=== PATIENT | female | born 1970 | race Caucasian/White ===

== ENCOUNTER 2023-12-07 21:37 | Observation (INO) | payer OTHER, SELFPAY ==
[2023-12-07 21:40] VITALS: BP 110/88; PULSE 106; TEMP 37.2; O2SAT 96; BMI 27.6
--- NOTE | 2023-12-07 23:17 | PC.NURSE ---
Vomited non-stop yesterday none today
--- NOTE | 2023-12-07 23:20 | ED_ITS ---
HPI - Abdominal Pain General Chief Complaint: Abdominal Pain Stated Complaint: ABDOMINAL PAIN Time Seen by Provider: 12/07/23 23:14 Source: patient Mode of arrival: walk-in Limitations: no limitations History of Present Illness HPI narrative: 53-year-old female presents for nausea vomiting and abdominal pain. She states 2 days ago she ate pizza and then yesterday she developed her symptoms. She has vomited several times and has pain across her lower abdomen. No fever or hematemesis. The pain comes and goes and is moderate. Related Data Allergies Allergy/AdvReac Type Severity Reaction Status Date / Time sulfamethoxazole Allergy Mild Hives Verified 12/07/23 21:46 [From Bactrim] trimethoprim [From Bactrim] Allergy Mild Hives Verified 12/07/23 21:46 Review of Systems ROS Narrative A ten point review of systems is negative except as noted above. Exam Narrative Exam Narrative: Nurses note and vital signs reviewed and patient is not hypoxic. General: The patient appears in no acute distress. Skin: Warm, dry, no pallor noted. There is no rash noted. Head: Normocephalic, atraumatic Eye: Normal conjunctiva, no drainage Ears, Nose, Mouth, and Throat: oral mucosa is moist. Nares patent. Cardiovascular: Regular Rate and Rhythm Respiratory: Patient is in no distress, no accessory muscle use, lungs are roberto ar to auscultation, no wheezing, rales or rhonchi Back: non-tender GI: Bowel sounds are hyperactive. She has diffuse tenderness across her lower abdomen Musculoskeletal: The patient has no evidence of calf tenderness, no pitting edema, symmetrical pulses noted bilaterally Neurological: A&O, normal speech Psychiatric: Cooperative Constitutional Vital Signs, click to edit/add: Last Vital Signs Temp 99 F 12/07/23 21:40 Pulse 106 H 12/07/23 21:40 Resp 18 12/07/23 21:40 BP 110/88 12/07/23 21:40 Pulse Ox 96 12/07/23 21:40 O2 Del Method Room Air 12/07/23 21:40 Course Vital Signs Vital signs: Vital Signs Temperature 99 F 12/07/23 21:40 Pulse Rate 106 H 12/07/23 21:40 Respiratory Rate 18 12/07/23 21:40 Blood Pressure 110/88 12/07/23 21:40 Pulse Oximetry 96 12/07/23 21:40 Oxygen Delivery Method Room Air 12/07/23 21:40 Temperature 99 F 12/07/23 21:40 Pulse Rate 106 H 12/07/23 21:40 Respiratory Rate 18 12/07/23 21:40 Blood Pressure 110/88 12/07/23 21:40 Pulse Oximetry 96 12/07/23 21:40 Oxygen Delivery Method Room Air 12/07/23 21:40 MDM - Abdominal Pain MDM Narrative Medical decision making narrative: Acute appendicitis is identified with perforation on the CAT scan per radiologist. The patient is being given IV antibiotic and general surgery is being consulted. They have requested that the patient be admitted to medicine and he will see her in the morning. There is no plan for surgery tonight. Findings are discussed with the patient and her . Differential Diagnosis Differential diagnosis: Likely abdominal pain, acute appendicitis, calculus of kidney, constipation, diverticulitis and gastroenteritis Lab Data Attestation: I reviewed the patient's lab results. Labs: Lab Results 12/07/23 12/08/23 Range/Units 23:10 01:00 WBC 18.3 H (4.0-11.0) 10^3/uL RBC 4.13 L (4.20-5.40) 10^6/uL Hgb 12.5 (12.0-16.0) g/dL Hct 36.8 (36.0-48.0) % MCV 89.1 (81.0-99.0) fL MCH 30.3 (26.7-34.0) pg MCHC 34.0 (29.9-35.2) g/dL RDW 13.1 (11.0-15.0) % Plt Count 326 (150-450) 10^3/uL MPV 9.5 (9.5-13.5) fL Neut % (Auto) 83.7 H (43.0-75.0) % Lymph % (Auto) 7.0 L (20.5-60.0) % Long % (Auto) 8.3 (1.7-12.0) % Eos % (Auto) 0.1 L (0.9-7.0) % Baso % (Auto) 0.3 (0.2-2.0) % Neut # (Auto) 15.3 H (1.4-6.5) 10^3/uL Lymph # (Auto) 1.3 (1.2-3.8) 10^3/uL Long # (Auto) 1.5 H (0.3-0.8) 10^3/uL Eos # (Auto) 0.0 (0.0-0.7) 10^3/uL Baso # (Auto) 0.1 (0.0-0.1) 10^3/uL Abs Immat Gran (auto) 0.11 H (0.00-0.03) 10^3/uL Imm/Tot Granulo (auto) 0.6 H (0.0-0.5) % Sodium 134 L (136-145) mmol/L Potassium 3.3 L (3.5-5.1) mmol/L Chloride 98 (98-107) mmol/L Carbon Dioxide 26.5 (21.0-32.0) mmol/L Anion Gap 12.8 BUN 9.0 (7.0-18.0) mg/dL Creatinine 0.71 (0.55-1.02) mg/dL Est GFR ( Amer) >60 (>=60) Est GFR (Non-Af Amer) >60 (>=60) BUN/Creatinine Ratio 12.7 Glucose 120 H (74-106) mg/dL Calcium 9.3 (8.5-10.1) mg/dL Total Bilirubin 1.0 (0.2-1.0) mg/dL Direct Bilirubin 0.2 (0.0-0.2) mg/dL AST 9 L (15-37) U/L ALT 28 (14-59) U/L Alkaline Phosphatase 96 (46-116) U/L Total Protein 7.7 (6.4-8.2) g/dL Albumin 3.3 L (3.4-5.0) g/dL Globulin 4.4 g/dL Albumin/Globulin Ratio 0.8 Amylase 25 (25-115) U/L Lipase 15.0 L (16.0-77.0) U/L Urine Color Lt. yellow (YELLOW) Urine Clarity Clear (CLEAR) Urine pH 6.5 (5.0-9.0) Ur Specific [place] <=1.005 A (1.005-1.025) Urine Protein Negative (NEG/TRACE) mg/dL Urine Glucose (UA) Negative (NEGATIVE) mg/dL Urine Ketones Negative (NEGATIVE) mg/dL Urine Occult Blood Moderate A (NEGATIVE) Urine Nitrite Positive A (NEGATIVE) Urine Bilirubin Negative (NEGATIVE) Urine Urobilinogen 0.2 (0.2-1.0) EU/dL Ur Leukocyte Esterase Moderate A (NEGATIVE) Urine RBC None seen (0-2) #/HPF Urine WBC 20-50 A (NONE SEEN) #/HPF Ur Squamous Epith Cells Few A (NONE/RARE) #/LPF Urine Crystals None seen (None Seen) #/HPF Amorphous Sediment Few Urine Bacteria Moderate A (NONE SEEN) #/HPF Urine Casts None seen (NONE SEEN) #/LPF Urine Mucus None seen (NONE SEEN) Ur Culture Indicated? Yes Imaging Data CT scan - abdomen: Radiologist's impression: ITS Impressions Abdomen/Pelvis CT 12/07/23 23:29 IMPRESSION: 1. Acute perforated appendicitis. 2. Hepatic steatosis. 3. Nonobstructive right renal calculi. 4. Liquid stool throughout the majority of the colon, in keeping with diarrhea. 5. Small amount of free fluid in the pelvis. 6. Status post hysterectomy. Impression #[address] White by Dr. Baldwin at 1:55 AM on 12/08/2023. Electronically authenticated by: Ale BALDWIN Date: 12/08/2023 01:56 Discharge Plan Discharge Chief Complaint: Abdominal Pain Clinical Impression: Acute appendicitis with perforation and localized peritonitis Patient Disposition: Admitted As Inpatient Time of Disposition Decision: 02:15 Condition: Fair
[2023-12-07 23:27] LABS: Basophils Absolute Auto 0.1 10^3/uL (0.0-0.1); Basophils Percent Auto 0.3 % (0.2-2.0); Eosinophils Percent Auto 0.1 % (0.9-7.0); Hematocrit 36.8 % (36.0-48.0); Hemoglobin 12.5 g/dL (12.0-16.0); Immature Granulocytes Abs Auto 0.11 10^3/uL (0.00-0.03); Immature Granulocytes Pct Auto 0.6 % (0.0-0.5); Lymphocytes Absolute Auto 1.3 10^3/uL (1.2-3.8); Mean Corpuscular Hemoglobin 30.3 pg (26.7-34.0); Mean Corpuscular Volume 89.1 fL (81.0-99.0); Mean Platelet Volume 9.5 fL (9.5-13.5); Monocytes Absolute Auto 1.5 10^3/uL (0.3-0.8); Monocytes Percent Auto 8.3 % (1.7-12.0); Neutrophils Absolute Auto 15.3 10^3/uL (1.4-6.5); Neutrophils Percent Auto 83.7 % (43.0-75.0); Platelet Count 326 10^3/uL (150-450); Red Blood Count 4.13 10^6/uL (4.20-5.40); Red Cell Distribution Width 13.1 % (11.0-15.0); White Blood Count 18.3 10^3/uL (4.0-11.0)
--- NOTE | 2023-12-07 23:29 | CT_ITS ---
The [address] [address] Patient Name: RHETT BARTHOLOMEW MRN: [id number] date: 1970 Sex: F Assigned Patient Location: ER Current Patient Location: ER Accession/Order Number: [id number] Exam Date: 12/07/2023 23:59 Report Date: 12/08/2023 01:56 At the request of: BRANDON MARTINEZ Procedure: CT abdomen pelvis w con EXAM: CT abdomen pelvis w con HISTORY: Low abdominal pain, WBC 18,000 COMPARISON: None. TECHNIQUE: Axial CT images through the abdomen and pelvis were obtained after the intravenous administration of contrast. Coronal and sagittal reformats were obtained. Dose reduction techniques were achieved by using automated exposure control and/or adjustment of mA and/or kV according to patient size and/or use of iterative reconstruction technique. FINDINGS: There is mild bibasilar atelectasis. Abdomen: The liver and spleen enhance homogeneously without focal lesion. There is no intra or extrahepatic biliary duct dilatation. The gallbladder is unremarkable. There is hepatic steatosis. There are a couple nonobstructive right renal calculi measuring up to 2 mm. Liquid stool is seen throughout the majority of the colon. Otherwise, the pancreas, adrenal glands, and bowel loops are unremarkable. There is no mesenteric or retroperitoneal lymphadenopathy. The appendix is dilated measuring up to 1.2 cm. There is a surrounding inflammation and a small amount of surrounding free air. There is a small amount of free fluid in the pelvis. Pelvis: The bladder and rectum are unremarkable. There is no iliac or inguinal lymphadenopathy. The patient is status post a hysterectomy. Bone windows show no aggressive osseous lesions. CT/CT abdomen pelvis w con IMPRESSION: 1. Acute perforated appendicitis. 2. Hepatic steatosis. 3. Nonobstructive right renal calculi. 4. Liquid stool throughout the majority of the colon, in keeping with diarrhea. 5. Small amount of free fluid in the pelvis. 6. Status post hysterectomy. Impression #[address] Martinez by Dr. Baldwin at 1:55 AM on 12/08/2023. Electronically authenticated by: Ale BALDWIN Date: 12/08/2023 01:56
[2023-12-07] MEDS: ONDANSETRON PF 4 MG/2 ML VIAL IV (23:37)
[2023-12-07] MEDS: 0.9 % SODIUM CHLORIDE 1,000 ML 1000 ML IV (23:37)
[2023-12-07 23:42] LABS: Alanine Aminotransferase 28 U/L (14-59); Albumin Globulin Ratio 0.8; Albumin Level 3.3 g/dL (3.4-5.0); Alkaline Phosphatase 96 U/L (46-116); Amylase 25 U/L (25-115); Anion Gap 12.8; Aspartate Amino Transferase 9 U/L (15-37); BUN Creatinine Ratio 12.7; Bilirubin Direct 0.2 mg/dL (0.0-0.2); Calcium 9.3 mg/dL (8.5-10.1); Carbon Dioxide 26.5 mmol/L (21.0-32.0); Chloride 98 mmol/L (98-107); Estimated GFR (African America >60 (>=60); Estimated GFR (Non-African Ame >60 (>=60); Globulin 4.4 g/dL; Glucose 120 mg/dL (74-106); Potassium 3.3 mmol/L (3.5-5.1); Sodium 134 mmol/L (136-145); Total Protein 7.7 g/dL (6.4-8.2)
[2023-12-07] MEDS: MORPHINE SULFATE 4 MG/ML VIAL IV (23:45)
[2023-12-08] VITALS (42 sets, daily range): BP systolic 84–123; BP diastolic 47–87; PULSE 71–97; TEMP 36.3–37.1; O2SAT 86–97; BMI 28.0
[2023-12-08 01:16] LABS: Bilirubin Urine NEGATIVE (NEGATIVE); Blood Urine MODERATE (NEGATIVE); Clarity Urine CLEAR (CLEAR); Color Urine LT. YELLOW (YELLOW); Glucose Urine UA NEGATIVE (NEGATIVE); Ketones Urine NEGATIVE (NEGATIVE); Leukocyte Esterase Urine MODERATE (NEGATIVE); Nitrite Urine POSITIVE (NEGATIVE); Protein Urine NEGATIVE (NEG/TRACE); Specific Gravity Urine <=1.005 (1.005-1.025); Urobilinogen Urine 0.2 EU/dL (0.2-1.0); pH Urine 6.5 (5.0-9.0)
[2023-12-08 01:23] LABS: WBC Urine 20-50 #/HPF (NONE SEEN)
[2023-12-08 01:24] LABS: Amorphous Sediment Urine FEW; Bacteria Urine MODERATE #/HPF (NONE SEEN); Cast Seen? NONE SEEN #/LPF (NONE SEEN); Crystals Seen? None Seen #/HPF (None Seen); Mucus Urine NONE SEEN (NONE SEEN); RBC Urine NONE SEEN #/HPF (0-2); Squamous Epithelial Cell Urine FEW #/LPF (NONE/RARE); Urine Culture Indicated YES
[2023-12-08] MEDS: PIPERACILLIN SODIUM/TAZOBACTAM 3.375 GM in 0.9 % SODIUM CHLORIDE 50 ML IV ×3 (02:39→17:02)
[2023-12-08] MEDS: KETOROLAC TROMETHAMINE 30 MG/ML VIAL IVP ×3 (04:46→22:30)
[2023-12-08] MEDS: 0.9 % SODIUM CHLORIDE 1,000 ML 125 ML IV (04:46)
[2023-12-08 05:45] LABS: Basophils Percent Auto 0.3 % (0.2-2.0); Eosinophils Percent Auto 0.1 % (0.9-7.0); Hematocrit 35.2 % (36.0-48.0); Hemoglobin 11.8 g/dL (12.0-16.0); Immature Granulocytes Abs Auto 0.05 10^3/uL (0.00-0.03); Immature Granulocytes Pct Auto 0.3 % (0.0-0.5); Lymphocytes Absolute Auto 1.4 10^3/uL (1.2-3.8); Lymphocytes Percent Auto 9.8 % (20.5-60.0); Mean Corpuscular HGB Conc 33.5 g/dL (29.9-35.2); Mean Corpuscular Hemoglobin 30.7 pg (26.7-34.0); Mean Corpuscular Volume 91.7 fL (81.0-99.0); Monocytes Absolute Auto 1.4 10^3/uL (0.3-0.8); Monocytes Percent Auto 9.6 % (1.7-12.0); Neutrophils Absolute Auto 11.5 10^3/uL (1.4-6.5); Neutrophils Percent Auto 79.9 % (43.0-75.0); Platelet Count 307 10^3/uL (150-450); Red Blood Count 3.84 10^6/uL (4.20-5.40); Red Cell Distribution Width 13.1 % (11.0-15.0); White Blood Count 14.3 10^3/uL (4.0-11.0)
[2023-12-08 06:04] LABS: Alanine Aminotransferase 23 U/L (14-59); Albumin Globulin Ratio 0.8; Albumin Level 2.9 g/dL (3.4-5.0); Alkaline Phosphatase 91 U/L (46-116); Anion Gap 11.6; Aspartate Amino Transferase 8 U/L (15-37); BUN Creatinine Ratio 11.4; Bilirubin Total 0.8 mg/dL (0.2-1.0); Calcium 8.7 mg/dL (8.5-10.1); Carbon Dioxide 27.7 mmol/L (21.0-32.0); Chloride 102 mmol/L (98-107); Estimated GFR (African America >60 (>=60); Estimated GFR (Non-African Ame >60 (>=60); Globulin 3.8 g/dL; Glucose 96 mg/dL (74-106); Potassium 3.3 mmol/L (3.5-5.1); Sodium 138 mmol/L (136-145); Total Protein 6.7 g/dL (6.4-8.2)
--- NOTE | 2023-12-08 08:14 | PM.GSCN ---
History of Present Illness Consult details Consult date: 12/08/23 Reason for consult: abdominal pain Narrative: 53 yo F w/ history of rheumatoid arthritis on nabumetone, psoriasis and gerd presents with abdominal pain that began Juanjose am. It progressively localized to her RLQ and affected her ability to do her job and difficulty with walking. She thought at first she was constipated but became very nauseated as well. CT revealed acute appendicitis with perforation, phlegmon and some fluid noted in the pelvis. She denies any previous abdominal surgeries. Discussion had with patient and her about surgical vs non surgical options including the risks and benefits of both. She would like to proceed with surgery and accepts the increased risks, such as bowel resection, need for more procedures, chance of only placing a drain and leaving appendix to be removed on an interval basis, given her appendix has signs of rupture. All questions answered. Review of Systems ROS Status of ROS 10 or more systems reviewed and unremarkable except as noted in history and below Meds Home Medications and Allergies Home Medications ?Medication ?Instructions ?Recorded ?Confirmed ?Type clobetasol 0.05 % topical ointment 1 applic topical DAILY PRN 12/08/23 12/08/23 History scoriasis fluoxetine 20 mg capsule 20 mg PO DAILY 12/08/23 12/08/23 History hydrochlorothiazide 12.5 mg tablet 12.5 mg PO DAILY 12/08/23 12/08/23 History nabumetone 750 mg tablet 750 mg PO BID 12/08/23 12/08/23 History pantoprazole 40 mg tablet,delayed 40 mg PO BID 12/08/23 12/08/23 History release tizanidine 4 mg tablet 4 mg PO DAILY PRN muscle spasticity 12/08/23 12/08/23 History Allergies Allergy/AdvReac Type Severity Reaction Status Date / Time sulfamethoxazole Allergy Mild Hives Verified 12/07/23 21:46 [From Bactrim] trimethoprim [From Bactrim] Allergy Mild Hives Verified 12/07/23 21:46 Exam Constitutional Vital Signs, click to edit/add: Last Vital Signs Temp 97.6 F 12/08/23 03:58 Pulse 84 12/08/23 03:58 Resp 18 12/08/23 03:58 BP 113/75 12/08/23 03:58 Pulse Ox 96 12/08/23 03:58 O2 Del Method Room Air 12/08/23 03:58 Common normals: oriented x3, alert and well nourished HENMN Common normals: normocephalic Head and scalp: atraumatic Eye Common normals: PERRL and EOMs intact bilaterally Respiratory Common normals: normal respiratory effort and no retractions Cardio Common normals: regular rate and regular rhythm GI Palpation: soft Other: + RLQ tenderness and + rebound, mild distention noted Extremity Common normals: normal to inspection and full ROM Neuro Common normals: oriented x3 and no focal motor deficits Psych Appearance: grossly normal and well kempt Results Labs Labs: Abnormal lab results 12/07/23 12/08/23 12/08/23 Range/Units 23:10 01:00 03:57 WBC 18.3 H 14.3 H (4.0-11.0) 10^3/uL RBC 4.13 L 3.84 L (4.20-5.40) 10^6/uL Hgb 11.8 L (12.0-16.0) g/dL Hct 35.2 L (36.0-48.0) % Neut % (Auto) 83.7 H 79.9 H (43.0-75.0) % Lymph % (Auto) 7.0 L 9.8 L (20.5-60.0) % Eos % (Auto) 0.1 L 0.1 L (0.9-7.0) % Neut # (Auto) 15.3 H 11.5 H (1.4-6.5) 10^3/uL [place] # (Auto) 1.5 H 1.4 H (0.3-0.8) 10^3/uL Abs Immat Gran (auto) 0.11 H 0.05 H (0.00-0.03) 10^3/uL Imm/Tot Granulo (auto) 0.6 H (0.0-0.5) % Sodium 134 L (136-145) mmol/L Potassium 3.3 L 3.3 L (3.5-5.1) mmol/L Glucose 120 H (74-106) mg/dL AST 9 L 8 L (15-37) U/L Albumin 3.3 L 2.9 L (3.4-5.0) g/dL Lipase 15.0 L (16.0-77.0) U/L Ur Specific [place] <=1.005 A (1.005-1.025) Urine Occult Blood Moderate A (NEGATIVE) Urine Nitrite Positive A (NEGATIVE) Ur Leukocyte Esterase Moderate A (NEGATIVE) Urine WBC 20-50 A (NONE SEEN) #/HPF Ur Squamous Epith Cells Few A (NONE/RARE) #/LPF Urine Bacteria Moderate A (NONE SEEN) #/HPF Diabetes panel 12/07/23 12/08/23 Range/Units 23:10 03:57 Sodium 134 L 138 (136-145) mmol/L Potassium 3.3 L 3.3 L (3.5-5.1) mmol/L Chloride 98 102 (98-107) mmol/L Carbon Dioxide 26.5 27.7 (21.0-32.0) mmol/L BUN 9.0 8.0 (7.0-18.0) mg/dL Creatinine 0.71 0.70 (0.55-1.02) mg/dL Glucose 120 H 96 (74-106) mg/dL Calcium 9.3 8.7 (8.5-10.1) mg/dL AST 9 L 8 L (15-37) U/L ALT 28 23 (14-59) U/L Alkaline Phosphatase 96 91 (46-116) U/L Total Protein 7.7 6.7 (6.4-8.2) g/dL Albumin 3.3 L 2.9 L (3.4-5.0) g/dL Calcium panel 12/07/23 12/08/23 Range/Units 23:10 03:57 Calcium 9.3 8.7 (8.5-10.1) mg/dL Albumin 3.3 L 2.9 L (3.4-5.0) g/dL Pituitary panel 12/07/23 12/08/23 Range/Units 23:10 03:57 Sodium 134 L 138 (136-145) mmol/L Potassium 3.3 L 3.3 L (3.5-5.1) mmol/L Chloride 98 102 (98-107) mmol/L Carbon Dioxide 26.5 27.7 (21.0-32.0) mmol/L BUN 9.0 8.0 (7.0-18.0) mg/dL Creatinine 0.71 0.70 (0.55-1.02) mg/dL Glucose 120 H 96 (74-106) mg/dL Calcium 9.3 8.7 (8.5-10.1) mg/dL Adrenal panel 12/07/23 12/08/23 Range/Units 23:10 03:57 Sodium 134 L 138 (136-145) mmol/L Potassium 3.3 L 3.3 L (3.5-5.1) mmol/L Chloride 98 102 (98-107) mmol/L Carbon Dioxide 26.5 27.7 (21.0-32.0) mmol/L BUN 9.0 8.0 (7.0-18.0) mg/dL Creatinine 0.71 0.70 (0.55-1.02) mg/dL Glucose 120 H 96 (74-106) mg/dL Calcium 9.3 8.7 (8.5-10.1) mg/dL Total Bilirubin 1.0 0.8 (0.2-1.0) mg/dL AST 9 L 8 L (15-37) U/L ALT 28 23 (14-59) U/L Alkaline Phosphatase 96 91 (46-116) U/L Total Protein 7.7 6.7 (6.4-8.2) g/dL Albumin 3.3 L 2.9 L (3.4-5.0) g/dL All other labs normal. Imaging Abdomen CT scan report/results: image reviewed Assessment and Plan Assessment and Plan (1) Acute appendicitis with perforation and localized peritonitis: Assessment and Plan: After shared decision making patient would like to proceed with surgery. Plan for laparoscopic appendectomy, possible drain placement and or open procedure. Patient understands the increased risks of surgery given the appendix as already ruptured. Consent obtained and RN witnessed. Cont IV Abx and IV fluids Post op recs to follow Appreciate medical team for continued management and care. UTI treatment course per their discretion (2) Benign essential hypertension: (3) GERD without esophagitis:
[2023-12-08] MEDS: ACETAMINOPHEN 325 MG TABLET 650 MG PO (09:24)
--- NOTE | 2023-12-08 10:43 | P.ON_ITS ---
Date of procedure: 12/08/23 Pre-op diagnosis: acute appendicitis with perforation and phlegmon Procedure: Procedure laparoscopic Appendectomy The patient was taken to Operating Room, identified as the correct patient and the procedure verified as Appendectomy. A Time Out was held and the above information confirmed. The patient was placed in the supine position and general anesthesia was induced, along with placement of EPC cuffs, and a Mix catheter. The abdomen was prepped and draped in a sterile fashion. One centimeter left of the umbilicus an incision was made and the peritoneal cavity was accessed using the optiview technique via a 5mm port. The pneumoperitoneum was then established to steady pressure of 15 mmHg. Upon entrance with camera, no bowel injury was noted.? An additional 5 mm cannula was then placed in the supra pubic region of the abdomen and a 12 mm port in the LLQ under direct vision. A careful evaluation of the entire abdomen was carried out. The patient was placed in Trendelenburg and left lateral decubitus position. The small intestines were retracted in the cephalad and left lateral direction away from the pelvis and right lower quadrant. The patient was found to have an enlarged and inflamed appendix that was extending into the pelvis with associated opaque fluid consist ent with wound class 4. There was known perforation via prior CT imaging. The appendix was carefully dissected. A window was made in the mesoappendix at the base of the appendix. A endo ligasure device was used to divide mesoappendix. The appendix was divided at its base using an endo-CARMEN stapler. Minimal to no appendiceal stump was left in place. There was no evidence of bleeding, leakage, or complication after division of the appendix. Suction was also performed of the abdominal opaque fluid.?The appendix was placed in an endocatch bag and removed via the 12mm port site. The 12mm port site was closed using 0 Vicryl at the level of the fascia using a suture passer technique. All trocars were removed under direct vision while evacuating the pneumoperitoneum. No bleeding was noted. The port skin sites were closed using 4-0 monocryl followed by skin glue. Instrument, sponge, and needle counts were correct at the conclusion of the case. Patient tolerated the procedure well without any complications.? Patient was extubated and was transferred to PACU in stable condition.? Anesthesia: GETA Surgeon: Joey Wesley Estimated blood loss (mL): 5 Pathology: other (appendix ) Condition: stable Disposition: PACU
[2023-12-08] MEDS: BUPIVACAINE HCL 0.5% PF 50 MG/10 ML VIAL 20 ML INJ (10:57)
[2023-12-08] MEDS: LACTATED RINGER'S SOLUTION 1,000 ML 50 ML IV ×2 (11:12→22:57)
--- NOTE | 2023-12-08 11:17 | PM.HP ---
HPI H&P: HPI History of Present Illness Chief complaint: ABDOMINAL PAIN RUPTERED APPENDICITIS Narrative: 53 y/o female to ER with abdominal pain. C/o pain for past 2 days. Pain across lower abdomen. Developed nausea and vomiting. Severe pain with movement and not able to control. To ER and low grade temp 99. WBC elevated at 18.3. UA with possible UTI. CT showed acute appendicitis with perforation and admitted. General surgery consulted and started on zosyn. Currently pain tolerable and no nausea. Opioid HPI Opioid Management Most Recent Opioid Data: Last Pain Scale 6 12/08/23 09:41 Last Pain Assessment 12/08/23 09:41 Last ED Pain Assessment 12/07/23 23:18 Last MAR Pain Assessment 12/08/23 09:24 Last ORT Total Score 0 12/08/23 03:58 Last ORT Risk Category Low Risk 12/08/23 03:58 Review of Systems ROS Constitutional Denies: fever, chills or fatigue Cardiovascular Denies: chest pain, palpitations or edema Respiratory Denies: shortness of breath, cough or wheezing Gastrointestinal Reports: abdominal pain, nausea and vomiting; Denies: diarrhea Genitourinary Denies: painful urination Meds Home Medications and Allergies Home Medications ?Medication ?Instructions ?Recorded ?Confirmed ?Type clobetasol 0.05 % topical ointment 1 applic topical DAILY PRN 12/08/23 12/08/23 History scoriasis fluoxetine 20 mg capsule 20 mg PO DAILY 12/08/23 12/08/23 History hydrochlorothiazide 12.5 mg tablet 12.5 mg PO DAILY 12/08/23 12/08/23 History nabumetone 750 mg tablet 750 mg PO BID 12/08/23 12/08/23 History pantoprazole 40 mg tablet,delayed 40 mg PO BID 12/08/23 12/08/23 History release tizanidine 4 mg tablet 4 mg PO DAILY PRN muscle spasticity 12/08/23 12/08/23 History Allergies Allergy/AdvReac Type Severity Reaction Status Date / Time sulfamethoxazole Allergy Mild Hives Verified 12/07/23 21:46 [From Bactrim] trimethoprim [From Bactrim] Allergy Mild Hives Verified 12/07/23 21:46 Exam Constitutional Vital Signs, click to edit/add: Last Vital Signs Temp 98.7 F 12/08/23 08:00 Pulse 83 12/08/23 10:30 Resp 27 H 12/08/23 10:30 BP 119/84 12/08/23 09:51 Pulse Ox 94 L 12/08/23 10:10 O2 Del Method Room Air 12/08/23 03:58 Documenting provider has reviewed patient's vital signs: yes Common normals: no apparent distress, oriented x3 and alert HENMT Common normals: normocephalic Eye Common normals: PERRL and EOMs intact bilaterally Respiratory Common normals: normal respiratory effort and clear to auscultation bilaterally Cardio Common normals: regular rate, regular rhythm, no gallops, no murmurs and no rub GI Auscultation: normoactive bowel sounds Palpation: soft and tender (TTP across lower abdomen and RLQ); no guarding Extremity Common normals: no pedal edema Results Labs Labs: Short CBC 12/07/23 12/08/23 Range/Units 23:10 03:57 WBC 18.3 H 14.3 H (4.0-11.0) 10^3/uL Hgb 12.5 11.8 L (12.0-16.0) g/dL Hct 36.8 35.2 L (36.0-48.0) % Plt Count 326 307 (150-450) 10^3/uL BMP 12/07/23 12/08/23 23:10 03:57 Sodium 134 L 138 Potassium 3.3 L 3.3 L Chloride 98 102 Carbon Dioxide 26.5 27.7 BUN 9.0 8.0 Creatinine 0.71 0.70 Glucose 120 H 96 Calcium 9.3 8.7 Liver Function 12/07/23 12/08/23 Range/Units 23:10 03:57 Total Bilirubin 1.0 0.8 (0.2-1.0) mg/dL Direct Bilirubin 0.2 (0.0-0.2) mg/dL AST 9 L 8 L (15-37) U/L ALT 28 23 (14-59) U/L Alkaline Phosphatase 96 91 (46-116) U/L Albumin 3.3 L 2.9 L (3.4-5.0) g/dL Urine 12/08/23 Range/Units 01:00 Urine Color Lt. yellow (YELLOW) Urine Clarity Clear (CLEAR) Urine pH 6.5 (5.0-9.0) Ur Specific [place] <=1.005 A (1.005-1.025) Urine Protein Negative (NEG/TRACE) mg/dL Urine Glucose (UA) Negative (NEGATIVE) mg/dL Assessment and Plan Assessment and Plan (1) Acute appendicitis with perforation and localized peritonitis: (2) UTI (urinary tract infection): (3) Benign essential hypertension: (4) GERD without esophagitis: Plan Presented with appendicitis and perforation. General surgery consulted and will take to OR later this am. Appears to have UTI and on zosyn. Will monitor BP. Resume home medication. Further disposition after OR. Urinary Catheter Management Urinary Catheter Management Straight: Cath placed during this visit: no
[2023-12-08] MEDS: HYDROMORPHONE HCL 0.5 MG/0.5 ML SYRINGE 0.25 MG IV ×2 (14:39→17:56)
[2023-12-08] MEDS: OMEPRAZOLE 20 MG CAPSULE.DR PO (20:03)
[2023-12-09] MEDS: PIPERACILLIN SODIUM/TAZOBACTAM 3.375 GM in 0.9 % SODIUM CHLORIDE 50 ML IV ×2 (01:12→10:00)
[2023-12-09 04:01] VITALS: BP 116/83; PULSE 85; TEMP 36.9; O2SAT 94
[2023-12-09] MEDS: KETOROLAC TROMETHAMINE 30 MG/ML VIAL IVP ×2 (04:50→11:43)
[2023-12-09 05:09] LABS: Basophils Percent Auto 0.2 % (0.2-2.0); Eosinophils Percent Auto 0.1 % (0.9-7.0); Hematocrit 32.1 % (36.0-48.0); Hemoglobin 10.3 g/dL (12.0-16.0); Immature Granulocytes Abs Auto 0.06 10^3/uL (0.00-0.03); Immature Granulocytes Pct Auto 0.5 % (0.0-0.5); Lymphocytes Absolute Auto 0.8 10^3/uL (1.2-3.8); Mean Corpuscular HGB Conc 32.1 g/dL (29.9-35.2); Mean Corpuscular Hemoglobin 29.8 pg (26.7-34.0); Mean Corpuscular Volume 92.8 fL (81.0-99.0); Mean Platelet Volume 10.1 fL (9.5-13.5); Monocytes Absolute Auto 0.7 10^3/uL (0.3-0.8); Monocytes Percent Auto 6.4 % (1.7-12.0); Neutrophils Absolute Auto 9.8 10^3/uL (1.4-6.5); Neutrophils Percent Auto 85.8 % (43.0-75.0); Platelet Count 285 10^3/uL (150-450); Red Blood Count 3.46 10^6/uL (4.20-5.40); Red Cell Distribution Width 12.9 % (11.0-15.0); White Blood Count 11.4 10^3/uL (4.0-11.0)
[2023-12-09 05:38] LABS: Alanine Aminotransferase 30 U/L (14-59); Albumin Globulin Ratio 0.6; Albumin Level 2.5 g/dL (3.4-5.0); Alkaline Phosphatase 83 U/L (46-116); Anion Gap 10.5; Aspartate Amino Transferase 19 U/L (15-37); BUN Creatinine Ratio 13.8; Bilirubin Total 0.4 mg/dL (0.2-1.0); Calcium 8.7 mg/dL (8.5-10.1); Carbon Dioxide 28.1 mmol/L (21.0-32.0); Chloride 105 mmol/L (98-107); Estimated GFR (African America >60 (>=60); Estimated GFR (Non-African Ame >60 (>=60); Globulin 3.9 g/dL; Glucose 129 mg/dL (74-106); Potassium 3.6 mmol/L (3.5-5.1); Sodium 140 mmol/L (136-145); Total Protein 6.4 g/dL (6.4-8.2)
[2023-12-09 10:02] VITALS: BP 117/77
[2023-12-09] MEDS: HYDROCHLOROTHIAZIDE 25 MG TABLET 12.5 MG PO (10:02)
[2023-12-09] MEDS: OMEPRAZOLE 20 MG CAPSULE.DR PO (10:07)
--- NOTE | 2023-12-09 10:20 | PM.GSPN ---
Progress Note: A&P Assessment and Plan (1) Acute appendicitis with perforation and localized peritonitis: Assessment and Plan: Ok for d/c f/u in 1-2 weeks in clinic Lifting restrictions for 21 days (no more then 15lbs). Ok to return to work when patient is feeling better, typically 3-5 days. Go slow with diet and ambulate daily (2) UTI (urinary tract infection): (3) Benign essential hypertension: (4) GERD without esophagitis: Subjective Subjective Interval history: doing well this am. Tolerating diet. +flatus. Pain controlled. Exam Constitutional Vital Signs, click to edit/add: Last Vital Signs Temp 98.4 F 12/09/23 04:01 Pulse 85 12/09/23 04:01 Resp 18 12/09/23 04:01 BP 117/77 12/09/23 10:02 Pulse Ox 94 L 12/09/23 04:01 O2 Del Method Room Air 12/09/23 04:01 O2 Flow Rate 2 12/08/23 14:55 Common normals: no apparent distress and oriented x3 HENMT Common normals: normocephalic Head and scalp: atraumatic Eye Common normals: PERRL and EOMs intact bilaterally Cardio Common normals: regular rate and regular rhythm GI Other: soft, incisions c/d/i, no rebound, appropriate tenderness to palpation Extremity Common normals: normal to inspection and full ROM Neuro Common normals: oriented x3 Psych Appearance: grossly normal and well kempt Urinary Catheter Management Urinary Catheter Management Straight: Cath placed during this visit: no
[2023-12-09 10:50] VITALS: PULSE 88; O2SAT 96
--- NOTE | 2023-12-09 11:26 | CM.NOTE ---
Rounds made with Dr. Parker. Plan for discharge today.
--- NOTE | 2023-12-09 11:31 | P.DS_ITS ---
DS: Providers Provider Date of admission: 12/08/23 03:45 Primary care physician: YOAV CONTEH Consults: 12/08/23 03:44 Consult to General Surgeon Routine Consulting Provider: Joey Olson Reason for consultation: Acute Appendicitis Has provider been notified: Yes DS: Diagnosis Discharge Diagnosis (1) Acute appendicitis with perforation and localized peritonitis: (2) UTI (urinary tract infection): (3) Benign essential hypertension: (4) GERD without esophagitis: DS: Summary Hospital Course Hospital Course: Reason for admission: See H&P for details. 53 y/o female to ER with abdominal pain. C/o pain for past 2 days. Pain across lower abdomen. Developed nausea and vomiting. Severe pain with movement and not able to control. To ER and low grade temp 99. WBC elevated at 18.3. UA with possible UTI. CT showed acute appendicitis with perforation and admitted. Hospital course: General surgery consulted and started on zosyn. Taken to OR for appendectomy and did well. WBC improved and afebrile. Pain tolerable with medication. Ambulating well and normal PO intake. Discharged home in stable condition. Discussed need for antibiotics with surgeon who stated not needed for appendicitis but will treat with augmentin for possible UTI. Follow up with surgeon in 1-2 weeks. Time Spent with Patient Time attestation: Total time spent providing and/or coordinating discharge services: Time spent: less than 30 minutes Exam Constitutional Vital Signs, click to edit/add: Last Vital Signs Temp 98.4 F 12/09/23 04:01 Pulse 88 12/09/23 10:50 Resp 18 12/09/23 08:00 BP 117/77 12/09/23 10:02 Pulse Ox 96 12/09/23 10:50 O2 Del Method Room Air 12/09/23 10:50 O2 Flow Rate 2 12/08/23 14:55 Documenting provider has reviewed patient's vital signs: yes Common normals: no apparent distress, oriented x3 and alert HENMT Common normals: normocephalic Eye Common normals: PERRL and EOMs intact bilaterally Respiratory Common normals: normal respiratory effort and clear to auscultation bilaterally Cardio Common normals: regular rate, regular rhythm, no gallops, no murmurs and no rub GI Auscultation: normoactive bowel sounds Palpation: tender (Appropriately tender); no guarding Extremity Common normals: no pedal edema DS: Data Data Completed and Pending Labs on day of discharge: Labs from last 24 hours 12/09/23 04:26 WBC 11.4 H RBC 3.46 L Hgb 10.3 L Hct 32.1 L MCV 92.8 MCH 29.8 MCHC 32.1 RDW 12.9 Plt Count 285 MPV 10.1 Neut % (Auto) 85.8 H Lymph % (Auto) 7.0 L [place] % (Auto) 6.4 Eos % (Auto) 0.1 L Baso % (Auto) 0.2 Neut # (Auto) 9.8 H Lymph # (Auto) 0.8 L [place] # (Auto) 0.7 Eos # (Auto) 0.0 Baso # (Auto) 0.0 Abs Immat Gran (auto) 0.06 H Imm/Tot Granulo (auto) 0.5 Sodium 140 Potassium 3.6 Chloride 105 Carbon Dioxide 28.1 Anion Gap 10.5 BUN 9.0 Creatinine 0.65 Est GFR ( Amer) >60 Est GFR (Non-Af Amer) >60 BUN/Creatinine Ratio 13.8 Glucose 129 H Calcium 8.7 Total Bilirubin 0.4 AST 19 ALT 30 Alkaline Phosphatase 83 Total Protein 6.4 Albumin 2.5 L Globulin 3.9 Albumin/Globulin Ratio 0.6 Preliminary micro results at discharge 12/08/23 01:00 Urine Culture - Preliminary Urine,Clean Catch Discharge Plan Discharge Disposition: Home, Self-Care Condition: Fair Discharge Medications: New oxycodone-acetaminophen [Percocet] 5-325 mg tablet 1 tab PO Q4H PRN (Reason: abd pain) 3 Days Qty: 10 0RF docusate sodium [Colace] 100 mg capsule 100 mg PO BID 10 Days Qty: 20 0RF ondansetron 4 mg tablet,disintegrating 4 mg PO DAILY PRN (Reason: nausea and vomiting) 4 Days Qty: 10 0RF amoxicillin-pot clavulanate 875-125 mg tablet 1 tab PO Q12H 7 Days Qty: 14 0RF Continued clobetasol 0.05 % ointment 1 applic TOPICAL DAILY PRN (Reason: scoriasis ) fluoxetine 20 mg capsule 20 mg PO DAILY hydrochlorothiazide 12.5 mg tablet 12.5 mg PO DAILY nabumetone 750 mg tablet 750 mg PO BID pantoprazole 40 mg tablet,delayed release (DR/EC) 40 mg PO BID tizanidine 4 mg tablet 4 mg PO DAILY PRN (Reason: muscle spasticity) Activity: increase activity as tolerated Activity Detail: no heavy lifting for 21 days, no soaking in pool or bath until 14 days after surgery, ok to shower 12/08 Diet: advance to your usual diet Diet Detail: advance diet slowly Print Language: Cypriot Forms: Portal Instructions
== END 2023-12-09 12:40 | disposition home or self-care (01) ==
LOC: ER 12-08 03:52 → ICU 12-08 10:02 → MS 12-09 06:23 → ICU 12-10 13:18 → MS 12-10 13:18
PROVIDERS: Nurse Practitioner Acute Care; Surgery; Admitting Provider Family Medicine; Emergency Provider Emergency Medicine; PCP Family Medicine; Visit Provider Family Medicine
PROC: (CPT 840; principal; 2023-12-08 10:30)
DX: K35.32 Acute appendicitis with perforation, localized peritonitis, and gangrene, without abscess (principal); N39.0 Urinary tract infection, site not specified; I10 Essential (primary) hypertension; K21.9 Gastro-esophageal reflux disease without esophagitis; M06.9 Rheumatoid arthritis, unspecified; L40.9 Psoriasis, unspecified; Z79.899 Other long term (current) drug therapy; B96.20 Unspecified Escherichia coli [E. coli] as the cause of diseases classified elsewhere
CPT/HCPCS: 44970; 36415; 74177; 80048; 80053; 80076; 81001; 82150; 83690; 85025; 87086; 87150; 87186; 88304; 94761; 96361; 96365; 96366; 96375; 96376; 99285; G0378; J1094; J1170; J2704; Q9967

== ENCOUNTER 2023-12-16 17:05 | Inpatient (IN) | payer OTHER, SELFPAY ==
[2023-12-16 17:21] VITALS: BP 153/100; PULSE 92; TEMP 36.7; O2SAT 97; BMI 27.6
--- OUTSIDE RECORDS SUMMARY | 2023-12-16 17:25 | XMS_ITS | CCD ---
Author Organization [facility] CliniSyal Care Team Providers Care Manager Strategy Name Role Phone MAUREEN PETERS Admitting Unavailable MAUREEN PETERS Attending Unavailable WERO, YOAV Admitting Unavailable GIRMARIAH, YOAV Attending Unavailable YOAV CONTEH Consulting Unavailable GIRMARIAH, YOAV Admitting Unavailable GIRMARIAH, YOAV Attending Unavailable WERO, YOAV Consulting Unavailable MAUREEN PETERS Admitting Unavailable MAUREEN PETERS Attending Unavailable MAUREEN PETERS Consulting Unavailable WERO, YOAV Consulting Unavailable REGIS STALLWORTH Consulting Unavailable YOAV CONTEH Admitting Unavailable WERO, YOAV Attending Unavailable YOAV CONTEH Primary Care Unavailable YOAV CONTEH Consulting Unavailable MAUREEN PETERS Admitting Unavailable MAUREEN PETERS Attending Unavailable DO Isis Rosado Attending Provider [phone] DO Yoav Conteh Primary Care Provider Yoav Conteh Unavailable Dee Nicole Unavailable ISIS ROSADO Referring Unavailable YOAV CONTEH Primary Care Unavailable YOAV CONTEH Admitting Unavailable YOAV CONTEH Attending Unavailable YOAV CONTEH Primary Care Unavailable ASHLEY, TOMMY Admitting Unavailable ASHLEY, TOMMY Attending Unavailable YOAV CONTEH Primary Care Unavailable YOAV CONTEH Primary Care Unavailable ASHLEY, TOMMY Admitting Unavailable TOMMY RAMIREZ Attending Unavailable YOAV CONTEH Primary Care Unavailable YOAV CONTEH Admitting Unavailable YOAV CONTEH Attending Unavailable YOAV CONTEH Primary Care Unavailable YOAV CONTEH Admitting Unavailable YOAV CONTEH Attending Unavailable DO Yoav Conteh Primary Care Provider DO Joey Olson Attending Provider [phone] Dee Nicole Attending Unavailable Dee Nicole Admitting Unavailable Yoav Conteh Primary Care Unavailable Joey Olson Admitting Unavailable Yoav Conteh Primary Care Unavailable Joey Olson Attending Unavailable Allergies Allergy Classification Reported Allergen(s) Allergy Type Date of Onset Reaction(s) Facility (2 sources) Sulfamethoxazole / Trimethoprim Drug Allergy 3 [facility] Repository (5 sources) Sulfamethoxazole; Translations: [sulfamethoxazole] Drug Allergy [address] [facility] (5 sources) Trimethoprim; Translations: [trimethoprim] Drug Allergy 2 [facility] (9 sources) Sulfamethoxazole / Trimethoprim Drug Allergy [facility] Other (1 source) Sulfamethoxazole / Trimethoprim; Translations: [Bactrim] Drug Allergy [facility] Repository Medications Current Medications Medication Drug Class(es) Dates Sig (Normalized) Sig (Original) acetaminophen 500 mg oral tablet (2 sources) Start: 11-24-19 End: 09-09-19 24 take 2 tablets by mouth every six hours Acetaminophen (Acetaminophen Extra Strength) 500 mg tablet Active 1000 MG PO Q6H November 23, 2021 1:06pm docusate sodium 100 mg oral capsule (2 sources) Start: 11-24-19 22 End: 09-09-19 24 take 1 capsule by mouth once daily at bedtime Docusate Sodium (Dulcolax Stool Softener (Dss)) 100 mg capsule Active 100 MG PO Daily at bedtime November 23, 2021 1:06pm FLUoxetine 20 mg oral capsule (13 sources) Serotonin Reuptake Inhibitor Start: 10-25-19 21 take 20 mg by mouth once daily at bedtime Fluoxetine Active 20 MG PO Daily at bedtime November 15, 2021 12:00am fluticasone propionate 0.05 mg/actuat metered dose nasal spray (1 source) Corticosteroid Start: 09-09-19 24 take 1 spray(s) nasal route once daily Fluticasone Propionate Active 2 SPRAY INTRANASAL Daily September 09, 2023 12:00am administer into each nostril hydroCHLOROthiazide 12.5 mg oral tablet (4 sources) Thiazide Diuretic Start: 11-16-19 22 take 12.5 mg by mouth once daily in the morning Hydrochlorothiazide Active 12.5 MG PO Every morning November 15, 2021 11:34am Hydrochlorothiazide-12. 5 mg 12.5 mg (9 sources) take 1 tablet by mouth once daily Hydrochlorothiazide-12 .5 mg 12.5 mg 1 tablet Orally Once a day for 90 days Active take 1 tablet by mouth once yaritza y Hydrochlorothiazide-12.5 mg 12.5 mg 1 tablet Orally Once a day Active ibuprofen 600 mg oral tablet (2 sources) Nonsteroidal Anti-inflammatory Drug Start: 11-23-2021 End: 09-09-2023 take 600 mg by mouth every six hours Ibuprofen Active 600 MG PO Q6H 60 November 23, 2021 1:05pm nabumetone 750 mg oral tablet (2 sources) Nonsteroidal Anti-inflammatory Drug Start: 09-09-2023 Nabumetone Active MG PO September 09, 2023 12:00am take 1 tablet by leon th every twelve hours Nabumetone 750 MG 1 tablet Orally Twice a day Active Omeprazole (3 sources) Proton Pump Inhibitor Omeprazole Not-Taking Omeprazole Activ e pantoprazole 40 mg delayed release oral tablet (5 sources) Proton Pump Inhibitor Start: 09-09-2023 Pantoprazole Active MG PO September 09, 2023 12:00am take 1 tablet by leon th every twenty-four hours Pantoprazole Sodium 40 MG 1 tablet Orall y qd for 90 days Active predniSONE 20 mg oral tablet (3 sources) Start: 09-09-2023 take 20 mg by mouth twice daily Prednisone Active 20 MG PO Twice daily 10 September 09, 2023 12:00am Start: 12-26-2021 take 1 tablet by leon th every twelve hours predniSONE 20 MG 1 tablet Orally 2 times a day for 5 day(s) Nov, Not-Taking tiZANidine 4 mg oral tablet (2 sources) Central alpha-2 Adrenergic Agonist Start: 09-09-2023 Tizanidine Active MG PO September 09, 2023 12:00am Start: 07-29-2023 take 1 tablet by leon th once daily at bedtime Zanaflex 4 MG 1 tablet Orally qd hs Jul, Active vitamin b12 1 mg oral tablet (5 sources) Vitamin B12 Start: 11-15-2021 take 1 tablet by mouth once Cyanocobalamin (Vitamin B-12) (Vitamin B-12) 1,000 mcg Tablet Active 1000 MCG PO every Saturday, Saturday, and Monday November 15, 2021 11:34am Start: 06-12-2021 Vitamin B12 10 00 MCG 1 tablet Orally Sat through May, Active Vitamin B12 1000 MCG (8 sources) Start: 06-12-2021 Vitamin B12 10 00 MCG 1 tablet Orally Sat through May, Active Start: 06-12-2021 Vitamin B12 10 00 MCG 1 tablet Orally three days a week May, Not-Taking Start: 06-12-2021 Vitamin B12 10 00 MCG 1 tablet Orally three days a week May, Active Completed/Discontinued Medications Medication Drug Class(es) Dates Sig (Normalized) Sig (Original) calcium carbonate 1500 mg oral tablet (2 sources) take 1 tablet by leon th every twenty-four hours Calcium 600 MG 1 tablet with meals Orally qd Not-Taking/PRN take 1 tablet by leon th every twenty-four hours Calcium 600 MG 1 tablet with meals Orally qd Active diclofenac sodium 75 mg delayed release oral tablet (4 sources) Nonsteroidal Anti-inflammatory Drug take 1 tablet by mouth twice daily at mealtime Diclofenac Sodium 75 MG 1 tablet Orally twice a day with food or milk for 90 days Not-Taking/PRN Famotidine (2 sources) Histamine-2 Receptor Antagonist Pepcid Not-Taking Pepcid Active ferrous sulfate 325 mg oral tablet (8 sources) Start: 11-15-2021 End: 11-23-2021 take 1 tablet by mouth once daily Ferrous Sulfate (Iron (Ferrous Sulfate)) 325 mg (65 mg iron) Tablet Discontinued 325 MG PO Daily November 15, 2021 11:34am November 23, 2021 1:05pm Start: 06-12-2021 take 1 tablet by leon th once daily Ferrous Sulfate 325 (65 Fe) MG 1 tablet Orally Once a day May, Not-Taking Start: 06-12-2021 take 1 tablet by leon th once daily Ferrous Sulfate 325 (65 Fe) MG 1 tablet Orally Once a day May, Active Start: 06-12-2021 take 1 tablet by leon th every twenty-four hours Ferrous Sulfate 325 (65 Fe) MG 1 tablet Orally Once a day for 30 day(s) May, Active medroxyPROGESTERone acetate 10 mg oral tablet (2 sources) Progestin take 1 tablet by mouth every twenty-four hours Provera 10 MG 1 tablet with food Orally Once a day Not-Taking triamcinolone acetonide 40 mg/ml injectable suspension (6 sources) Corticosteroid Start: 2021 Kenalog-40 Nov, 40 mg valACYclovir 1000 mg oral tablet (3 sources) Herpesvirus Nucleoside Analog DNA Polymerase Inhibitor, Herpes Simplex Virus Nucleoside Analog DNA Polymerase Inhibitor, Herpes Zoster Virus Nucleoside Analog DNA Polymerase Inhibitor Start: 2021 take 1 tablet by mouth every eight hours Valtrex 1 GM 1 tablet Orally three times a day for 7 days Dec, Not-Taking Problems Active Problems Problem Classification Problem Date Documented Da te Episodic/Chronic Anxiety disorders (20 sources) Mixed anxiety and depressive disorder; Translations: [Other specified anxiety disorders] Onset: 1 Resolved: 2 Chronic Calculus of urinary tract (10 sources) Calculus of kidney; Translations: [Personal history of urinary calculi] Onset: 9 Resolved: 2 Episodic Deficiency and other anemia (9 sources) Iron deficiency anemia; Translations: [Iron deficiency anemia, unspecified] Episodic Deficiency and other anemia (5 sources) Iron deficiency anemia, unspecified Onset: 1 Resolved: 2 Episodic Deficiency and other anemia (2 sources) Anemia, unspecified Onset: 1 Resolved: 1 Episodic Disorders of lipid metabolism (20 sources) Hyperlipidemia; Translations: [Hyperlipidemia, unspecified] Onset: 1 Resolved: 1 Chronic Esophageal disorders (9 sources) Gastroesophageal reflux disease; Translations: [Gastro-esophageal reflux disease without esophagitis] Chronic Nutritional deficiencies (6 sources) Deficiency of other specified B group vitamins Onset: 1 Resolved: 2 Episodic Osteoarthritis (9 sources) Degenerative joint disease involving multiple joints; Translations: [Primary generalized (osteo)arthritis] Chronic Other aftercare (11 sources) Other chcf (current) drug therapy; 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] Onset: 9 Resolved: 2 Episodic Other gastrointestinal disorders (9 sources) Dysphagia; Translations: [Dysphagia, unspecified] Episodic Other inflammatory condition of skin (9 sources) Psoriasis; Translations: [Psoriasis, unspecified] Chronic Other inflammatory condition of skin (4 sources) Psoriatic arthritis; Translations: [Arthropathic psoriasis, unspecified] Chronic Other inflammatory condition of skin (2 sources) Arthropathic psoriasis, unspecified Chronic Other inflammatory condition of skin (1 source) Psoriasis, unspecified Chronic Other non-traumatic joint disorders (1 source) Pain in unspecified wrist Episodic Other nutritional; endocrine; and metabolic disorders (9 sources) Hypocalcemia; Translations: [Hypocalcemia] Chronic Other nutritional; endocrine; and metabolic disorders (1 source) Hypocalcemia Onset: 1 Resolved: 1 Chronic Other nutritional; endocrine; and metabolic disorders (5 sources) Abnormal weight gain Onset: 1 Resolved: 2 Episodic Other nutritional; endocrine; and metabolic disorders (1 source) Abnormal weight loss Episodic Other screening for suspected conditions (not mental disorders or infectious disease) (8 sources) Abnormal results of thyroid function studies; Translations: [Encounter for screening mammogram for malignant neoplasm of breast] Onset: 9 Resolved: 1 Episodic Other upper respiratory disease (9 sources) Allergic rhinitis; Translations: [Allergic rhinitis, unspecified] Chronic Other upper respiratory infections (9 sources) Chronic maxillary sinusitis; Translations: [Chronic maxillary sinusitis] Chronic Spondylosis; intervertebral disc disorders; other back problems (1 source) Cervicalgia Episodic Unclassified (1 source) Pain in right foot; Translations: [Pain in right foot] Onset: 4 Past or Other Problems Problem Classification Problem Date Documented Da te Episodic/Chronic Allergic reactions (2 sources) Urticaria, unspecified Onset: 12-26-2021 Resolved: 01-15-2022 Episodic Fluid and electrolyte disorders (4 sources) Hypokalemia; Translations: [Hyperkalemia] Onset: 08-30-2018 Episodic Lymphadenitis (1 source) Generalized enlarged lymph nodes Onset: 06-12-2021 Resolved: 06-12-2021 Episodic Other gastrointestinal disorders (1 source) Dysphagia, unspecified Onset: 06-12-2021 Resolved: 06-12-2021 Episodic Other liver diseases (4 sources) Abnormal levels of other serum enzymes; Translations: [ABNORMAL LEVELS OTHER SERUM ENZYMES] Onset: 09-20-2018 Episodic Other upper respiratory disease (1 source) Pain in throat Onset: 06-12-2021 Resolved: 06-12-2021 Episodic Viral infection (1 source) Zoster without complications Onset: 01-15-2022 Resolved: 01-15-2022 Episodic Results Test Name Value Interpretation Reference Range Facility Basophils Auto (Bld) [#/Vol] on 12-09-2023 Basophils (Bld) [#/Vol] 0.0 10 3/uL 0.0-0.1 [facility] Basophils/100 WBC Auto (Bld) on 12-09-2023 Basophils/100 WBC (Bld) 0.2 % 0.2-2.0 [facility] Eosinophils/100 WBC Auto (Bl d)on 12-09-2023 Eosinophils/100 WBC (Bld) 0.1 % 0.9-7.0 [facility] Erythrocyte distribution wid th Auto (RBC) [Ratio]on 12-09-2023 Erythrocyte distribution width (RBC) [Ratio] 12.9 % 11.0-15.0 [facility] Estimated glomerular filtrat ion rate (GFR) non- Americanon 12-09-2023 GFR/1.73 sq M.predicted among non-blacks MDRD (S/P/Bld) [Vol rate/Area] mL/min/{1.73_m2} >=60 [facility] Globulin Calc (S) [Mass/Vol] on 12-09-2023 Globulin (S) [Mass/Vol] 3.9 g/dL [facility] Hematocrit Auto (Bld) [Volum e fraction]on 12-09-2023 Hematocrit (Bld) [Volume fraction] 32.1 % 36.0-48.0 [facility] Hemoglobin [Mass/volume] in Bloodon 12-09-2023 Hemoglobin (Bld) [Mass/Vol] 10.3 g/dL 12.0-16.0 [facility] Laboratory - Chemistry and C hemistry - challengeon 12-09-2023 Albumin [Mass/Vol] 2.5 g/dL 3.4-5.0 [facility] ALP [Catalytic activity/Vol] 83 U/L 46-116 [facility] ALT [Catalytic activity/Vol] 30 U/L 14-59 [facility] AST [Catalytic activity/Vol] 19 U/L 15-37 [facility] Bilirubin [Mass/Vol] 0.4 mg/dL 0.2-1.0 [facility] Calcium [Mass/Vol] 8.7 mg/dL 8.5-10.1 [facility] Chloride [Moles/Vol] 105 mmol/L 98-107 [facility] CO2 [Moles/Vol] 28.1 mmol/L 21.0-32.0 [facility] Creatinine [Mass/Vol] 0.65 mg/dL 0.55-1.02 [facility] GFR/1.73 sq M.predicted MDRD (S/P/Bld) [Vol rate/Area] mL/min/{1.73_m2} >=60 [facility] Glucose [Mass/Vol] 129 mg/dL 74-106 [facility] Potassium [Moles/Vol] 3.6 mmol/L 3.5-5.1 [facility] Protein [Mass/Vol] 6.4 g/dL 6.4-8.2 [facility] Sodium [Moles/Vol] 140 mmol/L 136-145 [facility] Urea nitrogen [Mass/Vol] 9.0 mg/dL 7.0-18.0 [facility] Urea nitrogen/Creatinine [Mass ratio] 13.8 mg/mg [facility] Laboratory - Hematology and Cell countson 12-09-2023 Immature granulocytes/100 WBC (Bld) 0.5 % 0.0-0.5 [facility] Leukocytes [#/volume] correc rory for nucleated erythrocytes in Blood by Automated counon 12-09-2023 WBC corrected for nucl RBC Auto (Bld) [#/Vol] 11.4 10 3/uL 4.0-11.0 [facility] Lymphocytes Auto (Bld) [#/Vo l]on 12-09-2023 Lymphocytes (Bld) [#/Vol] 0.8 10 3/uL 1.2-3.8 [facility] Lymphocytes/100 WBC Auto (Bl d)on 12-09-2023 Lymphocytes/100 WBC (Bld) 7.0 % 20.5-60.0 [facility] MCH Auto (RBC) [Entitic mass ]on 12-09-2023 MCH (RBC) [Entitic mass] 29.8 pg 26.7-34.0 [facility] MCHC Auto (RBC) [Mass/Vol]on 12-09-2023 MCHC (RBC) [Mass/Vol] 32.1 g/dL 29.9-35.2 [facility] MCV Auto (RBC) [Entitic vol] on 12-09-2023 MCV (RBC) [Entitic vol] 92.8 fL 81.0-99.0 [facility] Monocytes Auto (Bld) [#/Vol] on 12-09-2023 Monocytes (Bld) [#/Vol] 0.7 10 3/uL 0.3-0.8 [facility] Monocytes/100 WBC Auto (Bld) on 12-09-2023 Monocytes/100 WBC (Bld) 6.4 % 1.7-12.0 [facility] Neutrophils Auto (Bld) [#/Vo l]on 12-09-2023 Neutrophils (Bld) [#/Vol] 9.8 10 3/uL 1.4-6.5 [facility] Neutrophils/100 WBC Auto (Bl d)on 12-09-2023 Neutrophils/100 WBC (Bld) 85.8 % 43.0-75.0 [facility] No Panel Informationon 12-08 Eosinophils # (Auto) 0.0 10 3/uL 0.0-0.7 [facility] Immature Granulocyte # (Auto) 0.06 10 3/uL 0.00-0.03 [facility] Platelet mean volume Auto (B ld) [Entitic vol]on 12-09-2023 Platelet mean volume (Bld) [Entitic vol] 10.1 fL 9.5-13.5 [facility] Platelets Auto (Bld) [#/Vol] on 12-09-2023 Platelets (Bld) [#/Vol] 285 10 3/uL 150-450 [facility] RBC Auto (Bld) [#/Vol]on RBC (Bld) [#/Vol] 3.46 10 6/uL 4.20-5.40 [facility] Serum or plasma albumin/glob ulin mass ratioon 12-09-2023 Albumin/Globulin [Mass ratio] 0.6 {ratio} [facility] Serum or plasma anion gap de terminationon 12-09-2023 Anion gap [Moles/Vol] 10.5 [facility] Basophils Auto (Bld) [#/Vol] on 12-08-2023 Basophils (Bld) [#/Vol] 0.0 10 3/uL 0.0-0.1 [facility] Basophils/100 WBC Auto (Bld) on 12-08-2023 Basophils/100 WBC (Bld) 0.3 % 0.2-2.0 [facility] Eosinophils/100 WBC Auto (Bl d)on 12-08-2023 Eosinophils/100 WBC (Bld) 0.1 % 0.9-7.0 [facility] Erythrocyte distribution wid th Auto (RBC) [Ratio]on 12-08-2023 Erythrocyte distribution width (RBC) [Ratio] 13.1 % 11.0-15.0 [facility] Estimated glomerular filtrat ion rate (GFR) non- Americanon 12-08-2023 GFR/1.73 sq M.predicted among non-blacks MDRD (S/P/Bld) [Vol rate/Area] mL/min/{1.73_m2} >=60 [facility] Globulin Calc (S) [Mass/Vol] on 12-08-2023 Globulin (S) [Mass/Vol] 3.8 g/dL [facility] Hematocrit Auto (Bld) [Volum e fraction]on 12-08-2023 Hematocrit (Bld) [Volume fraction] 35.2 % 36.0-48.0 [facility] Hemoglobin [Mass/volume] in Bloodon 12-08-2023 Hemoglobin (Bld) [Mass/Vol] 11.8 g/dL 12.0-16.0 [facility] Ottoniel 12-08-2023 L Specimen: [id number] Received: 12/09/23 Status: LUZ Allen Num: [id number] Spec Type: Surgical Subm Dr: Joey Olson DO Tissues: A Appendix - Other than Incidental (APPENDIX) Procedures: HE/3, Gross/Micro L3 Age/ Patient Sex Location Account Attending Physician Rhett Bartholomew 53/F [facility] [id number] Joey Olson DO SPEC NUM: [id number] RECD: 12/09/23 STATUS: LUZ LVIESurjit NUM: [id number] KATYA: 12/08/[address]: Joey Olson DO ENTERED: 12/09/[address] [facility] [address]: Vin,Jazmin SPEC TYPE: Surgical DEPT: TOLU HUGGINS ORDERED: HE/3, Gross/Micro L3 ORDERED: HE/3, Gross/Micro L3 Pathological Diagnosis Appendix, appendectomy: -Severe acute suppurative, necrotizing, infected, and focally gangrenous appendicitis, with diffuse abscess formation, and focal perforation, and severe acute serositis, peritonitis, and patchy hemorrhagic adhesions are apparent Clinical Information Abdominal pain, ruptured appendicitis Gross Description Received in formalin, labeled with the patient's name, date of and appendix is a 5.6 cm in length by 0.9 cm in diameter vermiform appendix with attached mesoappendix and covered by dusky tang-brown serosa with adherent exudate material. The proximal margin contains a staple line which is removed and the adjacent tissue is inked blue. Cut sections reveal 2 areas of perforation 1 area coming to within 0.5 cm of the proximal margin and the second area coming to within 1.5 cm of the distal end. The lumen is lined by hemorrhagic dusky gomes mucosa and contains brown semisolid fecal material. The specimen is representatively submitted in A1?A2 (base and midportion to include areas of perforation)-A3 (entire distal tip). TW ---- Specimen: [id number] Received: 12/09/23 Status: LUZ Allen Num: [id number] Spec Type: Surgical Subm Dr: Joey Olson DO Tissues: A Appendix - Other than Incidental (APPENDIX) Procedures: HE/3, Gross/Micro L3 ---- Patient: Rhett Bartholomew [id number] (Continued) ---- Specimen: [id number] Received: 12/09/23 (Continued) Signed (signature on file) Areli Silveira MD 12/10/23 1909 ---- Specimen: [id number] Received: 12/09/23 Status: LUZ Allen Num: [id number] Spec Type: Surgical Subm Dr: Joey Olson DO Tissues: A Appendix - Other than Incidental (APPENDIX) Procedures: HE/3, Gross/Micro L3 ---- Patient: Rhett Bartholomew [id number] (Continued) ---- Specimen: [id number] Received: 12/09/23 (Continued) CPT Codes 63541 ---- ---- Specimen: [id number] Received: 12/09/23 Status: LUZ Allen Num: [id number] Spec Type: Surgical Subm Dr: Joey Olson DO Tissues: A Appendix - Other than Incidental (APPENDIX) Procedures: HE/3, Gross/Micro L3 ---- Patient: Rhett Bartholomew [id number] (Continued) ---- Signed (signature on file) Areli Silveira MD 12/10/231908 Normal [facility] Laboratory - Chemistry and C hemistry - challengeon 12-08-2023 Albumin [Mass/Vol] 2.9 g/dL 3.4-5.0 [facility] ALP [Catalytic activity/Vol] 91 U/L 46-116 [facility] ALT [Catalytic activity/Vol] 23 U/L 14-59 [facility] AST [Catalytic activity/Vol] 8 U/L 15-37 [facility] Bilirubin [Mass/Vol] 0.8 mg/dL 0.2-1.0 [facility] Calcium [Mass/Vol] 8.7 mg/dL 8.5-10.1 [facility] Chloride [Moles/Vol] 102 mmol/L 98-107 [facility] CO2 [Moles/Vol] 27.7 mmol/L 21.0-32.0 [facility] Creatinine [Mass/Vol] 0.70 mg/dL 0.55-1.02 [facility] GFR/1.73 sq M.predicted MDRD (S/P/Bld) [Vol rate/Area] mL/min/{1.73_m2} >=60 [facility] Glucose [Mass/Vol] 96 mg/dL 74-106 [facility] Potassium [Moles/Vol] 3.3 mmol/L 3.5-5.1 [facility] Protein [Mass/Vol] 6.7 g/dL 6.4-8.2 [facility] Sodium [Moles/Vol] 138 mmol/L 136-145 [facility] Urea nitrogen [Mass/Vol] 8.0 mg/dL 7.0-18.0 [facility] Urea nitrogen/Creatinine [Mass ratio] 11.4 mg/mg [facility] Bilirubin Ql (U) Negative NEGATIVE [facility] Glucose (U) [Mass/Vol] Negative NEGATIVE [facility] Ketones Ql (U) Negative NEGATIVE [facility] pH (U) 6.5 [pH] 5.0-9.0 [facility] Specific gravity (U) [Rel density] <=1.005 1.005-1.025 [facility] Urobilinogen Qn (U) 0.2 {Jamie'U}/dL 0.2-1.0 [facility] Laboratory - Hematology and Cell countson 12-08-2023 Immature granulocytes/100 WBC (Bld) 0.3 % 0.0-0.5 [facility] Laboratory - Specimen inform ationon 12-08-2023 Appearance (U) CLEAR CLEAR [facility] Color (U) LT. YELLOW YELLOW [facility] Laboratory - Urinalysison Amorphous sediment LM Ql (Urine sed) FEW [facility] Leukocyte esterase Test strip Ql (U) MODERATE NEGATIVE [facility] Mucus Ql (Urine sed) NONE SEEN NONE SEEN [facility] Nitrite Ql (U) Positive NEGATIVE [facility] Protein Ql (U) Negative NEG/TRACE [facility] Leukocytes [#/volume] correc rory for nucleated erythrocytes in Blood by Automated counon 12-08-2023 WBC corrected for nucl RBC Auto (Bld) [#/Vol] 14.3 10 3/uL 4.0-11.0 [facility] Lymphocytes Auto (Bld) [#/Vo l]on 12-08-2023 Lymphocytes (Bld) [#/Vol] 1.4 10 3/uL 1.2-3.8 [facility] Lymphocytes/100 WBC Auto (Bl d)on 12-08-2023 Lymphocytes/100 WBC (Bld) 9.8 % 20.5-60.0 [facility] MCH Auto (RBC) [Entitic mass ]on 12-08-2023 MCH (RBC) [Entitic mass] 30.7 pg 26.7-34.0 [facility] MCHC Auto (RBC) [Mass/Vol]on 12-08-2023 MCHC (RBC) [Mass/Vol] 33.5 g/dL 29.9-35.2 [facility] MCV Auto (RBC) [Entitic vol] on 12-08-2023 MCV (RBC) [Entitic vol] 91.7 fL 81.0-99.0 [facility] Monocytes Auto (Bld) [#/Vol] on 12-08-2023 Monocytes (Bld) [#/Vol] 1.4 10 3/uL 0.3-0.8 [facility] Monocytes/100 WBC Auto (Bld) on 12-08-2023 Monocytes/100 WBC (Bld) 9.6 % 1.7-12.0 [facility] Neutrophils Auto (Bld) [#/Vo l]on 12-08-2023 Neutrophils (Bld) [#/Vol] 11.5 10 3/uL 1.4-6.5 [facility] Neutrophils/100 WBC Auto (Bl d)on 12-08-2023 Neutrophils/100 WBC (Bld) 79.9 % 43.0-75.0 [facility] No Panel Informationon 12-07 Eosinophils # (Auto) 0.0 10 3/uL 0.0-0.7 [facility] Immature Granulocyte # (Auto) 0.05 10 3/uL 0.00-0.03 [facility] Urine Bacteria MODERATE #/HPF NONE SEEN [facility] Urine Culture Reflexed YES [facility] Urine Occult Blood MODERATE NEGATIVE [facility] Urine Other Casts NONE SEEN #/LPF NONE SEEN [facility] Urine Other Crystals None Seen #/HPF None Seen [facility] Urine RBC NONE SEEN #/HPF 0-2 [facility] Urine Squamous Epithelial Cells FEW #/LPF NONE/RARE [facility] Urine WBC 20-50 #/HPF NONE SEEN [facility] Platelet mean volume Auto (B ld) [Entitic vol]on 12-08-2023 Platelet mean volume (Bld) [Entitic vol] 10.0 fL 9.5-13.5 [facility] Platelets Auto (Bld) [#/Vol] on 12-08-2023 Platelets (Bld) [#/Vol] 307 10 3/uL 150-450 [facility] RBC Auto (Bld) [#/Vol]on RBC (Bld) [#/Vol] 3.84 10 6/uL 4.20-5.40 [facility] Serum or plasma albumin/glob ulin mass ratioon 12-08-2023 Albumin/Globulin [Mass ratio] 0.8 {ratio} [facility] Serum or plasma anion gap de terminationon 12-08-2023 Anion gap [Moles/Vol] 11.6 [facility] Basophils Auto (Bld) [#/Vol] on 12-07-2023 Basophils (Bld) [#/Vol] 0.1 10 3/uL 0.0-0.1 [facility] Basophils/100 WBC Auto (Bld) on 12-07-2023 Basophils/100 WBC (Bld) 0.3 % 0.2-2.0 [facility] Eosinophils/100 WBC Auto (Bl d)on 12-07-2023 Eosinophils/100 WBC (Bld) 0.1 % 0.9-7.0 [facility] Erythrocyte distribution wid th Auto (RBC) [Ratio]on 12-07-2023 Erythrocyte distribution width (RBC) [Ratio] 13.1 % 11.0-15.0 [facility] Estimated glomerular filtrat ion rate (GFR) non- Americanon 12-07-2023 GFR/1.73 sq M.predicted among non-blacks MDRD (S/P/Bld) [Vol rate/Area] mL/min/{1.73_m2} >=60 [facility] Globulin Calc (S) [Mass/Vol] on 12-07-2023 Globulin (S) [Mass/Vol] 4.4 g/dL [facility] Hematocrit Auto (Bld) [Volum e fraction]on 12-07-2023 Hematocrit (Bld) [Volume fraction] 36.8 % 36.0-48.0 [facility] Hemoglobin [Mass/volume] in Bloodon 12-07-2023 Hemoglobin (Bld) [Mass/Vol] 12.5 g/dL 12.0-16.0 [facility] Laboratory - Chemistry and C hemistry - challengeon 12-07-2023 Albumin [Mass/Vol] 3.3 g/dL 3.4-5.0 [facility] ALP [Catalytic activity/Vol] 96 U/L 46-116 [facility] ALT [Catalytic activity/Vol] 28 U/L 14-59 [facility] Amylase [Catalytic activity/Vol] 25 U/L 25-115 [facility] AST [Catalytic activity/Vol] 9 U/L 15-37 [facility] Bilirubin [Mass/Vol] 1.0 mg/dL 0.2-1.0 [facility] Bilirubin.direct [Mass/Vol] 0.2 mg/dL 0.0-0.2 [facility] Calcium [Mass/Vol] 9.3 mg/dL 8.5-10.1 [facility] Chloride [Moles/Vol] 98 mmol/L 98-107 [facility] CO2 [Moles/Vol] 26.5 mmol/L 21.0-32.0 [facility] Creatinine [Mass/Vol] 0.71 mg/dL 0.55-1.02 [facility] GFR/1.73 sq M.predicted MDRD (S/P/Bld) [Vol rate/Area] mL/min/{1.73_m2} >=60 [facility] Glucose [Mass/Vol] 120 mg/dL 74-106 [facility] Lipase [Catalytic activity/Vol] 15.0 U/L 16.0-77.0 [facility] Potassium [Moles/Vol] 3.3 mmol/L 3.5-5.1 [facility] Protein [Mass/Vol] 7.7 g/dL 6.4-8.2 [facility] Sodium [Moles/Vol] 134 mmol/L 136-145 [facility] Urea nitrogen [Mass/Vol] 9.0 mg/dL 7.0-18.0 [facility] Urea nitrogen/Creatinine [Mass ratio] 12.7 mg/mg [facility] Laboratory - Hematology and Cell countson 12-07-2023 Immature granulocytes/100 WBC (Bld) 0.6 % 0.0-0.5 [facility] Leukocytes [#/volume] correc rory for nucleated erythrocytes in Blood by Automated counon 12-07-2023 WBC corrected for nucl RBC Auto (Bld) [#/Vol] 18.3 10 3/uL 4.0-11.0 [facility] Lymphocytes Auto (Bld) [#/Vo l]on 12-07-2023 Lymphocytes (Bld) [#/Vol] 1.3 10 3/uL 1.2-3.8 [facility] Lymphocytes/100 WBC Auto (Bl d)on 12-07-2023 Lymphocytes/100 WBC (Bld) 7.0 % 20.5-60.0 [facility] MCH Auto (RBC) [Entitic mass ]on 12-07-2023 MCH (RBC) [Entitic mass] 30.3 pg 26.7-34.0 [facility] MCHC Auto (RBC) [Mass/Vol]on 12-07-2023 MCHC (RBC) [Mass/Vol] 34.0 g/dL 29.9-35.2 [facility] MCV Auto (RBC) [Entitic vol] on 12-07-2023 MCV (RBC) [Entitic vol] 89.1 fL 81.0-99.0 [facility] Monocytes Auto (Bld) [#/Vol] on 12-07-2023 Monocytes (Bld) [#/Vol] 1.5 10 3/uL 0.3-0.8 [facility] Monocytes/100 WBC Auto (Bld) on 12-07-2023 Monocytes/100 WBC (Bld) 8.3 % 1.7-12.0 [facility] Neutrophils Auto (Bld) [#/Vo l]on 12-07-2023 Neutrophils (Bld) [#/Vol] 15.3 10 3/uL 1.4-6.5 [facility] Neutrophils/100 WBC Auto (Bl d)on 12-07-2023 Neutrophils/100 WBC (Bld) 83.7 % 43.0-75.0 [facility] No Panel Informationon 12-06 Eosinophils # (Auto) 0.0 10 3/uL 0.0-0.7 [facility] Immature Granulocyte # (Auto) 0.11 10 3/uL 0.00-0.03 [facility] Platelet mean volume Auto (B ld) [Entitic vol]on 12-07-2023 Platelet mean volume (Bld) [Entitic vol] 9.5 fL 9.5-13.5 [facility] Platelets Auto (Bld) [#/Vol] on 12-07-2023 Platelets (Bld) [#/Vol] 326 10 3/uL 150-450 [facility] RBC Auto (Bld) [#/Vol]on RBC (Bld) [#/Vol] 4.13 10 6/uL 4.20-5.40 [facility] Serum or plasma albumin/glob ulin mass ratioon 12-07-2023 Albumin/Globulin [Mass ratio] 0.8 {ratio} [facility] Serum or plasma anion gap de terminationon 12-07-2023 Anion gap [Moles/Vol] 12.8 mmol/L [facility] Coding Summaryon 10-24-2023 [facility] EktmtoewNYx1lNq+PGhlYW Q+MB0BMJSjL60uyDNpyY7o Y9JXCMmPLbgeEZEXAWrWPk GadiOpYQ3vxWGfVKMa IC8+KI0vCYRyKagixNGmw5 C8sJH9I60hjg6hEKrafGH7 RNJdYbDvszcra2vfpCq1QN cuNmluOyBt DITgyB59KQC4eI34Le23lJ SnsKTew0vvnSq3IkVmYOOf THH8nUsoMHzqm4MsMGLqA4 7mdBAkc6D1 RVNqvUjkbQReKiUuhGG8xE 2cYDdsrsjan9oyuozaSye4 vc92qVUsy2O8eRK0R5Hxfy O7PMWszSHe XyajcKZRtD1ocoipb3afkv mdKtZlQWOiPEm3KIw1LIKm wVshJgFiTW37MER7HJLisj QoY9NkJJBb kVlvTkT8v8D5Rz2SV8MKXh tsA1CXDFICBFinaNG+PC90 pz97Z7XoCrqeGra6MJCtRG Y6xBA6wP6k JBEbCBwhz4R1sIK4L9Dxzr Mjet7po3suVFMeSWngD80c vNWjp0A7THMcnQW8ZNUujV vpYhAhiI48 Oyc+PFOpbMdqs0ZvQphbe7 gzc3aekEl8HzmiBMGkjbOl dBlpZHH6d4IyKw5pIZGbyL V5iMX8zH5c XwQuTlK5TFaoA411HjImkB XxFqyhU22aR9ChwPR+PHRy Dja6EBRvvVhpLX1eK0EnOA RpbmctbGVm gPnqRG2pYZVjrkvrTFQhyX 9kWWWcF5s8CrPfPiX7EZdj Q0WlMSSsndszTt73uH0cId CfQdL3CVcx G3LawcL6HPOliXRxYXltGX K2P05pn3V2UNFfVJGlTFL8 fXN0cJ5fgYdznntfuJXthN sgdmVydGlj MJlqCSexX123UXLflDrnUo NvZGluZyBEYXRlOiAgMDQv MjUvMjAyNDwvdGQ+PHRkIH X4uWbgLIQm iDNqKGscAe8wxWuzaEzeLT 3jVERtmtgpLKEvjS6eYJRw mRYzgXzwCA6gLGEzdzssg9 35CmMgNRC9 EFTcxZMpT3CrtZ0lTgWaAW ZuRUFxU6WnpFFoWNmjK485 BXgpRvS6OMLttwSpY9QqWU FsaWduOiB0 w6O5Ne4Tl9PwhckpY7TdbR CpFtWlJradNAk3Q7ZjSron dHI+TF63IRRvBI08SCv6CM W8sEzzBLym WSHbB4UoqM9hYqGoSYUiFX RkOyc+PHRhYmxlIHdpZHRo RSguTSQkPgCwlAbmSJ4lDx 9yZGVyLWNv uPsgdKXqZbTwa3emVRTsHW ksDA9bwYuwO0WbiRB7KVNw y6n9Wz48F83kF0IezBF+PG SdjVT2wTT9 tK5iXzKnNyS9UHcnJ379Ez PzyZEdWsnyh7dko3kjgRe8 AtN6XPNftrDazVzfIIT8c7 NrVy58V05c IHdpZHRoPSIxNSUiIHZhbG riem8jjP2aUl8+PGNvbCB3 rCE9jG3qUtUpGtX4LYpdQ5 49InRvcCIv Lgyte2euz1nhiHx4BcYjXN ZzvbQzrQkvCZW2e3NfCv24 V2RefTupc2UbGyi9at98wV Cjp6Y9kFL6 W3IsCHVfmtyslDYjkOozNX 8qKXJjelpnNTCdeB3vPULm X8s8LoWeUyY4ABclD3Qltq Q2DBQitXKs SFNbgABAnL8jdxcgg8gkwi ojGuDnCVCsMUa1RKi5ZZDe zHvaVzHwSVL1NyT4HGK1yD HngI9dwTez ggtsmB4cYcs+RAE0rJBkxO MTPD9wXpkguAT+PHRkIHN0 zYgcRUyjQZPlzI5yALYlR0 b5KoCqRpG8 KVuwJ9BtvrK4BVNvbYWpRD JeoQAIsZ8wwzovz4lsgdag TsEtDNCvWEq0YZk5WKJowS duOiBsZWZ0 ZlL2IVD5hEEgkS0lzHqysz flqU3hTck+QmlydGggRGF0 HGa7V2OjFhw2JMXagRqdXH 0ncGFkZGlu Pn1usAatzEfrMT5zMAAvpo ucd114WmAri1vwHCBpiYGm SUvhKOQ6M93vy0W3KOVmES SzVCK2tQE1 rJ3moDyyjoqweIRngVnwul AamHvhMKqsEQpmP451BKSk fJxrFsReSGe4J0ClXwj0KR HvbKmqBE9f gORlUHtlNg5fbSyycXlgHR 0sUKTtpbdek489ZzIwy7bu UVRcaAZtSEwvFOV7W25vj5 L1PIMrWWKt NBC3pDI8eL7siGuwxbzoaC VmdDsgdmVydGljYWwtYWxp E109DCPdiSzhWnYoyAt7J8 BfCad1KDQz xAphHL2wmDUcBKnoRc9caR svaAorHT6uCBFycabgz299 ZkTbb2vgVXXzzXTcINigFC F6N07tr6Z0 UPRyWQMbIHG3wPT4lT9adK lnbjogbGVmdDsgdmVydGlj QEvdJOtgN577RMVjaKfbEj BhdGllbnQg TXcoGNz5W8IlKcpdwEY+PC 63MHJvXP61aRRpkPVoz4fm dMn7KmSlTRCvETL5fOoeSF zra8JhGYOj B94ukTUnb7S9HEGgnQzrzX NoLbHerUP1dS7sXKbjjrlw h3kfmarcYvltc6iukq56zZ 17W18tJQip ZHRoPSIzMCUiIHZhbGlnbj 6onZ2lAu7+WEUbjRU5oJS7 iC5mSPYfPvX6GYicN244Jx RvcCIvPjxj s1zws2ljwRq6HbM4DMOces SrvJzzTGD5a4CbZi03R19s IHdpZHRoPSIyMCUiIHZhbG qvgc7jtS4v Ii8+JJVlwII9jVZ0hW4bIt QnLmU6IQzzN995QkGxmDHl PjrpW82eZ6IdyTD+PHRyPj y3VNVfiShl KC3lxROmGSypEb5zGJU9Hr ZsQaSmDKomU4VeJCMlrmqz wiorkPJ1MKLwCDEjbU18Hs 9udDogMTBw kBMJcB1snuklv5rjrtfrCn VeGSKmGCk7QRy0TJGbrPhz BeHbMZL5JpI6JCA9pENnsR 1hbGlnbjog tB9wI6IiTHBcnqstFg86sP 5vRnToFnA4HApiDsn+SEVN TUVSLCBDUllTVEFMIEtBWT wvdGQ+PHRk NPS4aHbxEJtlTUFxzK0fCV RwO6u9EnErHcP7XYkxB3Bm CJTiicxiYg07pW2gOuEfXn V0YNqdX0Tg soX7XGDprOQzUItrMNI3Q1 5gf8K4DFJvUOKqUBQ8uSD5 hX1sqBvgenfelPCpsKznqg VydGljYWwt LNjwD776SJEquTgiCqHePd B0ThH0NxA4Y5NqMue6RYWf pAekOX6hqABwJPwvYn6ggM ycxJopQU3u YNMcnroyKPJkkL8wABPiaZ ZllGvtCV4yBXDdznlcf161 ZxMmGRU7AKGsaFOwF2YlaV 9yOiAjMDAw ONNqJ0BanJKtJDqnK322FG haEdF1FGUtftTcZ2RaFAPa eBzmZiW7u9L1Yt95NRPGDW FyczwvdGQ+ GGIdBCJ6pOrxYAboYEKdmC 9fKNFhV9q5HkZdVoQ9RHga X9SxECVxpzztVz43hW6dIt HyAaM2UOop K6BenpN8WATzlYVvVZekIJ J3G67jf2H3NPZtBWKsUFY3 iUM8qX9lsKuxxkoivWNwhB sgdmVydGlj AGymMCyfI265KRMxhTvfEe ZFTUFMRTwvdGQ+PHRkIHN0 fFoxSOiiXRGstX8pKEQrN6 u2YeKcYrA8 NFrgD9LbOMDvhrzgWs31yH 1jVdRwEwI4CWtpP2KjgmJ2 BHVwlGTzKEuqDCX1C53fu2 B0UWEcZEJo FBE2pGZ6cD3awWjiopjqwV VmdDsgdmVydGljYWwtYWxp N993CWFpfXdsRbItR2Zqmx luZyBPdXRw UHRcHY99UE28UJ94U1OhQg wvdGFibGU+PHRhYmxlIHdp ZHRoPScxMDAlJyBzdHlsZT 4bGk4fQZLk GFXifGvhlYNlIxHlv5xjLK XhSVmdAU5lePhtT3YspPO1 YFIvk0r4Lp02W42wJ6OxrU A+PGNvbCB3 tNZ1cR1yFtElIfZ7LOitP8 72MhDozWPcZcdlm3ysd8od dMx8TwZzSKRrdpIgzNkrNC E5f0FnXg83 M66wADwlMLTqMDRoEAGuVK FiwOkhcj4czG5bRd8+PGNv gJO6oET6hE2pMoKiHpJ0BE kvN581KsSs lSOyQhdsA71pI7TycXN+PH CpOxp0WOLfuXwaPS4bqDTy KGtxIu4iKKY0CzEwVwVbNT jgW7MwAVNh qqdeqifhsNB2KWOeDJJemA 80My4tzSlnAt8lLBOkDGN9 AZTweWQoJ4YfhO7eDsUoKV EuPBMeJ4Pq pOWnNQctH668GRmaPeD4OY FrxmHbD8FnOZYkhNzdRoT4 k0L6Oe1LcMqhaZKjDK1aCx UnLGe9M6Qw Mqi7DIMgsRnuAL0leKNxJY awLk5ulYenoNihGE6fREDb hmggm373FqRnd8jfCJZtjG QgVGltZXM7 I44fi4E2NPOfOUDmGNR3mX F5iY2cqYsdwwphdNIlbElg buEyzOnoNOpyHTppF579LY RvcDsnPkZJ Euj6C6XhEru2VBKmoFkpEZ 9tuGJqKBudZc8yuTkwkCes EA1aTMUeqmxsr005OxYtq1 xkIDEwcHQg DEpjYIK7L10qw8B9JHKcDC IbIGS7jWW4pV3rqChuhedh bGVmdDsgdmVydGljYWwtYW vwO239SVEx nZzmIe7GJmp9A8NuTil4FY FtsNnxWD9vsKPyOUtsQt3e uEkrqWrbTM4lQDGhtsamd9 75BeQti5wg PDIwcTWdBAocZGL9P28ww9 T5LYBaFMVjCOT0mZI5hP2k bGlnbjogbGVmdDsgdmVydG ljYWwtYWxp J204SONmiOlaYhAyxROzFz wvdGQ+QE28hu48F7KeDwgc Wqi6PSZoUSX3vNK1hE1aPR PvLJuwt6B3 bGU (more content not included)... Normal [facility] .Auto Diff 110-22-2023 Auto Morrison % 8 % Normal 07-12 [facility] Comment on above: Performed By: #### 1 [id number], [id number], [id number], [id number] ####[facility] (DEFAULT)[address] [place] [address] 60166 Baso Abs# 0.1 x10 Normal 0.0-0.2 [facility] Comment on above: Performed By: #### 1 [id number], [id number], [id number], [id number] ####[facility] (DEFAULT)[address] [place] [address] 32976 Basophils/100 WBC (Bld) 1.0 % Normal 0.2-2.0 [facility] Comment on above: Performed By: #### 1 [id number], [id number], [id number], [id number] ####[facility] (DEFAULT)[address] [place] [address] 15868 Eos Abs# 0.2 x10 Normal 0.0-0.4 [facility] Comment on above: Performed By: #### 1 [id number], [id number], [id number], [id number] ####[facility] (DEFAULT)[address] [place] [address] 28549 Eosinophils/100 WBC (Bld) 3.3 % Normal 0.9-4.0 [facility] Comment on above: Performed By: #### 1 [id number], [id number], [id number], [id number] ####[facility] (DEFAULT)[address] [place] [address] 67548 Lymph Abs# 1.6 x10 Normal 1.3-2.9 [facility] Comment on above: Performed By: #### 1 [id number], [id number], [id number], [id number] ####[facility] (DEFAULT)[address] [place] [address] 88592 Lymphocytes/100 WBC (Bld) 25 % Normal 14-48 [facility] Comment on above: Performed By: #### 1 [id number], [id number], [id number], [id number] ####[facility] (DEFAULT)[address] [place] [address] 93853 Morrison Abs# 0.5 x10 Normal 0.0-0.8 [facility] Comment on above: Performed By: #### 1 [id number], [id number], [id number], [id number] ####[facility] (DEFAULT)[address] [place] [address] 22561 Neut Abs# 4.0 x10 Normal 1.5-9.2 [facility] Comment on above: Performed By: #### 1 [id number], [id number], 8873430, [id number] ####[facility] (DEFAULT)[address] [place] [address] 44719 Neutrophils/100 WBC (Bld) 63 % Normal 44-88 [facility] Comment on above: Performed By: #### 1 [id number], [id number], 4080973, 4559399 ####[facility] (DEFAULT)[address] [place] [address] CBC w/ Auto Diffon Erythrocyte distribution width (RBC) [Ratio] 13.6 % Normal 11.5-15.0 [facility] Comment on above: Performed By: #### 1 [id number], [id number], 9556482, [id number] ####[facility] (DEFAULT)[address] [place] [address] Hematocrit (Bld) [Volume fraction] 39.6 % Normal 33.7-40.4 [facility] Comment on above: Performed By: #### 1 [id number], [id number], [id number], 4983429 ####[facility] (DEFAULT)[address] [place] [address] Hemoglobin (Bld) [Mass/Vol] 13.3 g/dL Normal 11.3-15.9 [facility] Comment on above: Performed By: #### 1 [id number], [id number], 0304720, [id number] ####[facility] (DEFAULT)[address] [place] [address] Man Diff? Auto Invalid Interpretation Code [facility] Comment on above: Performed By: #### 1 [id number], [id number], [id number], [id number] ####[facility] (DEFAULT)[address] [place] [address] MCH (RBC) [Entitic mass] 30 pg Normal 24-34 [facility] Comment on above: Performed By: #### 1 [id number], [id number], 8921925, [id number] ####[facility] (DEFAULT)[address] [place] [address] MCHC (RBC) [Mass/Vol] 34 g/dL Normal 26-37 [facility] Comment on above: Performed By: #### 1 [id number], [id number], [id number], [id number] ####[facility] (DEFAULT)[address] [place] [address] MCV (RBC) [Entitic vol] 90 fL Normal 81-100 [facility] Comment on above: Performed By: #### 1 [id number], [id number], 6191255, [id number] ####[facility] (DEFAULT)[address] [place] [address] Platelet 381 x10 Normal 138-427 [facility] Comment on above: Performed By: #### 1 [id number], [id number], 0554857, 7796438 ####[facility] (DEFAULT)[address] [place] [address] Platelet mean volume (Bld) [Entitic vol] 7.3 fL Normal 6.3-10.2 [facility] Comment on above: Performed By: #### 1 [id number], [id number], 2071679, [id number] ####[facility] (DEFAULT)[address] [place] [address] RBC 4.40 x10 Normal 3.70-5.30 [facility] Comment on above: Performed By: #### 1 [id number], [id number], 0748345, 7971132 ####[facility] (DEFAULT)[address] [place] [address] WBC 6.5 x10 Normal 3.5-10.5 [facility] Comment on above: Performed By: #### 1 [id number], [id number], 5398019, 7772120 ####[facility] (DEFAULT)[address] [place] [address] CMP Standardon 10-22-2023 Breakpoint Chem Normal [facility] Comment on above: Performed By: #### 1 [id number], [id number], [id number], 6972736 ####[facility] (DEFAULT)[address] [place] [address] eGFR Non AA >60 Invalid Interpretation Code [facility] Comment on above: Performed By: #### 1 [id number], [id number], [id number], [id number] ####[facility] (DEFAULT)[address] [place] [address] 72302 eGFR AA >60 Invalid Interpretation Code [facility] Comment on above: Performed By: #### 1 [id number], 83691567, 7321447, 6647973 ####[facility] (DEFAULT)[address] [place] [address] 49478 Albumin [Mass/Vol] 4.1 g/dL Normal 3.5-5.0 [facility] Comment on above: Performed By: #### 1 [id number], [id number], 6978522, 4510559 ####[facility] (DEFAULT)[address] [place] [address] 85224 Albumin/Globulin [Mass ratio] 1.4 {ratio} Normal 1.4-2.6 [facility] Comment on above: Performed By: #### 1 [id number], [id number], 1061646, 0903236 ####[facility] (DEFAULT)[address] [place] [address] 72583 Alk Phos 66 IU/L Normal 32-91 [facility] Comment on above: Performed By: #### 1 [id number], [id number], 5501357, 5554238 ####[facility] (DEFAULT)[address] [place] [address] 57753 ALT [Catalytic activity/Vol] 38.0 U/L Normal 14.0-54.0 [facility] Comment on above: Performed By: #### 1 [id number], [id number], 4640396, 5922373 ####[facility] (DEFAULT)[address] [place] [address] 82505 Anion gap [Moles/Vol] 9.2 mmol/L Normal 5.0-19.0 [facility] Comment on above: Performed By: #### 1 [id number], 78434781, 9691818, 4522543 ####[facility] (DEFAULT)[address] [place] [address] 38998 AST [Catalytic activity/Vol] 30 U/L Normal 15-41 [facility] Comment on above: Performed By: #### 1 [id number], [id number], 7885783, 9288211 ####[facility] (DEFAULT)[address] [place] [address] 87044 Bili Total 0.6 mg/dL Normal 0.3-1.2 [facility] Comment on above: Performed By: #### 1 [id number], [id number], 9654092, [id number] ####[facility] (DEFAULT)[address] [place] [address] Calcium [Mass/Vol] 9.0 mg/dL Normal 8.9-10.3 [facility] Comment on above: Performed By: #### 1 [id number], [id number], [id number], [id number] ####[facility] (DEFAULT)[address] [place] [address] 77413 Chloride [Moles/Vol] 100 mmol/L Low 101-111 [facility] Comment on above: Performed By: #### 1 [id number], [id number], [id number], [id number] ####[facility] (DEFAULT)[address] [place] [address] CO2 [Moles/Vol] 30 mmol/L Normal 21-32 [facility] Comment on above: Performed By: #### 1 [id number], [id number], [id number], [id number] ####[facility] (DEFAULT)[address] [place] [address] Creatinine [Mass/Vol] 0.83 mg/dL Normal 0.60-1.30 [facility] Comment on above: Performed By: #### 1 [id number], [id number], 5594760, 8792507 ####[facility] (DEFAULT)[address] [place] [address] 75829 Globulin (S) [Mass/Vol] 2.8 g/dL Normal 1.5-4.3 [facility] Comment on above: Performed By: #### 1 [id number], [id number], 4729236, 2913637 ####[facility] (DEFAULT)[address] [place] [address] 12944 Glucose [Mass/Vol] 112.0 mg/dL Normal 74.0-118.0 [facility] Comment on above: Performed By: #### 1 [id number], [id number], [id number], [id number] ####[facility] (DEFAULT)[address] [place] [address] 94002 Osmolality 271 mOsm/L Invalid Interpretation Code [facility] Comment on above: Performed By: #### 1 [id number], [id number], 8257092, [id number] ####[facility] (DEFAULT)[address] [place] [address] 16706 Potassium [Moles/Vol] 4.2 mmol/L Normal 3.6-5.1 [facility] Comment on above: Performed By: #### 1 [id number], [id number], 6834886, 1737684 ####[facility] (DEFAULT)[address] [place] [address] 64674 Protein [Mass/Vol] 6.9 g/dL Normal 6.5-8.1 [facility] Comment on above: Performed By: #### 1 [id number], [id number], 0443002, 2591215 ####[facility] (DEFAULT)[address] [place] [address] 80387 Sodium [Moles/Vol] 135.0 mmol/L Low 136.0-144.0 [facility] Comment on above: Performed By: #### 1 [id number], [id number], 6721678, 0697641 ####[facility] (DEFAULT)[address] [place] [address] 50032 Urea nitrogen [Mass/Vol] 12 mg/dL Normal 8-26 [facility] Comment on above: Performed By: #### 1 [id number], [id number], 7744645, 6438201 ####[facility] (DEFAULT)[address] [place] [address] 44542 Urea nitrogen/Creatinine [Mass ratio] 14.4 mg/mg Normal 4.6-16.2 [facility] Comment on above: Performed By: #### 1 [id number], [id number], 0410374, [id number] ####[facility] (DEFAULT)[address] [place] [address] 37131 Provider Orderson 10-22-2023 Provider Orders [id number] 22 [id number] Normal [facility] Sed Rateon 10-22-2023 Sed Rate 5 mm/hr Normal 0-20 [facility] Comment on above: Performed By: #### 1 [id number], [id number], 9849127, [id number] ####[facility] (DEFAULT)[address] [place] [address] 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 Computer aided detection was utilized. FINDINGS: There are scattered areas of fibroglandular density. There are no suspicious masses, calcifications, or areas of architectural distortions. IMPRESSION: No mammographic evidence of malignancy. BI-RADS: BI-RADS 1 - Negative Recommendation: Routine screening mammogram in 1 year. Finalized by Marina Nickerson MD on 10/09/2023 7:29 AM 1 b MAMM 1 YR Normal [facility] XR foot RT min 3V*on 024 XR foot RT min 3V* [facility] Main [place] [address] [place] [address] XRay Report Signed Patient: Rhett Bartholomew MR#: [id number] : 1970 Acct:[id number] Age/Sex: 53 / F ADM Date: 09/09/23 Loc: XDUCLY Room: Type: [facility] Attending Dr: Dee MORROW Copies to: ODALYS Wilson Ordering Provider: ODALYS Wilson Date of Service: 09/09/23 XR/XR foot RT min 3V*: RIGHT FOOT PAIN XR foot RT min 3V* 09/09/2023 6:06 PM SIGNS AND SYMPTOMS: Injury to right foot with pain and bruising across the metatarsals PROTOCOL: Frontal, lateral, and oblique radiographs of the right foot COMPARISON: None FINDINGS: The bones are in anatomic alignment. There is no evidence of fracture or dislocation. There is soft tissue swelling along the dorsum of foot. There is plantar surface calcaneal spurring. Mild narrowing of the first metatarsophalangeal joint is noted. The joint spaces are preserved otherwise. XR/XR foot RT min 3V* IMPRESSION: No evidence of fracture. Mild soft tissue swelling is noted along the dorsum of the right foot. Impression dictated by: Hola Myers M.D.09/09/2023 6:29 PM Dictation Location: [place] [address] Transcribed By: [facility] 09/09/231828 Dictated By: Hola Myres II, MD 09/09/231826 Signed By: 09/09/231828 Normal [facility] Coding Summaryon 07-30-2023 Coding Summary HTMLBase 64 QfkkjenaUBd0cVg+PGhlYW Q+YB0RDKGkS46bzLEryO0h R9NZATwORhciUMMQDJfILb NfrfMuLO4xpYTpSPMb IC8+CO0gBBQgXudpjBPsl1 H6nWV1N65aov7lYUdcyWZ5 GYWeXeMxjrgcz7orbBk2KO cuNmluOyBt CNZxmO34EDC3iE67Yb89vC BmqYSaf6uirIp1FrThWXCt UAB1cUxcZQdlu8LhBTOiD9 0ccTOai0O2 QRZkaGosxTKvLqWjfNM3uK 4vZLweoyyal2tzroizNfw2 yb87kXCsv5G7iZN8K2Tylg K6NOZoxGKg AfwxbQHIzP8ukpjmy3vjid maAmQyZIXzHXm8DXu2RJQz mTqjJpOsJW02ZZM7MNXrfi RjF9ZjLKKq yKesNeI6x5W8Zu8RH5FKTa fhV1QZWEXDONrmbGP+PC90 hs47T6GlXoqlAtc3FPPhFF K1wPY2xE6g NMHdMLxae3X6cVH3W4Rezw Wyav2jk2paPJUiELlnZ69j kXKac0H9VROmdMG8BYCiiU swPxLkbB16 Oyc+VZPerComr7YdDxlyv2 uzh7qwfBc5XsswKAKklmFp rWhjQIE1d6KgZo1bNZAsbW U7eMF8xN6x BuIrCzF0XQtaV843IpComK LnMzucJ04iP3BokBO+PHRy Yer3TWIxgIcjZA4dA1VoFX RpbmctbGVm eRpaIS5jACUnjowhKPZtiH 7pVNYvZ1s3SeAeCaU2HHuj V0WoMZFavljsIn51iR1lMq QvFyG9OXoq V5PgbcT1OMLhoZKbBNpkYH K4C40dl3J1ZPHyTOGlZVO9 bAG9uX1clCccumaqgHNnlF sgdmVydGlj HBvwCGqqR993DXMfiVcgBu NvZGluZyBEYXRlOiAgMDEv MzAvMjAyNDwvdGQ+PHRkIH H3rEpgATId qTRnJYlwOj4kvYyeuYpjSV 0tIERdqjzwCDHocG9wONLk gBNkhNiiLN9aTJNyizssz1 63NePeGBD5 BEQmhIFoJ1XucY5bBwBiHG JaQGZwZ1UvsULuGYlrW507 DSzjQfZ5LSSkyaGoL0QnQX FsaWduOiB0 g0W9Nw5Al1LdwvwlK6UhvR HtBvLpPbkwELs3J3IvVnix dHI+HK90YVUkJO59PMs4WR I6oGhjZFcp BERxU6ZsiB3xFrFjLPEgHH RkOyc+PHRhYmxlIHdpZHRo XGmsDSHaPzUsvJvrZE5qIx 9yZGVyLWNv sQolqYNaYjMlc8maKOWwYG elXK1jzPpyL9FgtPC7QZQp b7l0Zt54B97bF3MdbRT+PG OaoBA5iAK4 gO3uVmZpEpQ4NMsxK181Ix CxiYTsIuwfa1edz8rooLq1 WyO5MCKuqvZqlMogSIN2m7 McOr73H72o IHdpZHRoPSIxNSUiIHZhbG jban0gfZ5rZs2+PGNvbCB3 bPM2kI3gMqSpTsI8YEdfG0 49InRvcCIv Jtzuw4eko6ublPs8HoHvFW WwvvZogOybNCS6q8EsQz39 R2MsxOhqx9ZkXvx6fx64sU Twy5L1sVX8 V7ZwPBOgfmfrrJScaZltEA 7fYMDnfkfjZGXxlX7cCDYp W9v6YaWeKzX0SNhpN6Npbf K1YFEdvQEi JLXoxPKRqD2seohwr3owrj nfNeLbKVJqNUe9VSa9NDNl dAquGmXxKGC0NuZ2LBQ8zV JhtL2rwOoz ctdcqO2dBpg+TVB2xAUspA INWD8fLexdcLO+PHRkIHN0 rMcuCYweCQQlbK7lKEBoA6 m1WoLyIiD9 VJrqY7JqifQ1QBSznIDbQD GvlDBUsX0qbicmg3olpsse IaPiFWByXKx2KWj1PDBabK duOiBsZWZ0 GiO9DZP7nUKicV4ueYldry rwhZ5pZlg+QmlydGggRGF0 UIm4V0AzZel5UIOdqDidIC 0ncGFkZGlu Xy3roDpwoHpjQD7lLQIwjh pvo202WqRdk6ojRQCxcYDr KLyuNBE3U26rx6G7EVQoZD LcAAF1cWC9 dQ1blTyuhdnlcWEixEedon OvrZkmLVnlVMqzY308BDIy cYbeNoXeWHc6C0JjUwf9JK QdiRaxWR1a tMTmWQsyHh2tiUlcxImoSM 0kXEBngpeet966CgPyk7zq HTNiqKNnRWslEVR4B75ft9 K0BSEnEYLg SCP6sDG1hK6rgRdikszqnL VmdDsgdmVydGljYWwtYWxp G429KOIkyNvfPtWemFu4U9 ElGgr9CKHu zIwkRA1adEXnYFljGn0fnY hqvKsmYG2hSPHovpnoq496 XlXaf9oeZONyhJNuFXmfRZ O2Q59ay8H5 ZUOzEVSzTUH9fWO2hO9hoV lnbjogbGVmdDsgdmVydGlj AJnvRSmiA463PYVflSorJg BhdGllbnQg NRufIEs9V4DqEogxqJU+PC 12ZXBjSO61oSAzcRZuj4ou iMh3ZhZoMDZrWXU0yEviCG vhz2RiSSLa X86tvREdr5Z8EZChjAdegS KfRqVgfZQ2mY4sPRfbwinl f2kicgxjJbsom5gqrf25dO 53D45vBQhf ZHRoPSIzMCUiIHZhbGlnbj 2tpW3aJa6+VGSnfET4nLG4 pR0aMRCuAaE2AChnV356Vo RvcCIvPjxj u1qxl5lblRo7TsJ3FVEzyq GshOjcKIO9x1TcFu47W11u IHdpZHRoPSIyMCUiIHZhbG uayd4olN2l Ii8+XKJkqEQ9vAL2sN1xGx NhVtK9SVmwD629YwYogVIm KxpkO08oG6IomMV+PHRyPj e9QCVlgGod RJ0zsOKoNOenRx7gAQO7Pw LzEuMzKOpzT8FpHVSxwcmr vxnynPD1HDXfPWXcfX53Vd 9udDogMTBw oTPYnP2ulykkq4gwraeiLl QcSMAyHZq4GGj2QUKtmArf KlDaWFQ4LvN0USM2wFLqqB 1hbGlnbjog uI3hS0EgYAMtcltdDn55cN 1pVhWhEhS4HSfaUsi+SEVN TUVSLCBDUllTVEFMIEtBWT wvdGQ+PHRk URA5lGjaFXkoRLXfhE1mVQ OeP3r4OiMhXzZ3KYqdO3Di VMNlqwyqXi13oQ9sRnUyZc A9MDixQ7Iu ctL6VCZiyAIdRResTDP6A3 2fq7O5JOWrSYBoACJ7cNA8 bD6zlVevpifxbWUilIwvlx VydGljYWwt ZAudC753NHDznFddRqEbPz O4MxV0QlH4D6OxEym0YPSy aBgiXF4quHPsFBdmMo4xyT gfvMjyIF8v DRBywwxnVLAdtU4vFDQkvX NhyUmeIM6iRULkdqnjd508 WyGlCCO6FLUnwQVzJ6QemO 9yOiAjMDAw WGLvC6PqqAZpTCivC606TY whZeH2XSNtnyThW0MyLGUo hRmgNtZ3n5O8Pv07WzMHBL FyczwvdGQ+ HVYtPGD3sWnpXAjbJJHbeB 5tIGIcU1d9AbJfGqP6FQbh T7OnSBDleetvTj49nU2bAv DuUsN9KFkc W5ShrxD0XFEevPLjKIltGQ G7N80mh5A8PHIcXOGdUTO7 gHB7jA6ydAmvqzoatLSlaK sgdmVydGlj FRcgOSkpP649SHNtxXzuJn ZFTUFMRTwvdGQ+PHRkIHN0 oElkDIevQHCnhD2aUWNrB3 h0QyIqPpO0 NBxmN9MxTREmtvdlZu21mR 4yDcEgZxN3RScbM6AhczV6 ZYMyuWFlGWebYPT0F16zn6 R7MTJwOIHy JGN3zGM5eH9aaXupdkwkvS VmdDsgdmVydGljYWwtYWxp L159YGQtzTjjGw8AEG23CQ 92J1FeCeaq dGFibGU+PHRhYmxlIHdpZH FvTTjlSIJuPyIjzLjeOL6c Wb6zAXNvDBGfmPvnoFOmFh Drg2fbJXHy IBduFJ8xxLjtX0ZldDF6SL Rfh6z1Xh01G65jX8QgvQT+ MGYiiIM4bVF5fZ6mBqZyCl F9CEwdD964 JgHtgHPjWhhqz8keh7sfgY a2MhOuNIDlopSxtQcjWNM5 r8SbQs77N89sPElzELJsOC IyMCUiIHZh vAboyy7zfP0oNo1+PGNvbC Q7jYF6vR0oPdIgKvM3VYgi P017WyKccIWmLhqtA23pU8 JvdXA+PHRy Lvw7BUGfqYulQO6aaBRsZA lfIw9wFOU1XaUcUhNhLXew L0FjVUZvriilknnbkBR9UC DuBFCnlI52 Lk2ckZbwZp1lHKWvHPD3FH FpcLNhA3DydV2kEiEcSXVs ONWsD8UbePTaTLibM871LH twAuF2VDWp gzVsC0MaAKVpiJhzFnZ3u8 J3Zt0EcWbpmFSmZJ4wHeFt BFp4G8KqVzu2ZDOblIdfRU 0ncGFkZGlu Ro5sjIduhVxaUY3cQZYqsv tgw219SlAui4fdQFRjnIYi AOkvBQB8V56lj2Y0EDMzDQ PvEMC6cSZ5 gU3vlMmxcbdidBXfdIlqdr KyxUxaINcyCZtnO594ZESy yFjoNeEJIuf0C8YzCsl7ET TvpFkuEO5h aWGoZQdkFb8cyPttmAshEB 0eGTOyppxeo988PyAqx1yg LFImqUXkPSkhCON9Q74hj8 N2JCKxXDYg IEQ0tQI6pN8jgRmtpdbrcM VmdDsgdmVydGljYWwtYWxp Q090QAJtcBxtFd4XKow6K4 JmXfh3AXSr gOtuQC3amBAaZJbbVz5mrI botUqsGN3lGFFkwedmm246 NkAbj1vvCIKlmZDsGXhuGB E6I15ig7N5 OMDyPWBxNVH9vWV4vD7obA lnbjogbGVmdDsgdmVydGlj EHvwLJueS162LGKcwWpjGf BheWVyOjwv dGQ+PW01bz41J8AkLsrsKz a0XJWaSVZ6zOO6vY4vXVLh ILfrt7B4fNN0E6ZzddQoqi 8vy0abCWBe ZTo (more content not included)... Normal [facility] .Auto Diff 1on 07-27-2023 Auto Morrison % 10 % Normal 07-12 [facility] Comment on above: Performed By: #### 1 [id number], 36074425, 5584117, 9019239705, 9073407, 0776859, 68823697, 2675101, 1078899 ####[facility] (DEFAULT)[address] [place] [address] Baso Abs# 0.1 x10 Normal 0.0-0.2 [facility] Comment on above: Performed By: #### 1 [id number], 72435311, 0892882, 5299694607, 5217941, 4281313, 95065444, 1026747, 4193480 ####[facility] (DEFAULT)[address] [place] [address] 82513 Basophils/100 WBC (Bld) 1.4 % Normal 0.2-2.0 [facility] Comment on above: Performed By: #### 1 [id number], 58617675, 6986379, 3174553283, 4953820, 3180543, 58048199, 3796465, 4600582 ####[facility] (DEFAULT)[address] [place] [address] Eos Abs# 0.2 x10 Normal 0.0-0.4 [facility] Comment on above: Performed By: #### 1 [id number], 85361438, 8095251, 3781895090, 2250520, 0784437, 56774875, 2700814, 3696229 ####[facility] (DEFAULT)[address] [place] [address] Eosinophils/100 WBC (Bld) 4.3 % High 0.9-4.0 [facility] Comment on above: Performed By: #### 1 [id number], 36635504, 2732771, 8382097929, 2214311, 1735583, 34758790, 1599312, 4936334 ####[facility] (DEFAULT)[address] [place] [address] Lymph Abs# 1.1 x10 Low 1.3-2.9 [facility] Comment on above: Performed By: #### 1 [id number], 99025445, 9941563, 2146914656, 9744907, 7976669, 64127890, 2531151, 0933027 ####[facility] (DEFAULT)[address] [place] [address] Lymphocytes/100 WBC (Bld) 21 % Normal 14-48 [facility] Comment on above: Performed By: #### 1 135711342, 88736759, 4883216, 9009034861, 2860606, 3026510, 11962892, 3966942, 8193251 ####[facility] (DEFAULT)[address] [place] [address] Morrison Abs# 0.5 x10 Normal 0.0-0.8 [facility] Comment on above: Performed By: #### 1 [id number], 94827122, 1493704, 4319311972, 7251923, 5114343, 52101361, 7726438, 1443633 ####[facility] (DEFAULT)[address] [place] [address] 03124 Neut Abs# 3.5 x10 Normal 1.5-9.2 [facility] Comment on above: Performed By: #### 1 [id number], 02365006, 4086600, 1621661415, 4271723, 8704924, 63151685, 5556407, 6792104 ####[facility] (DEFAULT)[address] [place] [address] Neutrophils/100 WBC (Bld) 64 % Normal 44-88 [facility] Comment on above: Performed By: #### 1 [id number], 39110447, 7639349, 4549741446, 4765598, 8456847, 31839150, 3151862, 1734153 ####[facility] (DEFAULT)[address] [place] [address] CBC w/ Auto Diffon 4 Erythrocyte distribution width (RBC) [Ratio] 14.0 % Normal 11.5-15.0 [facility] Comment on above: Performed By: #### 1 [id number], 16506515, 3180612, 7047997626, 4538151, 0677413, 22056343, 5477089, 8654748 #### [facility] (DEFAULT) [address] [place] [address] Hematocrit (Bld) [Volume fraction] 39.3 % Normal 33.7-40.4 [facility] Comment on above: Performed By: #### 1 [id number], 46949938, 1142587, 0778824136, 4838977, 1081698, 24318950, 3186290, 8638785 #### [facility] (DEFAULT) [address] [place] [address] Hemoglobin (Bld) [Mass/Vol] 13.3 g/dL Normal 11.3-15.9 [facility] Comment on above: Performed By: #### 1 [id number], 58459718, 1941874, 4558033879, 7072813, 9133400, 09696060, 3313336, 6997297 #### [facility] (DEFAULT) [address] [place] [address] Man Diff? Auto Invalid Interpretation Code [facility] Comment on above: Performed By: #### 1 [id number], 24951098, 1285880, 2601157988, 9131056, 4394165, 26940743, 5495421, 3887458 #### [facility] (DEFAULT) [address] [place] [address] MCH (RBC) [Entitic mass] 30 pg Normal 24-34 [facility] Comment on above: Performed By: #### 1 545106177, 03221523, 2524398, 8709866294, 6689597, 0397163, 41589944, 0678088, 3826633 #### [facility] (DEFAULT) [address] [place] [address] MCHC (RBC) [Mass/Vol] 34 g/dL Normal 26-37 [facility] Comment on above: Performed By: #### 1 [id number], 00973554, 7210844, 0910372669, 1359506, 9398410, 31149816, 5192140, 9505892 #### [facility] (DEFAULT) [address] [place] [address] MCV (RBC) [Entitic vol] 90 fL Normal 81-100 [facility] Comment on above: Performed By: #### 1 [id number], 47392489, 5490635, 0255702378, 9347427, 4807291, 36158026, 1261376, 3665615 #### [facility] (DEFAULT) [address] [place] [address] Platelet 324 x10 Normal 138-427 [facility] Comment on above: Performed By: #### 1 794115499, 03711494, 6839403, 5476798288, 8388340, 9841400, 13932470, 0007456, 1157551 #### [facility] (DEFAULT) [address] [place] [address] 025[address] Platelet mean volume (Bld) [Entitic vol] 7.5 fL Normal 6.3-10.2 [facility] Comment on above: Performed By: #### 1 [id number], 80345964, 1282189, 9498906842, 2460580, 9656341, 50126903, 1878066, 1948579 #### [facility] (DEFAULT) [address] [place] [address] RBC 4.38 x10 Normal 3.70-5.30 [facility] Comment on above: Performed By: #### 1 [id number], 55388299, 7239401, 8976568912, 9044060, 8424051, 73687810, 7510634, 8439359 #### [facility] (DEFAULT) [address] [place] [address] WBC 5.5 x10 Normal 3.5-10.5 [facility] Comment on above: Performed By: #### 1 333366455, 60844525, 6069197, 5007803616, 4483350, 5997031, 15754956, 9553752, 3302034 #### [facility] (DEFAULT) [address] [place] [address] Standardon 07-27-2023 eGFR Non AA >60 Invalid Interpretation Code [facility] Comment on above: Performed By: #### 1 [id number], 79083846, 0171708, 5261686515, 6923505, 5026036, 53624313, 9651571, 2087391 ####[facility] (DEFAULT)[address] [place] [address] eGFR AA >60 Invalid Interpretation Code [facility] Comment on above: Performed By: #### 1 [id number], 38033900, 4708646, 2287027099, 3296040, 7925735, 79478861, 2279142, 4945461 ####[facility] (DEFAULT)[address] [place] [address] Albumin [Mass/Vol] 4.1 g/dL Normal 3.5-5.0 [facility] Comment on above: Performed By: #### 1 988324460, 75788567, 6653359, 0169688191, 6222355, 3108466, 02899423, 2353158, 8975102 ####[facility] (DEFAULT)[address] [place] [address] Albumin/Globulin [Mass ratio] 1.3 {ratio} Low 1.4-2.6 [facility] Comment on above: Performed By: #### 1 355502867, 68350478, 2664463, 5783342743, 0112580, 8711281, 72053033, 5890818, 8602523 ####[facility] (DEFAULT)[address] [place] [address] Alk Phos 71 IU/L Normal 32-91 [facility] Comment on above: Performed By: #### 1 100748485, 37235648, 0732216, 4328407135, 3866195, 6872137, 14542963, 7644954, 3884126 ####[facility] (DEFAULT)[address] [place] [address] ALT [Catalytic activity/Vol] 28.0 U/L Normal 14.0-54.0 [facility] Comment on above: Performed By: #### 1 180619354, 91671959, 0404801, 7792984245, 3782034, 9195591, 55405487, 5953192, 1544495 ####[facility] (DEFAULT)[address] [place] [address] 41995 Anion gap [Moles/Vol] 15.7 mmol/L Normal 5.0-19.0 [facility] Comment on above: Performed By: #### 1 479066941, 01051662, 1735301, 0749135917, 2340930, 5109265, 86244532, 2102374, 7646542 ####[facility] (DEFAULT)[address] [place] [address] 31052 AST [Catalytic activity/Vol] 24 U/L Normal 15-41 [facility] Comment on above: Performed By: #### 1 428014426, 75298649, 6172886, 7002415819, 8360020, 3192598, 59249938, 7895503, 1283143 ####[facility] (DEFAULT)[address] [place] [address] 14815 Bili Total 0.5 mg/dL Normal 0.3-1.2 [facility] Comment on above: Performed By: #### 1 027656528, 31508413, 8570474, 9078523832, 5991011, 2655924, 48930706, 9429132, 6865054 ####[facility] (DEFAULT)[address] [place] [address]502 Calcium [Mass/Vol] 9.3 mg/dL Normal 8.9-10.3 [facility] Comment on above: Performed By: #### 1 013563779, 19395105, 6371143, 8482790967, 6307383, 1412442, 40629244, 5031278, 9613419 ####[facility] (DEFAULT)[address] [place] [address] 28669 Chloride [Moles/Vol] 100 mmol/L Low 101-111 [facility] Comment on above: Performed By: #### 1 852332377, 94226696, 6121226, 5947392802, 8969529, 3604700, 02442162, 5263436, 9865955 ####[facility] (DEFAULT)[address] [place] [address] 88387 CO2 [Moles/Vol] 26 mmol/L Normal 21-32 [facility] Comment on above: Performed By: #### 1 [id number], 77251845, 9764544, 4776886658, 3538787, 4653592, 66218396, 2646765, 8769909 ####[facility] (DEFAULT)[address] [place] [address]52 Creatinine [Mass/Vol] 0.67 mg/dL Normal 0.60-1.30 [facility] Comment on above: Performed By: #### 1 [id number], 60117868, 2813264, 9676919399, 4953580, 7289465, 55974523, 2112976, 2688553 ####[facility] (DEFAULT)[address] [place] [address] 52685 Globulin (S) [Mass/Vol] 3.0 g/dL Normal 1.5-4.3 [facility] Comment on above: Performed By: #### 1 114474596, 57338558, 7911261, 6688230715, 2227381, 0635812, 92371215, 0975149, 1745742 ####[facility] (DEFAULT)[address] [place] [address] Glucose [Mass/Vol] 101.0 mg/dL Normal 74.0-118.0 [facility] Comment on above: Performed By: #### 1 [id number], 49553682, 8263662, 7310260206, 1998391, 3170054, 27386206, 6156530, 4318189 ####[facility] (DEFAULT)[address] [place] [address] Osmolality 275 mOsm/L Invalid Interpretation Code [facility] Comment on above: Performed By: #### 1 [id number], 29504288, 1050511, 9888493390, 0547634, 6344056, 34019804, 5951450, 4235310 ####[facility] (DEFAULT)[address] [place] [address] Potassium [Moles/Vol] 4.7 mmol/L Normal 3.6-5.1 [facility] Comment on above: Performed By: #### 1 130136888, 84506158, 7161290, 7991012669, 5049104, 0047792, 20767344, 8066660, 7859275 ####[facility] (DEFAULT)[address] [place] [address] Protein [Mass/Vol] 7.1 g/dL Normal 6.5-8.1 [facility] Comment on above: Performed By: #### 1 773954308, 60580317, 8990545, 3193580732, 4517225, 2832625, 87389210, 0951440, 5439961 ####[facility] (DEFAULT)[address] [place] [address] Sodium [Moles/Vol] 137.0 mmol/L Normal 136.0-144.0 [facility] Comment on above: Performed By: #### 1 131773143, 12024839, 6986305, 3019661688, 1994795, 0532823, 57914747, 7330271, 4959372 ####[facility] (DEFAULT)[address] [place] [address] 67383 Urea nitrogen [Mass/Vol] 16 mg/dL Normal 8-26 [facility] Comment on above: Performed By: #### 1 [id number], 45738179, 1137433, 7662330081, 8306045, 1215234, 27236403, 7709745, 7661490 ####[facility] (DEFAULT)[address] [place] [address] 82216 Urea nitrogen/Creatinine [Mass ratio] 23.8 mg/mg High 4.6-16.2 [facility] Comment on above: Performed By: #### 1 [id number], 13117609, 2143414, 6798424009, 7327568, 3396126, 49185297, 7458845, 1796934 ####[facility] (DEFAULT)[address] [place] [address]35[address] Ferritinon 07-27-2023 Ferritin [Mass/Vol] 34.6 ng/mL Normal 12.0-150.0 [facility] [place] Comment on above: Performed By: #### 1 [id number], 05883569, 3115025, [id number], 1674412, 5439775, 07440060, 3812014, 1630451 ####[facility] (DEFAULT)[address] [place] [address] 28831 Folateon 07-27-2023 Folic Acid Level 9.44 ng/mL Normal 5.90-24.80 [facility] Comment on above: Performed By: #### 1 [id number], 63597119, 0760740, [id number], 9240922, 2050903, 20050223, 5976865, 0053285 ####[facility] (DEFAULT)[address] [place] [address]269 Iron Profileon 07-27-2023 Iron [Mass/Vol] 66.0 ug/dL Normal 28.0-170.0 [facility] Comment on above: Performed By: #### 1 [id number], 32457786, 4559192, [id number], 9614797, 1441153, 90744647, 3900875, 0377437 ####[facility] (DEFAULT)[address] [place] [address] Iron Sat 16 % Low 20-55 [facility] Comment on above: Performed By: #### 1 [id number], 69517561, 0469883, [id number], 0927780, 4575176, 54179897, 3968439, 7237476 ####[facility] (DEFAULT)[address] [place] [address] 24785 TIBC 414 mcg/dL High 250-400 [facility] Comment on above: Performed By: #### 1 [id number], 67522365, 9070384, 5554177743, 0102608, 0956507, 15261577, 3001035, 8560317 ####[facility] (DEFAULT)[address] [place] [address] 24868 Transferrin [Mass/Vol] 295.5 mg/dL Normal 192.0-382.0 [facility] Comment on above: Performed By: #### 1 [id number], 84921337, 9093745, 8223962638, 0268989, 3239002, 22139637, 1072906, 0410484 ####[facility] (DEFAULT)[address] [place] [address]26 Lipid Panel Standardon 07-27 Cholesterol [Mass/Vol] 259.0 mg/dL High 66.0-200.0 [facility] Comment on above: Performed By: #### 1 [id number], 09574542, 5993569, 1254208184, 6004342, 9996451, 97569436, 1845164, 6302181 ####[facility] (DEFAULT)[address] [place] [address] 51876 Cholesterol in HDL [Mass/Vol] 88 mg/dL High 40-71 [facility] Comment on above: Performed By: #### 1 [id number], 73943105, 7392896, 4908157528, 6410727, 9911060, 20273075, 0412286, 2844270 ####[facility] (DEFAULT)[address] [place] [address] 25085 Cholesterol in LDL [Mass/Vol] 156 mg/dL High 1-100 [facility] Comment on above: Performed By: #### 1 [id number], 02355583, 2620942, 9642704302, 9587725, 6772820, 73382263, 3515588, 4203625 ####[facility] (DEFAULT)[address] [place] [address] 53913 Cholesterol.total/Chol esterol in HDL [Mass ratio] 2.9 {ratio} Normal 0.0-4.5 [facility] Comment on above: Performed By: #### 1 [id number], 93264077, 7099447, 0791438448, 4789868, 0688118, 01709860, 9767166, 0704156 ####[facility] (DEFAULT)[address] [place] [address] 97075 Triglyceride [Mass/Vol] 73.0 mg/dL Normal 0.0-150.0 [facility] Comment on above: Performed By: #### 1 [id number], 44689117, 6888126, 2494205523, 8943347, 3736373, 21506790, 2403245, 3688939 ####[facility] (DEFAULT)[address] [place] [address] 25960 VLDL. 15 mg/dL Normal 5-40 [facility] Comment on above: Performed By: #### 1 [id number], 60770169, 9968567, 6842830391, 3928534, 6565550, 49174091, 8831973, 3518182 ####[facility] (DEFAULT)[address] [place] [address] 93897 Provider Orderson 07-27-2023 Provider Orders [id number] Normal [facility] TSHon 07-27-2023 TSH Qn 1.54 m[IU]/L Normal 0.45-5.33 [facility] Comment on above: Performed By: #### 1 [id number], 27694899, 0774640, 6759253109, 5876849, 0963245, 03812205, 8115573, 2505778 ####[facility] (DEFAULT)[address] [place] [address] Vit B12 Lvlon 07-27-2023 Vit B12 277 Normal 180-914 [facility] Comment on above: Performed By: #### 1 [id number], 43012051, 9936521, 8489401621, 0665020, 0050350, 48570329, 6547820, 5498218 ####[facility] (DEFAULT)[address] [place] [address] Coding Summaryon 04-29-2023 Coding Summary HTMLBase 64 UzlmjwnuJZb0wFd+PGhlYW Q+AE1ZPTRlS61reDOzdH5v M7WYTWlYHbnaXERVKKpHBu AvnfKsDP1vkFPxWERk IC8+TX6aXRFmNmkavZHxj5 Z9eCD7L44wic3iOXxlrLY3 VXRpMxNoemdin9wwtKv4DP cuNmluOyBt CSJhfR36ARI7lE74Iy94qT BdtXLdr5fqvOp3TqSgPLOc SUU0vYmsQKuoh3UpQGHqK4 7xuVXuf2V0 JCVjdXmluECtUtSrkYE4dW 0xJQvchwfmc0wbdbjtUsk0 qo75fOEtk5T3mWG0H8Yrsw Z2KOAfqVAc GhflkMQTiQ3ocpqpk3pbxx rpPjYjXOFsWLk2EYg9LBNq uJotLxCaAH97HDB3RKKqgb CiV6IcDNJw hRncUrP7g9Q6Qk7IU1OBGk piX5NJBDVTRHxwoWA+PC90 da37G8HtIaiwUty2XHQdQF N5lIM9zX8j NQMkFTfof4P2dQE6J6Wjem Lmxf8tt2fgITPhWYnaL44g oUDvh2S7LSOqhAE7ZNBtmR ueDnXzqD71 Oyc+WGCydUyni4OxFqpll9 kcq7ovmHk3NbeqFTMqylNf yErqCPJ0j0OkNc3gVZFemF Z8jFH4hT2o AlEvOiN5DFgqO257KdBcsP DxVbqoV18nZ3AldSC+PHRy Cbu4BXCkpYbtZE8cC4LfBN RpbmctbGVm rLssAF8nYPIgcmyvQUXwnI 2iTRAnS9a9YjMdWyJ1KBxw Z5ArUYCsnomlTd22gK5lVk KiLjH1AFqt R7EvemT3HLUeqNDvMWxmBG C6C37wu7O9LJCxZUVrMOA3 hVS3sB9hmHuawnamvZXfwL sgdmVydGlj AWryZHwlP631RNZhaInkJg NvZGluZyBEYXRlOiAgMTAv MzAvMjAyMzwvdGQ+PHRkIH J2kNxzQHMt rJKkOTljMs1blUmcbSynVG 3vWJWgtraxMRMblQ7aJZPx qIYzdIguQM8nWNCprhazg3 69XaIsEAL0 AXVwcAHcM8TrjW0dGfIdSE NtUOGvB7CvjHAiXXlvN145 QKqvIaG8BKMfvsZcE9WpCL FsaWduOiB0 w6N6Yg6Yl6PlclnmA8RakV EtQwAtGbylRMv2P8GkLeje dHI+QI65UEWwEP54NNj8BT F8cVhvQZjq DLBuQ3OnlM6rRoMcWAYdUV RkOyc+PHRhYmxlIHdpZHRo QUwnWOCaMtCwdHizEI7lBx 9yZGVyLWNv tCmhiGDkJtRqo7teMJZcRU zlRN2gwNptO3DhfSZ3KQIf x7u0Df47G03vR0OjxVM+PG YuhKK8jBB8 eT8hHnHjEjA0MQxpG146Vm LybRWoVffdb2naq8awjCv7 EhY0HULvudGdsWhqTNT2i0 HoGg85M58y IHdpZHRoPSIxNSUiIHZhbG dhzg8omA9iIq7+PGNvbCB3 sIX8pB5pYdBkGoH9CVhlY7 49InRvcCIv Uvyye6jcn9btsUo8RcDmXP QnhsQyfXeiYHS0g0RqUj66 I4YpgRlqd7KmIfo4wk97aM Ybm2F9uSC0 P2MpNWBxyvvsjSHzqHlsIJ 3rYDKagssuGVUgnB8eDLOh P1x2CtFgQeX2WMhhA6Iqqu A2BEMgnALy QXPupBVXiD4brdgpx4iinp swSpSxBTAtUPi0JFk4KTSy aCmtSrJoQUT4YjA8OSZ7sL LqbI2unRsy zdzfnS1fQiq+IXC0kYQlsF EHYY1iHraolQP+PHRkIHN0 fJdiPBznUUFpiH7xZHZdG9 v1SnUqBsR9 CUwfT5MmliX3URIqmWChSJ IoeUPHlF0aigece6ccpapt ZzLpPGSjXCp2TEw5KWSyfI duOiBsZWZ0 CtG3YQN4yCBsaC2vgOpotk jtrQ0sUdj+QmlydGggRGF0 LBn6F0OjDyf6RGIhaTpmPI 0ncGFkZGlu Gh0jeJcdxDcqZU2gCVKdzj hnw250GyZza7itQIFhoHYo MWbyUFR9E23zn5W5FZVlFM FeKGB1oWB4 iM9orNnanlxzoSXoyEtrjz TkbImpCDxyIBvvU832EBNa pZmeNwWlPYt1C0QdKiz2QT ErmEgjEH5c vLVtLIopUj7qsNkplPybUV 9tXNOhamkir594PiDju6oq FHOjnAXrRDzwUZJ0N42bx5 I7SRFcMZVi CGJ7iZI0gE7ktVukloqogH VmdDsgdmVydGljYWwtYWxp P764WCWpaSkeVyFpeDz8C0 XjQof6MZNz zXhyLN0ivUCiJMsrVf2vhR optJtyHR3vBZCkvhosm186 IcFvm7pmRACalWYfNPooRF N9F65rp4C2 MLFpQWJhKID5yXJ0kN3swW lnbjogbGVmdDsgdmVydGlj SCmsJJghC708JJBbtPtdCb BhdGllbnQg MQfuIGm3R6CkMxukiLW+PC 43ZPKlMI69tHKexIRob5si vQp6UzWtPVFsWHP6sCuhFA isu0KySKYd G17ttESfq5C4BJJgfYumrI ZsSdQklRZ2mI9cZMzrbanj k3ucoqveWipvo4pesq61vL 10X34cHCdk ZHRoPSIzMCUiIHZhbGlnbj 2xeG8oTe5+TWDqpVH8iZC1 aA2oVGIfWvA5YAnzR447Pg RvcCIvPjxj f3opx5uqdLr3AiZ6VRIzvk WiaKqbWYT9r8QmOg54K81l IHdpZHRoPSIyMCUiIHZhbG dqsp0mfI7f Ii8+YBGzgHV3iFV9jC4aBs OrJmI6RJfeW881RuLixRAw AdodX71eU1MbaPF+PHRyPj g7PILonEpq BX2svXAuTXdvTt9dALZ5Uo NvXpJdXTgyB7WrRUXxsnvd qkyiuEZ1QFFhWSRkiA16Za 9udDogMTBw hCXExW1rzuvxc4xhdpobGc ZaFCOvWEx0IPn0MXIjwNsv OyBnWDO9OdN9PRW9eUDjdK 1hbGlnbjog wE0dA3FcVHGrzuqyWt17aS 2vNzOnUbU5HWocUov+SEVN TUVSLCBDUllTVEFMIEtBWT wvdGQ+PHRk ELK7gNseFVmdKQWgnP2xZP CaG1x4DsMjMqJ3XVwoU5Bh MDLdpldaHr83jP7cHrUvZm Z6DKeuM6Mu vsT3RTSzoUTaOZkaVBA1Y9 8zf2D1TQCpUIFrYPR9cFD9 zE2ywSpfqqyvmNIqjPxynt VydGljYWwt ERynO321YMFtiTwjWeXoOu S4KmM8DeG8H1MvFty3BDBh zFcaBI6wcQBtGZfiDk0irN tdfOzzIO5g CJCxhkfsIHPopX0vASErpF MbvWtfWO6lFNCmxvhxh740 DbFjJPH8MKTayYUsY4XraI 9yOiAjMDAw YHTnH5DvuIGcRHuwT495RA asHrF1SDTahsDeO9PlRIId pZzoTaT2y6P1Ad97NmNPDQ FyczwvdGQ+ JWWaZOY2oCdlCFfkUKYuvM 2tEPFxA1r2YiBxIgY8NNcn A1ZbFMFndoxkLb47vI2mQn ClNlX1NDvl J5VbdoN5VKFovUQwPVxkRO C5B53ox1D8XYGbNODcJLT6 dLC1sG4ynCdlwykhfQWduB sgdmVydGlj SRhwWDljQ210YLWifZcyFj ZFTUFMRTwvdGQ+PHRkIHN0 tEbmOTneECPpfI5bTZKcN5 h6JiMnYnN0 TGppI0DjSIUsgmchVy67nR 9nMjRiQkT4AYmuK3QbidP6 CUGryBHeVSgnHTU7U00am8 C6HRSvGSYf NXJ6dHK3jO3xgMgebmhleS VmdDsgdmVydGljYWwtYWxp W887ITTzbHepQdOtR2Qrdo luZyBPdXRw LNYqZF18IC48ML90G7CjZx wvdGFibGU+PHRhYmxlIHdp ZHRoPScxMDAlJyBzdHlsZT 5fBb7rKFAi CSSuvCjcfFQnCxCuh7hhUL DrAAptMH4jhAwbM0JzeNY7 QPJyp8a6Ib80L30sO3BbyV A+PGNvbCB3 sVK9gF7fAwGnXsR8HLjiE1 60NlFzdNFwZczvn1ezu0gh kBl5LlLeLXPupfLgxWkwFW L9o6PcGc32 X84mXMbyJROpEJAbZKXhFN YsdHfcqx3qzT2mIr1+PGNv fTL0fAI4nR5sPmRrMfY2KM spG616ZbBn uBNvWvjgI14vE6BdpSJ+PH SyWby9UDWkbKitTH1bdSLa KGhqZi0rHGJ4ZpWiPjXlWE sqK2YhLJMv yvuhannhsQA8DSUdJNLlrT 08Qn6kgRtjAo3fJOOuJJK0 EADzoXYsW8OulX4mQqGtBT NhOGObD2Bo fFHsYMkxP310AGqjCgN1ZY RmkeWoM5VeBATrhMuqMeQ7 l6T5Nd7UfMkjuAOmYS8hZa CiMMv0R6Sw Pea7BPJfgBcxJF5xuPTbEZ xoPt3wxGireWlySH9tMHMi tgawk047CrJnq8zeMUOoqT QgVGltZXM7 Y67dm9N8SUGpHJLyDVQ3nX U9hZ9orRofqmalvNSxsOwa dlUjvUhtTJlfSZyuY855LM RvcDsnPkZJ Ugx9P5XkGvn7FLYqqVpwGN 6paEYhYHvnGl4ggUxcnHoy BU8cMJEpsoqen853VmJic7 xkIDEwcHQg JRuoGVE1J51yo8Y8YNMhWT OlZNL1eIG4wG6ucJavmndq bGVmdDsgdmVydGljYWwtYW fxK656YRNt wSuzPn5AGux7Z7OlGrn6RS GldHkrWW5xiJTkCLfeXu5a iWkvzLcaJQ1pNQSeqjukl2 28CpIip7jj SJEzvWYwJSewEYG3F42yw2 A4MZTsTKFpENE7nWG4gV4w bGlnbjogbGVmdDsgdmVydG ljYWwtYWxp C302MCYchYzoWmYleNWwAz wvdGQ+HV17hp86N8AsYkmf Vfa1BMYfIGC9cOC9dG9tKU QjDCwbl3I4 bG (more content not included)... Normal [facility] .Auto Diff 104-22-2023 Auto Morrison % 10 % Normal 12 [facility] Comment on above: Performed By: #### 1 [id number], 9040464, 2509943, [id number] ####[facility] (DEFAULT)[address] [place] [address] 31586 Baso Abs# 0.1 x10 Normal 0.0-0.2 [facility] Comment on above: Performed By: #### 1 [id number], 7317367, 7720962, [id number] ####[facility] (DEFAULT)[address] [place] [address] 43992 Basophils/100 WBC (Bld) 1.0 % Normal 0.2-2.0 [facility] Comment on above: Performed By: #### 1 0579155, 4554945, 4551413, [id number] ####[facility] (DEFAULT)[address] [place] [address] 61108 Eos Abs# 0.1 x10 Normal 0.0-0.4 [facility] Comment on above: Performed By: #### 1 5651084, 8466780, 6341631, [id number] ####[facility] (DEFAULT)[address] [place] [address] 40763 Eosinophils/100 WBC (Bld) 2.6 % Normal 0.9-4.0 [facility] Comment on above: Performed By: #### 1 [id number], 3080324, 4398028, [id number] ####[facility] (DEFAULT)[address] [place] [address] 27917 Lymph Abs# 1.0 x10 Low 1.3-2.9 [facility] Comment on above: Performed By: #### 1 8616383, 5290723, 9813841, [id number] ####[facility] (DEFAULT)[address] [place] [address] 72865 Lymphocytes/100 WBC (Bld) 17 % Normal 14-48 [facility] Comment on above: Performed By: #### 1 2872154, 3805169, 2897771, [id number] ####[facility] (DEFAULT)[address] [place] [address] 37741 Morrison Abs# 0.5 x10 Normal 0.0-0.8 [facility] Comment on above: Performed By: #### 1 [id number], 7299612, 6107633, [id number] ####[facility] (DEFAULT)[address] [place] [address] 22265 Neut Abs# 3.9 x10 Normal 1.5-9.2 [facility] Comment on above: Performed By: #### 1 4909074, 6041156, 9573546, [id number] ####[facility] (DEFAULT)[address] [place] [address] 07057 Neutrophils/100 WBC (Bld) 70 % Normal 44-88 [facility] Comment on above: Performed By: #### 1 4870919, 4352253, 6537567, [id number] ####[facility] (DEFAULT)[address] [place] [address] 55402 CBC w/ Auto Diffon 3 Erythrocyte distribution width (RBC) [Ratio] 13.9 % Normal 11.5-15.0 [facility] Comment on above: Performed By: #### 1 2600418, 3112135, 6684429, [id number] ####[facility] (DEFAULT)[address] [place] [address] Hematocrit (Bld) [Volume fraction] 38.8 % Normal 33.7-40.4 [facility] Comment on above: Performed By: #### 1 0365712, 5358174, 8884847, [id number] ####[facility] (DEFAULT)[address] [place] [address] Hemoglobin (Bld) [Mass/Vol] 13.2 g/dL Normal 11.3-15.9 [facility] Comment on above: Performed By: #### 1 4669126, 5016425, 6520792, [id number] ####[facility] (DEFAULT)[address] [place] [address] Man Diff? Auto Invalid Interpretation Code [facility] Comment on above: Performed By: #### 1 [id number], 4315369, 3482740, [id number] ####[facility] (DEFAULT)[address] [place] [address] 14655 MCH (RBC) [Entitic mass] 30 pg Normal 24-34 [facility] Comment on above: Performed By: #### 1 4783294, 4869353, 7211917, [id number] ####[facility] (DEFAULT)[address] [place] [address] 76885 MCHC (RBC) [Mass/Vol] 34 g/dL Normal 26-37 [facility] Comment on above: Performed By: #### 1 9506152, 2383089, 0725377, [id number] ####[facility] (DEFAULT)[address] [place] [address] 53422 MCV (RBC) [Entitic vol] 89 fL Normal 81-100 [facility] Comment on above: Performed By: #### 1 3617735, 2967850, 5799408, [id number] ####[facility] (DEFAULT)[address] [place] [address] Platelet 335 x10 Normal 138-427 [facility] Comment on above: Performed By: #### 1 9677257, 9718440, 3860191, [id number] ####[facility] (DEFAULT)[address] [place] [address] Platelet mean volume (Bld) [Entitic vol] 7.9 fL Normal 6.3-10.2 [facility] Comment on above: Performed By: #### 1 4792576, 2879948, 2603877, [id number] ####[facility] (DEFAULT)[address] [place] [address] RBC 4.35 x10 Normal 3.70-5.30 [facility] Comment on above: Performed By: #### 1 2069671, 9242651, 1743068, [id number] ####[facility] (DEFAULT)[address] [place] [address] WBC 5.6 x10 Normal 3.5-10.5 [facility] Comment on above: Performed By: #### 1 7866874, 5912211, 2630581, [id number] ####[facility] (DEFAULT)[address] [place] [address] 97487 CMP Standardon 04-22-2023 Breakpoint Chem Normal [facility] Comment on above: Performed By: #### 1 6098755, 8780575, 4960487, [id number] ####[facility] (DEFAULT)[address] [place] [address] 47417 eGFR Non AA >60 Invalid Interpretation Code [facility] Comment on above: Performed By: #### 1 6334602, 9958718, 5569394, [id number] ####[facility] (DEFAULT)[address] [place] [address] 16236 eGFR AA >60 Invalid Interpretation Code [facility] Comment on above: Performed By: #### 1 2244049, 0905883, 1909903, [id number] ####[facility] (DEFAULT)[address] [place] [address] 92986 Albumin [Mass/Vol] 4.1 g/dL Normal 3.5-5.0 [facility] Comment on above: Performed By: #### 1 7858493, 1346661, 7891365, [id number] ####[facility] (DEFAULT)[address] [place] [address] 31693 Albumin/Globulin [Mass ratio] 1.4 {ratio} Normal 1.4-2.6 [facility] Comment on above: Performed By: #### 1 1953279, 4839271, 6873386, [id number] ####[facility] (DEFAULT)[address] [place] [address] Alk Phos 71 IU/L Normal 32-91 [facility] Comment on above: Performed By: #### 1 6601093, 5208919, 6570682, [id number] ####[facility] (DEFAULT)[address] [place] [address] 98363 ALT [Catalytic activity/Vol] 22.0 U/L Normal 14.0-54.0 [facility] Comment on above: Performed By: #### 1 8621132, 5916597, 6835982, [id number] ####[facility] (DEFAULT)[address] [place] [address] 53397 Anion gap [Moles/Vol] 11.1 mmol/L Normal 5.0-19.0 [facility] Comment on above: Performed By: #### 1 3850448, 4336257, 0864984, [id number] ####[facility] (DEFAULT)[address] [place] [address] 87977 AST [Catalytic activity/Vol] 15 U/L Normal 15-41 [facility] Comment on above: Performed By: #### 1 6576958, 4121064, 1716849, [id number] ####[facility] (DEFAULT)[address] [place] [address] 78039 Bili Total 0.7 mg/dL Normal 0.3-1.2 [facility] Comment on above: Performed By: #### 1 7886673, 9315970, 4248451, [id number] ####[facility] (DEFAULT)[address] [place] [address] 01477 Calcium [Mass/Vol] 9.1 mg/dL Normal 8.9-10.3 [facility] Comment on above: Performed By: #### 1 1086945, 4137237, 8084926, [id number] ####[facility] (DEFAULT)[address] [place] [address] 74385 Chloride [Moles/Vol] 99 mmol/L Low 101-111 [facility] Comment on above: Performed By: #### 1 5430641, 0651010, 4694290, [id number] ####[facility] (DEFAULT)[address] [place] [address] 56840 CO2 [Moles/Vol] 29 mmol/L Normal 21-32 [facility] Comment on above: Performed By: #### 1 1053962, 7578929, 3501919, [id number] ####[facility] (DEFAULT)[address] [place] [address] 49028 Creatinine [Mass/Vol] 0.75 mg/dL Normal 0.60-1.30 [facility] Comment on above: Performed By: #### 1 0533875, 2296332, 8809390, [id number] ####[facility] (DEFAULT)[address] [place] [address] 43656 Globulin (S) [Mass/Vol] 2.9 g/dL Normal 1.5-4.3 [facility] Comment on above: Performed By: #### 1 4329219, 6090066, 1777005, [id number] ####[facility] (DEFAULT)[address] [place] [address] 08932 Glucose [Mass/Vol] 97.0 mg/dL Normal 74.0-118.0 [facility] Comment on above: Performed By: #### 1 2548421, 2891581, 0254608, [id number] ####[facility] (DEFAULT)[address] [place] [address] 91339 Osmolality 270 mOsm/L Invalid Interpretation Code [facility] Comment on above: Performed By: #### 1 [id number], 0661389, 2352084, [id number] ####[facility] (DEFAULT)[address] [place] [address] 79674 Potassium [Moles/Vol] 4.1 mmol/L Normal 3.6-5.1 [facility] Comment on above: Performed By: #### 1 1547180, 1329610, 4980934, [id number] ####[facility] (DEFAULT)[address] [place] [address] 02759 Protein [Mass/Vol] 7.0 g/dL Normal 6.5-8.1 [facility] Comment on above: Performed By: #### 1 8095850, 2079926, 7599924, [id number] ####[facility] (DEFAULT)[address] [place] [address] 82000 Sodium [Moles/Vol] 135.0 mmol/L Low 136.0-144.0 [facility] Comment on above: Performed By: #### 1 0694023, 0695044, 0651125, [id number] ####[facility] (DEFAULT)[address] [place] [address] 15408 Urea nitrogen [Mass/Vol] 13 mg/dL Normal 8-26 [facility] Comment on above: Performed By: #### 1 6479174, 5510874, 9210309, [id number] ####[facility] (DEFAULT)[address] [place] [address] 84135 Urea nitrogen/Creatinine [Mass ratio] 17.3 mg/mg High 4.6-16.2 [facility] Comment on above: Performed By: #### 1 2734851, 2680497, 2022488, [id number] ####[facility] (DEFAULT)[address] [place] [address] 91231 Provider Orderson 04-22-2023 Provider Orders [id number]#1.0 0OTGTIFF Normal [facility] Sed Rateon 04-22-2023 Sed Rate 4 mm/hr Normal 0-20 [facility] Comment on above: Performed By: #### 1 [id number], 3739497, 2248785, [id number] ####[place] [address] Coding Summaryon 01-30-2023 Coding Summary HTMLBase 64 DjosxwjtDBo0aMu+PGhlYW Q+IB1PXRKaR06axYSyqQ0c Q4KDCRnCLeudUHBGNQgCAq RzurAwEE5olYNeCKXw IC8+MU9xNPFaCwaevXGhh1 V7yGE9Y09hzy5wGLuylGO9 LGOxYiSvuryhw3dbfMn2HP cuNmluOyBt WZNatQ45XKV8gW43Ip27jC XfaGIbb3qexPi1YoXwJBBx OTW1rGuoNKteg5NgLJYvX8 3hdMAtn8X8 JIPpfEiqbLQnVaKsqED0kU 7tWJbqmomdd2mmvvrmTzy1 vb69rTAxw7T9lZT3Y4Lwxf C0PMGebSVw RonloHUYuV9synmtb0pych maEqFvHKZrPNw5ZMo2VVSa jIdzJyHoGE09SJG8LSXxqe UbI3QiTRPu jVlaAnV6r2L0Gq4JW1YMBr nwV7PLZIXYWEcawMD+PC90 kj89J9VuCzsuEyy9NDVrAS D1sWZ9gD2j BCKeQHpce0A7rVI3R2Vouy Hige3wl1ojGGSmPKypB92s oMPwp8K4OPBtgKF1UMAigR pyMmOcdF36 Oyc+WYWvwQxcy6XjAofjx7 epi0pmdFx2UvgsSQVsvpTj tLsxRHY1f0GeJj8aSQUpqI Z8lPL6rZ8l OyKcYmL7PIbiT507MiQfoI MmAtxrH26kY1AycIE+PHRy Joh5XEUqfRmjDF2pI9ZdST RpbmctbGVm nTqoLZ9vTLMxhfoiOPTyiK 8uTWOaJ0e2MaUxPoW4SMqf Z0BrTKHrbusfZm34rV1dFx UlTbO8ZCcf O7BynrH8HGXcyJNmSIumOO W2U19do6U1CXTtUGYdTLT6 ySO6oJ5mnVjqmnvahUEkkF sgdmVydGlj WHpzRCyeA195YSQjrYxqCe NvZGluZyBEYXRlOiAgMDgv MDIvMjAyMzwvdGQ+PHRkIH G8hYaqURTh gZXgOCboBj4igLrwhBosMT 1fEKRcdcvxWSYiaW0qLSKc wCAxlWhlIV4wSRPrksejn7 07OmGxWEK8 AZWarJQzJ1UlvK9jTqSeYC VcDUKaX8PkqVKsUTspY756 OQebJaR0XINwivBpW7YxLA FsaWduOiB0 y9F8Uo5Ds6UxmrqsN0GcdU WtSbQvFpzrAYg8M3CfNowy dHI+CA13OTOpYL37LJy1LF P3aNojKBiv MASqO0BusT5vUxUmTHQyIO RkOyc+PHRhYmxlIHdpZHRo JJqyBKRuAcAzpOgsNK6sVv 9yZGVyLWNv fVwohQTzOuKlq0frIHIzKO izZI8ciIvzG2UdeDL3KHWp u6w9Bc86M07bI0VueSY+PG BkiTU4zCU9 tW7rKvJpDbM3EFujD506Sq DojTSlRfozh6awk3shcPb4 LjG8XHGcafGuaVenYDW9k5 ZuOp07K70u IHdpZHRoPSIxNSUiIHZhbG wufo0ikO8fAn8+PGNvbCB3 nPQ7dU5cDmTiQgV8ZZpeV5 49InRvcCIv Dsuyg1dye2kqbFr1IqOqDJ OngbZowVgiKNI4h6XkZc15 P8FykAmge8EhJcg6zw92eY Iyh0F6jRS8 L0EbZXWpinzliYDecZkoDJ 2sTTSvcvrzAWEgeX2pFVEx Y9f3UsYpTwX0DSbyG8Ijmc W6WRVvtNCw XUUrpTGPyD1wruoya9msgc lbHtGqTSVlUOe6WPt1ACCf lEelYhYtGIE7UpJ6YOP2tR OjhH4ydAxh fkfyfC4yTxl+EXX3xXJzuO MRSA0yWxscbFU+PHRkIHN0 lRthJSewGYGxvU1cYQMpO5 j0EeIlJwJ3 NHnpF2VehvG6SXKyxSJmES EefFSMrP5xzfxeo0puilie DfQhXUUrMKp0QRn2LZGlsB duOiBsZWZ0 JpU7ISP0eEGhiT8igVleap gjfJ1gHiy+QmlydGggRGF0 EKl7D7MvGrq2YEYcdNygMZ 0ncGFkZGlu Mp0wjJuxrSdqCP9uMKPwgn emy960MtEfb9kbVMJlgYPu QAquBSB7M91di4P8NFKgEP QkGXX3qRY2 bY7odMeatuyqpPVrqPatvt YmoOevCDlaDSseP718LKCd kIeoFpXgSCh0P4DwZiu6PP RphDtmAN8a pIRzUTgbFx9ryIqfyJzfNW 0rBWPlobvlq765DuWfu9xy ZERviKZrNQvhWVM8Y45bc3 O9HVZtYHMx JZS2zSY3xJ6uiExdgauwuQ VmdDsgdmVydGljYWwtYWxp I086VZCbnJhxXrJbhVx3K6 XoEha1TTGn iXmsJY5zwKNoRNjuKx8nzG nweJhnCB2wOKVzwgede380 VbBzz5yaRQQelENnFMfeMS D2V38ja3K6 IIQnJFEyDVP9wZC5hI0cbD lnbjogbGVmdDsgdmVydGlj DPoyICgfK017ALDgzGvzVk BhdGllbnQg HPcbTUv6E9JxDjirvVE+PC 43QGXtBX25dIOwwCXgm6bj rLs7EeKiDNXfAQJ3kRplNA gjr8UsDMCm A68zsNOni4X6OUOogPrttK TgGkVizOO9dD7fSIxkapff g6zjeuisJexnd9jnfh97aO 60X12tPSaj ZHRoPSIzMCUiIHZhbGlnbj 7vaK8zNy1+AOOqoSH3pUY4 kI4fPMFtHbE6UWtsH629Cn RvcCIvPjxj v9dus3gasJp7QqR2ZNMpwu YozGswMBF7x5ZlYl61O33x IHdpZHRoPSIyMCUiIHZhbG lplo1ahQ7h Ii8+IEYeqSA2gMS7gT6zJr JuXiE4RBhcS000QtDqtQXy WjdfP34yV1MprJX+PHRyPj g9HMSfwOzo LG5kiRImARlfEj2tUIQ8Ia JgYeTwHQmuS6KlGCMzbknk uiwsdXZ1VSXnOBDauD04As 9udDogMTBw rSTQeF5uisgmm8ehmsxwBm QnYTPtBQl4JIx5VGCtnFnx OpWhZZE4VfV6DEM7pWTchG 1hbGlnbjog dL3nI6IjZPSlubicFl11oE 7nMjAyJrQ8ZIhvPue+SEVN TUVSLCBDUllTVEFMIEtBWT wvdGQ+PHRk PNV4dJmeJYhxTBPukV7wPK JgT9a8CqYkLoQ8JDckX1Lw BGEpsxvbFj39jC7uVeHvUn H5BRhqM0Yt diS8TGVhbXStEYhkBYJ4P5 5gl5B8KDFxOPBeBZR9vXN6 mM4rgSzcqptawFTjxZuzke VydGljYWwt AEtzZ562OJGqbFulPyAfDg Q1AzA5QtN8I0BrVud7EVTq gFqjDQ2jiVPxPYjeRj3lzM wktPzcDJ3e ICYteirrIXEsfS5rLAPlnF RyrRulNZ7kYOWojpbhp970 MzXcYRX2LIYqoMKrF5KowE 9yOiAjMDAw XKReA1ZzgZCxEYxtA520PG zfFxE5CUHxnoKqA3ZrRIGj dKyvFbJ4q1C4Kj23QhJODZ FyczwvdGQ+ XUIcIYE9pEtcYShqJEGnlT 2yAROtZ8a9EmQfHbI6JWiy B1UuXPClnyfmSc16dI1yGd EvTeA0MDqn R8WxgjE8FNUpnTLtUZqjKS F7H29pt4F1DSOmLLHbDQR1 hAO9dD2vqEkudyiogYAamM sgdmVydGlj URpsHAjfZ628RLRttTdcEl ZFTUFMRTwvdGQ+PHRkIHN0 cQzvUHoxZTLqlP0eZHVeL1 u3MnDwElK4 OTscI6JfATKemhvbMh65iN 1bQxLzLlH5RAzeR8SguuT8 EPYmmHPlSCnxYXG0I88gk4 Z9SJNsXFOk HDC3lMB3xA7obYdvbvntxM VmdDsgdmVydGljYWwtYWxp U996MBYwyPgrNl5KUS26BH 37F6LwKpnp dGFibGU+PHRhYmxlIHdpZH QhXYhfGQCxXqBejKptDL6n Dc4qQVQcDSHhzIqcoMEhKw Vua4ioFFUg HMgjRF1ieNbxO5BbiAR6VY Bql0q2Hm48F43uW0KqaQL+ WBQzrOG5vPS6lU0mUnXfCp X0WZcpM143 PdBxoQXoDswvo7ywp0csbW h4CpOgBHEmsgLbzFluAEY2 w2EmOf09G50kZIaeTIHaXZ IyMCUiIHZh gIxwbk8yxF0pHf0+PGNvbC B2yAF9sC2dLtNgKmD9OCwk S831LmRqjXOgNtxtI46rT1 JvdXA+PHRy Jfa0YSWfyIysBZ1omFXnPJ rfPz1eNCH3GzIkJoIuGFzn N8ZnYBEnjthsvftcaVF9IW TmCLHmkA74 Gm3hsWbbUz7tVQRzMIH5XD HatZGrS5WcjB0pBmJpVMVj LPJyN6SmlXXzRYxnI893AG xtJmD2ZXDl vzEmO9NxNHXhbOpoAeR9t0 Q4Ty2FyCicnWJdPQ3vMgEe VAy1G1OoAsi0IXPguGzkOZ 0ncGFkZGlu Jg7jgKortSsnBP4tIFUhkr vcm333ItJsc2bjQKBqwFJt XDndFUW1A35vk4W1AXLnHE IyCIU6nMH7 qU3gxBqiqpfmlRCmaFjsxq AzkQovHPuaRRinE449MPMr wCybEmFFIbw4A4JcAaj8SM QihFrzKP6g eUGiJRngIi0ukQsrwVbxBV 6eZWYcmqetx617FyGxs0tx YVMphIGsJYotNTU9S86jq4 B0OXStIOXy ENY7rSZ0zT3oqSrhflqelW VmdDsgdmVydGljYWwtYWxp F378LPYkgQzpBz6DWsx8R1 QhRja4KRHq nMnvZU2xxTQnSTwaRm8quL jfsPuxSI8kEIArgvmdl748 WxDax5fjRANczGEfSPpnZJ H9O75tb7X7 BWGcMPViVKQ5mEQ5qL4flE lnbjogbGVmdDsgdmVydGlj IFbfAYehL569YWYpvMgwZu BheWVyOjwv dGQ+TE42fy42T3TfJemuVj g9PTPiLRI9hHJ6xQ9qUDCt ZDntm7O1bIY3E7LjstFejo 1pd1klNJAq ZTo (more content not included)... Normal [facility] .Auto Diff 01-26-2023 Auto Morrison % 9 % Normal 07-12 [facility] Comment on above: Performed By: #### 2 [id number], 2006037, 5718495, 32843816, 28614102, [id number], 3547940, [id number] ####[facility] (DEFAULT)[address] [place] [address] Baso Abs# 0.0 x10 Normal 0.0-0.2 [facility] Comment on above: Performed By: #### 2 797365, 4609197, 3306952, 44103040, 02539175, 3901236265, 8752898, [id number] ####[facility] (DEFAULT)[address] [place] [address] 82418 Basophils/100 WBC (Bld) 0.6 % Normal 0.2-2.0 [facility] Comment on above: Performed By: #### 2 084267, 1213473, 0425028, 06076908, 29586009, 3612433449, 8095958, [id number] ####[facility] (DEFAULT)[address] [place] [address] Eos Abs# 0.2 x10 Normal 0.0-0.4 [facility] Comment on above: Performed By: #### 2 579156, 9855418, 0433779, 41019192, 00159593, 1535792020, 1606956, [id number] ####[facility] (DEFAULT)[address] [place] [address]16 Eosinophils/100 WBC (Bld) 2.9 % Normal 0.9-4.0 [facility] Comment on above: Performed By: #### 2 657558, 9081195, 0271319, 02565020, 53209354, 9035304366, 3261660, [id number] ####[facility] (DEFAULT)[address] [place] [address] Lymph Abs# 1.1 x10 Low 1.3-2.9 [facility] Comment on above: Performed By: #### 2 923427, 1206641, 2020725, 91865968, 03539135, 5336099140, 4301409, 5010703243 ####[facility] (DEFAULT)[address] [place] [address] Lymphocytes/100 WBC (Bld) 16 % Normal 14-48 [facility] Comment on above: Performed By: #### 2 165458, 9359509, 5991745, 11253916, 06437177, 2285033834, 6306003, 8231483295 ####[facility] (DEFAULT)[address] [place] [address]281 Morrison Abs# 0.6 x10 Normal 0.0-0.8 [facility] Comment on above: Performed By: #### 2 026078, 7270841, 1881020, 39582315, 18477183, 0554018296, 7412189, 0158618254 ####[facility] (DEFAULT)[address] [place] [address] 55951 Neut Abs# 5.1 x10 Normal 1.5-9.2 [facility] Comment on above: Performed By: #### 2 855043, 7042016, 6663608, 05031928, 55981396, 3678289531, 6094507, 1346371745 ####[facility] (DEFAULT)[address] [place] [address] 17359 Neutrophils/100 WBC (Bld) 72 % Normal 44-88 [facility] Comment on above: Performed By: #### 2 064323, 5674492, 6900604, 69215288, 83739892, 5504741141, 1232478, [id number] ####[facility] (DEFAULT)[address] [place] [address] CBC w/ Auto Diffon 3 Erythrocyte distribution width (RBC) [Ratio] 14.1 % Normal 11.5-15.0 [facility] Comment on above: Performed By: #### 2 172527, 6112118, 7473599, 13743536, 99380673, 3489609817, 4584418, [id number] ####[facility] (DEFAULT)[address] [place] [address] Hematocrit (Bld) [Volume fraction] 39.8 % Normal 33.7-40.4 [facility] Comment on above: Performed By: #### 2 858932, 3266071, 0985950, 04172191, 15198068, 9979608580, 2653587, 0387806101 ####[facility] (DEFAULT)[address] [place] [address] Hemoglobin (Bld) [Mass/Vol] 13.5 g/dL Normal 11.3-15.9 [facility] Comment on above: Performed By: #### 2 608742, 3120517, 3575026, 84713931, 38210997, 8300982654, 0096690, 5081077608 ####[facility] (DEFAULT)[address] [place] [address] Man Diff? Auto Invalid Interpretation Code [facility] Comment on above: Performed By: #### 2 852069, 0970062, 5166239, 16175610, 36581167, 4954067753, 4716736, [id number] ####[facility] (DEFAULT)[address] [place] [address] MCH (RBC) [Entitic mass] 30 pg Normal 24-34 [facility] Comment on above: Performed By: #### 2 850267, 8706906, 6074683, 72151732, 31738833, 4849754348, 2770534, 4066746474 ####[facility] (DEFAULT)[address] [place] [address] MCHC (RBC) [Mass/Vol] 34 g/dL Normal 26-37 [facility] Comment on above: Performed By: #### 2 542244, 2626018, 7728383, 57420464, 61597483, 4428026030, 3721002, [id number] ####[facility] (DEFAULT)[address] [place] [address] MCV (RBC) [Entitic vol] 88 fL Normal 81-100 [facility] Comment on above: Performed By: #### 2 224385, 0393406, 7232963, 26215970, 59875893, 2125302637, 9904807, 9395476311 ####[facility] (DEFAULT)[address] [place] [address] Platelet 380 x10 Normal 138-427 [facility] Comment on above: Performed By: #### 2 097322, 0807290, 5594314, 13934654, 90094573, 6992068498, 8430650, 5693492616 ####[facility] (DEFAULT)[address] [place] [address] Platelet mean volume (Bld) [Entitic vol] 7.6 fL Normal 6.3-10.2 [facility] [facility] Comment on above: Performed By: #### 2 222768, 0351284, 1380563, 34064206, 55359287, 5834335949, 6644257, [id number] ####[facility] (DEFAULT)[address] [place] [address] RBC 4.53 x10 Normal 3.70-5.30 [facility] Comment on above: Performed By: #### 2 854777, 4594105, 7227888, 78144781, 86416658, 9287366362, 7156397, [id number] ####[facility] (DEFAULT)[address] [place] [address] WBC 7.0 x10 Normal 3.5-10.5 [facility] Comment on above: Performed By: #### 2 504876, 1883320, 7602187, 11632096, 17153313, 2718266961, 8302808, [id number] ####[facility] (DEFAULT)[address] [place] [address] CMP Standardon 01-26-2023 eGFR Non AA >60 Invalid Interpretation Code [facility] Comment on above: Performed By: #### 2 863072, 8428814, 5717748, 09975938, 40858182, 7771079588, 4520046, [id number] ####[facility] (DEFAULT)[address] [place] [address] eGFR AA >60 Invalid Interpretation Code [facility] Comment on above: Performed By: #### 2 665272, 6221774, 0372458, 86151108, 00114018, 2614468345, 9457427, [id number] ####[facility] (DEFAULT)[address] [place] [address] Albumin [Mass/Vol] 4.3 g/dL Normal 3.5-5.0 [facility] Comment on above: Performed By: #### 2 081560, 1717704, 0631415, 55786170, 04126159, 2715414697, 6181661, [id number] ####[facility] (DEFAULT)[address] [place] [address] Albumin/Globulin [Mass ratio] 1.4 {ratio} Normal 1.4-2.6 [facility] Comment on above: Performed By: #### 2 361455, 3749788, 7094884, 10805223, 54316001, 8066275235, 8124659, [id number] ####[facility] (DEFAULT)[address] [place] [address] Alk Phos 72 IU/L Normal 32-91 [facility] Comment on above: Performed By: #### 2 859189, 2620372, 3734284, 38778678, 02558731, 8846724692, 8995274, [id number] ####[facility] (DEFAULT)[address] [place] [address] 78919 ALT [Catalytic activity/Vol] 33.0 U/L Normal 14.0-54.0 [facility] Comment on above: Performed By: #### 2 007913, 2759164, 1747003, 97087197, 92825888, 5281586728, 0216593, [id number] ####[facility] (DEFAULT)[address] [place] [address] 01559 Anion gap [Moles/Vol] 10.3 mmol/L Normal 5.0-19.0 [facility] Comment on above: Performed By: #### 2 712087, 9051525, 5004513, 16936281, 64598323, 3292772963, 3530150, 3938503180 ####[facility] (DEFAULT)[address] [place] [address] 71279 AST [Catalytic activity/Vol] 26 U/L Normal 15-41 [facility] Comment on above: Performed By: #### 2 488906, 5863531, 4368412, 58508824, 81499129, 3129796061, 1162860, 1787483263 ####[facility] (DEFAULT)[address] [place] [address] 62857 Bili Total 0.5 mg/dL Normal 0.3-1.2 [facility] Comment on above: Performed By: #### 2 978397, 5861496, 0576303, 64269640, 71648479, 3239309148, 5515065, 3921038450 ####[facility] (DEFAULT)[address] [place] [address] 84579 Calcium [Mass/Vol] 9.1 mg/dL Normal 8.9-10.3 [facility] Comment on above: Performed By: #### 2 746800, 6015221, 4663696, 04966234, 18556672, 5649006696, 1917918, 7635865044 ####[facility] (DEFAULT)[address] [place] [address] 17464 Chloride [Moles/Vol] 98 mmol/L Low 101-111 [facility] Comment on above: Performed By: #### 2 456786, 2319396, 3318922, 05519837, 35276313, 6646757166, 9992963, 7623225821 ####[facility] (DEFAULT)[address] [place] [address] 60599 CO2 [Moles/Vol] 29 mmol/L Normal 21-32 [facility] Comment on above: Performed By: #### 2 299381, 6481605, 9449748, 42134613, 27418914, 7461370021, 7343684, 0852119322 ####[facility] (DEFAULT)[address] [place] [address] Creatinine [Mass/Vol] 0.59 mg/dL Low 0.60-1.30 [facility] Comment on above: Performed By: #### 2 701268, 1492230, 6592459, 45430178, 55069057, 5377815668, 7614715, 1774917958 ####[facility] (DEFAULT)[address] [place] [address] 78146 Globulin (S) [Mass/Vol] 2.9 g/dL Normal 1.5-4.3 [facility] Comment on above: Performed By: #### 2 303131, 7344225, 3976507, 84647613, 48582550, 7479773391, 0618531, 2677132343 ####[facility] (DEFAULT)[address] [place] [address] 62722 Glucose [Mass/Vol] 96.0 mg/dL Normal 74.0-118.0 [facility] Comment on above: Performed By: #### 2 152660, 6374697, 5894513, 15565213, 43252147, 0083420886, 0810074, 5626731863 ####[facility] (DEFAULT)[address] [place] [address] 23729 Osmolality 267 mOsm/L Invalid Interpretation Code [facility] Comment on above: Performed By: #### 2 295845, 9691166, 5996759, 16145219, 47083410, 3758427592, 4425680, 9246406312 ####[facility] (DEFAULT)[address] [place] [address] 15638 Potassium [Moles/Vol] 4.3 mmol/L Normal 3.6-5.1 [facility] Comment on above: Performed By: #### 2 259563, 5846747, 8826569, 09230450, 51653348, 4716728664, 1273889, 4367377368 ####[facility] (DEFAULT)[address] [place] [address] 82225 Protein [Mass/Vol] 7.2 g/dL Normal 6.5-8.1 [facility] Comment on above: Performed By: #### 2 266601, 0328170, 7849723, 78054110, 29949310, 4133863771, 2519467, 1401552065 ####[facility] (DEFAULT)[address] [place] [address] 77175 Sodium [Moles/Vol] 133.0 mmol/L Low 136.0-144.0 [facility] Comment on above: Performed By: #### 2 368833, 7059445, 1189558, 55312491, 90085595, 5693293638, 1573136, 7897464040 ####[facility] (DEFAULT)[address] [place] [address] 42089 Urea nitrogen [Mass/Vol] 15 mg/dL Normal 8-26 [facility] Comment on above: Performed By: #### 2 373033, 4543919, 1151520, 94830423, 71759166, 3482089793, 4858880, 8976145482 ####[facility] (DEFAULT)[address] [place] [address] 51081 Urea nitrogen/Creatinine [Mass ratio] 25.4 mg/mg High 4.6-16.2 [facility] Comment on above: Performed By: #### 2 316192, 0945348, 4367294, 83091012, 11205527, 0237373401, 8862292, 0004150479 ####[facility] (DEFAULT)[address] [place] [address] Ferritinon 01-26-2023 Ferritin [Mass/Vol] 48.5 ng/mL Normal 12.0-150.0 [facility] Comment on above: Performed By: #### 2 788428, 0895759, 1025784, 15074548, 39079574, 7721032959, 6005133, 4364094364 ####[facility] (DEFAULT)[address] [place] [address] 18315 Folateon 01-26-2023 Folic Acid Level 11.54 ng/mL Normal 5.90-24.80 [facility] Comment on above: Performed By: #### 2 086959, 0065737, 9203690, 71975812, 62684313, 5059600909, 4686388, 9458747164 ####[facility] (DEFAULT)[address] [place] [address] 09371 Iron Profileon 01-26-2023 Iron [Mass/Vol] 55.0 ug/dL Normal 28.0-170.0 [facility] Comment on above: Performed By: #### 2 678242, 8724078, 9662824, 56858924, 03472607, 1362478925, 9420615, 0445388727 ####[facility] (DEFAULT)[address] [place] [address] Iron Sat 16 % Low 20-55 [facility] Comment on above: Performed By: #### 2 875975, 1339286, 2547100, 49224149, 89583425, 0110286468, 8183378, 0674671097 ####[facility] (DEFAULT)[address] [place] [address] TIBC 347 mcg/dL Normal 250-400 [facility] Comment on above: Performed By: #### 2 945029, 7359475, 1869004, 61745718, 43777927, 6439711634, 1497368, 4241383841 ####[facility] (DEFAULT)[address] [place] [address] Transferrin [Mass/Vol] 248.2 mg/dL Normal 192.0-382.0 [facility] Comment on above: Performed By: #### 2 660008, 2619994, 6403095, 17733215, 69818780, 9229539024, 5293749, 7651304197 ####[facility] (DEFAULT)[address] [place] [address] 85426 Lipid Panel Standardon 01-26 Cholesterol [Mass/Vol] 214.0 mg/dL High 66.0-200.0 [facility] Comment on above: Performed By: #### 2 485823, 0083935, 6986602, 98584678, 83112183, 3125312628, 3460443, 2230193342 ####[facility] (DEFAULT)[address] [place] [address] 78498 Cholesterol in HDL [Mass/Vol] 59 mg/dL Normal 40-71 [facility] Comment on above: Performed By: #### 2 357129, 7903286, 4976570, 28622362, 04952341, 7943898161, 3595723, 9111916616 ####[facility] (DEFAULT)[address] [place] [address] 62693 Cholesterol in LDL [Mass/Vol] 138 mg/dL High 1-100 [facility] Comment on above: Performed By: #### 2 449551, 9240403, 6699820, 32045279, 79972082, 7404652374, 0343233, 5208579827 ####[facility] (DEFAULT)[address] [place] [address] 13034 Cholesterol.total/Chol esterol in HDL [Mass ratio] 3.6 {ratio} Normal 0.0-4.5 [facility] Comment on above: Performed By: #### 2 718433, 6580659, 6988452, 90723952, 15835072, 0760854725, 0187294, 9041700373 ####[facility] (DEFAULT)[address] [place] [address] 83948 Triglyceride [Mass/Vol] 86.0 mg/dL Normal 0.0-150.0 [facility] Comment on above: Performed By: #### 2 485485, 8494917, 1728777, 06880425, 04273093, 6568383523, 0214886, 9252488463 ####[facility] (DEFAULT)[address] [place] [address] VLDL. 17 mg/dL Normal 5-40 [facility] Comment on above: Performed By: #### 2 193681, 6899268, 8412677, 99152189, 60204674, 0364580142, 6945688, 0144597471 ####[facility] (DEFAULT)[address] [place] [id number] Provider Orderson 01-26-2023 Provider Orders [id number]. [id number] Normal [facility] Vit B12 Lvlon 01-26-2023 Vit B12 358 Normal 180-914 [facility] Comment on above: Performed By: #### 2 629637, 4852349, 8918393, 87099174, 60453037, 5996486387, 4059572, 9857209110 ####[facility] (DEFAULT)[address] [place], [place] [address] Coding Summaryon 11-21-2022 [facility] MbofngagDOk6nDz+PGhlYW Q+MW7PQUEfF31jzVFuaQ5i O0GNWGoCBmcgFMXWWUkFSi CaqlKeRP6vlIEmUZUi IC8+TU8sFOBqNectyCOyn5 H4qHG6W50yda3zRXxdwKB1 BTPoKiJtwgnlk5vqyAr8RB cuNmluOyBt XDNulK31JOR7kZ65Yb89uL EzcZHwm0baeEz6TsRqQNTs BNI5rJcbCZzkh3EyQASrC1 0blKJnd9R6 TGWfpJrjmGFcYfEpzQQ6eX 5uJZntydert1bqjrieJau9 hx38jRDao9P3iMN2D4Qqtg V2ACSujXJv XbovbWQEoH3ktjwho6qggk ofVxQxJECqQQx5LWk3EWYj mMcqKyJvYV30DAE7ZAKadh DfN3PvCOEq aMadNoA4n4S2Gq7VQ1HNUw mgE2DLVCZSQHgbeUX+PC90 zw21B3UpVbozIph0RBZyIB V3cON7bX7o RMRiSKmgl0Q0dKO9D4Mhli Ljde3nu7hcJAByNOwjJ59b sCVnx8F7ZRXfxAN8ZZRgyX ivJiMwoK98 Oyc+HRSpoEqyq5YdHjsjr2 zdd6lcjSr3RircDVZmepIi qYqoWQT3i9KmPi8eBMGadI N6mZQ5aL9e JmApQkI2YCkxV909NgXdoL UvUoaxK64qU8BewVT+PHRy Vpw0RUFiqVtuJM3eY4GxUT RpbmctbGVm mPsiNP4uNUXrniamHMOxyN 2bWLTgU9y2UdRrLmD5AXly E0OpLGVapeokMu79vT0vHd IbIaR1CTbk J7JrcdU3ZFDopYPzLWolZW M4K15nm9O1DKXuJUJxSTW7 qHD4xM0maPsxorpxhHIdhM sgdmVydGlj SOkqPMcaG833GMLblBkqJr NvZGluZyBEYXRlOiAgMDUv MjQvMjAyMzwvdGQ+PHRkIH T3eYydJQOj jFZdUHwpIi5zhDatgWhfOK 2qGOQioufeIZTewK8kANRt eLRgeTtdMV7tEUSuxrfuw5 97LlWyHUU0 QHWvrVCjE5VpgI1wGfMjZW SkFTKiO7SfvKOtLEgeI383 PJyhWuB7GYVpgcNlG9IaFS FsaWduOiB0 s7V9Pk9Gc9PhfakkW6KziI GwIgRkUyqhZRh8E1DeRqkh dHI+DS75BVQjDM06ESd7FO N9kBsvPRfy TYRsC1AkaS0tPgTiDIHsZH RkOyc+PHRhYmxlIHdpZHRo WJdbEUQzXpUunYvjCA2uOa 9yZGVyLWNv iVecxGKjToWwb3qfIACdYQ twCN6gbFqhQ1PhjIS3TGFp v5r0Im62A26dJ0LoaQY+PG VrgAT9uLP9 gJ6kObPzOnY1ZYtqA018Ox WbeJVtXsuca5yux7qqbTq8 FcS3JOOfgeSwvOwhRIY9e5 QsQg89R67c IHdpZHRoPSIxNSUiIHZhbG syoe0liF1tJw6+PGNvbCB3 yKB8pF6tCoSdFqK3MWswK2 49InRvcCIv Coile0xwn4bqgCq9YmNoKI LdeeBidQokADI5a7EvTg10 D2YypFwdm9TpTbk8ju54mP Cpr6X0uOD8 P8XkDCDfnnlagKBdsTnfCR 1rVQBllsmiKCEvrO0mVAYj K6g7LkRhDuQ6TNvfR3Glzc O2APGfqDCg JCGcoPOLbA2ovmrlb6qrco alLoFqPNYnBCx4EKf9ELHg hPeyDzBkUML6GnT6YOU8rT WxiR4ltKtl lumieL5wSby+DPM4zSYwqD IKTY3kGgkaxPL+PHRkIHN0 xPvuGRjnXKHzxL1lGYEaR0 i3GwOtFtP7 JYmiT8WkjwY4AMIwkMOzBY FovZFAnF1yvbxxj1onflpq FcSkCJIkCWu8IIg8CTVtfU duOiBsZWZ0 KbN1XHP3qZLrhD7cdUnumq uwsL2xAdj+QmlydGggRGF0 YUk9Y7ZaWia8DZRddQrxMU 0ncGFkZGlu Ze4fkZciuPbjFA7pAJTdap byu302GwZwy9nyFCBteFYu DJplHEF6T98dx6O5CTThDA YcILY4eMK8 uD4ciQiisaagbHXsnEcgdm GrzMcuNFfkVHaiP942ZTLj tZpvZjQfKQp6Y6JzZmi8NU OjkHlgLV6t eWNnTWtkFo6mnGxgfGtzHQ 7pHFVmrykhp007WtWch1nn MJMeiGTmALvjQDW6N01yy3 G6OBYrWANd TFS5pKV1xC6awJocrfsomL VmdDsgdmVydGljYWwtYWxp W497RULvtTemUnRqbDs3W9 RwPqw7QZUf gUpuXQ7lsHSsIWrcCv0woL fhxAeqBJ8xBOUgjgnri958 SwPvt1ccEOFvzDQzOJfxFX H0L20pf2K7 VUNbFKJtZER6rDE1oL3ygU lnbjogbGVmdDsgdmVydGlj SKclWDsfT788EXBcsRfyJq BhdGllbnQg FLcrIRg0L7PaBzhmzRY+PC 25GXRiZW86nSHoaMOsg8ez rHa3YfHlGBAfJTV0aVeaMJ kee2ZxERGk G35gyKGcw5B6FFCjnOphaL UuZoWqdSB4tW8uADngirix u8kbswbhXuufw9lxix79uP 33E55pJMig ZHRoPSIzMCUiIHZhbGlnbj 2tsD6vTz0+NSKcbUD8zPD9 wL0bKPKsIgW7UFbxH150Pn RvcCIvPjxj a4ddj4cnxUs1RrX4PENbgq AfwOnxQKY8t7NpGk90M07k IHdpZHRoPSIyMCUiIHZhbG whfb4paR5l Ii8+KWUrqWD9gPL6lO2tPc FoKgT6ZSkfW763LrYwhCFo EbzmU44aV5WpoIN+PHRyPj e1CZZvuOmu YL5vrTHcPBbtJn5fTFO5Ms SqZmLhWMhiW1EsUUGubtwq ywkysMS1FYPeRMChzB91Xi 9udDogMTBw rAIRmI1lrcork4ulecjoZd BqHTXjUMo3YOk1HVCenCav PyKpQCI8FaM0MAC7vHZwdN 1hbGlnbjog dY4rM5LuBDFgjhluIo69aA 0pEaUxPiC9ULpbAft+SEVN TUVSLCBDUllTVEFMIEtBWT wvdGQ+PHRk VPQ0dVsnDIetRVNtrR0cSL HhG1y4XiGdSwN2NNfcR9Rp QOZxrhbbFj13kC9vUyCjOk X2CXzjO0Am vyY2TOIjwLEnUMfiIVM8K1 1ap2H0QNKpQDKzMQS0xTL0 lB8dcLgrzpycjVXeaYqesy VydGljYWwt WLkeM670XHPnwTqiDuFxYt J8LyD3YsG4T3WcTqf8KWId eNeqWU4teHYxWWykIc0bcN cvwQpkVU9a IOMyumniLQAcgT9jXAIoeI UmjQwnSC0wJGQwjrbxt425 FlFcAOA4TAGmcNXpC8QabB 9yOiAjMDAw HHSdS8DquEXcGJisH211KV ypUpB1KNUspcEbC6UvMSYy rSkaQvS2j1Q2Mw02DhFSZJ FyczwvdGQ+ YETdHPV4hAjhIYhbCARlyI 3gCENnI9a9AmVtWeQ7VBuw C8VbZLUpcfurQo82tK7jZs GzEeK8CFfo X4NiyxI2TUInoAVeIBsdBU P8V38aa8K6NQCwJEHiWSL1 xMX5qE0nvHkmlcunhTGunC sgdmVydGlj ZNfoCNqvU644WAPqxCcwXc ZFTUFMRTwvdGQ+PHRkIHN0 kTznLAdbPSWqlO4pOPOsN2 q1DvAlEfN6 GQzlX1YsRAFjxcesFt75oF 4uNnEeGbE9MRmhA8FvqzQ5 PPTaaMOgYHtmIFY2Q63lz5 O0BNMwZTJa JUH1vSR1yQ9zxMsfecbmlU VmdDsgdmVydGljYWwtYWxp R060GROutBuuEu1HEE39XW 24R6VqShcn dGFibGU+PHRhYmxlIHdpZH DkZWfiFGWeIuXhyRejOS8n Ww6zXOEnGNJjxZylhAKjHe Spd0dhCQEf FLvqOM3beKizU1XgpSG3CE Czg7j5Ix72R49sB8ZjeXY+ MSSgfVA9uIF4tN2wGgJeAc U7VAwvI774 RfTbkBCpXktyo6txg7ondZ y1KkJnBIXntjPfuIndBST6 j2JxKa59Z13zYYmdQMDxVR IyMCUiIHZh jFpayi0rwA5xPx1+PGNvbC F7bYR3dZ9iYgAlWeE7NUjv B016IeJjcBAbIpkyC64oQ8 JvdXA+PHRy Tpj8XHCblSasOO3cqZIbAD zkWe7uOCI7AyRiAcFjPLhe R1OuVSHxmqjuoayqaIN7ND EpUTVogM76 Fb6emHymVn2lEJQeKWA6SA YknBZaQ7YvvV7fLaBmTKDl HAIbT2XtaIJiGUltB588YZ uyRvP5RZWm egPlW8CeKPYotSnrLzI5w7 D2Mm7HqWqwaEWmPK9lSwQb XDo4H8AwUww6EHBsyPwlDL 0ncGFkZGlu La4miThijCpdYD7aZGLoms gkn368DxBdr9btPVDbuVXp XQvjUPY9D89lc3V9TEOxNY PjBMQ4qSZ1 dN7qiRgmfhgcgUJhqTlhhb VesPruXKhiDZalC488UTVn hPltKqZNUhs0C2WnMnb4YG BluUfuNJ8v iZOgYGezUa3tqBcylDnkAT 7vMAGubktnx317DnTnx2tx VVUfnSIoYPbkCXY4C78qk2 P7SFKvKJJb ZHS3zFO8aA1kxOqjxsxyhA VmdDsgdmVydGljYWwtYWxp P514SHRisGkyHw1LXhn0C6 CkLmi4JAWa gKsvIX5hhWLqAThhGc6lmB aogQbsPE4vVDSrqbllt740 XdNtd5ucHCSigBCnAOvwOL U9B57wf5G1 HOLnJGKsSSD4pXZ1eJ5rlY lnbjogbGVmdDsgdmVydGlj VFbuRMbfV069XZWkeZvfBy BheWVyOjwv dGQ+PS10yc59S7MeVtvpAe l3ZXYfJRG2rES8iG9xPCGb CKzmq6T9eCH0O6MbofTcpn 9if2iwGMHd ZTo (more content not included)... [facility] Coding Summary HTMLBase 64 ChtnxbxvVRc5zKv+PGhlYW Q+KX7SQNRsJ39suXHdjY0m O2OLJEnGYkhuFRKCMWaZWr WjnpBeZX7kjFReNBVi IC8+AM7bYFRoCvgzfLAro9 T9gQP1O44gki1xGUvqlBK9 BTWgMwRkrgwln6ldhAa2FY cuNmluOyBt BURlhM45SAT6fT90Tf61zB FroKAxt1mczZl4AyEqCIPi AOL2xQpdIAywf8FiGICqO4 5kjDYsf7Z2 CHDspCnkpAXtIrTtlOM0sH 9pLIawtreno9wqvfupVip7 ot86iCYxh8M8jAM8E4Nsbe Q8AAWklWDw IhorqNDJdI1imyxow8yfsh kcDyJoKZSgDBm9ESb4ACVk lWfyAiQnFN95WJE1WEKldw ZpR7JzHNNh lSoqOlK4h8J9Rg4DD2SPMp ocC8AWRDBVRPgoqEZ+PC90 sj76P7SiNzwvVwt6NPGkAP B0xJJ9mO1r YKQxDIvbx8C6yRT4W2Lvll Fyln7hq0izXSXbZMyhR13a aFJdf7Y7BHXfeDF9HLNncI kdDiGgrK45 Oyc+PVHfzAgnv5ZdKxyal2 dpd1zgdBo6AawcDLQjilPt xUqhDHF4t6IiIj6oKOLptP V1bHU4lQ9y DxMyMcC9NMhhZ541YpAvdA QeRegoE17cP2VfbUO+PHRy Ohh1OJJwwXuuTR4vT5GkFV RpbmctbGVm gSufUB0vXZUpodblQDOqtY 0iHEIqA3c6WmZjQcS0POhj I4XrWIBnrtbhOd16wT6zPa FlDlP4BSqs I4FftqB4MDVfwGDuXNinDB C8E55cl4U7KISoJOJdLNP6 nPY2gL5nbPyglolggCGquC sgdmVydGlj AMvhXAkiP810UTCbfJbuXr NvZGluZyBEYXRlOiAgMDUv MjQvMjAyMzwvdGQ+PHRkIH B9mLypNRHo gWXyRRieWw0noTmuxAwzSO 1wKDZntmymMWXplX5dPRTs nJYlcWacFS7vBXYaoyzxg2 78BtVdCCR1 QRNinLMeW3IkcK8wRoIpQN RvEHJtA7HvuWEtCLvmQ350 IVefKnB4SWCnzuIeZ2GsCY FsaWduOiB0 z3L9Ad2Vk1DkfdypP4TosD ElMfMqTodiUEv5F7ViGioy dHI+UJ00WREsXZ23XGq5IV Q0xGdtFUld FLXgZ0MjdA2uSwOrRKHqCB RkOyc+PHRhYmxlIHdpZHRo MLbuGNYzZnDxsRzsEM7jQr 9yZGVyLWNv rFwxjYOgFtRfj7znBSRsGY scJV3guVssW0QcbIX6JUCh d4s3Ve11C78hH9BunVO+PG KxeXE3aOJ4 oE2mVoRsNmE6IIdmA419Da XnfAOxJeafa6bai4lgcFo2 GhZ7QBNkyiGwyTtaOUX1h4 JiBd80P05d IHdpZHRoPSIxNSUiIHZhbG cgjs6rtR5oPj6+PGNvbCB3 uAM1vG4xGdGyMhY9IZvlM9 49InRvcCIv Ysukm9qoh6vaaJb5WcCiCR LeiyUovKxhTEM6b7OeAr75 D9TwoSgsn4RmIhr5po07pR Xja5F8qFB0 E7DsPMLjugjjtOEawIvqKM 9tPXMykajqYAXbjS9eUKUz Z0n7RmSkIfO7LIfaV1Ecbl H2BEJiqEXa ZKYanAENdL4pmmjdi5csxt qhSaPhJNLiQAa9JCz6NUJl vLzxIvTmGRF4CzI3GQK1aE OtdB5kaAqo xjiilE3mJbm+BMA9eHBeyJ IXNM4eNvqqpTL+PHRkIHN0 aUwcBOzrRHZvlP1cNODcA3 r4BgYeQtS1 EEumI1IsyyF4FKWwaAHqJW PkhFAPyY8dlyzwn0dmgzok PfThECDtJRl8QXo0UZAqtH duOiBsZWZ0 KuE6QXB7eYRjyF1bxGclcb bjaW1qSdx+QmlydGggRGF0 AVp8G4TxUky1BIAxoExkLH 0ncGFkZGlu Su3rtZmvnNndXT1lTCGfhh oyh180MlQof5xlPBDpfEXj JJpfKGV9K98ii5R6ORFtFD LrRZS7iLF9 yV7owHkyfbgqaKUgeOedqp CjaOfpVAiuCUrsY424SDLf nYvsYoKzITz4Y7DmJpd5HF HyvAwfHZ5w lYAsUIrsWp6nzFwxzUnbVG 1eBUNhymoxr407JoSkq5fn TRKbqKEmSFfpWDS2Q52vi8 S0CQYlWOTm SIY2dPD2aN8xxEpjruptpY VmdDsgdmVydGljYWwtYWxp Q426LYDrlUjzFmVwkNj0C8 IpVcm1OAMf yRiiAF8xnVGcCDoqXo7dyL kxdCpyFW3sYMMotafrg940 KjGht4odJRKriCDbIAkuLU O2V90in0K8 QUXiTXVnKCN7tDV1bM4dnJ lnbjogbGVmdDsgdmVydGlj VYieFMcpV335UWVmhWfqOa BhdGllbnQg PVntWBq1S5XpYqwhsUW+PC 17YDPoAB84oWAiaFVqa7vd kVp2KfXoKZOaEBB7rJmgRA hxj9FuWYVy N24cxLQjn0R0WXVccGqqkF RnExTfqSX3rY2eWZxqvblz b5mowkblGfcih7relz60fF 84G57yICie ZHRoPSIzMCUiIHZhbGlnbj 1ymF7mLn9+CMEzhOD1wHU4 dZ2hIJHpVfL6EFdpP516Vz RvcCIvPjxj g6clf5yjgKe1FnM1XTPqon LofPkxVYL1p4SrWg81M04t IHdpZHRoPSIyMCUiIHZhbG jpuo2lhW6k Ii8+OMLvfBM2nNS3kE4nMy XpYvT2ENxbU860CuAucMMq FtgfA74tT1ByaIH+PHRyPj v9HUQmvAnz SB5gbRFvZUdxUa3fLSW2Ju YyMqCgAFppP3DrWZJtnruq cdhhpHL9ADZbEJHjvC45Zf 9udDogMTBw qVGGpI9muzvzn8zoukioFw AzCLLiZIp6RGw6FBJwxNth EtXlSWT6FsS2PAM5gATosH 1hbGlnbjog zO9xI9UrTFBzizskJb51gS 3hZhAjDzM8UUdeNcb+SEVN TUVSLCBDUllTVEFMIEtBWT wvdGQ+PHRk RVF5zTqyFAraMFUimQ9jMF YnF6c0ThMoThX1QOrzL2Ph GOWglnlgHw24hS9bEbKxZc M2WBzzV9Qj fsF1KNFoaUBqUFchRDF4N6 6he3E8PXLwEGVkNGI0oQR9 zO8ktAnumpizlWBgjWeixu VydGljYWwt PIysM517FKKwkPnfRoJmSs Z5UdD7TmF0H7EfZxl1XFMh cTpgQA5luRKfAAfyHj3hsB aagYebST2p FJSkvewzKMDyuG9tKOBxzD LrdDjcVY6bCIPwoxhim799 DzZmUQR4YAVxbWZoG0KsfO 9yOiAjMDAw KGJeP7WnpDApTRiuM755WN utXvE8USJhlaOvG5KbQJDe sQphIlC1x2G8Pp54PkHFOG FyczwvdGQ+ LSYiUNI1tBfsPZivMEAizR 8xHSDaM2a4YzWmHlL9XQav Y9NpRNHnugpgIr57fB5kWh ClLfT4JByy C7TnkaX8HMRdwKIyMXpwDG W1K07lr0H4LQWhGQWcFHD3 oLW7fH1ztQxyldedoHZexW sgdmVydGlj ESvxIZavG601QAQfbMuuMm ZFTUFMRTwvdGQ+PHRkIHN0 sSlvYMtnWEIygT4wOZOjO9 e3GwSpZhN3 IFzxR5RgFBMzxxrxJq88lC 2jIlXrQnI5WNtwN7HnbfQ6 ZDOyhFHdMMemRVK5N55sr6 X6QONzNGKo EIC3wZO6hY0zbXlyjokarT VmdDsgdmVydGljYWwtYWxp T855AUZvgFyyWv8AWF78WO 12K3WvCdfp dGFibGU+PHRhYmxlIHdpZH UbCLmrPVElQgStoOgtSP6h Bo9zQHWaVVDevPxenKPqJl Wxa6ehLOVd SKzcLY5wjEnzX4GxqHI3AR Uti6q7Gl97L83rV9NlmGZ+ AVAjiCJ7jOT9zE6tTyJbHo X5AAlaA972 RzBkuOPhEsonf7rsb3bnrP f7SeFbKWZrduOepJlmEJJ3 e9TkSo23A05lXOhuOSPbXB IyMCUiIHZh pGgaso6efY6xIt3+PGNvbC W5mXU5cK4cGjXyOkD4AMsv U843MzQweVFqYvvmO26hO8 JvdXA+PHRy Hpq0GFCjmDtaWG6klACgKY kpZw3mIHF1GaUtZvBrJUwq B5VxGDKlrlusjlntzMQ0IS VtJXOnnV09 Wa9trSflVj5aEWFkMYK8EQ AtmHNsI7TamV7mTxFfLTWe OFWwG5DbjRYiUItqP908GR tuNgA9NSOs fwLoI2PxEHJxxGmuLqP9h4 I7Wm3GbGsxdWPlTL4vHmRs NZi9P3MjYqd5MPFsqWunKK 0ncGFkZGlu Hv3ocDcezDkaAU1jIEWkth icq218ClNvm0aiFNQfqEWk IGrzXBB4P70rd6S4JGOzRQ RjWDH5mXS2 kM7ozYslbjmzgNJumVhiqr ZjjNuuNRbcIRxeL106NFYg tElgHcNCNgg4J6HmHfm9SH JzfJqlOQ5t mNOdHIruDf3luGfdfPzhJN 0qSMBpbtsao293CvIez8rn UBTioYUcPDcjDLC8D52bv7 E1UQFlJMQq LWS4yHY7zZ6pmLzflrmbfB VmdDsgdmVydGljYWwtYWxp Q885FTUadVwkVr8GXpv2N4 JjUce1IQLr qWwsGN1bmQVjJQknIc4cgZ zgtVaeRH4aWAUvsvlxi059 QxVzq9yqPHZksDLhTWntOW A1A97es9U7 TQIeKFEbZZX3hQF1aU7ruC lnbjogbGVmdDsgdmVydGlj IDxmCFncF851MCLmgVnhGq BheWVyOjwv dGQ+MS08wf13H5RtSnwqNq b0FERmVQA9xMO5dU4rAWZx AQuni1L8wMO9V7CqrvNagt 3ce7zlDBWb ZTo (more content not included)... [facility] Provider Orderson 05-24-2023 Provider Orders [id number] OTGTIFF Normal [facility] BMP Standardon 11-20-2022 eGFR Non AA >60 Invalid Interpretation Code [facility] Comment on above: Performed By: #### 1 [id number] ####[facility] (DEFAULT)[address] [place] [address] 92655 eGFR AA >60 Invalid Interpretation Code [facility] Comment on above: Performed By: #### 1 [id number] ####[facility] (DEFAULT)[address] [place] [address] 28958 Calcium [Mass/Vol] 9.6 mg/dL Normal 8.9-10.3 [facility] Comment on above: Performed By: #### 1 [id number] ####[facility] (DEFAULT)[address] [place] [address] 52801 Chloride [Moles/Vol] 99 mmol/L Low 101-111 [facility] Comment on above: Performed By: #### 1 [id number] ####[facility] (DEFAULT)[address] [place] [address] 38741 CO2 [Moles/Vol] 26 mmol/L Normal 21-32 [facility] Comment on above: Performed By: #### 1 [id number] ####[facility] (DEFAULT)[address] [place] [address] 45764 Creatinine [Mass/Vol] 0.78 mg/dL Normal 0.60-1.30 [facility] Comment on above: Performed By: #### 1 [id number] ####[facility] (DEFAULT)[address] [place] [address] 89962 Glucose [Mass/Vol] 87.0 mg/dL Normal 74.0-118.0 [facility] Comment on above: Performed By: #### 1 [id number] ####[facility] (DEFAULT)[address] [place] [address] 83380 Potassium [Moles/Vol] 3.6 mmol/L Normal 3.6-5.1 [facility] Comment on above: Performed By: #### 1 [id number] ####[facility] (DEFAULT)[address] [place] [address] Sodium [Moles/Vol] 137.0 mmol/L Normal 136.0-144.0 [facility] Comment on above: Performed By: #### 1 [id number] ####[facility] (DEFAULT)[address] [place] [address] 89707 Urea nitrogen [Mass/Vol] 18 mg/dL Normal 8-26 [facility] Comment on above: Performed By: #### 1 [id number] ####[facility] (DEFAULT)[address] [place] [address] Anion gap [Moles/Vol] 15.6 mmol/L Normal 5.0-19.0 [facility] Comment on above: Performed By: #### 1 [id number] ####[facility] (DEFAULT)[address] [place] [address] 45080 Osmolality 275 mOsm/L Invalid Interpretation Code [facility] Comment on above: Performed By: #### 1 [id number] ####[facility] (DEFAULT)[address] [place] [address] 43211 Urea nitrogen/Creatinine [Mass ratio] 23.0 mg/mg High 4.6-16.2 [facility] Comment on above: Performed By: #### 1 [id number] ####[facility] (DEFAULT)[address] [place] [address] 32371 HCG ( test) IA.rapi d Ql (U)Ordered By: Uri Samuels on 11-23-2021 HCG ( test) Ql (U) Negative [facility] COVID-19 Positive/NegativeOr dered By: ISIS ROSADO on 11-21-2021 SARS-CoV-2 (COVID-19) N gene NADER+probe Ql (Resp) Negative Negative [facility] Comment on above: Testing for SARS-CoV -2 by RT-PCR This test was developed and its performance characteristics determined by [employer] ([employer]) and validated at the [facility]. This test has not been FDA cleared or approved. This test has been authorized by FDA under an Emergency Use Authorization (EUA). This test has been validated in accordance with the FDA's Guidance Document (Policy for Diagnostics Testing in Laboratories Certified to Perform High Complexity Testing under CLIA prior to Emergency Use Authorization for Coronavirus Disease-2019 during the Public Health Emergency) issued on October 01, 2019. This test is only authorized for the duration of time the declaration that circumstances exist justifying the authorization of the emergency use of in vitro diagnostic tests for detection of SARS-CoV-2 virus and/or diagnosis of COVID-19 infection under section 564(b)(1) of the Act, 21 U.S.C. 360bbb-3(b)(1), unless the authorization is terminated or revoked sooner. Basophils Auto (Bld) [#/Vol] Ordered By: ISIS ROSADO on 11-15-2021 Basophils (Bld) [#/Vol] 0.0 10*3/uL 0.0-0.2 [facility] Basophils/100 WBC Auto (Bld) Ordered By: ISIS ROSADO on 11-15-2021 Basophils/100 WBC (Bld) 0.6 % [facility] Blood hemoglobin measurement (mass/volume)Ordered By: ISIS ROSADO on 11-15-2021 Hemoglobin (Bld) [Mass/Vol] 14.5 g/dL 11.8-15.4 [facility] Blood leukocytes automated c ount (number/volume)Ordered By: ISIS ROSADO on 11-15-2021 WBC (Bld) [#/Vol] 7.2 10*3/uL 4.5-11.0 [facility] Body fluid albumin measureme nt (mass/volume)Ordered By: ISIS ROSADO on 11-15-2021 Albumin (Body fld) [Mass/Vol] 4.2 g/dL 3.2-5.5 [facility] Creatinine and Glomerular fi ltration rate.predicted panel (S/P/Bld)Ordered By: ISIS ROSADO on 11-15-2021 Creatinine [Mass/Vol] 0.68 mg/dL 0.44-1.03 [facility] Eosinophils Auto (Bld) [#/Vo l]Ordered By: ISIS ROSADO on 11-15-2021 Eosinophils (Bld) [#/Vol] 0.2 10*3/uL 0.0-0.45 [facility] Eosinophils/100 WBC Auto (Bl d)Ordered By: ISIS ROSADO on 11-15-2021 Eosinophils/100 WBC (Bld) 2.4 % [facility] Erythrocyte distribution wid th Auto (RBC) [Ratio]Ordered By: ISIS ROSADO on 11-15-2021 Erythrocyte distribution width (RBC) [Ratio] 13.3 % 11.9-15.3 [facility] Estimated glomerular filtrat ion rate (GFR) non- AmericanOrdered By: ISIS ROSADO on 11-15-2021 GFR/1.73 sq M.predicted among non-blacks MDRD (S/P/Bld) [Vol rate/Area] > 60 mL/Min [facility] Globulin Calc (S) [Mass/Vol] Ordered By: ISIS ROSADO on 11-15-2021 Globulin (S) [Mass/Vol] 2.6 g/dL [facility] Hematocrit Auto (Bld) [Volum e fraction]Ordered By: ISIS ROSADO on 11-15-2021 Hematocrit (Bld) [Volume fraction] 42.6 % 34.0-46.4 [facility] Laboratory - Hematology and Cell countsOrdered By: ISIS ROSADO on 11-15-2021 Nucleated RBC/100 WBC (Bld) [Ratio] 0.0 % 0-0.5 [facility] Lymphocytes Auto (Bld) [#/Vo l]Ordered By: ISIS ROSADO on 11-15-2021 Lymphocytes (Bld) [#/Vol] 1.1 10*3/uL 1.00-4.8 [facility] Lymphocytes/100 WBC Auto (Bl d)Ordered By: ISIS ROSADO on 11-15-2021 Lymphocytes/100 WBC (Bld) 14.7 % [facility] MCH Auto (RBC) [Entitic mass ]Ordered By: ISIS ROSADO on 11-15-2021 MCH (RBC) [Entitic mass] 30.8 pg 24.7-34.3 [facility] MCHC Auto (RBC) [Mass/Vol]Or dered By: ISIS ROSADO on 11-15-2021 MCHC (RBC) [Mass/Vol] 34.1 g/dL 32.0-35.0 [facility] MCV Auto (RBC) [Entitic vol] Ordered By: ISIS ROSADO on 11-15-2021 MCV (RBC) [Entitic vol] 90.5 fL 80-100 [facility] Monocytes Auto (Bld) [#/Vol] Ordered By: ISIS ROSADO on 11-15-2021 Monocytes (Bld) [#/Vol] 0.5 10*3/uL 0.0-0.8 [facility] Monocytes/100 WBC Auto (Bld) Ordered By: ISIS ROSADO on 11-15-2021 Monocytes/100 WBC (Bld) 7.4 % [facility] Neutrophils Auto (Bld) [#/Vo l]Ordered By: ISIS ROSADO on 11-15-2021 Neutrophils (Bld) [#/Vol] 5.4 10*3/uL 1.8-7.7 [facility] Neutrophils/100 WBC Auto (Bl d)Ordered By: ISIS ROSADO on 11-15-2021 Neutrophils/100 WBC (Bld) 74.9 % [facility] No Panel InformationOrdered By: ISIS ROSADO on 11-15-2021 Estimated GFR () > 60 mL/Min [facility] Comment on above: GFR estimated refere nce range: According to KDOQI guidelines, <60 ml/min/1.73m2 is sufficient to diagnose a patient with chronic kidney disease. Pharmacy Creatinine Clearance (Chem N/A [facility] Platelet mean volume Auto (B ld) [Entitic vol]Ordered By: ISIS ROSADO on 11-15-2021 Platelet mean volume (Bld) [Entitic vol] 7.7 fL 6.3-10.7 [facility] Platelets Auto (Bld) [#/Vol] Ordered By: ISIS ROSADO on 11-15-2021 Platelets (Bld) [#/Vol] 317 10*3/uL 150-450 [facility] Protein [Mass/volume] in Ser um or PlasmaOrdered By: ISIS ROSADO on 11-15-2021 Protein [Mass/Vol] 6.8 g/dL 6.1-7.9 [facility] RBC Auto (Bld) [#/Vol]Ordere d By: ISIS ROSADO on 11-15-2021 RBC (Bld) [#/Vol] 4.71 10*6/uL 3.60-5.00 [facility] Serum or plasma alanine jamison otransferase measurement without P-5'-P (enzymatic activiOrdered By: ISIS ROSADO on 11-15-2021 ALT No additional P-5'-P [Catalytic activity/Vol] 21 U/L 10-60 [facility] Serum or plasma albumin/glob ulin mass ratioOrdered By: ISIS ROSADO on 11-15-2021 Albumin/Globulin [Mass ratio] 1.6 {ratio} [facility] Serum or plasma alkaline rebeca sphatase measurement (enzymatic activity/volume)Ordered By: ISIS ROSADO on 11-15-2021 ALP [Catalytic activity/Vol] 62 U/L 32-92 [facility] Serum or plasma aspartate am inotransferase measurement (enzymatic activity/volume)Ordered By: ISIS ROSADO on 11-15-2021 AST [Catalytic activity/Vol] 21 U/L 10-42 [facility] Serum or plasma calcium hannah urement (mass/volume)Ordered By: ISIS ROSADO on 11-15-2021 Calcium [Mass/Vol] 9.6 mg/dL 8.2-10.2 [facility] Serum or plasma chloride delfino surement (moles/volume)Ordered By: ISIS ROSADO on 11-15-2021 Chloride [Moles/Vol] 98 mmol/L 95-114 [facility] Serum or plasma glucose hannah urement (mass/volume)Ordered By: ISIS ROSADO on 11-15-2021 Glucose [Mass/Vol] 91 mg/dL 70-100 [facility] Comment on above: ADA recommended refe rence range Random Glucose Reference Range is dependent on time and content of last meal. Glucose of more than 200 mg/dL in a nonstressed, ambulatory subject supports the diagnosis of Diabetes Mellitus. Serum or plasma potassium me asurement (moles/volume)Ordered By: ISIS ROSADO on 11-15-2021 Potassium [Moles/Vol] 4.3 mmol/L 3.5-5.1 [facility] Serum or plasma sodium measu rement (moles/volume)Ordered By: ISIS ROSADO on 11-15-2021 Sodium [Moles/Vol] 136 mmol/L 136-146 [facility] Serum or plasma total biliru bin measurement (mass/volume)Ordered By: ISIS ROSADO on 11-15-2021 Bilirubin [Mass/Vol] 0.5 mg/dL 0.3-1.2 [facility] Serum or plasma total carbon dioxide measurement (moles/volume)Ordered By: ISIS ROSADO on 11-15-2021 CO2 [Moles/Vol] 27.8 mmol/L 22.0-30.0 [facility] Serum or plasma urea nitroge n measurement (mass/volume)Ordered By: ISIS ROSADO on 11-15-2021 Urea nitrogen [Mass/Vol] 10 mg/dL 9-23 [facility] Coding Summary.on 08-18-2021 Coding Summary. CD:[id number] Gh 0bWw+PGhlYWQ+WI1FKYPeZ 75zvYQbvB7IM9yEML5NIUQ WPYMNUE0QLY7soZU2WZpuR 2VybiAv AlrhvVHvDQ68NHs8HAK1kG ljTOgkoW9vcAYzF0r4UrSt WN95iP37XLwuTNTkFkS4Wa ZpbjsgbWFy Z8gwOjFdpAYhVzx+PHRhYm xlIHdpZHRoPScxMDAlJyBz pWmtXT1rEx8hIOQiPWJhlD xhcHNlOiBj r9miYGTuVQapOB4hvBgsU5 BvzIF7RHOcb6m0Ld00rOF+ NQZlLOL9zTeoNUudw095Dd Usn3bzNCO9 dUTaCXncWYW2F92gr4F6OM MpYWTaDCK8nJZ2rM4giZtz dbnuN2PbgGOmLgP9WYV6hV WqzT2dgTlz qubvdT9cIxq+C25SAR1DGW OBBZ2ZVud4M5EhZirnuRR+ DA98LKBwAU46xOZwhNTvj0 rmpMv3KgPr UQYyXED5oWznYEbjb8LoDN UsY13axLBpm6P8TSOkmTky lBAvWkNfaGI5dX9fSOfhiz qif3rwtmzu Kitul1uqhk19bY15S06vNP erNXSlJQA0PVYwIPRfxAwt qu7dbX2vCs2+IQyxb0dsu4 fogSg6XjFi CFThoiLiuXcoBCT5e6UvOm 34G4QvpVtzp6MsUqj6ae11 dBIoy4Q4xQU0XQwuZHPhuK 5xIBmxCsY8 SVSkQpWnlF42jALfEQgqKn 2zsEkgtOlbTC1wAAWqpjoo ULRsqG3tCDIebTGvgKzvIT 4wNTBpbjtm c033JnLvTYT8VBMcsCLnZ6 ZcjK1vRkJpTMJlVFZmO4Ab nSIhIGocJ065SIjfAtF3CF ZogxCbW7Nk KSSlsIkeMgW9s7U3Ht5Gg2 RvsvtrZNB2ULqsQHKuHrR2 LcLzPpW5E4KbOsn5PGEaxH kdIR0bM9Us WQYevnmuqnaanGI2KWXfXZ HyfW06xCGuTHbqFp6qg8G5 d402XKMzUBXrgK34Dn1qoQ ogMTBwdCBU fD4txhssg1bouzxxHmRsQD FeKOp3DUn0BWKziHinWxXl LUG9LwN1REW4mEDhmY9jwN tovauavX2t Oyc+A17jkK6gTAE1ZSI1wj xxCVHtjaCwHB37BE89N7Vk PjwvdGFibGU+PGRpdiBzdH qlPR3uWiDi u2xph1XlRBdvV5KtTRHrOA zxQmx6FWBbVIM4kQX6mI9s OZMrOQows8V7mSG0Z2Ekrx Peql2bb9cv KMRwTAzcO02isSXpy0B3VO BkgWA2ZSDosSmeRdOouG42 Oyc+RPNdeLpko0PoBndlu9 xim4ffxGc9 SkVkMWHgsoRcxTuaUFA9v7 HyYj39Z14mIUfiKWZhUCEp EIAxVQHdeXlbvi8deV2lSw 8+PGNvbCB3 rJL5fJ9lXROkDcQ8LPabV7 34RqHjbQMnLqozt9bfo4xa pFn1BaYzTFNdbmBjwMtzXW B5g6IgVj36 B39xXZxtJZGyQJAfHDOkGQ KtbRreba7yuO3uTj2+PC9j f0ghos52cD60zXZ+PHRkIH R6xIffEPza LASzeK5fNVqpBvH2TGMtUd FihG73aVRrPYlbRk9blHsw dVnlFA4oUNCgverda504We Fyn4rvSDTq yUVzQGdeXLV9Y96py1D6TX VkGBLaRMZ1rEY4jQ1vlElk bjogbGVmdDsgdmVydGljYW diLJemA985 IHRvcDsnPlBhdGllbnQgTm OhUZs0D4IeRdx6QUAigZvr VH6qbMXgZPfqNu2qbOyisO sfNQ4xFIDf bqhft783KoQet8voWPPleS XjGYewCMB7K70wj8Z9RHNy QJCiZXO6xWU7iM1nlAkpcl ogbGVmdDsg qsKcnQflYRbyYPcxU988MY RvcDsnPkJpcnRoIERhdGU6 CN73LJ98mUXji1N7lCK3Z1 BhZGRpbmct pqfyaIK6KOJaERBhvJ13Nc 4lgZxwGh4iDLFnDFL7BKQd aGIxE8CftP4yFzRvGASdTB AdF7UywPWs RRaeW546UEahRnS9GSNzwd TbS2DbSEJnpLyfCpL6j5O2 Ya2DP6N7QX17AU04kAUdb4 R2pGU2J0Dp BWYecrybyktldBG0DOCfFL TcxG21Rv4buDkhJb4wCPEl ZKU6KYFqzPKrK6FmoN7yGk AjMDAwMDAw C8ZumCLfLLhtZ530TWcsYm T8SLHpdzNjN6FgTHZplCih HzG8m6I2Jc1DKAl3XS27OV 83uUFiz4P8 gHW4J4RwSDCvfsiykowqfF C0GSIpNABpsO43Ab5zxIna Km9yRNTrUBH9KMWpzVIuI4 XwuK2lGyMz YEXvWFXrM1KqhSTyLEjiN7 99VDvzMmT1SAIvwiRmZ2Ye GSZzoXdmPiN6f2T3Wc2SWB GqTB77PSE3 yBO8RA30BC44E0LeFtspeD FibGU+PHRhYmxlIHdpZHRo EErcDNTkJsVkhQmgCY0eXs 9yZGVyLWNv uEkkhKMtDaFwi4fjXGZuPC zgXZ8xhYurH1PydMK2JTXi u3o1Xt25O77lJ1BwtTS+PG TqhGY0bFA0 hR5sTmPpHvS1QDheA422Zu FduFExMmrqz7ugi5fqjXn5 NgT1TPAzdcNpkDfjXFL9t5 SiQh27V06d IHdpZHRoPSIxNSUiIHZhbG sckp0laH1lTe3+PGNvbCB3 jVR3yA1uCaTaSjA0ZJhnH0 49InRvcCIv Hiuam7all5kanBe1FiRsSU ErxfKbvNmcNQR5r8PpZz41 A4BzeHofx6LyWff6vq38nS Pay7B1kQW9 I9ZeKECcxxowrQCujZpdRG 4lXZDiamroXTYspI2pKJUv O9m0XyFhDuF4WTaoS6Vbed E3URFrlNBv CGeiRJR9G29di6S5HNYuIC CvVLR4bNN2zF5wdLxncybe bGVmdDsgdmVydGljYWwtYW jqI801UNYq pPbuUQRozQ8wOKRsuLLdvK vpET9hJWShlmfbItjGYK3M QbxbZ4KZJ1ROKYxdhRP+PH ChVIL7rPqs DEtxZXVjjD8eOZDoD3s2Mf IkQqN1UOukL5QdACNhctyc Gc30dX7cTfByCmZ8RSnoW4 ZgbkW6ENVq sEBpMGgdDLT3K55ca7U8HH FfEXUwZXU9sFI2lY8svHpl bjogbGVmdDsgdmVydGljYW xaCYafO471 RMPyeWsjNqBpTzS3XxN6Gf G5I3KjYye6OJPigHuhAN8f vABgLSebGz2zzLuvdAniXR 4wNTBpbjtw BVMouO0eOWYctEPwuYqvHY 4nJBZdnlndo355JiHcWJA7 CKWcnPIhV8ChtG1dCzIpUH VdRJHtQ1Cr lHBjCCvzW049PKzbRjY9HU DghgKlU2LcKACefYtkBrF5 i0J8Ys12LePKBNBndqstpK Q+PHRkIHN0 aCboQJtoBMFkeE2oOWDnJ9 o6EeUnWuZ6KFwtI7RyBXDw lgpkLg04sA7aMdEcLwD0BD bjZ6KypmE2 IOLdtNRyPEdiBOI4N10wx1 P1ETCbRKGkOEC7mLQ9jT4f bGlnbjogbGVmdDsgdmVydG ljYWwtYWxp J700MTGvmMgbJuKqeZByQF wvdGQ+HGJbYYA3dPxfMLtg XFKgmB5nOEGbW4a7EtHxUv S0UYagR2Rj PCDkuhrxTd15lY4mDrQcDk J5XKzdZ7IvvdA9TOMulEIb FOkjOZO7A54xy6S9RAYsKO XxPAI3eBT4 mO5zvUbedrlvjXQoaKucbt ZnmRneHHfpDJkyE843PXCi mSgfYmxoPpOEqc4pMJ9aFo wvdGQ+PC90 di71L8JxCrmeWqs2YQJlHD E7pLW7tZ8rNZUgGTghg8Y7 uMI3K7MubjAiyb7oh5kuDO PnSAykD93t vXNaj9Y2UIJveHO4IMNxrS qvIlIvxR56Snv+PGNvbGdy f9KjYibtp2xit4ryqTy4Ms MwJSIgdmFs bUjdECG5e4YrKk74Q74xDA dpZHRoPSIzMCUiIHZhbGln ws2loV3gBm3+YINdoUU5hK I6uC5eCkCs KuL0AEfaW896SwGpfSWjVx vcj0rqu0vgwMt7UzTwXOMd ibVcdXoeJXD8b2UuGv43J0 AfyVmdu2Eg Xba7we13fFBdq1U4lML6R3 FhZUPdvkcuwRRvoQbyZX4v UEZlszzlNSVqvY7oNRQjS1 q1DjUrMuM8 PYbyL0PzquN5HRZjsROaBL MyaWKMdK7swtbsu0uxisbq FcMsHMQnJHt7UQr1CMPbzN duOiBsZWZ0 XxX4TUT2wQNpsE0zmEcoxc fypG8lQwx+UYv4d3xquADi BG1ytFU9GV79GB22bAOnl2 N2qTT3I5Ld DYRhzpmvuuxfvUY4EXOkOG OyuB05Rd5swNbnHa3iWEUw DEU4EAVpcLVjV1GsbE7rIr AjMDAwMDAw D5KcmPNuMLupF266OHokFx L0KSMwmfLhG8EmBBDvoCaj EpH7m5A7Ci4NAW41GW94UZ 53rHPbp7D3 mOM9Q6PiBNSpvgtvcglrmQ L7TIPrVWTvtH38Vs2knRyu Ee5yELSjHRR0FRIbjAFoZ8 ErhH4vUrBj WRUuXUDcR7NksWPeQLiyI0 39CIqbWaW0KBPqreGdI8Iz KPVcbJusPdO0f3V5Ca8OQe 11JS50PZ92 rHMgp8L5xOU6M0ZmBSHzap ohfqemnAY6ZEOfDAWthI56 Eg8xkOwgSj4vEIZoPAX2ZT IbqOWdQ5Ls kF1kKzKzTMCzNCKcO9GqxN OwGKalK040ZFcmYeL0ZTZi zhWjH3NtKZCssQvpNdB8r3 E9Ka3NGOmb xlu7Z1IqNtxtaJF+PC90YW HqYY99gNOxmILtx4ijfRw3 IpCaFJVbYIO3wNnoJIsxh7 RaFFNtU95r bGFw (more content not included)... Normal [facility] PAP [phone] 08-17-2021 Cytology report Cyto stain Doc (Cvx/Vag) Note Invalid Interpretation Code [facility] Comment on above: Result Comment: TEST S RESULT FLAG UNITS REF RANGE LAB Clinician Provided Cytology Information Source.............Endocervix No. of containers..01 ThinPrep Vial DIAGNOSIS: 01 NEGATIVE FOR INTRAEPITHELIAL LESION OR MALIGNANCY. Specimen adequacy: 01 Satisfactory for evaluation. Endocervical and/or squamous metaplastic cells (endocervical component) are present. Areas of partially obscuring blood are present. Performed by: 01 Barb Willoughby, Mixing Supervisor ([facility]) . 01 Note: Note 01 The Pap smear is a screening test designed to aid in the detection of premalignant and malignant conditions of the uterine cervix. It is not a diagnostic procedure and should not be used as the sole means of detecting cervical cancer. Both false-positive and false-negative reports do occur. Test Methodology: Note 01 This liquid based ThinPrep(R) pap test was screened with the use of an image guided system. FLAG LEGEND: L-Low Normal,H-High Normal,LL-Alert Low,HH-Alert High <-Panic Low,>-Panic High,A-Abnormal,AA-Critical Abnormal Performed at: [address] [address] Tara Linda MD, Performed By: #### 1 [id number] #### [facility] [address] [place] [address] HPV 16+18+31+33+35+39+45+5 1+52+56+58+59+66+68 DNA Probe+sig amp Ql (Cvx) Negative Invalid Interpretation Code Negative [facility] Comment on above: Result Comment: This nucleic acid amplification test detects fourteen high-risk HPV types (16,18,31,33,35,39,45,51,52,56,58,59,66,68) without differentiation. Performed at: [facility] [place] [address], [place] [id number] MD Alexei Pacheco Performed at: =G [facility] [place] [address], [place] [id number] MD Alexei Pacheco Performed By: #### 1 [id number] #### [facility] [address] [place] [address] PAP [phone] 08-14-2021 Collection Technique BRUSH-SPATULA Normal F [facility] Comment on above: Performed By: #### 1 [id number] #### [facility] [address] [id number] Gynecological Body Site ENDOCERVIX Normal [facility] Comment on above: Performed By: #### 1 [id number] #### [facility] [address] [place] [address] Physician Orderon 08-10-2021 Physician Order [id number]#[id number] 0CD:127 Normal [facility] Provider Letteron 01-09-2021 Provider Letter January 09, 2021 Dear Rhett, We have been trying to reach you with no success. It is important that you return our call regarding your appointment upon receiving this letter. Also, at the time of your call, please provide us with your current information. Thank you for your prompt attention to this matter. Sincerely, [facility] [address] [place] [address] Normal [facility] CBC AUTO DIFFon 03-26-2019 Basophils (Bld) [#/Vol] 0.1 103/ul Normal 0.0-0.1 [facility] Comment on above: Performed By: #### C BC #### [facility] [address] [address] Jenifer Gloria Basophils/100 WBC (Bld) 1.4 % Normal 0.2-2.0 [facility] Comment on above: Performed By: #### C BC #### [facility] [address] [place], [place] [phone] Jenifer Juani Eosinophils (Bld) [#/Vol] 0.2 103/ul Normal 0.0-0.7 [facility] Comment on above: Performed By: #### C BC #### [facility] [address] [place], [place] [phone] Jenifer Juani Eosinophils/100 WBC (Bld) 3.2 % Normal 0.9-7.0 [facility] Comment on above: Performed By: #### C BC #### [facility] [address] [place] [address] Jenifer Juani Erythrocyte distribution width (RBC) [Ratio] 12.3 % Normal 11.0-15.0 [facility] Comment on above: Performed By: #### C BC #### [facility] [address] [place] [address] Jenifer Juain Hematocrit (Bld) [Volume fraction] 43.5 % Normal 36.0-48.0 [facility] Comment on above: Performed By: #### C BC #### [facility] [address] [place], [place] [phone] Jenifer Juani Hemoglobin (Bld) [Mass/Vol] 14.5 g/dL Normal 12.0-16.0 [facility] Comment on above: Performed By: #### C BC #### [facility] [address] [place] [address] Jenifer Juani IG # 0.02 10e3/ul Normal 0.00-0.03 [facility] Comment on above: Performed By: #### C BC #### [facility] [address] [place] [address] Jenifer Juani IG % 0.4 % Normal 0.0-0.5 [facility] Comment on above: Performed By: #### C BC #### [facility] [address] [place], [place] [phone] Jenifer Juani Lymphocytes (Bld) [#/Vol] 1.3 103/ul Normal 1.2-3.8 [facility] Comment on above: Performed By: #### C BC #### [facility] [address] [place], [place] [address] Jenifer Juani Lymphocytes/100 WBC (Bld) 22.3 % Normal 20.5-60.0 [facility] Comment on above: Performed By: #### C BC #### [facility] [address] [place], [place] [address] Jenifer Juani MANUAL DIFF REQ NO Normal [facility] Comment on above: Performed By: #### C BC #### [facility] [address] [phone] Jenifer Juani MCH (RBC) [Entitic mass] 30.7 pg Normal 26.7-34.0 [facility] Comment on above: Performed By: #### C BC #### [facility] [address] [place], [place] [phone] Jenifer Juani MCHC (RBC) [Mass/Vol] 33.3 g/dL Normal 29.9-35.2 [facility] Comment on above: Performed By: #### C BC #### [facility] [address] [place], [place] [phone] Jenifer Juani MCV (RBC) [Entitic vol] 92.0 fL Normal 81.0-99.0 [facility] Comment on above: Performed By: #### C BC #### [facility] [address] [place], [place] [phone] Jenifer Juani Monocytes (Bld) [#/Vol] 0.5 103/ul Normal 0.3-0.8 [facility] Comment on above: Performed By: #### C BC #### [facility] [address] [place], [place] [phone] Jenifer Juani Monocytes/100 WBC (Bld) 8.5 % Normal 1.7-12.0 [facility] Comment on above: Performed By: #### C BC #### [facility] [address] [place], [place] [phone] Jenifer Juani Neutrophils (Bld) [#/Vol] 3.6 103/ul Normal 1.4-6.5 [facility] Comment on above: Performed By: #### C BC #### [facility] [address] [place], [place] [address] Jenifer Juani Neutrophils/100 WBC (Bld) 64.2 % Normal 43.0-75.0 [facility] Comment on above: Performed By: #### C BC #### [facility] [address] [place], [place] [address] Jenifer Juani Platelet mean volume (Bld) [Entitic vol] 9.4 fL Critically low 9.5-13.5 [facility] Comment on above: Performed By: #### C BC #### [facility] [address] [place] [address] Jenifer Juani Platelets (Bld) [#/Vol] 337 103/ul Normal 150-450 [facility] Comment on above: Performed By: #### C BC #### [facility] [address] [place] [address] Jenifer Juani RBC (Bld) [#/Vol] 4.73 106/ul Normal 4.20-5.40 [facility] Comment on above: Performed By: #### C BC #### [facility] [address] [place] [address] Jenifer Juani WBC (Bld) [#/Vol] 5.7 103/ul Normal 4.0-11.0 [facility] Comment on above: Performed By: #### C BC #### [facility] [address] [place] [id number] Jenifer Gloria PROF 14(COMP METB)on 019 Albumin [Mass/Vol] 4.1 g/dL Normal 3.5-5.0 [facility] Comment on above: Performed By: #### C MP, TSH #### [facility] [address] [place] [id number] Jenifer Juani Albumin/Globulin [Mass ratio] 1.3 {ratio} Normal [facility] Comment on above: Performed By: #### C MP, TSH #### [facility] [address] [place] [phone] Jenifer Juani ALP [Catalytic activity/Vol] 55 U/L Normal 38-126 [facility] Comment on above: Performed By: #### C MP, TSH #### [facility] [address] [place], [place] [address] Jenifer Juani ALT [Catalytic activity/Vol] 23 U/L Normal 9-52 [facility] Comment on above: Performed By: #### C MP, TSH #### [facility] [address] [place], [place] [address] Jenifer Juani Anion gap [Moles/Vol] 12.4 mmol/L Normal Th [facility] Comment on above: Performed By: #### C MP, TSH #### [facility] [address] [place] [id number] Jenifer Juani AST [Catalytic activity/Vol] 15 U/L Normal 14-36 [facility] Comment on above: Performed By: #### C MP, TSH #### [facility] [address] [address] Jenifer Juani Bilirubin Ql (U) 0.6 mg/dL Normal 0.2-1.[address] [facility] Comment on above: Performed By: #### C MP, TSH #### [facility] [address] [phone] Jenifer Juani Calcium [Mass/Vol] 9.6 mg/dL Normal 8.4-10.2 [facility] Comment on above: Performed By: #### C MP, TSH #### [facility] [address] [place] [address] Jenifer Juani Chloride [Moles/Vol] 102 mmol/L Normal 98-107 [facility] Comment on above: Performed By: #### C MP, TSH #### [facility] [address] [phone] Jenifer Juani CO2 [Moles/Vol] 29.0 mmol/L Normal 22.0-30.[address] [facility] Comment on above: Performed By: #### C MP, TSH #### [facility] [address] [phone] Jenifer Juani Creatinine [Mass/Vol] 0.68 mg/dL Normal 0.52-1.04 [facility] Comment on above: Performed By: #### C MP, TSH #### [facility] [address] [place], [place] [address] Jenifer Juani EGFR-AF MICRONESIAN >60 Normal >=[address] [facility] Comment on above: Performed By: #### C MP, TSH #### [facility] [address] [phone] Jenifer Juani EGFR-NON AF MICRONESIAN >60 Normal >=60 [facility] Comment on above: Performed By: #### C MP, TSH #### [facility] [address] [phone] Jenifer Juani Globulin (S) [Mass/Vol] 3.1 g/dL Normal [facility] Comment on above: Performed By: #### C MP, TSH #### [facility] [address] [place] [address] Jenifer Juani Glucose [Mass/Vol] 84 mg/dL Normal 74-106 [facility] Comment on above: Performed By: #### C MP, TSH #### [facility] [address] [address] Jenifer Juani Potassium [Moles/Vol] 4.4 mmol/L Normal 3.4-5.0 [facility] Comment on above: Performed By: #### C MP, TSH #### [facility] [address] [place] [address] Jenifer Juani Protein [Mass/Vol] 7.2 g/dL Normal 6.1-8.2 [facility] Comment on above: Performed By: #### C MP, TSH #### [facility] [address] [address] Jenifer Juani Sodium [Moles/Vol] 139 mmol/L Normal 137-145 [facility] Comment on above: Performed By: #### C MP, TSH #### [facility] [address] [address] Jenifer Juani Urea nitrogen [Mass/Vol] 12.0 mg/dL Normal 7.0-17.0 [facility] Comment on above: Performed By: #### C MP, TSH #### [facility] [address] [address] Jenifer Gloria Urea nitrogen/Creatinine [Mass ratio] 17.6 mg/mg Normal [facility] Comment on above: Performed By: #### C MP, TSH #### [facility] [address] [address] Jenifer Gloria TSHon 03-26-2019 TSH Qn 0.809 uIU/mL Normal 0.470-4.680 [facility] Comment on above: Performed By: #### C MP, TSH #### [facility] [address] [address] Jenifer Gloria TSH Qn SEE BELOW Normal [facility] Comment on above: Result Comment: <0.3 4 UIU/ml HYPERTHYROID 0.34-5.60 UIU/ml EUTHYROID >5.60 UIU/ml HYPOTHYROID Performed By: #### C MP, TSH #### [facility] [address] [place] [address] Jenifer Gloria XR KUB 1 VIEWon 01-29-2019 XR KUB 1 VIEW Patient: RHETT BARTHOLOMEW Exam Date: 01/29/2019 : 1970 Gender:F Ordering : DR MAUREEN PETERS . Admission #: [id number] Family : DR YOAV CONTEH Order #: [id number] CLICK HERE TO VIEW EXAM RADIOLOGY REPORT PROCEDURE: RADIOGRAPH KUB 1 VIEW COMPARISON: XR KUB 1 VIEW, 08/02/2017. XR KUB 1 VIEW, 06/02/2018. INDICATIONS: History of right kidney stone, subsequent imaging FINDINGS: KIDNEY/URETER - RIGHT: No visible renal or ureteral calcifications. KIDNEY/URETER - LEFT: No visible renal or ureteral calcifications. PELVIS: No visible ureteral calcifications. Pelvic calcifications favor phleboliths. BOWEL: No abnormal dilation or deviation. BONES: No acute abnormality. OTHER: Negative. No abnormal gaseous collections. CONCLUSION: 1. No convincing urinary tract calculi. Dictated by: Regis Stallworth M.D. on 01/29/2019 at 12:32 Approved by: Regis Stallworth M.D. on 01/29/2019 at 12:33 Normal [facility] HEPATITIS PANEL, ACUTEon HBsAg Screen Negative Normal Negative [facility] Comment on above: Performed By: #### H EPACUT #### [facility] [address], [place] [address] Jenifer Juani Hep A Ab, IgM Negative Normal Negative [facility] Comment on above: Performed By: #### H EPACUT #### [facility] [address], [place] [address] Jenifer Juani Hep B Core Ab, IgM Negative Normal Negative [facility] Comment on above: Performed By: #### H EPACUT #### [facility] [address], [place] [address] Jenifer Juani Hep C Virus Ab 0.1 s/co ratio Normal 0.0-0.9 [facility] Comment on above: Result Comment: Nega tive: < 0.8 Indeterminate: 0.8 - 0.9 Positive: > 0.9 . The CDC recommends that a positive HCV antibody result be followed up with a HCV Nucleic Acid Amplification test ([id number]). Performed By: #### H EPACUT #### [facility] [address] [place] [address] Jenifer Juani LIPID PROFILEon 09-20-2018 CHOL-HDL RATIO NORM SEE BELOW Normal [facility] Comment on above: Result Comment: 3.3 - 4.4 LOW RISK 4.4 - 7.1 AVERAGE RISK 7.1 - 11.0 MODERATE RISK >11.0 HIGH RISK Performed By: #### L IPID, LIVER #### [facility] [address] [place], [place] [id number] Jenifer Juani Cholesterol [Mass/Vol] 149 mg/dL Normal <=200 [facility] Comment on above: Performed By: #### L IPID, LIVER #### [facility] [address] [place] [address] Jenifer Juani Cholesterol in HDL [Mass/Vol] 51 mg/dL Normal [facility] Comment on above: Performed By: #### L IPID, LIVER #### [facility] [address] [place] [address] Jenifer Juani Cholesterol in HDL [Mass/Vol] > or = 60 mg/dl - LOW CARDIOVASCULAR RISK <40 mg/dl - HIGH CARDIOVASCULAR RISK Normal [facility] Comment on above: Performed By: #### L IPID, LIVER #### [facility] [address], [place] [address] Jenifer Juani Cholesterol in LDL [Mass/Vol] SEE BELOW Normal [facility] Comment on above: Result Comment: <100 mg/dl OPTIMAL 100 - 129 mg/dl NEAR OR ABOVE OPTIMAL 130 - 159 mg/dl BORDERLINE HIGH 160 - 189 mg/dl HIGH >190 mg/dl VERY HIGH Performed By: #### L IPID, LIVER #### [facility] [address], [place] [address] Jenifer Juani Cholesterol in LDL [Mass/Vol] 91.6 mg/dL Normal [facility] Comment on above: Performed By: #### L IPID, LIVER #### [facility] [address] [place] [address] Jenifer Juani Cholesterol.total/Chol esterol in HDL [Mass ratio] 2.9 {ratio} Normal [facility] Comment on above: Performed By: #### L IPID, LIVER #### [facility] [address], [place] [address] Jenifer Juani Triglyceride [Mass/Vol] 32 mg/dL Normal <=150 [facility] Comment on above: Performed By: #### L IPID, LIVER #### [facility] [address] [place] [address] Jenifer Juani VLDL CALC 6.4 mg/dL Normal [facility] Comment on above: Performed By: #### L IPID, LIVER #### [facility] [address], [place] [address] Jenifer Juani LIVER PROFILEon 09-20-2018 Albumin [Mass/Vol] 3.7 g/dL Normal 3.5-5.0 [facility] Comment on above: Performed By: #### L IPID, LIVER #### [facility] [address], [place] [address] Jenifer Juani Albumin/Globulin [Mass ratio] 1.1 {ratio} Normal [facility] Comment on above: Performed By: #### L IPID, LIVER #### [facility] [address], [place] [address] Jenifer Juani ALP [Catalytic activity/Vol] 76 U/L Normal 38-126 [facility] Comment on above: Performed By: #### L IPID, LIVER #### [facility] [address], [place] [address] Jenifer Juani ALT [Catalytic activity/Vol] 27 U/L Normal 9-52 [facility] Comment on above: Performed By: #### L IPID, LIVER #### [facility] [address], [place] [address] Jenifer Juani AST [Catalytic activity/Vol] 14 U/L Normal 14-36 [facility] Comment on above: Performed By: #### L IPID, LIVER #### [facility] [address], [place] [address] Jenifer Juani BILI, CONJUGATED 0.1 mg/dL Normal 0.0-0.[address] [facility] Comment on above: Performed By: #### L IPID, LIVER #### [facility] [address], [place] [address] Jenifer Juani Bilirubin Ql (U) 0.4 mg/dL Normal 0.2-1.[address] [facility] Comment on above: Performed By: #### L IPID, LIVER #### [facility] [address], [place] [address] Jenifer Juani Globulin (S) [Mass/Vol] 3.3 g/dL Normal [facility] Comment on above: Performed By: #### L IPID, LIVER #### [facility] [address], [place] [address] Jenifer Juani Protein [Mass/Vol] 7.0 g/dL Normal 6.1-8.2 [facility] Comment on above: Performed By: #### L IPID, LIVER #### [facility] [address], [place] [address] Jenifer Juani CBC AUTO DIFFon 08-30-2018 Basophils (Bld) [#/Vol] 0.1 103/ul Normal 0.0-0.1 [facility] Comment on above: Performed By: #### C BC #### [facility] [address], [place] [address] Jenifer Juani Basophils/100 WBC (Bld) 0.9 % Normal 0.2-2.0 [facility] Comment on above: Performed By: #### C BC #### [facility] [address] [place] [address] Jenifer Juani Eosinophils (Bld) [#/Vol] 0.2 103/ul Normal 0.0-0.7 [facility] Comment on above: Performed By: #### C BC #### [facility] [address], [place] [address] Jenifer Juani Eosinophils/100 WBC (Bld) 2.9 % Normal 0.9-7.0 [facility] Comment on above: Performed By: #### C BC #### [facility] [address] [place], [place] [phone] Jenifer Juani Erythrocyte distribution width (RBC) [Ratio] 12.8 % Normal 11.0-15.0 [facility] Comment on above: Performed By: #### C BC #### [facility] [address] [place], [place] [phone] Jenifer Jauni Hematocrit (Bld) [Volume fraction] 41.7 % Normal 36.0-48.0 [facility] Comment on above: Performed By: #### C BC #### [facility] [address] [place], [place] [phone] Jenifer Juani Hemoglobin (Bld) [Mass/Vol] 14.2 g/dL Normal 12.0-16.0 [facility] Comment on above: Performed By: #### C BC #### [facility] [address] [place], [place] [phone] Jenifer Juani IG # 0.02 10e3/ul Normal 0.00-0.03 [facility] Comment on above: Performed By: #### C BC #### [facility] [address] [place], [place] [phone] Jenifer Juani IG % 0.3 % Normal 0.0-0.5 [facility] Comment on above: Performed By: #### C BC #### [facility] [address], [place] [address] Jenifer Juani Lymphocytes (Bld) [#/Vol] 1.4 103/ul Normal 1.2-3.8 [facility] Comment on above: Performed By: #### C BC #### [facility] [address], [place] [address] Jenifer Juani Lymphocytes/100 WBC (Bld) 19.8 % Critically low 20.5-60.0 [facility] Comment on above: Performed By: #### C BC #### [facility] [address] [place] [address] Jenifer Juani MANUAL DIFF REQ NO Normal [facility] Comment on above: Performed By: #### C BC #### [facility] [address] [place] [address] Jenifer Juani MCH (RBC) [Entitic mass] 31.1 pg Normal 26.7-34.0 [facility] Comment on above: Performed By: #### C BC #### [facility] [address] [place] [address] Jenifer Juani MCHC (RBC) [Mass/Vol] 34.1 g/dL Normal 29.9-35.2 [facility] Comment on above: Performed By: #### C BC #### [facility] [address] [place] [address] Jenifer Juani MCV (RBC) [Entitic vol] 91.2 fL Normal 81.0-99.0 [facility] Comment on above: Performed By: #### C BC #### [facility] [address] [place] [address] Jenifer Juani Monocytes (Bld) [#/Vol] 0.6 103/ul Normal 0.3-0.8 [facility] Comment on above: Performed By: #### C BC #### [facility] [address], [place] [address] Jenifer Juani Monocytes/100 WBC (Bld) 8.9 % Normal 1.7-12.0 [facility] Comment on above: Performed By: #### C BC #### [facility] [address], [place] [address] Jenifer Juani Neutrophils (Bld) [#/Vol] 4.7 103/ul Normal 1.4-6.5 [facility] Comment on above: Performed By: #### C BC #### [facility] [address], [place] [address] Jenifer Juani Neutrophils/100 WBC (Bld) 67.2 % Normal 43.0-75.0 [facility] Comment on above: Performed By: #### C BC #### [facility] [address], [place] [address] Jenifer Juani Platelet mean volume (Bld) [Entitic vol] 9.5 fL Normal 9.5-13.5 [facility] Comment on above: Performed By: #### C BC #### [facility] [address] [place] [address] Jenifer Juani Platelets (Bld) [#/Vol] 284 103/ul Normal 150-450 [facility] Comment on above: Performed By: #### C BC #### [facility] [address], [place] [address] Jenifer Juani RBC (Bld) [#/Vol] 4.57 106/ul Normal 4.20-5.40 [facility] Comment on above: Performed By: #### C BC #### [facility] [address], [place] [address] Jenifer Juani WBC (Bld) [#/Vol] 7.0 103/ul Normal 4.0-11.0 [facility] Comment on above: Performed By: #### C BC #### [facility] [address], [place] [address] Jeniferchandan Gloria PROF 14(COMP METB)on 019 Albumin [Mass/Vol] 4.2 g/dL Normal 3.5-5.0 [facility] Comment on above: Performed By: #### C MP #### [facility] [address] [place] [address] Jenifer Juani Albumin/Globulin [Mass ratio] 1.4 {ratio} Normal [facility] Comment on above: Performed By: #### C MP #### [facility] [address] [place], [place] [phone] Jenifer Juani ALP [Catalytic activity/Vol] 57 U/L Normal 38-126 [facility] Comment on above: Performed By: #### C MP #### [facility] [address] [phone] Jenifer Juani ALT [Catalytic activity/Vol] 53 U/L Critically high 9-52 [facility] Comment on above: Performed By: #### C MP #### [facility] [address] [phone] Jenifer Juani Anion gap [Moles/Vol] 10.3 mmol/L Normal Th [facility] Comment on above: Performed By: #### C MP #### [facility] [address] [place] [address] Jenifer Juani AST [Catalytic activity/Vol] 24 U/L Normal 14-36 [facility] Comment on above: Performed By: #### C MP #### [facility] [address] [place], [place] [phone] Jenifer Juani Bilirubin Ql (U) 0.4 mg/dL Normal 0.2-1.[address] [facility] Comment on above: Performed By: #### C MP #### [facility] [address] [place], [place] [phone] Jenifer Juani Calcium [Mass/Vol] 8.9 mg/dL Normal 8.4-10.2 [facility] Comment on above: Performed By: #### C MP #### [facility] [address] [place], [place] [phone] Jenifer Juani Chloride [Moles/Vol] 102 mmol/L Normal 98-107 [facility] Comment on above: Performed By: #### C MP #### [facility] [address] [place], [place] [phone] Jenifer Juani CO2 [Moles/Vol] 30.9 mmol/L Critically high 22.0-30.0 [facility] Comment on above: Performed By: #### C MP #### [facility] [address] [phone] Jenifer Juani Creatinine [Mass/Vol] 0.65 mg/dL Normal 0.52-1.04 [facility] Comment on above: Performed By: #### C MP #### [facility] [address] [phone] Jenifer Juani EGFR-AF MICRONESIAN >60 Normal >=[address] [facility] Comment on above: Performed By: #### C MP #### [facility] [address] [phone] Jenifer Juani EGFR-NON AF MICRONESIAN >60 Normal >=60 [facility] Comment on above: Performed By: #### C MP #### [facility] [address] [place] [address] Jenifer Juani Globulin (S) [Mass/Vol] 3.0 g/dL Normal [facility] Comment on above: Performed By: #### C MP #### [facility] [address] [place] [address] Jenifer Juani Glucose [Mass/Vol] 88 mg/dL Normal 74-106 [facility] Comment on above: Performed By: #### C MP #### [facility] [address] [place] [address] Jenifer Juani Potassium [Moles/Vol] 4.2 mmol/L Normal 3.4-5.0 [facility] Comment on above: Performed By: #### C MP #### [facility] [address] [place] [address] Jenifer Juani Protein [Mass/Vol] 7.2 g/dL Normal 6.1-8.2 [facility] Comment on above: Performed By: #### C MP #### [facility] [address] [place] [address] Jenifer Juani Sodium [Moles/Vol] 139 mmol/L Normal 137-145 [facility] Comment on above: Performed By: #### C MP #### [facility] [address] [place] [address] Jenifer Juani Urea nitrogen [Mass/Vol] 11.0 mg/dL Normal 7.0-17.0 [facility] Comment on above: Performed By: #### C MP #### [facility] [address], [place] [address] Jenifer Gloria Urea nitrogen/Creatinine [Mass ratio] 16.9 mg/mg Normal [facility] Comment on above: Performed By: #### C MP #### [facility] [address], [place] [address] Jenifer Gloria Vital Signs Date Time Vital Sign Value Performing Clinician Faci lity 07-29-2023 16:40-0500 Body height 160.02 cm Yoav Conteh Other [facility] Other 07-29-2023 16:40-0500 Body mass index (BMI) [Ratio] 27.45 kg/m2 Yoav Conteh Other [facility] Other 07-29-2023 16:40-0500 Body temperature 98.7 [degF] Yoav Conteh Other [facility] Other 07-29-2023 16:40-0500 Body weight 70.31 kg Yoav Conteh Other [facility] Other 07-29-2023 16:40-0500 Diastolic blood pressure 80 mm[Hg] Yoav Conteh Other [facility] Other 07-29-2023 16:40-0500 Respiratory rate 18 /min Yoav Conteh Other [facility] Other 07-29-2023 16:40-0500 SaO2% (BldA) [Mass fraction] 98 % Yoav Conteh Other [facility] Other 07-29-2023 16:40-0500 Systolic blood pressure 122 mm[Hg] Yoav Conteh Other [facility] Other 01-28-2023 17:40-0400 Body height 160.02 cm Yoav Conteh Other [facility] Other 01-28-2023 17:40-0400 Body mass index (BMI) [Ratio] 25.86 kg/m2 Yoav Conteh Other [facility] Other 01-28-2023 17:40-0400 Body temperature 97.7 [degF] Yoav Conteh Other [facility] Other 01-28-2023 17:40-0400 Body weight 66.23 kg Yoav Conteh Other [facility] Other 01-28-2023 17:40-0400 Diastolic blood pressure 84 mm[Hg] Yoav Conteh Other [facility] Other 01-28-2023 17:40-0400 Respiratory rate 16 /min Yoav Chenmariah Other [facility] Other 01-28-2023 17:40-0400 SaO2% (BldA) [Mass fraction] 98 % Yoav Conteh Other [facility] Other 01-28-2023 17:40-0400 Systolic blood pressure 126 mm[Hg] Yoav Conteh Other [facility] Other 07-23-2022 18:20-0500 Body height 160.02 cm Yoav Conteh Other [facility] Other 07-23-2022 18:20-0500 Body mass index (BMI) [Ratio] 26.75 kg/m2 Yoav Conteh Other [facility] Other 07-23-2022 18:20-0500 Body temperature 97.9 [degF] Yoav Wero Other [facility] Other 07-23-2022 18:20-0500 Body weight 68.49 kg Yoav Wero Other [facility] Other 07-23-2022 18:20-0500 Diastolic blood pressure 88 mm[Hg] Yoav Conteh Other [facility] Other 07-23-2022 18:20-0500 Respiratory rate 18 /min Yoav Chenmariah Other [facility] Other 07-23-2022 18:20-0500 SaO2% (BldA) [Mass fraction] 98 % Yoav Chenmariah Other [facility] Other 07-23-2022 18:20-0500 Systolic blood pressure 122 mm[Hg] Yoav hCenmariah Other [facility] Other 01-15-2022 18:20-0400 Body height 160.02 cm Yoav Chenmariah Other [facility] Other 01-15-2022 18:20-0400 Body mass index (BMI) [Ratio] 26.04 kg/m2 Yoav Conteh Other [facility] Other 01-15-2022 18:20-0400 Body temperature 98 [degF] Yoav Chenmariah Other [facility] Other 01-15-2022 18:20-0400 Body weight 66.68 kg Yoav Chenmariah Other [facility] Other 01-15-2022 18:20-0400 Diastolic blood pressure 84 mm[Hg] Yoav Conteh Other [facility] Other 01-15-2022 18:20-0400 Respiratory rate 18 /min Yoav Conteh Other [facility] Other 01-15-2022 18:20-0400 SaO2% (BldA) [Mass fraction] 98 % Yoav Conteh Other [facility] Other 01-15-2022 18:20-0400 Systolic blood pressure 130 mm[Hg] Yoav Conteh Other [facility] Other 12-26-2021 13:05-0400 Body height 160.02 cm Dee Mayfieldmond Other [facility] Other 12-26-2021 13:05-0400 Body mass index (BMI) [Ratio] 25.33 kg/m2 Dee Mayfieldmond Other [facility] Other 12-26-2021 13:05-0400 Body temperature 98.1 [degF] Dee Mayfieldmond Other [facility] Other 12-26-2021 13:05-0400 Body weight 64.86 kg Dee Nicole Other [facility] Other 12-26-2021 13:05-0400 Diastolic blood pressure 100 mm[Hg] Dee Mayfieldmond Other [facility] Other 12-26-2021 13:05-0400 Respiratory rate 18 /min Dee Mayfieldmond Other [facility] Other 12-26-2021 13:05-0400 SaO2% (BldA) [Mass fraction] 97 % Dee Bonnie Other [facility] Other 12-26-2021 13:05-0400 Systolic blood pressure 137 mm[Hg] Dee Niocle Other Located [facility] [employer] Other 11-23-2021 18:27-0400 Diastolic blood pressure 77 mm[Hg] DO Isis Nataprawira Work Phone: [facility] 11-23-2021 18:27-0400 Heart rate 96 /min DO Isis Nataprawira Work Phone: [facility] 11-23-2021 18:27-0400 Systolic blood pressure 116 mm[Hg] DO Siis Nataprawira Work Phone: [facility] 11-23-2021 17:28-0400 SaO2% (BldA) [Mass fraction] 100 % DO Isis Nataprawira Work Phone: [facility] 11-23-2021 16:06-0400 Body temperature 97.9 [degF] DO Isis Nataprawira Work Phone: [facility] 11-23-2021 16:06-0400 Inhaled oxygen flow rate 1 L/min DO Isis Nataprawira Work Phone: [facility] 11-23-2021 16:06-0400 Respiratory rate 20 /min DO Isis Nataprawira Work Phone: [facility] 11-23-2021 10:57-0400 Body height 160.66 cm DO Isis Nataprawira Work Phone: [facility] 11-23-2021 10:57-0400 Body mass index (BMI) [Ratio] 25.2 kg/m2 DO Isis Nataprawira Work Phone: [facility] 11-23-2021 10:57-0400 Body weight 65 kg DO Isis Nataprawira Work Phone: [facility] 09-04-2021 18:20-0500 Body height 160.02 cm Yoav Conteh Other [facility] Other 09-04-2021 18:20-0500 Body mass index (BMI) [Ratio] 24.97 kg/m2 Yoav Conteh Other [facility] Other 09-04-2021 18:20-0500 Body temperature 97.2 [degF] Yoav Conteh Other [facility] Other 09-04-2021 18:20-0500 Body weight 63.96 kg Yoav Conteh Other [facility] Other 09-04-2021 18:20-0500 Diastolic blood pressure 80 mm[Hg] Yoav Conteh Other [facility] Other 09-04-2021 18:20-0500 Respiratory rate 18 /min Yoav Conteh Other [facility] Other 09-04-2021 18:20-0500 SaO2% (BldA) [Mass fraction] 99 % Yoav Conteh Other [facility] Other 09-04-2021 18:20-0500 Systolic blood pressure 128 mm[Hg] Yoav Conteh Other [facility] Other 06-12-2021 17:40-0500 Body height 160.02 cm Yoav Conteh Other [facility] Other 06-12-2021 17:40-0500 Body mass index (BMI) [Ratio] 23.2 kg/m2 Yoav Conteh Other [facility] Other 06-12-2021 17:40-0500 Body temperature 97.8 [degF] Yoav Conteh Other [facility] Other 06-12-2021 17:40-0500 Body weight 59.42 kg Yoav Conteh Other [facility] Other 06-12-2021 17:40-0500 Diastolic blood pressure 88 mm[Hg] Yoav Conteh Other [facility] Other 06-12-2021 17:40-0500 Respiratory rate 18 /min Yoav Chenmariah Other [facility] Other 06-12-2021 17:40-0500 SaO2% (BldA) [Mass fraction] 99 % Yoav Conteh Other [facility] Other 06-12-2021 17:40-0500 Systolic blood pressure 138 mm[Hg] Yoav Conteh Other [facility] Other Encounters Encounter Date Encounter Type Care Provider Facility Start: 12-09-2023 Non-patient / Non-visit DO Yoav Conteh Work Phone: [facility] Work Phone: Start: 12-08-2023 End: 12-08-2023 ambulatory DO Yoav Conteh Work Phone: [facility] Work Phone: Start: 12-08-2023 End: 12-08-2023 Departed Referred DO Yoav Conteh Work Phone: [facility] Start: 12-07-2023 Non-patient / Non-visit DO Yoav Conteh Work Phone: [facility] Work Phone: Start: 10-22-2023 ambulatory TOMMY RAMIREZ Facility:[facility] Start: 10-08-2023 End: 10-09-2023 ambulatory [facility] Start: 09-09-2023 End: 09-09-2023 ambulatory Dee Nicole Facility:[facility] Start: 07-29-2023 End: 07-29-2023 ambulatory Yoav Conteh Other [facility] Other Start: 07-29-2023 Office outpatient visit 25 minutes Yoav Conteh [facility] Start: 07-27-2023 End: 07-28-2023 ambulatory YOAV CONTEH Facility:[facility] Start: 04-22-2023 ambulatory YOAV CONTEH Facility :[facility] Start: 01-28-2023 End: 01-28-2023 ambulatory Yoav Conteh Other [facility] Other Start: 01-28-2023 Office outpatient visit 25 minutes Yoav Conteh [facility] Start: 01-26-2023 End: 01-27-2023 ambulatory YOAV CONTEH Facility:[facility] Start: 11-20-2022 End: 11-21-2022 ambulatory YOAV CONTEH Facility:[facility] Start: 10-12-2022 End: 10-12-2022 ambulatory Yoav Conteh Other [facility] Other Start: 10-12-2022 Telephone encounter Yoav Conteh [facility] Start: 07-23-2022 End: 07-23-2022 ambulatory Yoav Conteh Other [facility] Other Start: 07-23-2022 Office outpatient visit 25 minutes Yoav Conteh [facility] Start: 01-15-2022 End: 01-15-2022 ambulatory Yoav Conteh Other [facility] Other Start: 01-15-2022 Office outpatient visit 25 minutes Yoav Conteh [facility] Start: 12-26-2021 End: 12-26-2021 ambulatory Dee Nicole Other [facility] Other Start: 12-26-2021 Office outpatient visit 15 minutes Dee Bonnie [facility] Start: 11-23-2021 End: 11-23-2021 Admission to same day surgery center DO Isis Nataprawira Work Phone: [facility] [place] Start: 11-21-2021 End: 11-21-2021 Patient encounter procedure DO Isis Nataprawira Work Phone: [facility] Start: 11-15-2021 End: 11-15-2021 Patient encounter procedure DO Isis Nataprawira Work Phone: [facility] Start: 09-04-2021 End: 09-04-2021 ambulatory Yoav Conteh Other [facility] Other Start: 09-04-2021 Office outpatient visit 15 minutes Yoav Conteh [facility] Start: 07-03-2021 End: 07-03-2021 ambulatory Yoav Conteh Other [facility] Other Start: 07-03-2021 Telephone encounter Yoav Conteh [facility] Start: 06-12-2021 End: 06-12-2021 ambulatory Yoav Conteh Other [facility] Other Start: 06-12-2021 Encounter for genera l adult medical examination without abnormal findings Yoav Conteh [facility] Start: 06-12-2021 Periodic preventive med est patient 40-64yrs Yoav Conteh [facility] [place] Start: 07-06-2019 Patient encounter procedure MAUREEN PETERS Facility:[facility] Start: 03-26-2019 End: 03-27-2019 Patient encounter procedure YOAV CONTEH Facility:[facility] Start: 01-29-2019 End: 01-30-2019 Patient encounter procedure MAUREEN PETERS Facility:[facility] Start: 09-20-2018 End: 09-21-2018 Patient encounter procedure YOAV CONTEH Facility:[facility] Start: 08-30-2018 End: 08-31-2018 Patient encounter procedure YOAV CONTEH Facility:[facility] Procedures Date Procedure Procedure Detail Performing Clinician Start: 11-23-2021 Total hysterectomy v ia vaginal approach DO Isis Rosado Work Phone: Plan of Treatment Date Care Activity Detail Author Start: 12-08-2023 Bacteria identified in Urine by Culture Urine Culture [facility] Patient Education Hysterectomy, Abdominal or Laparoscopic Surgery Hysterectomy, Vaginal SURGICAL DISCHARGE INSTRUCTIONS ([facility]) [facility] Work Phone: Patient referral [facility] Work Phone: Immunizations Immunization Date Immunization Notes Care Provider Fa cili 04-16-2022 influenza, seasonal, injectable Yoav Conteh Other [facility] 04-28-2021 COVID-19 Vaccine Mod simin - Documentation Purposes Only Yoav Conteh Other [facility] 04-03-2021 influenza, seasonal, injectable Yoav Conteh Other [facility] 09-12-2020 COVID-19 Vaccine Rodrigo ssen - Documentation Purposes Only Yoav Conteh Other [facility] Payers Date Payer Category Payer Unknown 1970 Unknown [id number] 2.16.84 [id number] 1970 Unknown [id number] 2.16.84 [id number] 1970 Unknown [id number] 2.16.84 [id number] 1970 Unknown [id number] 2.16.84 [id number] 1970 Unknown [id number] 2.16.84 [id number] 1970 Unknown [id number] 2.16.84 [id number] 1970 Unknown [id number] 2.16.8 [id number] 1970 Unknown [id number] 2.16.8 [id number] 1970 Unknown [id number] 2.16.8 [id number] 1970 Unknown [id number] 2.16.8 [id number] 1970 Unknown [id number] 2.16.8 [id number] 1970 Unknown [id number] 2.16.8 [id number] 1960 Self-pay 1960 Unknown [id number] Unknown [id number] 2.16.8 [id number] Unknown [id number] 2.16.8 [id number] Social History Date Type Detail Facility Start: 11-15-2021 End: 11-23-2021 Tobacco smoking status NHIS Never smoked tobacco (finding) [facility] Start: 1970 Sex Assigned At Female F [facility] Sex Assigned At Sex Assigned At Bir [facility] [employer] Other Goals Date Patient Goal Desired Activity /State Clinical Notes 04-08-2013 to 07-29-2023 Note Date & Type Note Facility 07-29-2023 Evaluation note Encounter Date Diagnosis Assessment Notes Jul, Cervical pain (ICD-10 - M54.2) She voices that since she was sick at the end of May (2022) her neck has been bothering her. [place] then became ill. She voices that she has been moving and contributes her stiff neck to the moving. If she turns her neck from side to side and up and down it hurts. It hurts on the sides of her neck, I did explain to her that this is muscular in nature, and if she had a virus when this first began then it could have contributed. We discussed that physical therapy could help but it is costly. Will avoid steroids because she is already on an NSAID medication. I can provide her with Zanaflex. I suspect once she has stopped moving and allowed the neck to calm down that this will begin to feel better. She can take the muscle relaxer when she is home for the evening. Guidance is given on how to take the medication. Do not drink alcohol or drive after taking. If she does not have relief with this she should let me know and we can order physical therapy. She is in agreement to this plan. Jul, Hyperlipidemia (ICD-10 - E78.5) Discussed cholesterol results with patient today. Total is 259. HDL is 88. LDL is 156. Triglycerides are 73. VLDL is 15. She voices that she is moving to her sons house so she is not eating very well right now. We discussed that her VLDL is very good. I encouraged her to watch her intake of carbs and sugars. Stay active. She voices that for the last two days she has been eating steel cut oats in applesauce but does not like them, she does not need to eat these. Diet was discussed. Jul, Vitamin B12 deficiency (ICD-10 - E53.8) She forgot to take the B12 vitamin so she has not been taking this since last seen. She can take the B12 with or without food, she could take this with her dinner meal. Her B12 level is 277. Folate is 9.44. I do want her to begin taking the B12 supplement and again she can take this with her dinner. Jul, Anxiety and depression (ICD-10 - F41.8) She continues to take and benefit from above medication daily. Jul, Iron deficiency anemia (ICD-10 - D50.9) She also forgot to take her multivitamin so she has not been taking this since last seen. We discussed that she should take her multivitamin with iron or with a meal or at the end of the meal. Her HGB is 13.3. Iron is 66. Ferritin is 34.6. I would like her to take the multivitamin with iron in it daily with her evening meal. Jul, History of renal calculi (ICD-10 - Z87.442) She should continue to follow with Dr. Peters. Jul, Encounter for long-term (current) use of medications (ICD-10 - Z79.899) Jul, Weight gain (ICD-10 - R63.5) Jul, Abnormal thyroid blood test (ICD-10 - R94.6) Her TSH is 1.54 which is normal at this time. Jul, Other She can take her calcium tablet with or without meal. [facility] Other 07-31-2023 Evaluation note* Encounter Date Diagnosis Assessment Notes Treatment Notes Treatment Clinical Notes Dec, Iron deficiency anemia (ICD-10 - D50.9) Her HGB is 13.5. Iron is 55. Ferritin is 48.5. She is not taking any iron at this time. I did recommend that she take a womens one a day with iron in it daily. Dec, Hyperlipidemia (ICD-10 - E78.5) Discussed cholesterol results with patient today. Total is 214. HDL is 59. LDL is 138. Triglycerides are 86. VLDL is 17. Two weeks ago she had tried to eat no carbs but it did not help her joint pain. I did recommend that she avoid carbs and sugars to help lower her LDL. She is to stay active as tolerated. Dec, Vitamin B12 deficiency (ICD-10 - E53.8) Her Vitamin B12 level is 358. Folate is 11.54. I would like her to increase her B12 to Sat through Saturday and take Sat and Saturday off. Dec, Anxiety and depression (ICD-10 - F41.8) She is to continue with the Prozac daily as directed. Dec, Psoriatic arthritis (ICD-10 - L40.50) She voices that 2 hours after she goes to sleep her legs hurt, she does not sleep good. It takes about four hours for her legs to stop hurting after she gets up. She voices that her wrists will hurt also. She has not been back to see Dr. Ramirez since she saw him last. She is taking the Diclofenac. She says that it does not seem to help her now. When she is up in the morning she walks slowly because of the pain she has. We discussed that the Diclofenac is more for osteoarthritis. Psoriatic arthritis is more of an autoimmune condition and the medicines work but affect other things. We discussed that this condition does attack the joints. Short of rheumatoid medicine she is on a very strong NSAID medication. Prozac can be used to help chronic pain. I did recommend that she either see Dr. Ramirez again or else see a different irrigation system operator for a second opinion. She voices that she has not been seen by Dr. Ramirez in at least four years. She will call there and if she wants a referral she will call. I asked her to research the risks and benefits of any medication he may want to place her on. Dec, Weight loss (ICD-10 - R63.4) She has lost five pounds since last seen. She is encouraged to continue watching her intake of carbs and sugars. Stay active as tolerated. Dec, History of renal calculi (ICD-10 - Z87.442) She is to continue with above medication as directed. Her sodium level is 133. We discussed that we do not want to see this level get into the 120's. Will continue to monitor. Dec, Encounter for long-term (current) use of medications (ICD-10 - Z79.899) Dec, Other We discussed he r kidney studies today. Her BUN is 25.4. Creatinine is 0.59. EGFR is >60. I did advise her that her levels are good. [facility] Other 01-23-2023 Evaluation note* Encounter Date Diagnosis Assessment Notes Treatment Notes Treatment Clinical Notes Jul, Vitamin B12 deficiency (ICD-10 - E53.8) Her Vitamin B12 level is 516. Folate is 17.99. She is not currently taking B12. I did recommend that she take some since she will be returning to taking the Pantoprazole. She can take the B12 three days per week (Sat, Sat and Saturday) Jul, Wrist pain (ICD-10 - M25.539) right wrist She fell on her right wrist in March (2021) after falling out of a hammock chair while camping. She voices that her wrist continues to hurt. I will provide her with an order for an x-ray to be done. I did advise her that this could be from arthritis or tendonitis from repetitive use. Cartilage can be torn from injury. She voices that she does recall that she was seen by the arthritis specialist because of the right wrist pain. She can call for the x-ray results. Jul, Anemia (ICD-10 - D64.9) Her HGB is 14.0. Iron is 90.0. Ferritin is 50.6. She is not currently taking any iron right now, and for now she does not need to. Jul, Abnormal thyroid blood test (ICD-10 - R94.6) Her TSH is normal at 1.59. Will continue to monitor. Jul, Psoriatic arthritis (ICD-10 - L40.50) We discussed that the Diclofenac will help her joint pain but will not help her skin. She voices that Dr. Ramirez is who put her on the medication but then she did not return to see him again. I did advise her that this medication can be hard on the kidneys, we will need to watch her studies closely. She will need to take the Pantoprazole daily to protect her stomach. She does need to take the Diclofenac with food. I asked her to have lab drawn 1 month after she starts the medication to be sure her kidney studies are good. She can call for results. Jul, Anxiety and depression (ICD-10 - F41.8) She does continue with above medication daily as directed. Jul, Psoriasis (ICD-10 - L40.9) Noted in her ears, scalp on her arms, on her legs, she voices that it is everywhere . She does not want to see a double needle operator right now. She can use 1% hydrocortisone cream on the areas sparingly if she would like. Jul, Hyperlipidemia (ICD-10 - E78.5) Jul, Encounter for long-term (current) use of medications (ICD-10 - Z79.899) Jul, History of renal calculi (ICD-10 - Z87.442) Continue with Dr. Peters as directed. Her sodium level is 132. She admits she drinks alot of water because she does not want to get any kidney stones. I did recommend that she not drink anymore kidney stones. Jul, Weight gain (ICD-10 - R63.5) Jul, Other She refuses a colonoscopy and FOBT test today. [facility] Other 07-18-2022 Evaluation note* Encounter Date Diagnosis Assessment Notes Treatment Notes Treatment Clinical Notes Dec, Iron deficiency anemia (ICD-10 - D50.9) Since she had her hysterectomy in October) she was told to stop taking the Iron. Her hemoglobin was 13.7. Iron is 140.0. Ferritin is 50.2. Her readings are good without the Iron so she can continue without the Iron. Dec, Herpes zoster (ICD-10 - B02.9) I would like to treat her rash on her neck for potential Shingles. If this does not resolve with treatment then she should see a double needle operator. She is in agreement to trying the treatment. Guidance is given on how to take the medication. Dec, Vitamin B12 deficiency (ICD-10 - E53.8) She voices that since she had her hysterectomy in October) she was told to stop taking the B12. Her Vitamin B12 level was 323. Folate is 21.90. I did recommend that she take the B12 as directed. Dec, Anxiety and depression (ICD-10 - F41.8) I did provide her with a refill on the above medication today. Dec, Urticaria (ICD-10 - L50.9) She was seen at urgent care for evaluation on 12-26-21 and was given a shot but the rash has not resolved. She voices that it itched very badly and hurt when it started. On exam I did advise her that this could be Shingles. Dec, Encounter for long-term (current) use of medications (ICD-10 - Z79.899) Dec, History of renal calculi (ICD-10 - Z87.442) I did provide her with a refill on above medication today. Dec, Weight gain (ICD-10 - R63.5) She has gained 4 pounds since last seen. Dec, Other She voices that she had a hysterectomy in October) done by Dr. Marinelli but she did not remove her ovaries. [facility] Other 06-28-2022 Evaluation note* Encounter Date Diagnosis Assessment Notes Treatment Notes Treatment Clinical Notes Nov, Urticaria (ICD-10 - L50.9) Drink plenty fluids, get plenty of rest. Take the prednisone as prescribed until gone. Follow-up with your family physician if no improvement in 2 to 3 days. [facility] Other 03-07-2022 Evaluation note* Encounter Date Diagnosis Assessment Notes Treatment Notes Treatment Clinical Notes Aug, Iron deficiency anemia (ICD-10 - D50.9) She voices that she will return to see her admissions director on 10-04-21 and they will decide if they are going to do a hysterectomy. She voices that she was put on Provera for two weeks and an ultrasound was done and they called with her results and the following day she started to bleed again. Her HGB was up from 10.4 to 13.4. Iron is 77.0. Ferritin is 17.7. She is taking the Iron once a day as directed. I did recommend that she continue with this. She admits that she does feel better. She is told that if her LADLER advises her to stop taking the Iron supplement she can do this but I would like her to let me know. I asked her to repeat lab in four months. If she has a hysterectomy done before this she should let me know. Aug, Vitamin B12 deficiency (ICD-10 - E53.8) Her Vitamin B12 level is 361. Folate is 12.64. She is taking the B12 supplement three days a week and was asked to continue with this. Aug, Anxiety and depression (ICD-10 - F41.8) She does continue to use and benefit from the Prozac and is to continue with this daily as directed. Aug, Weight gain (ICD-10 - R63.5) She has gained ten pounds since last seen. Aug, Encounter for long-term (current) use of medications (ICD-10 - Z79.899) Aug, History of renal calculi (ICD-10 - Z87.442) Continue with above medication daily as directed. Her sodium level is 133, she voices that she has to drink a lot of water due to her kidney stones, but not over a gallon a day. This is something that we will continue to monitor. Aug, Other She voices that her mammogram was abnormal on the left side and further imaging was ordered, this was ordered by Dr. Rios. [facility] Other 12-13-2021 Evaluation note* Encounter Date Diagnosis Assessment Notes Treatment Notes Treatment Clinical Notes May, Iron deficiency anemia (ICD-10 - D50.9) I do recommend that she begin taking an Iron supplement. I suspect that this is the reason she is not feeling good. This can cause constipation so needs to drink plenty of water and continue with her Metamucil. Eat foods with fiber. I do recommend she see her admissions director to discuss a hysterectomy or ablation. She eats a normal diet. I will repeat lab in two months. I did recommend a colonoscopy, she voices that she had one done in 1994 and would like to think about this. May, Wellness examination (ICD-10 - Z00.00) I did sign her wellness paperwork for her employer today May, Abnormal thyroid blood test (ICD-10 - R94.6) Her TSH is 1.98 which is normal and not causing fatigue. May, Weight gain (ICD-10 - R63.5) She has gained three pounds since last seen here. May, Encounter for long-term (current) use of medications (ICD-10 - Z79.899) May, Anxiety and depression (ICD-10 - F41.8) Decreasing her dose of Prozac did help but she continues to be exhausted. I suspect her fatigue is caused by her anemia. She is going to continue the Prozac for now. May, Anemia (ICD-10 - D64.9) She is not having monthly consistent periods but voices that in March (2020) her periods were very heavy. In August (2020) her LADLER told her this was normal. She has considered having a hysterectomy and we discussed that this would likely help her blood counts. Her HGB is 10.4. Ferritin is 3.0. Iron is 24. We discussed that this can make someone feel fatigued. Her B12 is 250. Folate is 15.88. May, Hypocalcemia (ICD-10 - E83.51) We discussed that her calcium level was low at 8.5 when checked. Her Ionized Calcium was not able to be checked. Her PTH was 43. Phosphorous was 3.6. She voices that she had the Ionized Calcium was redrawn May, Hyperlipidemia (ICD-10 - E78.5) Discussed cholesterol results with patient today from March (2020). Her total cholesterol was 207. HDL was 82. LDL was 117. Triglycerides were 41.0. I would like to see her LDL between 70-100. She is encouraged to watch her intake of carbs and sugars. Work on weight loss. Stay active. May, History of renal calculi (ICD-10 - Z87.442) She voices that Dr. Peters did put her on the HCTZ then she stopped but her blood pressure was up so she started taking it again. May, Vitamin B12 deficiency (ICD-10 - E53.8) I do want her to start a B12 supplement. May, Dysphagia (ICD-10 - R13.10) She swallowed a piece of steak and now the inside of her throat is sore, she did not cough up or swallow any blood. I did recommend that she see Dr. Burnham for evaluation and she agrees, a referral is provided. May, Throat pain in adult (ICD-10 - R07.0) May, Lymphadenopathy (ICD-10 - R59.1) She does have swollen glands noted on exam today. May, Other Her blood press ure today is 138/88, she feels it is only elevated because she is in the office, she voices that normally it is not elevated. She will continue to monitor. [facility] Other 10-09-2013 History general Narrative - Reported* Type Description Date Medical History CT Abdomen and Pelvi s without Contrast 04-08-13; [facility] Medical History CT Abdomen & pelvis done 10-17-11 Medical History KUB done 10-17-11 Medical History urine culture done 10-17-11 Medical History UHCG done 10-16-10 Medical History kidney stones Medical History chronic depression Surgical History stent in Kidney; due to Kidney stones; Dr. Peters Surgical History hernia right side as a child Surgical History T&A as a child Surgical History laparascopy Dr. Esquivel 1989 Surgical History [place] Teeth removed Surgical History D&C/miscarriage 1989 Surgical History Colonoscopy, spastic colon 1994 Surgical History pap 09/2016 Surgical History US 09/2016 Surgical History mammogram 09/2016 Surgical History right breast biopsy Surgical History ureteroscopy - Dr Peters 08/2017 Surgical History mammogram 03/2018 Hospitalization History childbirth 1 [facility] Other 10-09-2013 History general Narrative - Reported* Type Description Date Medical History CT Abdomen and Pelvi s without Contrast 04-08-13; [facility] Medical History CT Abdomen & pelvis done 10-17-11 Medical History KUB done 10-17-11 Medical History urine culture done 10-17-11 Medical History UHCG done 10-16-10 Medical History kidney stones Medical History chronic depression Surgical History stent in Kidney; due to Kidney stones; Dr. Peters Surgical History hernia right side as a child Surgical History T&A as a child Surgical History laparascopy Dr. Esquivel 1989 Surgical History [place] Teeth removed Surgical History D&C/miscarriage 1989 Surgical History Colonoscopy, spastic colon 1994 Surgical History pap 09/2016 Surgical History US 09/2016 Surgical History mammogram 09/2016 Surgical History right breast biopsy Surgical History ureteroscopy - Dr Peters 08/2017 Surgical History mammogram 03/2018 Surgical History hysterectomy 11/24/2021 Hospitalization History childbirth 1 [facility] Other 10-09-2013 History general Narrative - Reported* Type Description Date Medical History CT Abdomen and Pelvi s without Contrast 04-08-13; [facility] Medical History CT Abdomen & pelvis done 10-17-11 Medical History KUB done 10-17-11 Medical History urine culture done 10-17-11 Medical History UHCG done 10-16-10 Medical History kidney stones Medical History chronic depression Medical History COVID 01/2022 Surgical History stent in Kidney; due to Kidney stones; Dr. Peters Surgical History hernia right side as a child Surgical History T&A as a child Surgical History laparascopy Dr. Esquivel 1989 Surgical History [place] Teeth removed Surgical History D&C/miscarriage 1989 Surgical History Colonoscopy, spastic colon 1994 Surgical History pap 09/2016 Surgical History US 09/2016 Surgical History mammogram 09/2016 Surgical History right breast biopsy Surgical History ureteroscopy - Dr Peters 08/2017 Surgical History mammogram 03/2018 Surgical History hysterectomy 11/24/2021 Hospitalization History childbirth Located Within [facility] [employer] Other Evaluation noteNo assessment information available [facility] Work Phone: Evaluation [facility]No [facility] [employer] Other Summary Purpose Family History No Family History Records Found Relationship Condition Age at Onset Recorded Date/T favian Not Specified Hypertension Unknown father Medical history unknown Unknown Relationship Condition Age at Onset Recorded Date/T favian Not Specified Hypertension Unknown father Medical history unknown Unknown father Hypertension Unknown grandparent Unknown History of stroke Unknown Advance Directives No Advanced Directives Records Found Advance Directive Response Recorded Date/ Time Advance Directives No May 7:16pm Chief Complaint and Reason for Visit Chief Complaint Irregular Menstrual Bleeding, Uterine Fibroids Chief Complaint Irregular Menstrual Bleeding, Uterine Fibroids Irregular Menstrual Bleeding, Uterine Fibroids Chief Complaint Irregular Menstrual Bleeding, Uterine Fibroids Irregular Menstrual Bleeding, Uterine Fibroids Irregular Menstrual Bleeding, Uterine Fibroids. Chief Complaint Unknown Reason for Referral Reason appt pt needs cons ult to evaluate dysphagia, throat pain in adult and lymphadenopathy Diagnosis 1 Dysphagia (R13.10) Referral Organization [facility] Referring Provider First Name Yoav Referring Provider Last Name Wero Referring Provider Specialty Family Prac wesley Referred Organization [facility] Referred Provider Ramonita Burnham Referred Address ,[place], [place],[address] Referred Provider Specialty Ear, Nose an d Throat Referral Priority Routine General Notes Dinah Hallman 06/12/2021 05:44:39 PM > referral sent p2p with office note and insurance card. pt understands she will be contacted to schedule this appt Additional Source Comments INFORMATION SOURCE (unrecogn ized section and content) DATE CREATED AUTHOR 07/06/2019 [facility] DATE CREATED AUTHOR AUTHOR'S ORGANIZ ATION 08/18/2021 [facility] DATE CREATED AUTHOR AUTHOR'S ORGANIZ ATION 10/09/2023 [facility] DATE CREATED AUTHOR AUTHOR'S ORGANIZ ATION 11/07/2023 [facility] DATE CREATED AUTHOR AUTHOR'S ORGANIZ ATION 12/11/2023 [facility] Care Teams (unrecognized sec tion and content) Team Status: Inactive Member Role Status Dates Isis Rosado , Attending Provider Active Yoav Conteh , DO Primary Care Provider Active Team Status: Active Member Role Status Dates Yoav Conteh , Primary Care Provider Active Team Status: Active Member Role Status Dates Yoav Conteh , Primary Care Provider Active S tart: December 07, 2023 Antonio White , DO Attending Provider Active S tart: December 07, 2023 Team Status: Active Member Role Status Dates Yoav Conteh , DO Primary Care Provider Active S tart: December 08, 2023 Antonio White , DO Attending Provider Active S tart: December 08, 2023 Team Status: Inactive Member Role Status Dates Yoav Conteh , DO Primary Care Provider Active S tart: December 08, 2023 End: December 08, 2023 Joey Olson , DO Attending Provider Active Star t: December 08, 2023 End: December 08, 2023 Team Status: Active Member Role Status Dates Yoav Conteh DO Primary Care Provide r, Attending Provider Active Start: December 09, 2023 Goals (unrecognized section and content) Goals may be documented in a n alternate sectionGoals may be documented in an alternate sectionNo InformationNo InformationNo InformationNo InformationNo InformationNo InformationNo InformationNo InformationNo InformationGoals may be documented in an alternate section REASON FOR VISIT (unrecogniz ed section and content) clinicalrecheck anxiety/med refillreview labRASHreview labsreview labsColonoscopyreview labsreview labs FOR RECORDS PERTAINING TO PATIENTS WHO ARE OR HAVE BEEN ENROLLED IN A CHEMICAL DEPENDENCY/SUBSTANCEABUSE PROGRAM, SOME INFORMATION MAY BE OMITTED. This clinical summary was aggregated from multiple sources. Caution should be exercised in using it in the provision of clinical care. This summary normalizes information from multiple sources, and as a consequence, information in this document may materially change the coding, format and clinical context of patient data. In addition, data may be omitted in some cases. CLINICAL DECISIONS SHOULD BE BASED ON THE PRIMARY CLINICAL RECORDS. [employer] provides no warranty or guarantee of the accuracy or completeness of information in this document.
--- NOTE | 2023-12-16 17:56 | ED.ABDPAIN1 ---
HPI - Abdominal Pain General Chief Complaint: Abdominal Pain Stated Complaint: Postoperative Complication Time Seen by Provider: 12/16/23 17:42 Source: patient Mode of arrival: walk-in Limitations: no limitations History of Present Illness HPI narrative: This patient is here with her daughter for evaluation of left lower abdominal pain. Historically she was admitted to this hospital last Saturday and had surgery on a Saturday. She relates that she was told that she had a partially perforated appendix. She did go home on Saturday. She said the hospitalist placed her on Augmentin for urinary tract infection. She did receive intravenous antibiotics around the perioperative course. She said that she felt fine but then this severe pain started in her left lower quadrant last Saturday. She has taken her temperature several times at home and she is afebrile. She does not have any urinary symptomatology such as frequency urgency hesitancy or dysuria. She does have a history of kidney stones but they have always been on the right side and she says it does not feel like that. She said this is a fiery burning pain. She also has had a partial hysterectomy. She has had right inguinal hernia repair when she was a young child. She also had several laparoscopic procedures done in the interval but she was never told during this hospitalization that there was complications or scar tissue with the procedure. Dr. Olson was her surgeon. She has not had vomiting. She did have small bowel movements but has not had a good firm bowel movement since her procedure. She does not want anything for pain. Related Data Home Medications ?Medication ?Instructions ?Recorded ?Confirmed clobetasol 0.05 % topical ointment 1 applic topical DAILY PRN 12/08/23 12/08/23 scoriasis fluoxetine 20 mg capsule 20 mg PO DAILY 12/08/23 12/08/23 hydrochlorothiazide 12.5 mg tablet 12.5 mg PO DAILY 12/08/23 12/08/23 nabumetone 750 mg tablet 750 mg PO BID 12/08/23 12/08/23 pantoprazole 40 mg tablet,delayed 40 mg PO BID 12/08/23 12/08/23 release tizanidine 4 mg tablet 4 mg PO DAILY PRN muscle spasticity 12/08/23 12/08/23 Previous Rx's ?Medication ?Instructions ?Recorded docusate sodium 100 mg capsule 100 mg PO BID 10 days #20 caps 12/08/23 (Colace) ondansetron 4 mg disintegrating 4 mg PO DAILY PRN nausea and 12/08/23 tablet vomiting 4 days #10 tabs oxycodone-acetaminophen 5 mg-325 1 tab PO Q4H PRN abd pain 3 days 12/08/23 mg tablet (Percocet) #10 tabs amoxicillin 875 mg-potassium 1 tab PO Q12H 7 days #14 tabs 12/09/23 clavulanate 125 mg tablet Allergies Allergy/AdvReac Type Severity Reaction Status Date / Time sulfamethoxazole Allergy Mild Hives Verified 12/07/23 21:46 [From Bactrim] trimethoprim [From Bactrim] Allergy Mild Hives Verified 12/07/23 21:46 PFSH PFSH Medical History (Updated 12/16/23 @ 18:04 by Addi Alvarez MD) GERD without esophagitis ?K21.9 - Gastro-esophageal reflux disease without esophagitis (ICD-10) Benign essential hypertension ?I10 - Essential (primary) hypertension (ICD-10) Exam Narrative Exam Narrative: Awake alert here with her daughter very pleasant and stoic. Vital signs are noted. She is afebrile. Slight elevation of blood pressure. Overall does not appear toxic or septic. She says that the pain comes and goes mostly with movement. When I examined her in the lying position she does not have any discomfort. Examination of the abdomen shows to be soft supple laparoscopic incisions are all to the left of the midline. There is no peritoneal findings no guarding rebound or rigidity but she has some discomfort that is very modest with deep palpation in the left lower pelvic area. She has no evidence of infection of her wounds they are all healing up very nicely. There is no tenderness in the right upper quadrant. Skin and integument are otherwise normal with no petechia or purpura. She is not clammy or diaphoretic. Cognition and mentation are excellent. Constitutional Vital Signs, click to edit/add: Last Vital Signs Temp 98.0 F 12/16/23 17:21 Pulse 92 H 12/16/23 17:21 Resp 17 12/16/23 17:21 BP 153/100 H 12/16/23 17:21 Pulse Ox 97 12/16/23 17:21 O2 Del Method Room Air 12/16/23 17:21 Course Vital Signs Vital signs: Vital Signs Temperature 98.0 F 12/16/23 17:21 Pulse Rate 92 H 12/16/23 17:21 Respiratory Rate 17 12/16/23 17:21 Blood Pressure 153/100 H 12/16/23 17:21 Pulse Oximetry 97 12/16/23 17:21 Oxygen Delivery Method Room Air 12/16/23 17:21 Temperature 98.0 F 12/16/23 17:21 Pulse Rate 92 H 12/16/23 17:21 Respiratory Rate 17 12/16/23 17:21 Blood Pressure 153/100 H 12/16/23 17:21 Pulse Oximetry 97 12/16/23 17:21 Oxygen Delivery Method Room Air 12/16/23 17:21 MDM - Abdominal Pain MDM Narrative Medical decision making narrative: Patient presents approximately 7 days postoperative with left lower pelvic pain. Has been on antibiotics. We are obtaining her urine culture report from when she was here in the hospital. Will obtain CT scan chemistries lab testing blood cultures lactate level. Case will be turned over to Dr. Espinoza at the change of shift and we will contact her surgeon when the workup is completed Discharge Plan Discharge Chief Complaint: Abdominal Pain Clinical Impression: Abdominal pain Patient Disposition: Still a Patient Prescriptions / Home Meds: No Action clobetasol 0.05 % ointment 1 applic TOPICAL DAILY PRN (Reason: scoriasis ) fluoxetine 20 mg capsule 20 mg PO DAILY hydrochlorothiazide 12.5 mg tablet 12.5 mg PO DAILY nabumetone 750 mg tablet 750 mg PO BID pantoprazole 40 mg tablet,delayed release (DR/EC) 40 mg PO BID tizanidine 4 mg tablet 4 mg PO DAILY PRN (Reason: muscle spasticity) oxycodone-acetaminophen [Percocet] 5-325 mg tablet 1 tab PO Q4H PRN (Reason: abd pain) 3 Days Qty: 10 0RF docusate sodium [Colace] 100 mg capsule 100 mg PO BID 10 Days Qty: 20 0RF ondansetron 4 mg tablet,disintegrating 4 mg PO DAILY PRN (Reason: nausea and vomiting) 4 Days Qty: 10 0RF amoxicillin-pot clavulanate 875-125 mg tablet 1 tab PO Q12H 7 Days Qty: 14 0RF Print Language: Mauritanian Referrals: YOAV CONTEH [Primary Care Provider] - 1 week
[2023-12-16] MEDS: 0.9 % SODIUM CHLORIDE 1,000 ML 999 ML IV (18:20)
[2023-12-16 18:38] LABS: Basophils Absolute Auto 0.1 10^3/uL (0.0-0.1); Basophils Percent Auto 0.7 % (0.2-2.0); Eosinophils Absolute Auto 0.2 10^3/uL (0.0-0.7); Eosinophils Percent Auto 1.5 % (0.9-7.0); Hematocrit 35.7 % (36.0-48.0); Hemoglobin 11.6 g/dL (12.0-16.0); Immature Granulocytes Abs Auto 0.29 10^3/uL (0.00-0.03); Immature Granulocytes Pct Auto 2.6 % (0.0-0.5); Lymphocytes Absolute Auto 2.2 10^3/uL (1.2-3.8); Lymphocytes Percent Auto 20.1 % (20.5-60.0); Mean Corpuscular HGB Conc 32.5 g/dL (29.9-35.2); Mean Corpuscular Hemoglobin 29.6 pg (26.7-34.0); Mean Corpuscular Volume 91.1 fL (81.0-99.0); Mean Platelet Volume 8.9 fL (9.5-13.5); Monocytes Absolute Auto 0.8 10^3/uL (0.3-0.8); Monocytes Percent Auto 7.6 % (1.7-12.0); Neutrophils Absolute Auto 7.5 10^3/uL (1.4-6.5); Neutrophils Percent Auto 67.5 % (43.0-75.0); Platelet Count 525 10^3/uL (150-450); Red Blood Count 3.92 10^6/uL (4.20-5.40); Red Cell Distribution Width 12.8 % (11.0-15.0); White Blood Count 11.1 10^3/uL (4.0-11.0)
[2023-12-16 18:38] LABS: Bilirubin Urine NEGATIVE (NEGATIVE); Blood Urine TRACE-I (NEGATIVE); Clarity Urine CLEAR (CLEAR); Color Urine LT. YELLOW (YELLOW); Glucose Urine UA NEGATIVE (NEGATIVE); Ketones Urine NEGATIVE (NEGATIVE); Leukocyte Esterase Urine SMALL (NEGATIVE); Nitrite Urine NEGATIVE (NEGATIVE); Protein Urine NEGATIVE (NEG/TRACE); Specific Gravity Urine <=1.005 (1.005-1.025); Urobilinogen Urine 0.2 EU/dL (0.2-1.0); pH Urine 6.5 (5.0-9.0)
--- NOTE | 2023-12-16 18:40 | CT_ITS ---
[place] [id number] Patient Name: RHETT BARTHOLOMEW MRN: [id number] date: 1970 Sex: F Assigned Patient Location: ER Current Patient Location: [facility] Accession/Order Number: [id number] Exam Date: 12/16/2023 18:30 Report Date: 12/16/2023 19:50 At the request of: FRANCOIS EWING Procedure: CT abdomen pelvis w con EXAM: CT abdomen pelvis w con; [id number] REASON FOR EXAM: Postop abdominal pain left lower abdomen TECHNIQUE: Helical CT images of the abdomen and pelvis were obtained after the administration of IV contrast. Multiplanar reformats were generated at the scanner. Dose reduction technique used: Automated exposure control and/or adjustment of the mA and/or kV according to patient size and/or use of iterative reconstruction technique. COMPARISON: CT abdomen/pelvis 12/08/2023. FINDINGS: Visualized Chest: No pleural effusion or any significant pulmonary findings. Abdomen: Liver: Mild focal fatty infiltration along the falciform ligament. Gallbladder: No calcified gallstones. No acute inflammatory changes. Bile Ducts: No significant biliary ductal dilatation. Pancreas: No mass, ductal dilatation, or inflammatory changes. Spleen: No splenomegaly or focal lesion. Adrenals: No nodules. Kidneys: -Nonobstructing 3-4 mm stone in the lower pole of the right kidney. No left-sided stones. -No hydronephrosis. Vascular: No aortic aneurysm. Lymph Nodes: No adenopathy. Abdominal Wall: No hernia or mass. Pelvis: Peripherally enhancing collection in the right posterior pelvis measuring 4.4 x 2.8 x 2 cm for a volume of 12.8 mL. Bowel/Peritoneal Cavity/Mesentery: -No bowel obstruction or significant ileus. -Probable reactive wall thickening of the distal sigmoid/rectum from the adjacent abscess. -No free air. Musculoskeletal: No acute fracture or suspicious osseous lesion. CT/CT abdomen pelvis w con IMPRESSION: Peripherally enhancing collection in the right posterior pelvis with a volume of 12.8 mL, likely abscess. Electronically authenticated by: HEYDI TURCIOS Date: 12/16/2023 19:50
[2023-12-16 18:41] LABS: Urine Microscopic Indicated YES
[2023-12-16 18:44] VITALS: BP 160/98; PULSE 88; O2SAT 98
[2023-12-16 18:50] LABS: Bacteria Urine TRACE #/HPF (NONE SEEN); Cast Seen? NONE SEEN #/LPF (NONE SEEN); Crystals Seen? None Seen #/HPF (None Seen); Mucus Urine NONE SEEN (NONE SEEN); Squamous Epithelial Cell Urine FEW #/LPF (NONE/RARE); Urine Culture Indicated YES
[2023-12-16 18:53] LABS: Lactate/Lactic Acid 0.8 mmol/L (0.4-2.0)
[2023-12-16 19:00] LABS: Alanine Aminotransferase 23 U/L (14-59); Albumin Globulin Ratio 0.7; Albumin Level 3.2 g/dL (3.4-5.0); Alkaline Phosphatase 87 U/L (46-116); Anion Gap 8.7; Aspartate Amino Transferase 14 U/L (15-37); BUN Creatinine Ratio 14.5; Bilirubin Total 0.2 mg/dL (0.2-1.0); Calcium 9.4 mg/dL (8.5-10.1); Carbon Dioxide 31.1 mmol/L (21.0-32.0); Chloride 104 mmol/L (98-107); Estimated GFR (African America >60 (>=60); Estimated GFR (Non-African Ame >60 (>=60); Globulin 4.6 g/dL; Glucose 91 mg/dL (74-106); Potassium 3.8 mmol/L (3.5-5.1); Sodium 140 mmol/L (136-145); Total Protein 7.8 g/dL (6.4-8.2)
[2023-12-16 21:09] VITALS: BP 116/96; PULSE 83; TEMP 37.2; O2SAT 97
[2023-12-16] MEDS: PIPERACILLIN SODIUM/TAZOBACTAM 4.5 GM in 0.9 % SODIUM CHLORIDE 50 ML IV (21:16)
[2023-12-16] MEDS: MORPHINE SULFATE 2 MG/ML SYRINGE IV (21:51)
[2023-12-16 22:32] VITALS: BP 138/47; PULSE 75; TEMP 36.6; O2SAT 96; BMI 27.7
--- OUTSIDE RECORDS SUMMARY | 2023-12-16 22:48 | XMS_ITS ---
Patient Summarization (C-CDA 2.1 CCD) Created on: December 16, 2023 Rhett Bartholomew : 1970 Sex: Undifferentiated Author Organization Sample organization Care Team Providers Care Drilling Field Professional Name Role Phone MAUREEN PETERS Admitting Unavailable MAUREEN PETERS Attending Unavailable WERO, YOAV Admitting Unavailable GIRMARIAH, YOAV Attending Unavailable GIRMARIAH, YOAV Consulting Unavailable GIRMARIAH, YOAV Admitting Unavailable GIRMARIAH, YOAV Attending Unavailable GIRMARIAH, YOAV Consulting Unavailable MAUREEN PETERS Admitting Unavailable MAUREEN PETERS Attending Unavailable MAUREEN PETERS Consulting Unavailable YOAV CONTEH Consulting Unavailable REGIS STALLWORTH Consulting Unavailable YOAV CONTEH Admitting Unavailable WERO, YOAV Attending Unavailable YOAV CONTEH Primary Care Unavailable WERO, YOAV Consulting Unavailable MAUREEN PETERS Admitting Unavailable MAUREEN PETERS Attending Unavailable DO Isis Rosado Attending Provider DO Yoav Conteh Primary Care Provider [phone] Yoav Conteh Unavailable Dee Nicole Unavailable ISIS ROSADO Referring Unavailable YOAV CONTEH Primary Care Unavailable YOAV CONTEH Admitting Unavailable YOAV CONTEH Attending Unavailable YOAV CONTEH Primary Care Unavailable RAMIREZ, TOMMY Admitting Unavailable ASHLEY, TOMMY Attending Unavailable YOAV CONTEH Primary Care Unavailable YOAV CONTEH Primary Care Unavailable RAMIREZ, TOMMY Admitting Unavailable ASHLEY, TOMMY Attending Unavailable YOAV CONTEH Primary Care Unavailable YOAV CONTEH Admitting Unavailable YOAV CONTEH Attending Unavailable YOAV CONTEH Primary Care Unavailable YOAV CONTEH Admitting Unavailable YOAV CONTEH Attending Unavailable DO Yoav Conteh Primary Care Provider DO Joey Olson Attending Provider Dee Nicole Attending Unavailable Dee Nicole Admitting Unavailable Yoav Conteh Primary Care Unavailable Joey Olson Admitting Unavailable Yoav Conteh Primary Care Unavailable Wesley, Joey Attending Unavailable Allergies Allergy Classification Reported Allergen(s) Allergy Type Date of Onset Reaction(s) Facility (2 sources) Sulfamethoxazole / Trimethoprim Drug Allergy 3 [facility] Repository (5 sources) Sulfamethoxazole; Translations: [sulfamethoxazole] Drug Allergy 2 [facility] (5 sources) Trimethoprim; Translations: [trimethoprim] Drug Allergy 2 [facility] (9 sources) Sulfamethoxazole / Trimethoprim Drug Allergy [facility] [employer] Other (1 source) Sulfamethoxazole / Trimethoprim; Translations: [Bactrim] Drug Allergy [facility] Repository Encounters Encounter Date Encounter Type Care Provider Facility Start: 12-09-2023 Non-patient / Non-visit DO Yoav Conteh Work Phone: [facility] Physician [facility] Work Phone: Start: 12-08-2023 End: 12-08-2023 ambulatory DO Yoav Conteh Work Phone: [facility] Work Phone: Start: 12-08-2023 End: 12-08-2023 Departed Referred DO Yoav Conteh Work Phone: [facility] Start: 12-07-2023 Non-patient / Non-visit DO Yoav Conteh Work Phone: [facility] Physician [facility] Work Phone: Start: 10-22-2023 ambulatory TOMMY RAMIREZ Facility:[facility] Start: 10-08-2023 End: 10-09-2023 [facility] Start: 09-09-2023 End: 09-09-2023 ambulatory Dee iNcole Facility:[facility] Start: 07-29-2023 End: 07-29-2023 ambulatory Yoav Conteh Other [employer] Other Start: 07-29-2023 Office outpatient visit 25 minutes Yoav Conteh [facility] Start: 07-27-2023 End: 07-28-2023 ambulatory YOAV CONTEH Facility:[facility] Start: 04-22-2023 ambulatory YOAV CONTEH Facility :[facility] Start: 01-28-2023 End: 01-28-2023 ambulatory Yoav Conteh Other [employer] Other Start: 01-28-2023 Office outpatient visit 25 minutes Yoav Conteh [facility] Start: 01-26-2023 End: 01-27-2023 ambulatory YOAV Browning CHENMARIAH Facility:[facility] Start: 11-20-2022 End: 11-21-2022 ambulatory YOAV CONTEH Facility:[facility] Start: 10-12-2022 End: 10-12-2022 ambulatory Yoav Wero Other [employer] Other Start: 10-12-2022 Telephone encounter Yoav Conteh [facility] Start: 07-23-2022 End: 07-23-2022 ambulatory Yoav Conteh Other [employer] Other Start: 07-23-2022 Office outpatient visit 25 minutes Yoav Conteh [facility] Start: 01-15-2022 End: 01-15-2022 ambulatory Yoav Conteh Other [employer] Other Start: 01-15-2022 Office outpatient visit 25 minutes Yoav Conteh [facility] Start: 12-26-2021 End: 12-26-2021 ambulatory Dee Nicole Other [employer] Other Start: 12-26-2021 Office outpatient visit 15 minutes Dee Nicole [facility] Start: 11-23-2021 End: 11-23-2021 Admission to same day surgery center DO Isis Rosado Work Phone: [facility] [place] Start: 11-21-2021 End: 11-21-2021 Patient encounter procedure DO Isis Rosado Work Phone: [facility] Start: 11-15-2021 End: 11-15-2021 Patient encounter procedure DO Isis Rosado Work Phone: [facility] Start: 09-04-2021 End: 09-04-2021 ambulatory Yoav Conteh Other [employer] Other Start: 09-04-2021 Office outpatient visit 15 minutes Yoav Conteh [facility] Start: 07-03-2021 End: 07-03-2021 ambulatory Yoav Conteh [facility] [employer] Other Start: 07-03-2021 Telephone encounter Yoav Conteh [facility] Start: 06-12-2021 End: 06-12-2021 ambulatory Yoav Conteh Other [employer] Other Start: 06-12-2021 Encounter for genera l adult medical examination without abnormal findings Yoav Conteh [facility] Start: 06-12-2021 Periodic preventive med est patient 40-64yrs Yoav Conteh [facility] Start: 07-06-2019 Patient encounter procedure MAUREEN PETERS Facility:[facility] Start: 03-26-2019 End: 03-27-2019 Patient encounter procedure YOAV CONTEH Facility:[facility] Start: 01-29-2019 End: 01-30-2019 Patient encounter procedure MAUREEN PETERS Facility:[facility] Start: 09-20-2018 End: 09-21-2018 Patient encounter procedure YOAV CONTEH Facility:[facility] Start: 08-30-2018 End: 08-31-2018 Patient encounter procedure YOAV CONTEH Facility:[facility] Goals Date Patient Goal Desired Activity /State Immunizations Immunization Date Immunization Notes Care Provider Mauro be 04-16-2022 influenza, seasonal, injectable oYav Conteh Other [facility] 04-28-2021 COVID-19 Vaccine Mod simin - Documentation Purposes Only Yoav Conteh Other [facility] 04-03-2021 influenza, seasonal, injectable Yoav Conteh Other [facility] 09-12-2020 COVID-19 Vaccine Rodrigo ssen - Documentation Purposes Only Yoav Conteh Other [facility] Medications Current Medications Medication Drug Class(es) Dates Sig (Normalized) Sig (Original) acetaminophen 500 mg oral tablet (2 sources) Start: 11-24-19 End: 09-09-19 24 take 2 tablets by mouth every six hours Acetaminophen (Acetaminophen Extra Strength) 500 mg tablet Active 1000 MG PO Q6H 60 November 23, 2021 1:06pm docusate sodium 100 mg oral capsule (2 sources) Start: 11-24-19 End: 09-09-19 24 take 1 capsule by [...] tablet (4 sources) Thiazide Diuretic Start: 11-16-19 take 12.5 mg by mouth once daily [...] Active 20 MG PO Twice daily 10 5 September 09, 2023 12:00am Start: 12-26-2021 take [...] Start: 06-12-2021 take 1 tablet by leon once daily Ferrous Sulfate 325 (65 Fe) MG 1 tablet Orally Once a day May, Active Start: 06-12-2021 take 1 tablet by leon every twenty-four hours Ferrous Sulfate 325 (65 [...] three times a day for 7 days 18 Dec, 2021 Not-Taking Payers Date Payer Category Payer Unknown 1970 Unknown [id number] 2.16.84 [id number] 1970 Unknown [id number] 2.16.84 [id number] 1970 Unknown [id number] 2.16.84 [id number] 1970 Unknown [id number] 2.16.84 [id number] 1970 Unknown [id number] 2.16.84 [id number] 1970 Unknown [id number] 2.16.84 [id number] 1970 Unknown [id number] 2.16.8 [id number] 1970 Unknown [id number] 2.16.8 [id number] 1970 Unknown [id number] 2.16.8 [id number] 1970 Unknown [id number] 2.16.8 [id number] 1970 Unknown [id number] 2.16.8 [id number] 1970 Unknown [id number] 2.16.8 [id number] 1960 Self-pay 1960 Unknown [id number] Unknown [id number] 2.16.8 [id number] Unknown [id number] 2.16.8 [id number] Plan of Treatment Date Care Activity Detail Author Start: 06-09-2024 Bacteria identified in Urine by Culture Urine Culture [facility] Patient Education Hysterectomy, Abdominal or Laparoscopic Surgery Hysterectomy, Vaginal SURGICAL DISCHARGE INSTRUCTIONS ([facility]) [facility] Work Phone: Patient referral [facility] Work Phone: Problems Active Problems Problem Classification Problem Date [...] (osteo)arthritis] Chronic Other aftercare (11 sources) Other meterman (current) drug therapy; Translations: [OTH [facility] CURRENT DRUG THERAPY] Onset: 9 Resolved: 2 [...] without complications Onset: 01-15-2022 Resolved: 01-15-2022 Episodic Procedures Date Procedure Procedure Detail Performing Clinician Start: 11-23-2021 Total hysterectomy v ia vaginal approach DO Isis Rosado Work Phone: Results Test Name Value Interpretation Reference Range Facility Basophils Auto (Bld) [#/Vol] on 12-09-2023 Basophils (Bld) [#/Vol] 0.0 10 3/uL 0.0-0.1 [facility] Basophils/100 WBC Auto (Bld) on 12-09-2023 Basophils/100 WBC (Bld) 0.2 % 0.2-2.0 [facility] Eosinophils/100 WBC Auto (Bl d)on 12-09-2023 Eosinophils/100 WBC (Bld) 0.1 % 0.9-7.0 [facility] Erythrocyte distribution wid th Auto (RBC) [Ratio]on 12-09-2023 Erythrocyte distribution width (RBC) [Ratio] 12.9 % 11.0-15.0 [facility] Estimated glomerular filtrat ion rate (GFR) non- Americanon 12-09-2023 GFR/1.73 sq M.predicted among non-blacks MDRD (S/P/Bld) [Vol rate/Area] mL/min/{1.73_m2} >=60 [facility] Globulin Calc (S) [Mass/Vol] on 12-09-2023 Globulin (S) [Mass/Vol] 3.9 g/dL [facility] Hematocrit Auto (Bld) [Volum e fraction]on 12-09-2023 Hematocrit (Bld) [Volume fraction] 32.1 % 36.0-48.0 [facility] Hemoglobin [Mass/volume] in Bloodon 12-09-2023 Hemoglobin (Bld) [Mass/Vol] 10.3 g/dL 12.0-16.0 [facility] Laboratory - Chemistry and C hemistry - challengeon 12-09-2023 Albumin [Mass/Vol] 2.5 g/dL 3.4-5.0 [facility] ALP [Catalytic activity/Vol] 83 U/L 46-116 [facility] ALT [Catalytic activity/Vol] 30 U/L 14-59 [facility] AST [Catalytic activity/Vol] 19 U/L 15-37 [facility] Bilirubin [Mass/Vol] 0.4 mg/dL 0.2-1.[address] [facility] Calcium [Mass/Vol] 8.7 mg/dL 8.5-10.1 [facility] Chloride [Moles/Vol] 105 mmol/L 98-[address] [facility] CO2 [Moles/Vol] 28.1 mmol/L 21.0-32.0 [facility] Creatinine [Mass/Vol] 0.65 mg/dL 0.55-1.02 [facility] GFR/1.73 sq M.predicted MDRD (S/P/Bld) [Vol rate/Area] mL/min/{1.73_m2} >=60 [facility] Glucose [Mass/Vol] 129 mg/dL 74-106 [facility] Potassium [Moles/Vol] 3.6 mmol/L 3.5-5.1 [facility] Protein [Mass/Vol] 6.4 g/dL 6.4-8.2 [facility] Sodium [Moles/Vol] 140 mmol/L 136-145 [facility] Urea nitrogen [Mass/Vol] 9.0 mg/dL 7.0-18.0 [facility] Urea nitrogen/Creatinine [Mass ratio] 13.8 mg/mg [facility] Laboratory - Hematology and Cell countson 12-09-2023 Immature granulocytes/100 WBC (Bld) 0.5 % 0.0-0.5 [facility] Leukocytes [#/volume] correc rory for nucleated erythrocytes in Blood by Automated counon 12-09-2023 WBC corrected for nucl RBC Auto (Bld) [#/Vol] 11.4 10 3/uL 4.0-11.0 [facility] Lymphocytes Auto (Bld) [#/Vo l]on 12-09-2023 Lymphocytes (Bld) [#/Vol] 0.8 10 3/uL 1.2-3.8 [facility] Lymphocytes/100 WBC Auto (Bl d)on 12-09-2023 Lymphocytes/100 WBC (Bld) 7.0 % 20.5-60.0 [facility] MCH Auto (RBC) [Entitic mass ]on 12-09-2023 MCH (RBC) [Entitic mass] 29.8 pg 26.7-34.0 [facility] MCHC Auto (RBC) [Mass/Vol]on 12-09-2023 MCHC (RBC) [Mass/Vol] 32.1 g/dL 29.9-35.2 [facility] MCV Auto (RBC) [Entitic vol] on 12-09-2023 MCV (RBC) [Entitic vol] 92.8 fL 81.0-99.0 [facility] Monocytes Auto (Bld) [#/Vol] on 12-09-2023 Monocytes (Bld) [#/Vol] 0.7 10 3/uL 0.3-0.8 [facility] Monocytes/100 WBC Auto (Bld) on 12-09-2023 Monocytes/100 WBC (Bld) 6.4 % 1.7-12.0 [facility] Neutrophils Auto (Bld) [#/Vo l]on 12-09-2023 Neutrophils (Bld) [#/Vol] 9.8 10 3/uL 1.4-6.5 [facility] Neutrophils/100 WBC Auto (Bl d)on 12-09-2023 Neutrophils/100 WBC (Bld) 85.8 % 43.0-75.0 [facility] No Panel Informationon 12-08 Eosinophils # (Auto) 0.0 10 3/uL 0.0-0.7 [facility] Immature Granulocyte # (Auto) 0.06 10 3/uL 0.00-0.03 [facility] Platelet mean volume Auto (B ld) [Entitic vol]on 12-09-2023 Platelet mean volume (Bld) [Entitic vol] 10.1 fL 9.5-13.5 [facility] Platelets Auto (Bld) [#/Vol] on 12-09-2023 Platelets (Bld) [#/Vol] 285 10 3/uL 150-450 [facility] RBC Auto (Bld) [#/Vol]on RBC (Bld) [#/Vol] 3.46 10 6/uL 4.20-5.40 [facility] Serum or plasma albumin/glob ulin mass ratioon 12-09-2023 Albumin/Globulin [Mass ratio] 0.6 {ratio} [facility] Serum or plasma anion gap de terminationon 12-09-2023 Anion gap [Moles/Vol] 10.5 mmol/L [facility] Basophils Auto (Bld) [#/Vol] on 12-08-2023 Basophils (Bld) [#/Vol] 0.0 10 3/uL 0.0-0.1 [facility] Basophils/100 WBC Auto (Bld) on 12-08-2023 Basophils/100 WBC (Bld) 0.3 % 0.2-2.0 [facility] Eosinophils/100 WBC Auto (Bl d)on 12-08-2023 Eosinophils/100 WBC (Bld) 0.1 % 0.9-7.0 [facility] Erythrocyte distribution wid th Auto (RBC) [Ratio]on 12-08-2023 Erythrocyte distribution width (RBC) [Ratio] 13.1 % 11.0-15.0 [facility] Estimated glomerular filtrat ion rate (GFR) non- Americanon 12-08-2023 GFR/1.73 sq M.predicted among non-blacks MDRD (S/P/Bld) [Vol rate/Area] mL/min/{1.73_m2} >=60 [facility] Globulin Calc (S) [Mass/Vol] on 12-08-2023 Globulin (S) [Mass/Vol] 3.8 g/dL [facility] Hematocrit Auto (Bld) [Volum e fraction]on 12-08-2023 Hematocrit (Bld) [Volume fraction] 35.2 % 36.0-48.0 [facility] Hemoglobin [Mass/volume] in Bloodon 12-08-2023 Hemoglobin (Bld) [Mass/Vol] 11.8 g/dL 12.0-16.0 [facility] Ottoniel 12-08-2023 L Specimen: [id number] Received: 12/09/23 Status: LUZ Tiffany Num: [id number] Spec Type: Surgical Subm Dr: Joey Olson DO Tissues: A Appendix - Other than Incidental (APPENDIX) Procedures: HE/3, Gross/Micro L3 Age/ Patient Sex Location Account Attending Physician Rhett Bartholomew 53/F [facility] [id number] Joey Olson DO SPEC NUM: [id number] RECD: 12/09/23 STATUS: LUZ ALLEN NUM: [id number] KATYA: 12/08/[address]: Joey Olson DO ENTERED: 12/09/[address] [facility] [address]: Jazmin Banuelos SPEC TYPE: Surgical DEPT: TOLU HUGGINS ORDERED: [...] perforation)-A3 (entire distal tip). TW ---- Specimen: [id number] Received: 12/09/23 Status: LONISae Allen Num: [id number] Spec Type: Surgical Subm Dr: Joey Olson DO Tissues: A Appendix - Other than Incidental (APPENDIX) Procedures: HE/3, Gross/Micro L3 ---- Patient: AntolinRhett [id number] (Continued) ---- Specimen: [id number] Received: 12/09/23 (Continued) Signed (signature on file) Areli Silveira MD 12/10/23 1909 ---- Specimen: [id number] Received: 12/09/23 Status: LUZ Allen Num: [id number] Spec Type: Surgical Subm Dr: Joey Olson DO Tissues: A Appendix - Other than Incidental (APPENDIX) Procedures: HE/3, Gross/Micro L3 ---- Patient: Rhett Bartholomew [id number] (Continued) ---- Specimen: [id number] Received: 12/09/23 (Continued) CPT Codes 10869 ---- ---- Specimen: [id number] Received: 12/09/23 Status: LUZ Allen Num: [id number] Spec Type: Surgical Subm Dr: Joey Olson DO Tissues: A Appendix - Other than Incidental (APPENDIX) Procedures: HE/3, Gross/Micro L3 ---- Patient: Rhett Bartholomew [id number] (Continued) ---- Signed (signature on file) Miguel nAgel-Angus Silveira MD 12/10/231908 Normal [facility] Laboratory - Chemistry and C hemistry - challengeon 12-08-2023 Albumin [Mass/Vol] 2.9 g/dL 3.4-5.0 [facility] ALP [Catalytic activity/Vol] 91 U/L 46-116 [facility] ALT [Catalytic activity/Vol] 23 U/L 14-59 [facility] AST [Catalytic activity/Vol] 8 U/L 15-37 [facility] Bilirubin [Mass/Vol] 0.8 mg/dL 0.2-1.[address] [facility] Bilirubin Ql (U) Negative NEGATIVE [facility] Calcium [Mass/Vol] 8.7 mg/dL 8.5-10.1 [facility] Chloride [Moles/Vol] 102 mmol/L 98-[address] [facility] CO2 [Moles/Vol] 27.7 mmol/L 21.0-32.0 [facility] Creatinine [Mass/Vol] 0.70 mg/dL 0.55-1.02 [facility] GFR/1.73 sq M.predicted MDRD (S/P/Bld) [Vol rate/Area] mL/min/{1.73_m2} >=60 [facility] Glucose (U) [Mass/Vol] Negative NEGATIVE [facility] Glucose [Mass/Vol] 96 mg/dL 74-106 [facility] Ketones Ql (U) Negative NEGATIVE [facility] pH (U) 6.5 [pH] 5.0-9.0 [facility] Potassium [Moles/Vol] 3.3 mmol/L 3.5-5.1 [facility] Protein [Mass/Vol] 6.7 g/dL 6.4-8.2 [facility] Sodium [Moles/Vol] 138 mmol/L 136-145 [facility] Specific gravity (U) [Rel density] <=1.005 1.005-1.025 [facility] Urea nitrogen [Mass/Vol] 8.0 mg/dL 7.0-18.0 [facility] Urea nitrogen/Creatinine [Mass ratio] 11.4 mg/mg [facility] Urobilinogen Qn (U) 0.2 {Jamie'U}/dL 0.2-1.0 [facility] Laboratory - Hematology and Cell countson 12-08-2023 Immature granulocytes/100 WBC (Bld) 0.3 % 0.0-0.5 [facility] Laboratory - Specimen inform ationon 12-08-2023 Appearance (U) CLEAR CLEAR [facility] Color (U) LT. YELLOW YELLOW [facility] Laboratory - Urinalysison Amorphous sediment LM Ql (Urine sed) FEW [facility] Leukocyte esterase Test strip Ql (U) MODERATE NEGATIVE [facility] Mucus Ql (Urine sed) NONE SEEN NONE SEEN [facility] Nitrite Ql (U) Positive NEGATIVE [facility] Protein Ql (U) Negative NEG/TRACE [facility] Leukocytes [#/volume] correc rory for nucleated erythrocytes in Blood by Automated counon 12-08-2023 WBC corrected for nucl RBC Auto (Bld) [#/Vol] 14.3 10 3/uL 4.0-11.0 [facility] Lymphocytes Auto (Bld) [#/Vo l]on 12-08-2023 Lymphocytes (Bld) [#/Vol] 1.4 10 3/uL 1.2-3.8 [facility] Lymphocytes/100 WBC Auto (Bl d)on 12-08-2023 Lymphocytes/100 WBC (Bld) 9.8 % 20.5-60.0 [facility] MCH Auto (RBC) [Entitic mass ]on 12-08-2023 MCH (RBC) [Entitic mass] 30.7 pg 26.7-34.0 [facility] MCHC Auto (RBC) [Mass/Vol]on 12-08-2023 MCHC (RBC) [Mass/Vol] 33.5 g/dL 29.9-35.2 [facility] MCV Auto (RBC) [Entitic vol] on 12-08-2023 MCV (RBC) [Entitic vol] 91.7 fL 81.0-99.0 [facility] Monocytes Auto (Bld) [#/Vol] on 12-08-2023 Monocytes (Bld) [#/Vol] 1.4 10 3/uL 0.3-0.8 [facility] Monocytes/100 WBC Auto (Bld) on 12-08-2023 Monocytes/100 WBC (Bld) 9.6 % 1.7-12.0 [facility] Neutrophils Auto (Bld) [#/Vo l]on 12-08-2023 Neutrophils (Bld) [#/Vol] 11.5 10 3/uL 1.4-6.5 [facility] Neutrophils/100 WBC Auto (Bl d)on 12-08-2023 Neutrophils/100 WBC (Bld) 79.9 % 43.0-75.0 [facility] No Panel Informationon 12-07 Eosinophils # (Auto) 0.0 10 3/uL 0.0-0.7 [facility] Immature Granulocyte # (Auto) 0.05 10 3/uL 0.00-0.03 [facility] Urine Bacteria MODERATE #/HPF NONE SEEN [facility] Urine Culture Reflexed YES [facility] Urine Occult Blood MODERATE NEGATIVE [facility] Urine Other Casts NONE SEEN #/LPF NONE SEEN [facility] Urine Other Crystals None Seen #/HPF None Seen [facility] Urine RBC NONE SEEN #/HPF 0-2 [facility] Urine Squamous Epithelial Cells FEW #/LPF NONE/RARE [facility] Urine WBC 20-50 #/HPF NONE SEEN [facility] Platelet mean volume Auto (B ld) [Entitic vol]on 12-08-2023 Platelet mean volume (Bld) [Entitic vol] 10.0 fL 9.5-13.5 [facility] Platelets Auto (Bld) [#/Vol] on 12-08-2023 Platelets (Bld) [#/Vol] 307 10 3/uL 150-450 [facility] RBC Auto (Bld) [#/Vol]on RBC (Bld) [#/Vol] 3.84 10 6/uL 4.20-5.40 [facility] Serum or plasma albumin/glob ulin mass ratioon 12-08-2023 Albumin/Globulin [Mass ratio] 0.8 {ratio} [facility] Serum or plasma anion gap de terminationon 12-08-2023 Anion gap [Moles/Vol] 11.6 mmol/L [facility] Basophils Auto (Bld) [#/Vol] on 12-07-2023 Basophils (Bld) [#/Vol] 0.1 10 3/uL 0.0-0.1 [facility] Basophils/100 WBC Auto (Bld) on 12-07-2023 Basophils/100 WBC (Bld) 0.3 % 0.2-2.0 [facility] Eosinophils/100 WBC Auto (Bl d)on 12-07-2023 Eosinophils/100 WBC (Bld) 0.1 % 0.9-7.0 [facility] Erythrocyte distribution wid th Auto (RBC) [Ratio]on 12-07-2023 Erythrocyte distribution width (RBC) [Ratio] 13.1 % 11.0-15.0 [facility] Estimated glomerular filtrat ion rate (GFR) non- Americanon 12-07-2023 GFR/1.73 sq M.predicted among non-blacks MDRD (S/P/Bld) [Vol rate/Area] mL/min/{1.73_m2} >=60 [facility] Globulin Calc (S) [Mass/Vol] on 12-07-2023 Globulin (S) [Mass/Vol] 4.4 g/dL [facility] Hematocrit Auto (Bld) [Volum e fraction]on 12-07-2023 Hematocrit (Bld) [Volume fraction] 36.8 % 36.0-48.0 [facility] Hemoglobin [Mass/volume] in Bloodon 12-07-2023 Hemoglobin (Bld) [Mass/Vol] 12.5 g/dL 12.0-16.0 [facility] Laboratory - Chemistry and C hemistry - challengeon 12-07-2023 Albumin [Mass/Vol] 3.3 g/dL 3.4-5.0 [facility] ALP [Catalytic activity/Vol] 96 U/L 46-116 [facility] ALT [Catalytic activity/Vol] 28 U/L 14-59 [facility] Amylase [Catalytic activity/Vol] 25 U/L 25-115 [facility] AST [Catalytic activity/Vol] 9 U/L 15-37 [facility] Bilirubin [Mass/Vol] 1.0 mg/dL 0.2-1.[address] [facility] Bilirubin.direct [Mass/Vol] 0.2 mg/dL 0.0-0.2 [facility] Calcium [Mass/Vol] 9.3 mg/dL 8.5-10.1 [facility] Chloride [Moles/Vol] 98 mmol/L 98-[address] [facility] CO2 [Moles/Vol] 26.5 mmol/L 21.0-32.0 [facility] Creatinine [Mass/Vol] 0.71 mg/dL 0.55-1.02 [facility] GFR/1.73 sq M.predicted MDRD (S/P/Bld) [Vol rate/Area] mL/min/{1.73_m2} >=60 [facility] Glucose [Mass/Vol] 120 mg/dL 74-106 [facility] Lipase [Catalytic activity/Vol] 15.0 U/L 16.0-77.0 [facility] Potassium [Moles/Vol] 3.3 mmol/L 3.5-5.1 [facility] Protein [Mass/Vol] 7.7 g/dL 6.4-8.2 [facility] Sodium [Moles/Vol] 134 mmol/L 136-145 [facility] Urea nitrogen [Mass/Vol] 9.0 mg/dL 7.0-18.0 [facility] Urea nitrogen/Creatinine [Mass ratio] 12.7 mg/mg [facility] Laboratory - Hematology and Cell countson 12-07-2023 Immature granulocytes/100 WBC (Bld) 0.6 % 0.0-0.5 [facility] Leukocytes [#/volume] correc rory for nucleated erythrocytes in Blood by Automated counon 12-07-2023 WBC corrected for nucl RBC Auto (Bld) [#/Vol] 18.3 10 3/uL 4.0-11.0 [facility] Lymphocytes Auto (Bld) [#/Vo l]on 12-07-2023 Lymphocytes (Bld) [#/Vol] 1.3 10 3/uL 1.2-3.8 [facility] Lymphocytes/100 WBC Auto (Bl d)on 12-07-2023 Lymphocytes/100 WBC (Bld) 7.0 % 20.5-60.0 [facility] MCH Auto (RBC) [Entitic mass ]on 12-07-2023 MCH (RBC) [Entitic mass] 30.3 pg 26.7-34.0 [facility] MCHC Auto (RBC) [Mass/Vol]on 12-07-2023 MCHC (RBC) [Mass/Vol] 34.0 g/dL 29.9-35.2 [facility] MCV Auto (RBC) [Entitic vol] on 12-07-2023 MCV (RBC) [Entitic vol] 89.1 fL 81.0-99.0 [facility] Monocytes Auto (Bld) [#/Vol] on 12-07-2023 Monocytes (Bld) [#/Vol] 1.5 10 3/uL 0.3-0.8 [facility] Monocytes/100 WBC Auto (Bld) on 12-07-2023 Monocytes/100 WBC (Bld) 8.3 % 1.7-12.0 [facility] Neutrophils Auto (Bld) [#/Vo l]on 12-07-2023 Neutrophils (Bld) [#/Vol] 15.3 10 3/uL 1.4-6.5 [facility] Neutrophils/100 WBC Auto (Bl d)on 12-07-2023 Neutrophils/100 WBC (Bld) 83.7 % 43.0-75.0 [facility] No Panel Informationon 12-06 Eosinophils # (Auto) 0.0 10 3/uL 0.0-0.7 [facility] Immature Granulocyte # (Auto) 0.11 10 3/uL 0.00-0.03 [facility] Platelet mean volume Auto (B ld) [Entitic vol]on 12-07-2023 Platelet mean volume (Bld) [Entitic vol] 9.5 fL 9.5-13.5 [facility] Platelets Auto (Bld) [#/Vol] on 12-07-2023 Platelets (Bld) [#/Vol] 326 10 3/uL 150-450 [facility] RBC Auto (Bld) [#/Vol]on RBC (Bld) [#/Vol] 4.13 10 6/uL 4.20-5.40 [facility] Serum or plasma albumin/glob ulin mass ratioon 12-07-2023 Albumin/Globulin [Mass ratio] 0.8 {ratio} [facility] Serum or plasma anion gap de terminationon 12-07-2023 Anion gap [Moles/Vol] 12.8 mmol/L [facility] Coding Summaryon 10-24-2023 Coding Summary HTMLBase 64 WhxoagwiATf9eYj+PGhlYW Q+ZP7KOCHeU74wbQDimJ9x B7XTGZuUQwhxUVYDCUzCAs NgomHtXH4wwSGnZLXj IC8+SU7fINOpEznakZGsk2 C6uPR7E95ccq5yWIohdAN8 RNSzErYphvejg5abbHs1XY cuNmluOyBt PLWfwH55AJW4hJ89Gu40nR ZszLAez9ipxXk4BtSsOWGh LPU8dBvwDOefm5YbGSEgG2 7xuCCro1U2 LCAjmSnnzEDfCpSpaQS4wS 8bMTjuxcvgz5xwwwreDdu5 zw85jBCqm3J5eRO9R5Ejhz G6WPKddKLd GsltmPWOeJ4ntiwfj2nwyk tiSdUmJQKhWGn0BOf8ILTl dKddBmDxQT88MXA7LWUwzi NaU2KeZAYq kPypXkO2a8K6Qh3JX1EUCh vfT0QVRMPZHFsilSU+PC90 sh52I3SkOooiVkq8JDAqWN P5kYY9mI6j MPNgFKcdf5D9nKL5Z0Vgro Zkvm0ja9jyMUJoCClxK44y pLSfq9F6YVAdfRK7EGZaiR ciYwQjuH43 Oyc+UXXcpNsvr7KqEabyk8 zji7mdtDu8HdqjFEMphgSf pQgkETR7a7KiMq0sJJCxpN Z0mKB1jK4r FpJuRgY3AFgzJ783CyQvqB JqQshtU58uD2XsqHK+PHRy Fqk2ASUvhJaqWQ6vN5QdWZ RpbmctbGVm dUltXX8sUHRkfpylSZDqbB 2wHTHvU5t5SvGxMqW4GZet C5OaQRCmgonvZc32kO2cLa LlTcY2FUuq Z5CqgvU1UEHexTKhRBnfGB Z3Z17bi1T4GSWkPUXqRWH6 lGR6rS8nnSmtqhrziFPcxD sgdmVydGlj SAluMAzaY475XHSzfMagXi NvZGluZyBEYXRlOiAgMDQv MjUvMjAyNDwvdGQ+PHRkIH S6zPboLYSo dVZmPBdwCr9fwYrpoEjyZB 7hGWKysczbFMQfsS5sJWSi eOTddSrhAX3sPROhdwgbb2 26JgOsSDJ8 YJEvhBAyS4FexK2aIaOhFO NeOJEuZ4CusSVsDTbkG017 HBakNwD7BBUzifHuU9XhUE FsaWduOiB0 p6M5Kz1Pv2CpzhmgF6WsrG LoOfVlRudtIPm2W8ScXewr dHI+WO65KNBrXV84JXj9FN R9wFyjHZft ZUHcG6PjcF3xTeYhRVHsPL RkOyc+PHRhYmxlIHdpZHRo YIaxRGGkUkJqaKkuPH4gCv 9yZGVyLWNv dVrmgKRiHvJlt4fnWLRwXK cpQC5mqWxrC0NovWQ2PHKk h4p1Xi32J27tL5XjmTI+PG YfzRP2kPP9 aA4zBqQcYeM8TYtuV359Sw IwcDPuKyske2mug1fxwUc1 ShQ5GNAloeLvoIsnRBQ7c1 HbEr72Y11b IHdpZHRoPSIxNSUiIHZhbG ktvk5osX3aMt9+PGNvbCB3 fEF9nC5bQyKaHrT1MTuuZ5 49InRvcCIv Liuwi1aju3vgdFb6ZgSiFY VxcmNeyVcgRXN7x7HrJf56 U7EnySvck3HyXcb8le17lE Srl4Q3oPZ6 U7ZfGMQxjcqctDNzkPoiMF 5bVLTmpngoATCrbJ5fOMOv K4m6FbFpDeK5JLwxY5Xiff H4LNNahVSp HLXigBADhH6etyjfe6ibtd oyKnFmXSCkIOa9YLf5ZHMl kHzrSgRxTDO7XuV2MNM2bZ OwvA7wzNld nclnyC0uVbx+BOK4iASylN VMYH8iNnybnXC+PHRkIHN0 kDyhUHcuIWVfzZ4wIFCjH1 y2SpDlJlO3 BQotI6MeqfA8ETMpoIWrRZ GufSQQkD9ffbfer9qlnnof BsEeZQNfFCz4RQg7UICgjJ duOiBsZWZ0 FnM6ZDV9lKIyiP0vvEfolx gmwH1rTwm+QmlydGggRGF0 OHj9G5BzAvc1VZCpsKhxMS 0ncGFkZGlu Bu0hpTztxXgpJP5lSYRlpx urv693XjEmm2ojFYMykMId POcdUEL2G24oz8A1OGQsVJ VoUQQ5xJO4 dV8rgGegbprrkQTkcEkchr UgeOvmCPyxXSwlB289YITf pHbgOrQeXSs1T5HqXyo6AD StgCsyOW8h nJRcIGnoKo3xtJjllPcyGH 7oWPGgpqktc682ZgSqq8td TBLnbBVaUErsRVO4D38dv2 R1FPHyYXZw TBL5wQA3yM2nwPtvrspsyG VmdDsgdmVydGljYWwtYWxp G979GMJwgQzuKlSwwIj5F0 QgKzx9DNNw xNruPG5cmFFlVBgaJn7wxB tchLcoBL4bXXRufadlm045 PbBkz7mwVUWtaTYwGItyFP Y7V31vd9V9 DQDaAEWxZCF2zKB1gJ2uyR lnbjogbGVmdDsgdmVydGlj CNuvQBfiS096AEBhpDfsIk BhdGllbnQg ZAqaJIp3H4PpWwnmmAM+PC 87DPBbEO71xTResYDcq2ph fTb3XaRhRALyXTP6bVdoSZ wkt7RjFYCc M09vaZFvb7X2TMWizKtfaS KyJhLrkXG7yK9yQLsxcgqk b2klewlaOjwmm8buuz24qE 26W82cWJrm ZHRoPSIzMCUiIHZhbGlnbj 8vbY6vBq8+VFEsmAQ1lOR9 cR2oEFOiLhH6CGxwX155Ls RvcCIvPjxj h0ovi5rmySz5QrZ2LRZztj UvlGbnUJJ3b8HhPg36A34v IHdpZHRoPSIyMCUiIHZhbG pbcw2kdK2m Ii8+XKBhhPK6fKH8bX5uQc PiZsT2NAwqI471SgCamBAf EtmwU22jA4NucKL+PHRyPj g7ABRzqOnc EH9goAYeUQxeAe6rNNO6Zu VnYkEdDXdcU8RtSRQecwxk ypkfyRW0UAGdYRQcrO70Ht 9udDogMTBw aRWFbQ7iiegut8hrouwxJl UoSBQtAVy5XXt4TXCeqAjb OiEkVWH3OuR2YCU2wVPlmB 1hbGlnbjog oO0lA7ReEKSlgoypTc35oW 2rDbGmNaQ9ODxsSfi+SEVN TUVSLCBDUllTVEFMIEtBWT wvdGQ+PHRk WNX9hQqcLXxfLWZxoJ8lQU VbW0k5EgNnChF2XKacD6Io LNNfyoqcYq96aQ6bYsGjIh N9ZYqoJ5Sa udK0KXBkmGCcUXugWGE1I3 3tr2O0YMWfKRCnRUC9lIS3 nJ0nxVgnfrkcbBQptKofxb VydGljYWwt WFkcP306OTSjvIvxSeRcDb Z1MlC2GpC7Z4BuQpg4HJXs hDjzYT2lsJUmXQjwQc8ohP fnyTfyHG1j FOAwdywxZOPffW7oAUVilE NsaZurBX2gCUDpwylmz625 TfKcIIA4RUMjfWGnH5MpqU 9yOiAjMDAw DQVsA1HtuJSpMWuaC924GF kiZxI8YCIkjdUwA2TaRTWy xLgtBgI1s6B6Yu05LIAIYN FyczwvdGQ+ JBWrOWC3xNpjHXenIUStiR 1sDYHmY4o6ZtQdCqN1RDun G2MaYCNruxtbBq59vY5fEe WjIuN4HHjy K4WarkK4JQMhqOIwQXrfUB K1Z46qj4V6FSYeGEQkUXZ9 oHD5vI2foZhmjflmxPTroM sgdmVydGlj WIvjCXhaS104GEEeyXhrUr ZFTUFMRTwvdGQ+PHRkIHN0 fZisEFlcNPTfmE6sCDVvY8 h4HqWfNcL7 VOluX7AcIMIiynbdSs56gH 7uHbTpNrW0KYgsQ6BnuiU2 EPBorSVzRAoiUKG3W09eq3 Y5DWQoTATf VAW5vEA8pA2ftVfglrzztF VmdDsgdmVydGljYWwtYWxp Y465QMWomPjlKsDaS1Pmzg luZyBPdXRw QIJaHT50TY75GZ33B7ZyNa wvdGFibGU+PHRhYmxlIHdp ZHRoPScxMDAlJyBzdHlsZT 8uSg6zFDXf NDVksFatbSZvLcLkz8agEM LqCMwmTJ9fuYtcX4OdoCQ3 RCLdn5z3Tb37Q00jM1UcbH A+PGNvbCB3 pTK7jC8jIkBrLrV3ZMcpH2 62KzSjnNHiMotse5xgy9la jHx1NjPzWTPbdpTiyVziER F0l8IvTl70 Q01yQCfaEWCfMACqPJWrRA EroNvebe1bpX2fAi0+PGNv rRT2kRQ1dV6wWkPpAyD2NT ubE375NvWu nRTwBbecR38jY7IplTY+PH GtYbb7GAGmmUtpSZ5iiYXc ROgqQh8xIFT6OdEjVvBcTZ pgC1PoPECb bsmukntiiNO8TPQoXPZzjR 89Yp6lpYmvUf2cPJRvIJR6 EUQmeWGzD9ThxG4qLfXbBV NsHPErV5Gh pWJkQDkhY848QUnfSsB5JF ThuqUaR1EbMNJjnGnsXeC3 z3O1Bx7FeRuhyYHxJN1hIv XvVNq7G9Ee Zgb8SSBthAlqKC2ptSPnCP xhEv8hrHgzbMybNG8rCORs eobiy022JuKhr9rvFSFkqB QgVGltZXM7 D69mu7H6KDYcDHSkIML6gA T3bM2nzNihrzddhXZnwCaw clJqpQogQRksDTnaV655SR RvcDsnPkZJ Umr9H3CbQsi1QPLngColCG 4taGJuFEsoWw0phCsekEek JV0wPNBmxlebn402SwWye2 xkIDEwcHQg PWqiXSJ2D10tv1T4XFCwIH VzFQH7tGD1qM2ldCkobmjf bGVmdDsgdmVydGljYWwtYW loM966AVHu wEwxAh2VAid7T1VsGxa0FI EefAzqVL9xqCCkNGxyLu7v lClpsAhpVP2zTYVidwlni7 08VsMch9zv SXWunNOdSNlnVYC9L77ga1 Q7UQOyNXXkJAR5pTQ7nY1r bGlnbjogbGVmdDsgdmVydG ljYWwtYWxp P871RJCgsKxnVoJbcIFqDi wvdGQ+BC71sd13Z9DjHaur Ohl9ZEKgWJD7uMB6pE0cET UdCQojl0O5 bGU (more content not included)... Normal [facility] .Auto Diff 10-22-2023 Auto [place] % 8 % Normal 07-12 [facility] Comment on above: Performed By: #### 1 [id number], [id number], [id number], [id number] ####[facility] (DEFAULT)[address] [place] [address] 43219 Baso Abs# 0.1 x10 Normal 0.0-0.2 [facility] Comment on above: Performed By: #### 1 [id number], [id number], 4164031, [id number] ####[facility] (DEFAULT)[address] [place] [address] 22855 Basophils/100 WBC (Bld) 1.0 % Normal 0.2-2.0 [facility] Comment on above: Performed By: #### 1 [id number], [id number], 5267327, 5600838 ####[facility] (DEFAULT)[address] [place] [address] 89891 Eos Abs# 0.2 x10 Normal 0.0-0.4 [facility] Comment on above: Performed By: #### 1 [id number], [id number], 7377798, [id number] ####[facility] (DEFAULT)[address] [place] [address] 03999 Eosinophils/100 WBC (Bld) 3.3 % Normal 0.9-4.0 [facility] Comment on above: Performed By: #### 1 [id number], [id number], 1256045, 9226780 ####[facility] (DEFAULT)[address] [place] [address] 23904 Lymph Abs# 1.6 x10 Normal 1.3-2.9 [facility] Comment on above: Performed By: #### 1 [id number], [id number], 8576315, 2066984 ####[facility] (DEFAULT)[address] [place] [address] 41545 Lymphocytes/100 WBC (Bld) 25 % Normal 14-48 [facility] Comment on above: Performed By: #### 1 [id number], 40477061, 3370185, 5177973 ####[facility] (DEFAULT)[address] [place] [address] 86522 [place] Abs# 0.5 x10 Normal 0.0-0.8 [facility] Comment on above: Performed By: #### 1 [id number], [id number], 3125849, 2610392 ####[facility] (DEFAULT)[address] [place] [address] 36888 Neut Abs# 4.0 x10 Normal 1.5-9.2 [facility] Comment on above: Performed By: #### 1 [id number], 07986566, 2308482, 6378751 ####[facility] (DEFAULT)[address] [place] [address] 32503 Neutrophils/100 WBC (Bld) 63 % Normal 44-88 [facility] Comment on above: Performed By: #### 1 [id number], [id number], 4346630, 0343049 ####[facility] (DEFAULT)[address] [place] [address] CBC w/ Auto Diffon Erythrocyte distribution width (RBC) [Ratio] 13.6 % Normal 11.5-15.0 [facility] Comment on above: Performed By: #### 1 [id number], 85412153, 5139497, 9285290 ####[facility] (DEFAULT)[address] [place] [address] Hematocrit (Bld) [Volume fraction] 39.6 % Normal 33.7-40.4 [facility] Comment on above: Performed By: #### 1 [id number], 37954387, 9738866, 3998046 ####[facility] (DEFAULT)[address] [place] [address] Hemoglobin (Bld) [Mass/Vol] 13.3 g/dL Normal 11.3-15.9 [facility] Comment on above: Performed By: #### 1 [id number], 27901043, 7270892, 2944702 ####[facility] (DEFAULT)[address] [place] [address] Man Diff? Auto Invalid Interpretation Code [facility] Comment on above: Performed By: #### 1 [id number], 96265294, 7681066, 1077255 ####[facility] (DEFAULT)[address] [place] [address] 86885 MCH (RBC) [Entitic mass] 30 pg Normal 24-34 [facility] Comment on above: Performed By: #### 1 [id number], 34285608, 7732927, 2841232 ####[facility] (DEFAULT)[address] [place] [address] 33996 MCHC (RBC) [Mass/Vol] 34 g/dL Normal 26-37 [facility] Comment on above: Performed By: #### 1 [id number], 83011768, 9275169, 1599872 ####[facility] (DEFAULT)[address] [place] [address] MCV (RBC) [Entitic vol] 90 fL Normal 81-100 [facility] Comment on above: Performed By: #### 1 [id number], [id number], 6921567, 4049022 ####[facility] (DEFAULT)[address] [place] [address] Platelet 381 x10 Normal 138-427 [facility] Comment on above: Performed By: #### 1 [id number], 17757172, 6549883, 5538360 ####[facility] (DEFAULT)[address] [place] [address] Platelet mean volume (Bld) [Entitic vol] 7.3 fL Normal 6.3-10.2 [facility] Comment on above: Performed By: #### 1 [id number], 21154798, 2144146, 7475933 ####[facility] (DEFAULT)[address] [place] [address] RBC 4.40 x10 Normal 3.70-5.30 [facility] Comment on above: Performed By: #### 1 [id number], 78931181, 8874579, 1897542 ####[facility] (DEFAULT)[address] [place] [address] WBC 6.5 x10 Normal 3.5-10.5 [facility] Comment on above: Performed By: #### 1 [id number], 11779706, 1714277, 4847753 ####[facility] (DEFAULT)[address] [place] [address] CMP Standardon 10-22-2023 Albumin [Mass/Vol] 4.1 g/dL Normal 3.5-5.0 [facility] Comment on above: Performed By: #### 1 [id number], 90134256, 3200209, 6116426 ####[facility] (DEFAULT)[address] [place] [address] Albumin/Globulin [Mass ratio] 1.4 {ratio} Normal 1.4-2.6 [facility] Comment on above: Performed By: #### 1 [id number], 64138438, 4475754, 4433850 ####[facility] (DEFAULT)[address] [place] [address] Alk Phos 66 IU/L Normal 32-91 [facility] Comment on above: Performed By: #### 1 [id number], 62820290, 3071622, 6346223 ####[facility] (DEFAULT)[address] [place] [address] ALT [Catalytic activity/Vol] 38.0 U/L Normal 14.0-54.0 [facility] Comment on above: Performed By: #### 1 [id number], 42673991, 9029467, 8376954 ####[facility] (DEFAULT)[address] [place] [address] Anion gap [Moles/Vol] 9.2 mmol/L Normal 5.0-19.0 [facility] Comment on above: Performed By: #### 1 [id number], 54698440, 9834659, 2119782 ####[facility] (DEFAULT)[address] [place] [address] AST [Catalytic activity/Vol] 30 U/L Normal 15-41 [facility] Comment on above: Performed By: #### 1 [id number], 35305829, 3818294, 0953841 ####[facility] (DEFAULT)[address] [place] [address] Bili Total 0.6 mg/dL Normal 0.3-1.2 [facility] Comment on above: Performed By: #### 1 [id number], 17861241, 4841420, 8984175 ####[facility] (DEFAULT)[address] [place] [address] Breakpoint Chem Normal [facility] Comment on above: Performed By: #### 1 [id number], 06299156, 0125873, 3120871 ####[facility] (DEFAULT)[address] [place] [address] Calcium [Mass/Vol] 9.0 mg/dL Normal 8.9-10.3 [facility] Comment on above: Performed By: #### 1 [id number], 74851206, 8746787, 1531711 ####[facility] (DEFAULT)[address] [place] [address] 33815 Chloride [Moles/Vol] 100 mmol/L Low 101-111 [facility] Comment on above: Performed By: #### 1 [id number], 68464591, 5037804, 4535480 ####[facility] (DEFAULT)[address] [place] [address] CO2 [Moles/Vol] 30 mmol/L Normal 21-32 [facility] Comment on above: Performed By: #### 1 [id number], 22002872, 9802099, 5087493 ####[facility] (DEFAULT)[address] [place] [address] Creatinine [Mass/Vol] 0.83 mg/dL Normal 0.60-1.30 [facility] Comment on above: Performed By: #### 1 [id number], 47608248, 3848718, 2863566 ####[facility] (DEFAULT)[address] [place] [address] eGFR AA >60 Invalid Interpretation Code [facility] Comment on above: Performed By: #### 1 [id number], 50738252, 8771153, 3829927 ####[facility] (DEFAULT)[address] [place] [address] eGFR Non AA >60 Invalid Interpretation Code [facility] Comment on above: Performed By: #### 1 [id number], 83754872, 9655592, 2459774 ####[facility] (DEFAULT)[address] [place] [address] 31367 Globulin (S) [Mass/Vol] 2.8 g/dL Normal 1.5-4.3 [facility] Comment on above: Performed By: #### 1 [id number], 33827535, 4973731, 6458477 ####[facility] (DEFAULT)[address] [place] [address] Glucose [Mass/Vol] 112.0 mg/dL Normal 74.0-118.0 [facility] Comment on above: Performed By: #### 1 [id number], 67471024, 2005989, 2970103 ####[facility] (DEFAULT)[address] [place] [address] 76742 Osmolality 271 mOsm/L Invalid Interpretation Code [facility] Comment on above: Performed By: #### 1 [id number], 14590445, 8811655, 4705561 ####[facility] (DEFAULT)[address] [place] [address] 03984 Potassium [Moles/Vol] 4.2 mmol/L Normal 3.6-5.1 [facility] Comment on above: Performed By: #### 1 [id number], 96207971, 5074120, 0868091 ####[facility] (DEFAULT)[address] [place] [address] 10530 Protein [Mass/Vol] 6.9 g/dL Normal 6.5-8.1 [facility] Comment on above: Performed By: #### 1 [id number], 37418105, 1179979, 0990056 ####[facility] (DEFAULT)[address] [place] [address] Sodium [Moles/Vol] 135.0 mmol/L Low 136.0-144.0 [facility] Comment on above: Performed By: #### 1 [id number], 02298827, 0070790, 6233488 ####[facility] (DEFAULT)[address] [place] [address] Urea nitrogen [Mass/Vol] 12 mg/dL Normal 8-26 [facility] Comment on above: Performed By: #### 1 [id number], 86422710, 5408680, 2326709 ####[facility] (DEFAULT)[address] [place] [address] Urea nitrogen/Creatinine [Mass ratio] 14.4 mg/mg Normal 4.6-16.2 [facility] Comment on above: Performed By: #### 1 [id number], 02778774, 7754323, 2768542 ####[facility] (DEFAULT)[address] [place] [address] Provider Orderson 10-22-2023 Provider Orders [id number] [id number] Normal [facility] Sed Rateon 10-22-2023 Sed Rate 5 mm/hr Normal 0-20 [facility] Comment on above: Performed By: #### 1 [id number], 32344564, 6451348, 2348013 ####[facility] (DEFAULT)[address] [place] [address] 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 XR foot RT min 3V*on 024 XR foot RT min 3V* [facility] [place] [address] [place] [address] XRay Report Signed Patient: Rhett Bartholomew MR#: [id number] : [id number] Acct:[id number] Age/Sex: 53 / F ADM Date: 09/09/23 Loc: XDUCLY Room: Type: [facility] Attending Dr: Dee MORROW Copies to: ODALYS [...] Hola Myers M.D.09/09/2023 6:29 PM Dictation Location: [place] [address] Transcribed By: SCARLET 09/09/231828 Dictated By: Hola Myers II, MD 09/09/231826 Signed By: 09/09/231828 Normal [facility] Coding Summaryon 07-30-2023 Coding Summary HTMLBase 64 WopdudtrMVf3dQi+PGhlYW Q+JN8NFECbD03ixOPujT5n M1KSNMeGEmxgAVMWWSkMKi VdnxBzKV8ohNIiGZLo IC8+YY8pANVhFkiejZXui4 H9hSI2Z82niy9vFZilyGR4 JYZrAuSkvqjmx7cmiOj2IP cuNmluOyBt HAWcxC76DZL9dA71Ab00hU AlfLGxy1syzLy1BwCpJSKu PKT1aVgwVRgmo4FzAFFiX9 3npALlg2N7 TORyoTadpXLqQhQojQD8pQ 5rCXcvbdpkr8iblsfzPbq6 kg66vCAhe2Y7fQD1P2Uayo L1TWDqzDUt XbyhwLXBiJ5agylrv7nqyp odFaJvRJCcXBz4SLv6EWUp vEvhJpJrIL11SFP1IMMtme HjZ0AxEZVl kPjkEfN5y0I1Sr7XX4MCVu jdQ4PGVDQLFQyvyJB+PC90 pe69N7OdKppyVdo3SJIeJT T6eAO4lM6c KTRgQNmlu2F8wVV2C0Fkrl Vpku3zz0yrLZEtNWidL69p rMIgx3X6TEPstAH6XKAunO qxShFilC84 Oyc+NVRcsXcqe4OyRlpve7 tnx0kwyHn3MvwwTYFtjmPu xLogOJV4p8YjZz9cHXJfmC A0tLP5lJ5v OpLnEuA9YTltD286IeZroD XaEhwrZ60uH4VqbRT+PHRy Zsg7HLFvhHqqUX1cC7ByUW RpbmctbGVm xUunXV1xHZVodeczIAPdwA 0kVEVjK1a4VeJoHlT2NEzi Q1UjFHUuysatYh50mI9gSw EcHaZ0HOvg Q2VwxkI5RBXucNMgJAxjTL N8E39uc8D3WMQhNPBjAES8 gJT6fD6wlRqktwldoZVgbA sgdmVydGlj TVdlGZrgB737IWThqMrlWz NvZGluZyBEYXRlOiAgMDEv MzAvMjAyNDwvdGQ+PHRkIH C2gYkdHHRu yXApTFvtHu2ffZidfGljYS 1bUHQunhqqJFTidT9gQQQq kSNotWsdAJ5zYVYhlkdjz4 32UnMcFBR1 HNNquUMvA4FepC5lCjJsZZ SrZFApI1BtsDRgLElfM576 GAwxFaQ8OMXkdoVeM3WoDO FsaWduOiB0 v0A3Uf7Jm8BbolbrN4BshT MeBgItKpraLHl8N1VaSotg dHI+US51YMXoDR02KTi0GR Z4iHmkDPas PRDpM8UgcY7cZfWrLBOnPB RkOyc+PHRhYmxlIHdpZHRo QBlqIZAuSvPakEhlOL0zXi 9yZGVyLWNv iClolQUtWrIob2onQTHyQZ xgLG1nzIdzZ8KhyYG6UGYz n2i0Us04L56lR3EreVG+PG JhfIR8xOV7 lM4qRrIoIpL6OBkqU721Ii FjeABmJxtnq3qzm2trdWh2 GuU7FGXrqaDstNozMQT8p4 DdWy61J27n IHdpZHRoPSIxNSUiIHZhbG vodg6gvM8wXz8+PGNvbCB3 xFL3zR9vIgQfQdB4LAtxM6 49InRvcCIv Gqpgs8wqz1yfbUe2OnUkSU PywuOntHztOLG2g5SsBt02 U9YsbMnlu3UoFkz2mb21qR Rfp7S7sZZ2 H0FiPXFdzxmiyZCbcRcqZH 6aKODgegulEMQaoO5zUUXe P6q3QnLfQfE4XVmrV4Bkjh F8ZCQivBRg ZNNcbZEWxO8cdbhhu7tcgf knJuShDMQiPYi6EXc0WQNi gUprUcCbDQU6MsW2FFE1nO BmqI3pzFot jbjwfM2sLwh+MET3wGZctN FYKW6nNgbvgOY+PHRkIHN0 bPxdSArtJXUytX7sNQDhX4 g9MjJpCkV3 JBqtF8LsdlY2GBTvnKVdXV SkbTSClZ2fvwchm2fndrgk XoWoIEPyCCx2IQr2WAAqrG duOiBsZWZ0 SkS8HWE3zBXpuH9djSdcja yeiX0zPtz+QmlydGggRGF0 ACy8N9UiSww3GJOglVkiTM 0ncGFkZGlu Ti1yyVthxSuwHH1bMNIjvs zyx674WbXrw4hdWFDqdAVd YDipJMB8A47qd1J9BWLfHL XyPZI7iQA0 dK5jzBpflaykkGMflOnwyf CmzBzkRHvzXUveG205AZOv kCybOvRzEXr2K2OsLmq3XI KvaEwsAQ4w aADpVVliWf3vuTqdyRgoLI 2uXIHjzkbca723NxFuq3sn DGQioMYlXHzvNZG1I99wg4 T1KANoGEJl JBJ1pTO2jA3owPjawijccH VmdDsgdmVydGljYWwtYWxp O349NPZimTebFoKgdHb1T4 VjCrd6LYIt mXmyER6lcLAlPCxfNs9yvZ tvaClxVH5lPFPpaouil082 ZiLty5nzIGShcQEaKDfwDC U9J66ww4B2 YTYnCZPsHUQ5eGW4pC0caB lnbjogbGVmdDsgdmVydGlj SCxyNLmtF416IZYroSehTs BhdGllbnQg DCpcAKy4M1WiQmdmzOO+PC 92INUxLV41oMTbbJKax0jp nZs8KgMhYNMlCVU6sVbwHH sts3UaEURe F53wrIPty0Z6XFJveJefqX PhUkUecKS9xD0oCQkztvyg y9eqwzhyZsnml7slxr08fX 77P94fWPhc ZHRoPSIzMCUiIHZhbGlnbj 4hfJ0zUb3+XTFmbWS4hCD8 zU8nQSQbOyU6JVmuV408Ac RvcCIvPjxj k6rnr3uxiIq3GoY3NKNbak EldEyzHGG3w8GkQx53U53z IHdpZHRoPSIyMCUiIHZhbG xjiu3orP8f Ii8+LBXraDU2gFY8nF1wMc LwNaT7RBwvS626WlQoqGPt QyjoB17mG1GobRC+PHRyPj y9TGOlcKtc SV0myOVuQRyrIb6oCJD6De WsPyFtQWsbC4ZvRDUuydkp vlqefZJ3VLXmEOHpuI78Vu 9udDogMTBw qFYGcF7shtypt2hfhfemOh GuALZgNJb5OPn9VOIfbUib LfLlCFQ2EcU6SPB2vHUmmC 1hbGlnbjog eZ9yD5YxALHvqpttAj83xZ 8hJbPaPdJ5ROihCfz+SEVN TUVSLCBDUllTVEFMIEtBWT wvdGQ+PHRk PFD6aBmhRQksSRXhpI9aMJ WyT0z5EfUnXaD4HJntC3Iy GXUsmvzsJg97mA6vEmJtTk V2NTwwE4Yr heO5WCJjsSQlCXixHZR0U3 0ow7M3ZLNpQVBnXAK1xAF7 mV2jjZmmfywmiVSfjAfeem VydGljYWwt FBsyE377LRZzaKnmIvPeEd P9VwB9OuL4A5XmSwo1USDn aHxaLC0uaWVcZPgdWc6qdN gthPgrAX6g KWImdiaiBZIasN1wSVCvpO CuhYikFU4qVEPshqtzq089 MfNbYGP0LIXmdZVuY3SobP 9yOiAjMDAw HWAyY6CdfDOyAIqfH393VT ulHoJ8SFGubeScW6JlFKCa lMxvItN7t1P6Pd12OgBCLA FyczwvdGQ+ OLHgBSS1gDcfBJthJQAbaY 6lNEMsB5m5EvHeArQ6CMio J3ReFPMmwjdsZj31xA2iGn UlIkQ6GRqr P8TvbiH2ZWHkuNCoHKngPE E9O26uv2Q0KXJrUEQfLUD4 hYV9oJ8sbBforpxrhOSaxA sgdmVydGlj PBapRQcbP107AESpoVbdMo ZFTUFMRTwvdGQ+PHRkIHN0 nOmgRSgcVIAjtK9xXKQzX5 m8QsTmSkV8 EVlbS7LrTEWluuvmYq03dY 9qWbJlDdP9SJuvH7TxxrD1 XGZrgLLfNLaoTMG8U07gr2 S9YMRfMVPm DYO0kLS0iB2nmRutzznybM VmdDsgdmVydGljYWwtYWxp H866COKxbPrvCe6IPW04ED 65H5DuFlgy dGFibGU+PHRhYmxlIHdpZH FeQMijNXZxJfVizFdsOO2k Di3vTCNmAXKxjHymhBOuFo Szg5ohOGKd ALfgOZ3ltKioL3VirTX9YH Xso3r1Iz22Z73zV0YfoAB+ TEWbyAE5sXS4oQ3fSkQxZd A3XJjdP113 DdVcqRGgAcibd1xvs4kvuR g9KwXwWSAjjtEkgZnwIIB8 f9XoRb40W88rACnnBTEsKG IyMCUiIHZh oZgime9rvW9iEg3+PGNvbC F2oPQ8zC2hUsXhSeC5POjm M319PiCfvOBmChnyC48yU4 JvdXA+PHRy Nkb5BLWqcNexKQ3rqGNwAJ xjOe7fWFZ3TiAvDhAtZPer Z1UlUINudzvgazhjhOJ7BE UrPSKwkX22 Fi8ykSlpIr2cEFGhLLL8VQ QlnVMtS4TszY5dUzKcZEEn BMKnQ4VcnILeLSboI551NQ nrCaK5IVXr iaTqH9CxCXEbkMgaBgV0t9 K4Ee6UdWmkjTFiSZ9pXrWc QRa4Z0RiWgh8FIJqlPpuND 0ncGFkZGlu Qw0zeXuhkBdhCO1kFDGnnj mkt012EaHly4fpLQNwvBQr NOxcFHY4Z80nv8B0TYCwVT ZqHJU8zWA8 aQ7ndHsgzgbhgSTzlXcbtw EzcJymGLozPGlaD747JUPa sUveVgPAZow3N5JqLfi7DX KuqJfaBN1w nDMqMFnyUy4azGhhnTwlXT 9sULEvhrips494KrOuf4sw WSXmgAUlLBatOEI1B83ap7 X5MJTyAFUr UXW9hPO3qT7laXvgxicazN VmdDsgdmVydGljYWwtYWxp B843ERVniYezZm7CEkj2R5 RtGvr5BBCj qYayDN5tzPWhDPzzNa4iwH htaXqvLM0rHNMafaarh690 BlCfx9yjNXQqpMPqFCxkRJ B5Z66gy4I5 TJKtHCQaYLB1fDH8zX2chQ lnbjogbGVmdDsgdmVydGlj APhvNNkwP897YUItoDaxPu BheWVyOjwv dGQ+JT18zn48P1KpFztcSo s5EIGkOVQ0oNI4wV3xSWPl JKbiw7F4qXY2M2HqssThgd 7pr6elXZRn ZTo (more content not included)... Normal [facility] .Auto Diff 1on 07-27-2023 Auto [place] % 10 % Normal 12 [facility] Comment on above: Performed By: #### 1 [id number] ####[facility] (DEFAULT)[address] [place] [id number] Baso Abs# 0.1 x10 Normal 0.0-0.2 [facility] Comment on above: Performed By: #### 1 [id number], 34376234, 6587541, 5223089841, 4034725, 1537638, 60322639, 9506597, 6103315 ####[facility] (DEFAULT)[address] [place] [address] Basophils/100 WBC (Bld) 1.4 % Normal 0.2-2.0 [facility] Comment on above: Performed By: #### 1 [id number], 79885780, 4425100, 8392355920, 3746427, 0885807, 31248144, 8838226, 2993501 ####[facility] (DEFAULT)[address] [place] [address] Eos Abs# 0.2 x10 Normal 0.0-0.4 [facility] Comment on above: Performed By: #### 1 432272423, 54802614, 4886397, 0616910799, 4153267, 8181325, 45043167, 4899719, 6489641 ####[facility] (DEFAULT)[address] [place] [address] Eosinophils/100 WBC (Bld) 4.3 % High 0.9-4.0 [facility] Comment on above: Performed By: #### 1 [id number], 67823640, 0588258, 5312650896, 2543398, 6217895, 56823681, 4892265, 3566806 ####[facility] (DEFAULT)[address] [place] [address] Lymph Abs# 1.1 x10 Low 1.3-2.9 [facility] Comment on above: Performed By: #### 1 433109408, 74345049, 2570132, 8436387114, 1972322, 1189845, 26405995, 3549862, 0462706 ####[facility] (DEFAULT)[address] [place] [address] Lymphocytes/100 WBC (Bld) 21 % Normal 14-48 [facility] Comment on above: Performed By: #### 1 [id number], 56196952, 1880783, 2974260486, 3195606, 5001204, 19210219, 9778928, 4488998 ####[facility] (DEFAULT)[address] [place] [address] Hockley Abs# 0.5 x10 Normal 0.0-0.8 [facility] Comment on above: Performed By: #### 1 [id number], 38366732, 9543252, 7858650459, 6876612, 8786075, 40177026, 4980304, 3779293 ####[facility] (DEFAULT)[address] [place] [address] Neut Abs# 3.5 x10 Normal 1.5-9.2 [facility] Comment on above: Performed By: #### 1 561701726, 91079234, 8479889, 7944610392, 7047438, 5740911, 70461059, 7533507, 8415106 ####[facility] (DEFAULT)[address] [place] [address] Neutrophils/100 WBC (Bld) 64 % Normal 44-88 [facility] Comment on above: Performed By: #### 1 261689904, 61212770, 9603772, 9712395575, 1905193, 5029768, 07378688, 8003101, 5172401 ####[facility] (DEFAULT)[address] [place] [address] CBC w/ Auto Diffon Erythrocyte distribution width (RBC) [Ratio] 14.0 % Normal 11.5-15.0 [facility] Comment on above: Performed By: #### 1 [id number], 35640311, 3805621, 9748686040, 0372598, 9646083, 25848024, 1526131, 6755139 #### [facility] (DEFAULT) [address] [place] [address] Hematocrit (Bld) [Volume fraction] 39.3 % Normal 33.7-40.4 [facility] Comment on above: Performed By: #### 1 842069997, 81713559, 5946683, 2183065890, 2620793, 2567569, 23014949, 5828050, 2141650 #### [facility] (DEFAULT) [address] [place] [address] Hemoglobin (Bld) [Mass/Vol] 13.3 g/dL Normal 11.3-15.9 [facility] Comment on above: Performed By: #### 1 [id number], 60727914, 7575903, 7850520812, 4625181, 3236058, 13241586, 7779116, 8260828 #### [facility] (DEFAULT) [address] [place] [address] Man Diff? Auto Invalid Interpretation Code [facility] Comment on above: Performed By: #### 1 [id number], 06966059, 3912965, 8955083809, 3870839, 5236490, 93914852, 5393315, 1389156 #### [facility] (DEFAULT) [address] [place] [address] MCH (RBC) [Entitic mass] 30 pg Normal 24-34 [facility] Comment on above: Performed By: #### 1 766512525, 20431017, 3665272, 5482162480, 7191853, 1198772, 69794557, 2972111, 8688260 #### [facility] (DEFAULT) [address] [place] [address] MCHC (RBC) [Mass/Vol] 34 g/dL Normal 26-37 [facility] Comment on above: Performed By: #### 1 741118765, 55306929, 4471035, 2583309960, 4185030, 3859254, 91757380, 8102992, 0565603 #### [facility] (DEFAULT) [address] [place] [address] MCV (RBC) [Entitic vol] 90 fL Normal 81-100 [facility] Comment on above: Performed By: #### 1 [id number], 60679865, 3951568, 9533750206, 3859269, 3810979, 11515580, 6875309, 5888175 #### [facility] (DEFAULT) [address] [place] [address] 00761 Platelet 324 x10 Normal 138-427 [facility] Comment on above: Performed By: #### 1 738398285, 15527895, 6059578, 8961324636, 9465413, 1925173, 64548182, 7902674, 6552768 #### [facility] (DEFAULT) [address] [place] [address] 20504 Platelet mean volume (Bld) [Entitic vol] 7.5 fL Normal 6.3-10.2 [facility] Comment on above: Performed By: #### 1 671066875, 25852753, 2774852, 0208572216, 0508161, 0389462, 94320699, 7781994, 9111588 #### [facility] (DEFAULT) [address] [place] [address] 29546 RBC 4.38 x10 Normal 3.70-5.30 [facility] Comment on above: Performed By: #### 1 825273935, 35748811, 7122965, 4301845055, 5855953, 2017573, 70182149, 7373005, 5569440 #### [facility] (DEFAULT) [address] [place] [address] 24437 WBC 5.5 x10 Normal 3.5-10.5 [facility] Comment on above: Performed By: #### 1 331125741, 60137084, 6772270, 6792616951, 5254734, 1304451, 07463313, 2322779, 0702024 #### [facility] (DEFAULT) [address] [place] [address] CMP Standardon 07-27-2023 Albumin [Mass/Vol] 4.1 g/dL Normal 3.5-5.0 [facility] Comment on above: Performed By: #### 1 [id number], 02466005, 1618589, 9425097303, 6300863, 8411740, 51025445, 1365723, 7047036 ####[facility] (DEFAULT)[address] [place] [address] Albumin/Globulin [Mass ratio] 1.3 {ratio} Low 1.4-2.6 [facility] Comment on above: Performed By: #### 1 954478988, 87834898, 8964540, 0175760695, 9318154, 6293210, 56106462, 1211988, 4784757 ####[facility] (DEFAULT)[address] [place] [address] Alk Phos 71 IU/L Normal 32-91 [facility] Comment on above: Performed By: #### 1 431257446, 59081116, 8097097, 6433326756, 4354104, 5549946, 12279083, 8008533, 3090319 ####[facility] (DEFAULT)[address] [place] [address] ALT [Catalytic activity/Vol] 28.0 U/L Normal 14.0-54.0 [facility] Comment on above: Performed By: #### 1 461080707, 70558329, 5022293, 0988816725, 4370014, 5731541, 83446787, 7482617, 3192282 ####[facility] (DEFAULT)[address] [place] [address]67 Anion gap [Moles/Vol] 15.7 mmol/L Normal 5.0-19.0 [facility] Comment on above: Performed By: #### 1 649010969, 10647876, 2725257, 0568198121, 0750291, 5997139, 03066973, 8271172, 2966091 ####[facility] (DEFAULT)[address] [place] [address] 71806 AST [Catalytic activity/Vol] 24 U/L Normal 15-41 [facility] Comment on above: Performed By: #### 1 [id number], 92419816, 2807343, 7067249653, 2148134, 2089477, 52487758, 7762693, 8487922 ####[facility] (DEFAULT)[address] [place] [address]1274 Bili Total 0.5 mg/dL Normal 0.3-1.2 [facility] Comment on above: Performed By: #### 1 [id number], 06634416, 3600058, 1149702119, 2612151, 2372215, 06374898, 0287234, 0843890 ####[facility] (DEFAULT)[address] [place] [address] Calcium [Mass/Vol] 9.3 mg/dL Normal 8.9-10.3 [facility] Comment on above: Performed By: #### 1 522029168, 61492749, 0551167, 6047966297, 3366941, 2082480, 10751621, 7360780, 8766122 ####[facility] (DEFAULT)[address] [place] [address]229 Chloride [Moles/Vol] 100 mmol/L Low 101-111 [facility] Comment on above: Performed By: #### 1 060751648, 75320078, 5264364, 3985702055, 4148858, 7929788, 47734612, 4235292, 2847152 ####[facility] (DEFAULT)[address] [place] [address] 45522 CO2 [Moles/Vol] 26 mmol/L Normal 21-32 [facility] Comment on above: Performed By: #### 1 026452214, 03028202, 4851554, 8134652062, 2683803, 5390878, 23852495, 2119831, 2229046 ####[facility] (DEFAULT)[address] [place] [address] Creatinine [Mass/Vol] 0.67 mg/dL Normal 0.60-1.30 [facility] Comment on above: Performed By: #### 1 898794264, 13864467, 8227024, 0462809958, 6628132, 7698849, 97246295, 6948624, 6492176 ####[facility] (DEFAULT)[address] [place] [address] 46080 eGFR AA >60 Invalid Interpretation Code [facility] Comment on above: Performed By: #### 1 356393851, 16610272, 5403694, 3436159492, 4507301, 7785751, 26657726, 0677634, 9772526 ####[facility] (DEFAULT)[address] [place] [address] 70652 eGFR Non AA >60 Invalid Interpretation Code [facility] Comment on above: Performed By: #### 1 383381857, 19881715, 7937610, 7245724467, 5350613, 0397518, 32822343, 4205680, 5424628 ####[facility] (DEFAULT)[address] [place] [address] 19140 Globulin (S) [Mass/Vol] 3.0 g/dL Normal 1.5-4.3 [facility] Comment on above: Performed By: #### 1 947478057, 97958433, 9777855, 7430965500, 3866265, 2458683, 45014967, 0278553, 2530726 ####[facility] (DEFAULT)[address] [place] [address] Glucose [Mass/Vol] 101.0 mg/dL Normal 74.0-118.0 [facility] Comment on above: Performed By: #### 1 446612908, 24053442, 0768425, 3191601654, 8032030, 9235562, 09792364, 0276560, 6732930 ####[facility] (DEFAULT)[address] [place] [address] 68260 Osmolality 275 mOsm/L Invalid Interpretation Code [facility] Comment on above: Performed By: #### 1 022741367, 42111645, 8343925, 9013373541, 3226394, 5763943, 22188754, 1985121, 9312955 ####[facility] (DEFAULT)[address] [place] [address] 11268 Potassium [Moles/Vol] 4.7 mmol/L Normal 3.6-5.1 [facility] Comment on above: Performed By: #### 1 167688373, 77953664, 0953241, 8345275761, 8939341, 4717244, 36308495, 9089200, 7796058 ####[facility] (DEFAULT)[address] [place] [address] Protein [Mass/Vol] 7.1 g/dL Normal 6.5-8.1 [facility] Comment on above: Performed By: #### 1 724389412, 79715666, 4910133, 5238114086, 3419891, 1175471, 94688996, 7070957, 6910728 ####[facility] (DEFAULT)[address] [place] [address] 47016 Sodium [Moles/Vol] 137.0 mmol/L Normal 136.0-144.0 [facility] Comment on above: Performed By: #### 1 156077962, 98211935, 6877756, 0478369002, 1333710, 9427427, 53578085, 9169015, 3170354 ####[facility] (DEFAULT)[address] [place] [address] 26888 Urea nitrogen [Mass/Vol] 16 mg/dL Normal 8-26 [facility] Comment on above: Performed By: #### 1 256180719, 06548901, 9322651, 6077297853, 0030844, 2648700, 03266168, 3672620, 4418797 ####[facility] (DEFAULT)[address] [place] [address] 41147 Urea nitrogen/Creatinine [Mass ratio] 23.8 mg/mg High 4.6-16.2 [facility] Comment on above: Performed By: #### 1 113743461, 79053776, 8644597, 0714926396, 8000000, 1437623, 10050466, 5744430, 1073429 ####[facility] (DEFAULT)[address] [place] [address] 66896 Ferritinon 07-27-2023 Ferritin [Mass/Vol] 34.6 ng/mL Normal 12.0-150.0 [facility] Comment on above: Performed By: #### 1 109475380, 35833197, 3566183, 6463721671, 7829502, 7509516, 45411279, 0678435, 0822556 ####[facility] (DEFAULT)[address] [place] [address] 13097 Folateon 07-27-2023 Folic Acid Level 9.44 ng/mL Normal 5.90-24.80 [facility] Comment on above: Performed By: #### 1 686653343, 27701680, 5099116, 7479575272, 6446620, 1880107, 36826770, 1853895, 9753697 ####[facility] (DEFAULT)[address] [place] [address] 30622 Iron Profileon 07-27-2023 Iron [Mass/Vol] 66.0 ug/dL Normal 28.0-170.0 [facility] Comment on above: Performed By: #### 1 885161937, 97848658, 1431124, 7908336127, 9746802, 0255641, 39540523, 4379730, 9627080 ####[facility] (DEFAULT)[address] [place] [address] Iron Sat 16 % Low 20-55 [facility] Comment on above: Performed By: #### 1 717113876, 80607866, 1653311, 3034220021, 5024969, 0185266, 33019944, 6362493, 2810674 ####[facility] (DEFAULT)[address] [place] [address] 46914 TIBC 414 mcg/dL High 250-400 [facility] Comment on above: Performed By: #### 1 625336774, 72001330, 5004772, 2285578509, 7230512, 0855632, 08979758, 3139454, 8810337 ####[facility] (DEFAULT)[address] [place] [address] 80286 Transferrin [Mass/Vol] 295.5 mg/dL Normal 192.0-382.0 [facility] Comment on above: Performed By: #### 1 590267795, 31827310, 4503814, 9262213467, 6401346, 3833112, 45844514, 9693492, 8716477 ####[facility] (DEFAULT)[address] [place] [address] 92295 Lipid Panel Standardon 07-27 Cholesterol [Mass/Vol] 259.0 mg/dL High 66.0-200.0 [facility] Comment on above: Performed By: #### 1 [id number], 14087159, 7258025, 5883918375, 9127052, 2268346, 34160056, 2339684, 1980188 ####[facility] (DEFAULT)[address] [place] [address] 73237 Cholesterol in HDL [Mass/Vol] 88 mg/dL High 40-71 [facility] Comment on above: Performed By: #### 1 162539343, 73728090, 3183493, 8782556727, 8450068, 7922396, 13856394, 6957885, 9828888 ####[facility] (DEFAULT)[address] [place] [address] 71728 Cholesterol in LDL [Mass/Vol] 156 mg/dL High 1-100 [facility] Comment on above: Performed By: #### 1 039829231, 93316761, 3745496, 2533884177, 4003808, 6271122, 31647270, 5593108, 9175198 ####[facility] (DEFAULT)[address] [place] [address] 12764 Cholesterol.total/Chol esterol in HDL [Mass ratio] 2.9 {ratio} Normal 0.0-4.5 [facility] Comment on above: Performed By: #### 1 [id number], 76890478, 0195720, 6634413445, 1294793, 0609208, 03438831, 3568902, 1267260 ####[facility] (DEFAULT)[address] [place] [address] 60152 Triglyceride [Mass/Vol] 73.0 mg/dL Normal 0.0-150.0 [facility] Comment on above: Performed By: #### 1 174580282, 92129620, 6658048, 3457204598, 4566974, 9920371, 10200806, 1607974, 9745408 ####[facility] (DEFAULT)[address] [place] [address] 10179 VLDL. 15 mg/dL Normal 5-40 [facility] Comment on above: Performed By: #### 1 990553901, 18128378, 5635226, 6337756627, 1458006, 9141872, 68397488, 6785129, 1515847 ####[facility] (DEFAULT)[address] [place] [address] 25974 Provider Orderson 07-27-2023 Provider Orders [id number] .[id number] Normal [facility] TSHon 07-27-2023 TSH Qn 1.54 m[IU]/L Normal 0.45-5.33 [facility] Comment on above: Performed By: #### 1 943013321, 66715723, 6584754, 3836079587, 2267064, 3576010, 16857612, 9499349, 0039746 ####[facility] (DEFAULT)[address] [place] [address] Vit B12 Lvlon 07-27-2023 Vit B12 277 Normal 180-914 [facility] Comment on above: Performed By: #### 1 032286409, 35189166, 3527163, 6349003703, 8088157, 1624000, 92012213, 5371010, 2039137 ####[facility] (DEFAULT)[address] [place] [address] Coding Summaryon 04-29-2023 Coding Summary HTMLBase 64 QftqndcrIEn9iJp+PGhlYW Q+BD7WHFGhZ55zxYYqmN9z E5KUJFlKDmmwGPFXRKyPOd ZopqRnHS7puFQoIRZl IC8+QP3xCECbHxxybESmf5 U5dJL5M20qqu3gBFqvmWM1 JTKbRvJclvfch7vpgUb0SK cuNmluOyBt IXYbpJ97SIT3gT96Sx39jP HeuDXkw5dmtZl3GeBrCNZk DDR9lQpsXQrbd6BuJPNgM3 2bnUMck9I6 SZAhdLxgfRJaZuDegKH2vC 3xDNvqchzbw5cfgldxQet6 xx83jZSll6X0eZA0R4Rxfu M2UYYjtSUy QelrjGIFhI4kizlzk9ekgz bjFlCcFBRkNYk6CBj9LYMh uPkmZyKpON60AXP0TMMyfh OqH8UaCWPj tLqoUmY9f6I4Ca6UQ8OQWc noY2PGIYFAYWfqqPV+PC90 wo66I6RmFrfyKls8WLBnUC G1pHC7gB0k BZXxNAajb0W7xEA0X6Dhbr Stzb9eu0mpYOTkTSmcO69q qUFpk0C2JSXesIR7GKFijK vsVlMdsO14 Oyc+WZEszTrcd0IpFtnlk8 azq8zwkVf8FeozEZZwjqKy aUtuNHU5z4QdHd4vENMyvR F4mZH0zK3d WxMpOgV7TWunO063SxLfoV AzLpcdN44vO4VkbVF+PHRy Sna5XWJdxCqoUE5eP7EpLG RpbmctbGVm zNikHK0xTEVzuawwMOGcpU 2tJMVuB2t5YbEvGbV7VHla Q8IhHUKrjazwAj18iB4aSm NpZuC4IUno J8VcxnA5EFYepQJvVPdsIX C5H12zp8O0IDRvWHFwYXF3 sWY0aS2ycRnkffjoxGTguI sgdmVydGlj ARoxABqkX529QHRzfTtiFn NvZGluZyBEYXRlOiAgMTAv MzAvMjAyMzwvdGQ+PHRkIH I3zGevBOCq eRMfGFjwCq7wtWizdVjtPZ 8cTYKgsyqaFACcgK2hPGLg wHHzfPyqJY4dHJOdisvjx1 74DoJuDOG0 PPZpbZCrK3CztN9xCzLiYI KdKGZsT1HxsWPoNPrmJ362 HEujVpO7NTAxvlUqU4QiEK FsaWduOiB0 a0J3Vt0Rb8OzoycaB0GwqB RkXhYrDhzuPPg6G2GjYcao dHI+FY86DBEgHG01SNl1MX T8iQczDLpa IMDxD7NzmK9lHnXmRJYwLS RkOyc+PHRhYmxlIHdpZHRo NCxeHEPeIsLzgLcaNW8cCe 9yZGVyLWNv gQytkSCuMlWtr4xeAHJsWE cjGF1zbJgtU5SdfAP1PAEa a1s3Bv05Z34uS8VmmON+PG SxqQQ2hXB6 aG6jCxMjDjW0XLnxX895Ob HseIPlZirtw9ucx0slpNi8 OrG3HVLryxQlvFwgETZ4k3 NtTm57Z26l IHdpZHRoPSIxNSUiIHZhbG svte7pyH1lWf0+PGNvbCB3 tQE6fJ2aDgCtVwY6SMaoE1 49InRvcCIv Auhti5wjk0lgoVv3DnEgEV GoceBtsCniPPM9b5TpEc74 S0IraAgea3NkNdu3xt43lS Xxx0W4jVZ3 E4TzTSCzfyfgqKYnuJaqFH 0aEABzdpgpLWOnqE1eWISg A8o6FnIgOmR8ZLprQ2Iuja I3CMSxfPXi SAAbdANGkK7pneijr5vero ihSjDtWDRiQFq4NAd0YQKg wAjwRiZqQGL1CgU9VEX4vC JeyW7ftRqw ruzsyH2jLok+MHM9lRYzqV ODDH5qMkmuxMO+PHRkIHN0 hAfyXNoyYPNeqZ5cFAZsG9 t6QuKdXrX8 REdkY2ZxvtC4FPGtqNOmJM UvvPUFyA2wypfmy9jggmjf XqFcUUPkUNj6BKz0IPMvvQ duOiBsZWZ0 UjD7QHB6bHWwoQ0vvBkgmr owaN8mSyj+QmlydGggRGF0 IAl4D8OyIqr4VCSqdJjsHL 0ncGFkZGlu Al4nuTpxcPbkJZ7vRCRlhz vmt165WnUlu4ikWVKhnDRf HDjeWKQ0V59yg3N8XYWuHK IlKMD9qJU5 vK2egHluqawbhRPbnNzubl NeyFazRPfvXFxiH659YHIx yWmeEiKbJUq7A5VlVbb8AQ OaqTyhIC9v cRSrNZvgMz4hfKzpwJkzIU 6sWIXoavyja663GsOpc3hz TTFvhVPlOPpvMFT2I65ge8 X4IWSzDDBt JZA8hEE8tF1xbFnxtqrvvP VmdDsgdmVydGljYWwtYWxp S317OUTxhPkzJaMdiFg3D6 KcVzs1BMSf bYoyYF6kgXTsEZwgAu7grW mofEqsXU4cWWLooxrex318 UrAgt4kmCVJdtEIpVStjYX T0P97ys2C4 WRKlKGAhLNB9mWS0bZ6kdB lnbjogbGVmdDsgdmVydGlj GYplDWplD666QOMpcQizJj BhdGllbnQg EAheWFk2K5NiHxpcfLC+PC 00EPTlRS79ePNakNWbx3pn eYq4LgYfEGGjCTU8xAqqID qra0JwHVLo X90anYTld0O4OHLmlQhjyT RgUcYysYZ2uJ9cTRtlimix v3tqbxpaXnoub9eqqd96hU 17O42oOJqj ZHRoPSIzMCUiIHZhbGlnbj 1ilR2xMd5+GRFveJZ2sTL2 dH0fZODxHgV1DTblV693Lh RvcCIvPjxj f4fsy8lrlZp9UgB5XRCefh YufNxtDYN5z1PqDf99Z32r IHdpZHRoPSIyMCUiIHZhbG wwyw3dxU3q Ii8+PAXqvPT0qXL6hF9iNf PaXpQ7KYcaH341IpCilOSm IfjoO55eI7ZodSV+PHRyPj c5ZOHxpRbd HW2gmUAgWThqRc7nQJV4Gf RdYrGlTTfzX9BcOZTztgxg wmybbOR6AAGdSZUxhY24Ca 9udDogMTBw cRDNbB7kbffyo8dwxrhfVf KtOWWpPCv2ZTn6MGUunXov ViVxGCR1JiK0QRU8cOXipI 1hbGlnbjog hH7kD1AhYCBrpryeIi91cX 3hAmMkMeL6LEwoKng+SEVN TUVSLCBDUllTVEFMIEtBWT wvdGQ+PHRk ZZJ3vQdaTBqmVYNwuM0hJG VhE9m5CrAjPgA1QOasW7Np NUEklgjsUv97cI3rHfAuTe X1OBmzY4At vuV4ZUGbmMRmNMssNPV3G0 7hp8Y6YLSiALJbPCL2lPT3 mK4ydYcccqrblNOpaRnszn VydGljYWwt TEkrI532WIHmdWlcAzBmUf H0IzE1HzZ6H1KdIsz3HDPa iTsoSB6stIGtOZerCb1cqP wkbQpbCU0z OQVqwscnTWJwuI9cOXKgcX GrvVjmIY6zXOJovaofq790 KpLlYMJ6UPRlnDUdN3FwbZ 9yOiAjMDAw XTHmU6DziGQuYZtaD606JJ hfCyE9HRFmszFqS3YrGAHm nXvaDhE7c5Q8Mq21BdIJNK FyczwvdGQ+ CHLpMQQ6pNjsLVtqXMYiuW 7aYFYgL6k8UnDkLvD2RTcu S2TwKMPfoawjAq74gG4qWg McLeZ3DOpl L1KrgaC2DUMqyIWeUKgiIM M2S56jg2Z5DDMcJSQtIYD9 cXM3gS6kfUbqzcbdfVTbzH sgdmVydGlj HFduVPbmB730SRUysOpfMq ZFTUFMRTwvdGQ+PHRkIHN0 yVxbQYvmXYDmzO7vAJHaQ5 i9SyGhKfM2 VBjnI2AwPSNqljipFf69xA 4zPfKxCaE9DEpeG2EwefT5 YZRezFUkJUwoIQK0Y54tm1 J3LQUsRMNn OOG0aEE3iH2duZsbtjybmH VmdDsgdmVydGljYWwtYWxp I789GENxbBppChLjE0Udsv luZyBPdXRw JJEpPT90EH21FK57Y3NaOv wvdGFibGU+PHRhYmxlIHdp ZHRoPScxMDAlJyBzdHlsZT 5hWs9iQJRh LVMazDfogPJzIyNbj6mrHH EuTRvcNW2trAomO1NcpNL3 HWHbi9v9Cf60O05cL9WwdB A+PGNvbCB3 tZN0eS1lKjMtCoC4AWqzK4 44UbYlmKBxShnmk5qpt0cx bSi2FpWvJBZbirYjoYluQL U7l3FwVz24 A74cOPpnIHRrJPNfZQWqXJ NkgPcrxs3oaT7vEr3+PGNv sTQ6hPN8oG7bHlPuTdB0FR ruG432FwBp lOAdTacoE25gM1AasAS+PH PbJie7DDKboYjcZX1txAXw QMaqCu1qBLM8YzVoZnBzAM pvG6LuRUHt fcvanxjpoCJ7WBRbNWSgmT 57Kw3gfHqgGr2xQVAwPBD4 QZIbrWYoN6ZavT0yQuFkMN TnBXQtN1Fu vUPpFIouF190RJstSmU8WV DphtTcI9QnAQWsiKedByA7 y6Y2Lh2GwPffeCMvBF8rCx TxUUs6O8Hv Nwt4YNShtPwwBU9wtFSkVS mzAa9lbTwisEvhCW0sBZCi wzwha241BbGjn1bsUVLwmM QgVGltZXM7 Y24lo6T9CSSyCLUmKAI3tW V5gT0rmEhmagguvENlwXnu tzYlzQhdNGxbHZkmQ709DY RvcDsnPkZJ Ccb4R2OhVyb6RBBwfHsoMT 6syQVqDWieBy3oyKqsyKma PI4mVQRhwmeui434QlDvg3 xkIDEwcHQg XXajSOA3P70ab5Z1IHYzSA XkKQO6fFT2aG1htPwlgkhf bGVmdDsgdmVydGljYWwtYW eiX682ZKXq rClvNd9ACho9O3RpShf9GK GqkQqkEX6wtWGmODibZr7m eLrxyUbkHM1oTVAfnfysl4 21VkRqz1nn YEZvyDRlVQgiMDA2J76hy7 M3ZUWxEMPaPJB1qOC7cU0c bGlnbjogbGVmdDsgdmVydG ljYWwtYWxp S146JSNcvBtaBzKvwZSfLv wvdGQ+OM55qq00O0NkGrco Edl3SKZqMGC4zSW9dU2pKZ ZpPUqds7W2 bGU (more content not included)... Normal [facility] .Auto Diff 104-22-2023 Auto [place] % 10 % Normal -12 [facility] Comment on above: Performed By: #### 1 [id number], [id number], [id number] ####[facility] (DEFAULT)[address] [place] [address] Baso Abs# 0.1 x10 Normal 0.0-0.2 [facility] Comment on above: Performed By: #### 1 [id number], [id number], [id number], [id number] ####[facility] (DEFAULT)[address] [place] [address] Basophils/100 WBC (Bld) 1.0 % Normal 0.2-2.0 [facility] Comment on above: Performed By: #### 1 [id number], [id number], [id number], [id number] ####[facility] (DEFAULT)[address] [place] [address] Eos Abs# 0.1 x10 Normal 0.0-0.4 [facility] Comment on above: Performed By: #### 1 [id number], [id number], [id number], [id number] ####[facility] (DEFAULT)[address] [place] [address] Eosinophils/100 WBC (Bld) 2.6 % Normal 0.9-4.0 [facility] Comment on above: Performed By: #### 1 [id number], [id number], 0329581, [id number] ####[facility] (DEFAULT)[address] [place] [address] Lymph Abs# 1.0 x10 Low 1.3-2.9 [facility] Comment on above: Performed By: #### 1 [id number], [id number], [id number], [id number] ####[facility] (DEFAULT)[address] [place] [address] Lymphocytes/100 WBC (Bld) 17 % Normal 14-48 [facility] Comment on above: Performed By: #### 1 [id number], [id number], [id number], [id number] ####[facility] (DEFAULT)[address] [place] [address] [place] Abs# 0.5 x10 Normal 0.0-0.8 [facility] Comment on above: Performed By: #### 1 [id number], 8452047, 2821607, [id number] ####[facility] (DEFAULT)[address] [place] [address] Neut Abs# 3.9 x10 Normal 1.5-9.2 [facility] Comment on above: Performed By: #### 1 [id number], 6829515, 3846959, [id number] ####[facility] (DEFAULT)[address] [place] [address] Neutrophils/100 WBC (Bld) 70 % Normal 44-88 [facility] Comment on above: Performed By: #### 1 [id number], 8594578, [id number], [id number] ####[facility] (DEFAULT)[address] [place] [address] CBC w/ Auto Diffon Erythrocyte distribution width (RBC) [Ratio] 13.9 % Normal 11.5-15.0 [facility] Comment on above: Performed By: #### 1 [id number], 4319690, 5092010, [id number] ####[facility] (DEFAULT)[address] [place] [address] Hematocrit (Bld) [Volume fraction] 38.8 % Normal 33.7-40.4 [facility] Comment on above: Performed By: #### 1 [id number], 0385221, 4036574, [id number] ####[facility] (DEFAULT)[address] [place] [address] Hemoglobin (Bld) [Mass/Vol] 13.2 g/dL Normal 11.3-15.9 [facility] Comment on above: Performed By: #### 1 [id number], 9842267, 4032678, [id number] ####[facility] (DEFAULT)[address] [place] [address] Man Diff? Auto Invalid Interpretation Code [facility] Comment on above: Performed By: #### 1 [id number], [id number], 5078449, [id number] ####[facility] (DEFAULT)[address] [place] [id number] MCH (RBC) [Entitic mass] 30 pg Normal 24-34 [facility] Comment on above: Performed By: #### 1 [id number], 6663496, 2061349, [id number] ####[facility] (DEFAULT)[address] [place] [address]842 MCHC (RBC) [Mass/Vol] 34 g/dL Normal 26-37 [facility] Comment on above: Performed By: #### 1 [id number], 5486166, 6976354, [id number] ####[facility] (DEFAULT)[address] [place] [address] 14158 MCV (RBC) [Entitic vol] 89 fL Normal 81-100 [facility] Comment on above: Performed By: #### 1 [id number], 5254976, 9270466, [id number] ####[facility] (DEFAULT)[address] [place] [address] 04804 Platelet 335 x10 Normal 138-427 [facility] Comment on above: Performed By: #### 1 5832408, 1828249, 9871035, [id number] ####[facility] (DEFAULT)[address] [place] [address] 13746 Platelet mean volume (Bld) [Entitic vol] 7.9 fL Normal 6.3-10.2 [facility] Comment on above: Performed By: #### 1 5264691, 8869201, 6351092, [id number] ####[facility] (DEFAULT)[address] [place] [address] 49052 RBC 4.35 x10 Normal 3.70-5.30 [facility] Comment on above: Performed By: #### 1 5522438, 7182278, 7448297, [id number] ####[facility] (DEFAULT)[address] [place] [address] 06535 WBC 5.6 x10 Normal 3.5-10.5 [facility] Comment on above: Performed By: #### 1 5184960, 0041665, 8394265, [id number] ####[facility] (DEFAULT)[address] [place] [address] 95543 CMP Standardon 04-22-2023 Albumin [Mass/Vol] 4.1 g/dL Normal 3.5-5.0 [facility] Comment on above: Performed By: #### 1 9951550, 9813292, 8452361, [id number] ####[facility] (DEFAULT)[address] [place] [address] 49163 Albumin/Globulin [Mass ratio] 1.4 {ratio} Normal 1.4-2.6 [facility] Comment on above: Performed By: #### 1 7733128, 1447931, 9047597, [id number] ####[facility] (DEFAULT)[address] [place] [address] 63499 Alk Phos 71 IU/L Normal 32-91 [facility] Comment on above: Performed By: #### 1 4394517, 0804907, 7803280, [id number] ####[facility] (DEFAULT)[address] [place] [address] 34661 ALT [Catalytic activity/Vol] 22.0 U/L Normal 14.0-54.0 [facility] Comment on above: Performed By: #### 1 1211695, 0383013, 9241605, [id number] ####[facility] (DEFAULT)[address] [place] [address] 04733 Anion gap [Moles/Vol] 11.1 mmol/L Normal 5.0-19.0 [facility] Comment on above: Performed By: #### 1 1979335, 3678658, 9556038, [id number] ####[facility] (DEFAULT)[address] [place] [address] 28344 AST [Catalytic activity/Vol] 15 U/L Normal 15-41 [facility] Comment on above: Performed By: #### 1 1910398, 7507684, 5839013, [id number] ####[facility] (DEFAULT)[address] [place] [address] 00474 Bili Total 0.7 mg/dL Normal 0.3-1.2 [facility] Comment on above: Performed By: #### 1 4735193, 2374524, 1686743, [id number] ####[facility] (DEFAULT)[address] [place] [address] 27374 Breakpoint Chem Normal [facility] Comment on above: Performed By: #### 1 3219878, 9232486, 3779774, [id number] ####[facility] (DEFAULT)[address] [place] [address] 78507 Calcium [Mass/Vol] 9.1 mg/dL Normal 8.9-10.3 [facility] Comment on above: Performed By: #### 1 7712152, 7993135, 0979650, [id number] ####[facility] (DEFAULT)[address] [place] [address] 44863 Chloride [Moles/Vol] 99 mmol/L Low 101-111 [facility] Comment on above: Performed By: #### 1 1500653, 9636332, 0806301, [id number] ####[facility] (DEFAULT)[address] [place] [address] 55834 CO2 [Moles/Vol] 29 mmol/L Normal 21-32 [facility] Comment on above: Performed By: #### 1 3355090, 3998052, 9217041, 1109297931 ####[facility] (DEFAULT)[address] [place] [address] 13420 Creatinine [Mass/Vol] 0.75 mg/dL Normal 0.60-1.30 [facility] Comment on above: Performed By: #### 1 5890947, 7010655, 9302417, [id number] ####[facility] (DEFAULT)[address] [place] [address] 29783 eGFR AA >60 Invalid Interpretation Code [facility] Comment on above: Performed By: #### 1 4739551, 9025376, 5877143, [id number] ####[facility] (DEFAULT)[address] [place] [address] 15773 eGFR Non AA >60 Invalid Interpretation Code [facility] Comment on above: Performed By: #### 1 5052820, 8808454, 0061177, [id number] ####[facility] (DEFAULT)[address] [place] [address] 67447 Globulin (S) [Mass/Vol] 2.9 g/dL Normal 1.5-4.3 [facility] Comment on above: Performed By: #### 1 9728154, 5367192, 1581050, [id number] ####[facility] (DEFAULT)[address] [place] [address] 88995 Glucose [Mass/Vol] 97.0 mg/dL Normal 74.0-118.0 [facility] Comment on above: Performed By: #### 1 5921456, 2019002, 5452042, [id number] ####[facility] (DEFAULT)[address] [place] [address] 93076 Osmolality 270 mOsm/L Invalid Interpretation Code [facility] Comment on above: Performed By: #### 1 6369558, 2895634, 7218385, [id number] ####[facility] (DEFAULT)[address] [place] [address] 27567 Potassium [Moles/Vol] 4.1 mmol/L Normal 3.6-5.1 [facility] Comment on above: Performed By: #### 1 0179049, 9927893, 4573737, [id number] ####[facility] (DEFAULT)[address] [place] [address] 23339 Protein [Mass/Vol] 7.0 g/dL Normal 6.5-8.1 [facility] Comment on above: Performed By: #### 1 1126772, 2507501, 9231490, [id number] ####[facility] (DEFAULT)[address] [place] [address] 80105 Sodium [Moles/Vol] 135.0 mmol/L Low 136.0-144.0 [facility] Comment on above: Performed By: #### 1 4397596, 1123225, 1486375, 3075953438 ####[facility] (DEFAULT)[address] [place] [address] 75320 Urea nitrogen [Mass/Vol] 13 mg/dL Normal 8-26 [facility] Comment on above: Performed By: #### 1 0893466, 9470648, 6521926, [id number] ####[facility] (DEFAULT)[address] [place] [address] 69588 Urea nitrogen/Creatinine [Mass ratio] 17.3 mg/mg High 4.6-16.2 [facility] Comment on above: Performed By: #### 1 0497207, 9980091, 2146492, [id number] ####[facility] (DEFAULT)[address] [place] [address] 05243 Provider Orderson 04-22-2023 Provider Orders [id number] 12 [id number]#1.0 0OTGTIFF Normal [facility] Sed Rateon 04-22-2023 Sed Rate 4 mm/hr Normal 0-20 [facility] Comment on above: Performed By: #### 1 8727529, 9866887, 4358748, [id number] ####[facility])[address] [place] [address] Coding Summaryon 01-30-[address] [facility] XdjdoxfvEJy3uNu+PGhlYW Q+AX8RTJIkA53lmWHevZ9n K4LIHNxQYajrFUYCEUwYBa PpfaXaQU1wgCCeFRXo IC8+TC7yPGOeEtikiMOkh0 Z7bVX9V72gsr6iRWfwuJK7 ZVMpXiErgehyo8mkvEt2CG cuNmluOyBt XDQdqF22XKC4gQ69Qx73bS BtyCJid5vgnNe8ByDwFLYe COC5tPflXQumm4XnXAIkM7 3cxTRnd7F7 QRXqvJtmlGFdDnVchSP1eM 3aQBqlcasvp5ttvuuzKjf7 yh73nLYgl5D1vPH1J7Nqbr I6DBInwTSc SigqoIEBqZ2fewimv5kjai ngPzPaMCLwLRf0ALg3WBAq vOdkVrAhDK17DXU0VNSpmw MqR9GiNTEp xQniSlE3f7O4Os0SB6NEWn lnR2LZUMFNSCvxmKD+PC90 jo12L5LsSzloMup2QROpTG S4mDH6iA2s IMZmTJdvh8K8uLY9Y1Thte Tsbn7ep7daDQPxKGmwW91o nMHcp5R8TOQoxEV8XCScsK uiVlCjmS32 Oyc+LUMpsTabo2RhUqxkt8 aoi9jnpZy1TmxgOJZibkYr mPamFOD7d0XiJs0vOOIlvR G3uCW5dJ9x OkToCuK2WNcyF226GqWijV JaBxmqD62dV7ImuOM+PHRy Drv3GDLihElbUU5nN7IsKN RpbmctbGVm mOzvTW4uLNTnmhybSMUpoY 1fLVCfW9r7OsUzSiP0UTyf K4TlTYDvbnkgPn16nZ6mIz NkTfN4SOez U1FpebQ4FYNmnFKoGKubFD B3O94mj9O1GLRcWXJwCBQ7 kUS5xF9mzRklqzpipACwyM sgdmVydGlj NTohJRyoM868WYUmuErdSj NvZGluZyBEYXRlOiAgMDgv MDIvMjAyMzwvdGQ+PHRkIH V1cUqgLTOv fLQbKVrjWl9vwXnldGopXL 2yXQVwptznMUKlvV4sKTHu gMKnlZyaKU6wKFGimosqz6 90CoLiZCX7 BYWylWBsN0XnfR0aOdMhZK CwVMElN4LsqAGnHRxbM563 LIkkRzI8ILRmbjVoO8MkPX FsaWduOiB0 j6C5Ll0Pb5TqozwoJ2WlnZ DuCbLqNbdaUJn6Y4LjBxsd dHI+XK80AVFcCJ41VUt4IF H3yFbcQEpg PAVjN1SdlZ7mRtCaRTEuBR RkOyc+PHRhYmxlIHdpZHRo QMcgMHHzHwPsgUzhXD1uFr 9yZGVyLWNv lAkauQAjUlEyn5foZNYcSR kvIP9tqYbsT1RsrVM4KVAa v9p9Kq57S12dW4OxyFD+PG FnaPC9bCH9 eL9hAyLsVpD8NBjoH284Qo IocUOxQgxxc5glb1dkpZw0 YiQ2JBExzaRfiTopNWN3d6 MaMi27B73m IHdpZHRoPSIxNSUiIHZhbG gzvn0bjX1gVe2+PGNvbCB3 fRK5rM9tWuRoJtR8XKvjS3 49InRvcCIv Ylkgp2hew2ovpOn5NaWpPS IqadOzjIiiWNW9h3ZuIs79 Q3XnoQkey4VkCpo8yw55iG Isu5Y3yGM3 Z7VcVTGsrlfogAZrxWcbRH 6xYSAodthaPBTugI2mXYYr H9q6KlPiWnO7IClgO2Leuf P2NHXnxMCm QUVnyMNRtZ6mywqzo5vsvy pmXkTnMFIlFAr9KFd7HLQs cAhgFvBmHRZ5TqR5BXN2vI NgxA6vcLbg ubpanZ3vZhv+ZWH7mLFjlF FWGL7xEapyaSX+PHRkIHN0 pYdzOQsfRCPehR4dPPBjI5 t6QlIxKkW9 JUzgT3ApbzV7PIVonENlZW CxvPDScV8njtgxy4gmvfxa NgWtMWWgZOh0WDd5CSXooA duOiBsZWZ0 LwS2KDV3pPFtnF5bwIbtcv sdtP7tPxp+QmlydGggRGF0 BRu2H9NyEke5UZGacSgaAF 0ncGFkZGlu Lv0faBgytOaaSF2tPTFjin dnz002LrGzj7qxIVDdeSRw CYsxMWD4R62ce7Q1XDEmLP GmFCZ6iUC5 dJ3taIqsgwmsvJNabEouqd YheRnuARknWMypQ875JKCj qBneIgNgCLu7M3NbKhx3LJ MrnYqqSN9e kHMvRFhzZp0bkIulgKgcNU 0mCMVdftlrj127BmGwi4hd CAWsvKZxXXrkIPQ1H03ji5 O4WUClNAPm WJQ2jOZ8wV1rkTmpbwnvmL VmdDsgdmVydGljYWwtYWxp V317BJZfqPkoGiSfhSn3O9 XuSjt1TOOf hThrKX2thTQlWScoNw6paJ cjtQakWS0bSCQfzfmma416 KtOmd6pcCLZbaDQeGJuaAZ S9S62eh6D4 CBIdKCWvFMD0xLO4qG9eaZ lnbjogbGVmdDsgdmVydGlj SPtrDGixS230COEgwTurHr BhdGllbnQg JZmjSIw6H0XhVlxtiRD+PC 11OFGzKB34qUDspIYjd0zw pDw4HvItOABxHNK7lFiuQM sea4TaAGFw N14ivQJhr5I9MTYfrOcvhC EtZnMesCU5dI6xWArekded e8fddndoWwufe8duwy04yI 38V73vJWuo ZHRoPSIzMCUiIHZhbGlnbj 2jyY2sTu9+KHSfgXX7kEH5 pQ4lSIRaNkC9QGrvV783Xx RvcCIvPjxj n1tvs6qsvIi6AgF3ZLIdvz IetEcsMCI5n2RyWq42Q21n IHdpZHRoPSIyMCUiIHZhbG sszp3kpF2d Ii8+XDFjmXZ0tKE8eV5wNt FjEbJ9CWadH450OaHhgMHn KckuU81lE3SlnGA+PHRyPj e3LBFuvOfi SQ4daLWzVOjqQd7lLYC3Fw JrIoExTHniM0EiTJWqreoh cosrxCL8FSGtZBNozH38St 9udDogMTBw zFQAeI9fazjtx0hgzsexYh FoVAEhYGq6ZUc9CZJqaHqj EyOgFFP5KnG2GZH4fIRkoT 1hbGlnbjog kP3uV8PuRKLoozlpLq31uJ 9pCkRfIlP8VZebXyj+SEVN TUVSLCBDUllTVEFMIEtBWT wvdGQ+PHRk BZQ1gVlcPTyyWSVizO0lPU KkS3m0QlXgOeV6VIdoJ7Ts QHAvkwlqGw28pD8qWrPpQg D5MXbdI8En xhS4EGKszDCaGOicFAI9R5 3dt5S3LBRuXCXuMZY1yXQ3 qZ9fhGbmadaasHEoxKbnww VydGljYWwt CSfxL683XIEvcUwkBqWvFz Y4HwP4RzP8T7BkGdp4EGBv pBikZG2sfCNzOTjeVm0eiX fhbGfuFF6s XURkumcrKGXzoQ9lJCRidV LyaGdxDI8jCXCodqszu273 JjOyMLL8XNFicCUrS0LokG 9yOiAjMDAw FISrD9XkyUQdVCzzD504FY abZpA6XULmozBkU9LvBVAh jCecTdU3t2Y6Ux09IyPJHA FyczwvdGQ+ DQBzTBK1qLzgLAdsFASndK 2kKSNjJ9c0HtQjEiL4YKda J5PkDSYmymibPr99nG4nDx LmKjT1BLmw D1SrdyJ6FXNyyKHfYSmaVA T1P89kg8J3HLZyTUMlHBH5 bAC4cH2xqHouzbckgEKfxK sgdmVydGlj BPoaMQxmB742YUBowIheTe ZFTUFMRTwvdGQ+PHRkIHN0 cVlzPAuxWXJayU7yECPlI0 u9HgClQzO5 DThdF5ByXVZtyenvPa47xJ 3wTdMwOnL7HGxlF1UbxtD1 ZGSwkDQaMXmhEWD4S26mu6 F8JKNdGHNi UBF9nCT3wN8aiBmmcguinZ VmdDsgdmVydGljYWwtYWxp I205ZSCbuZihGu0BAE79VW 93L8ChAwko dGFibGU+PHRhYmxlIHdpZH HoUQsqOTZsTpLtjUkjTH3a Gk9jGMEzUZOlhRrquMOnEn Vqe1rdHUTs BYvmFA1drGlwX9PkrVE8ZP Bcw5s5Md56E00uC4UrrTV+ YAMdfVI7bVX8gM0cKtWeYy G9CUgiF389 NlPieFVyHuymb1oeo6aeaH e8YrFgUQStcqHedZrlLVO2 y4LiCb60A28pQCrzBBFxVF IyMCUiIHZh fHepsc1stH8zVp5+PGNvbC M2aBV3jN9cElIaEdZ1LDdk B959DnOwmKSgOsnsJ95lK0 JvdXA+PHRy Fvv4FLZsmPdlCU3xxPPmGC hgZd9iCJF8AuAzEiNxSGzr G9ElTLQlytymlgxsqAL2KG LpTLTxlT71 Iq7keYufTh2pPYNmHDG7LD OboBZaD6XcsT8tUiGsWFXd XNHnB8LvkXWrETvgA583NE sgRbY6FDHv xjLaL7XmKCDbpRjlElP2g7 I3Ri9FcDoseCVfYP3tBtRz XJd7L1HaWbw0NVCbbGzcCQ 0ncGFkZGlu Su8ooRznbVkeEL0sIRAcby jgq085FbRpk5dfJMYdzSCb SIbsXOC6J02lr1A3HRLbHH OnTCB8cEN8 uE3phDowovrlqVYcyMdahd ArwFcfMErjEJkfS260ZIDo xDhnWlYWTyj9H5BkLjv0RK NiuAooUQ2z wKGpZVxrLj6wsVedlIrrQG 9tINStdojvi728TiNls3gh FOJshHGpSFlxHDZ2T60tn9 G4HLSqNDFt XTD4bIF3zM4vxJxcsmqyjR VmdDsgdmVydGljYWwtYWxp N846XCVqtKlmZd1KGas5P8 PoSqh7UPVr hSeeTC9jsHAbPDzhYm8inO ramXteXS7sPXPbgrsqo283 OsKus3bvTVHsvZUaZYkoPI Y5A32sg7Z7 QGAkBDPiFIG8qQS4bP4itC lnbjogbGVmdDsgdmVydGlj YDtqQEzrT446KRIwoIjuHh BheWVyOjwv dGQ+LV94it23J8ZuHnccQk s3PXOtWRX7kZV7fY1zMEYz MMnik3O9lXM3E9RpyvXpwz 9tk5fvGCEx ZTo (more content not included)... Normal [facility] .Auto Diff 01-26-2023 Auto [place] % 9 % Normal 07-12 [facility] Comment on above: Performed By: #### 2 348474, 9242299, 7186393, 88828146, 57571167, 2686057945, 9363930, [id number] ####[facility] (DEFAULT)[address] [place] [address] Baso Abs# 0.0 x10 Normal 0.0-0.2 [facility] Comment on above: Performed By: #### 2 114899, 0934901, 2827886, 15639874, 72168964, 0740450231, 1839128, [id number] ####[facility] (DEFAULT)[address] [place] [address] Basophils/100 WBC (Bld) 0.6 % Normal 0.2-2.0 [facility] Comment on above: Performed By: #### 2 395496, 7525409, 3198408, 94356994, 18401292, 8860358079, 6552472, [id number] ####[facility] (DEFAULT)[address] [place] [address] 60768 Eos Abs# 0.2 x10 Normal 0.0-0.4 [facility] Comment on above: Performed By: #### 2 992937, 6712764, 6702881, 22461673, 00263120, 2165295929, 4264455, 9504257413 ####[facility] (DEFAULT)[address] [place] [address] 80604 Eosinophils/100 WBC (Bld) 2.9 % Normal 0.9-4.0 [facility] Comment on above: Performed By: #### 2 613690, 6075136, 7808912, 12608389, 95451568, 4776880755, 1748816, 9829855435 ####[facility] (DEFAULT)[address] [place] [address] Lymph Abs# 1.1 x10 Low 1.3-2.9 [facility] Comment on above: Performed By: #### 2 279024, 5030541, 6159176, 03496714, 94355474, 2211345281, 5571450, 1626952273 ####[facility] (DEFAULT)[address] [place] [address] 40578 Lymphocytes/100 WBC (Bld) 16 % Normal 14-48 [facility] Comment on above: Performed By: #### 2 616855, 5752758, 3921303, 53071064, 00940910, 5124375951, 4411907, 0468207635 ####[facility] (DEFAULT)[address] [place] [address] 81834 Hockley Abs# 0.6 x10 Normal 0.0-0.8 [facility] Comment on above: Performed By: #### 2 685434, 0634550, 7804419, 67987190, 83720173, 4186090274, 9471082, [id number] ####[facility] (DEFAULT)[address] [place] [address] 08650 Neut Abs# 5.1 x10 Normal 1.5-9.2 [facility] Comment on above: Performed By: #### 2 482808, 0447788, 7764336, 63101653, 48143625, 9677892964, 1133243, [id number] ####[facility] (DEFAULT)[address] [place] [address] 14257 Neutrophils/100 WBC (Bld) 72 % Normal 44-88 [facility] Comment on above: Performed By: #### 2 465550, 5337361, 5431469, 36263849, 99713811, 8198627035, 4607374, 2926863025 ####[facility] (DEFAULT)[address] [place] [address] CBC w/ Auto Diffon 3 Erythrocyte distribution width (RBC) [Ratio] 14.1 % Normal 11.5-15.0 [facility] Comment on above: Performed By: #### 2 173340, 0473894, 3184430, 35069252, 63308981, 4493270018, 8809104, 1480602928 ####[facility] (DEFAULT)[address] [place] [address] Hematocrit (Bld) [Volume fraction] 39.8 % Normal 33.7-40.4 [facility] Comment on above: Performed By: #### 2 629418, 0637863, 8546012, 42720808, 76022881, 1097925426, 9739016, 9676205733 ####[facility] (DEFAULT)[address] [place] [address] Hemoglobin (Bld) [Mass/Vol] 13.5 g/dL Normal 11.3-15.9 [facility] Comment on above: Performed By: #### 2 073346, 2236119, 3820700, 20481219, 03376805, 0475952038, 4249661, 1158605885 ####[facility] (DEFAULT)[address] [place] [address] Man Diff? Auto Invalid Interpretation Code [facility] Comment on above: Performed By: #### 2 781886, 5976579, 9686891, 92398419, 18519473, 4514327210, 0875679, [id number] ####[facility] (DEFAULT)[address] [place] [address] MCH (RBC) [Entitic mass] 30 pg Normal 24-34 [facility] Comment on above: Performed By: #### 2 214669, 2792481, 8780805, 09757670, 77363467, 1911991264, 2776705, 9743691922 ####[facility] (DEFAULT)[address] [place] [address] 05293 MCHC (RBC) [Mass/Vol] 34 g/dL Normal 26-37 [facility] Comment on above: Performed By: #### 2 950942, 0612823, 6832625, 76873795, 55952531, 4133448242, 6320381, 9271787673 ####[facility] (DEFAULT)[address] [place] [address] MCV (RBC) [Entitic vol] 88 fL Normal 81-100 [facility] Comment on above: Performed By: #### 2 134212, 5647681, 8048040, 59499313, 88977043, 0179551824, 5799023, 1466479725 ####[facility] (DEFAULT)[address] [place] [address] Platelet 380 x10 Normal 138-427 [facility] Comment on above: Performed By: #### 2 184645, 3049157, 7647698, 11934200, 40425649, 1556056855, 5085573, 2992454177 ####[facility] (DEFAULT)[address] [place] [address] Platelet mean volume (Bld) [Entitic vol] 7.6 fL Normal 6.3-10.2 [facility] Comment on above: Performed By: #### 2 288340, 6500119, 3586819, 82269710, 52471860, 0614585224, 5309783, 0594076613 ####[facility] (DEFAULT)[address] [place] [address] RBC 4.53 x10 Normal 3.70-5.30 [facility] Comment on above: Performed By: #### 2 088132, 8646873, 8279998, 42507249, 15700411, 2109957624, 2148136, 2198430925 ####[facility] (DEFAULT)[address] [place] [address] WBC 7.0 x10 Normal 3.5-10.5 [facility] Comment on above: Performed By: #### 2 302229, 2168534, 2760942, 56728152, 87874088, 4064154842, 8407570, 9879179538 ####[facility] (DEFAULT)[address] [place] [address] 25705 CMP Standardon 01-26-2023 Albumin [Mass/Vol] 4.3 g/dL Normal 3.5-5.0 [facility] Comment on above: Performed By: #### 2 039920, 2101277, 0795392, 64236062, 26444509, 9005359537, 2928886, 3566606751 ####[facility] (DEFAULT)[address] [place] [address] Albumin/Globulin [Mass ratio] 1.4 {ratio} Normal 1.4-2.6 [facility] Comment on above: Performed By: #### 2 816695, 3677651, 5566654, 49699129, 78061413, 6331591577, 8575469, [id number] ####[facility] (DEFAULT)[address] [place] [address] 38994 Alk Phos 72 IU/L Normal 32-91 [facility] Comment on above: Performed By: #### 2 427715, 2071705, 8555514, 75272275, 52710017, 0548502595, 0659856, [id number] ####[facility] (DEFAULT)[address] [place] [address] 68337 ALT [Catalytic activity/Vol] 33.0 U/L Normal 14.0-54.0 [facility] Comment on above: Performed By: #### 2 715090, 2106694, 3696585, 12047673, 15391125, 5729646982, 3329866, 2703837357 ####[facility] (DEFAULT)[address] [place] [address] Anion gap [Moles/Vol] 10.3 mmol/L Normal 5.0-19.0 [facility] Comment on above: Performed By: #### 2 068332, 6755147, 2456449, 28206721, 73664799, 1139483218, 2322125, 7949936055 ####[facility] (DEFAULT)[address] [place] [address] 47719 AST [Catalytic activity/Vol] 26 U/L Normal 15-41 [facility] Comment on above: Performed By: #### 2 088592, 1964282, 6023119, 33300561, 88690012, 6681832745, 8454236, 2665940488 ####[facility] (DEFAULT)[address] [place] [address] 28061 Bili Total 0.5 mg/dL Normal 0.3-1.2 [facility] Comment on above: Performed By: #### 2 893580, 3534498, 0457401, 59146481, 48645609, 5200486308, 1453930, 5314262313 ####[facility] (DEFAULT)[address] [place] [address] 62058 Calcium [Mass/Vol] 9.1 mg/dL Normal 8.9-10.3 [facility] Comment on above: Performed By: #### 2 210862, 6172237, 1150921, 79870413, 26065924, 1955974770, 0993388, 3000176777 ####[facility] (DEFAULT)[address] [place] [address] 33558 Chloride [Moles/Vol] 98 mmol/L Low 101-111 [facility] Comment on above: Performed By: #### 2 392692, 9386334, 9417600, 71290878, 19530410, 9479545532, 0899944, 4858617076 ####[facility] (DEFAULT)[address] [place] [address] 25931 CO2 [Moles/Vol] 29 mmol/L Normal 21-32 [facility] Comment on above: Performed By: #### 2 583719, 7943838, 7928658, 62976081, 89296612, 1597637818, 4088116, 8282601207 ####[facility] (DEFAULT)[address] [place] [address] Creatinine [Mass/Vol] 0.59 mg/dL Low 0.60-1.30 [facility] Comment on above: Performed By: #### 2 789044, 6482577, 6196587, 70318514, 53497635, 7112209632, 5852120, 7497522288 ####[facility] (DEFAULT)[address] [place] [address] eGFR AA >60 Invalid Interpretation Code [facility] Comment on above: Performed By: #### 2 353678, 6946850, 5538028, 13258549, 16980718, 3617098891, 4572336, [id number] ####[facility] (DEFAULT)[address] [place] [address] eGFR Non AA >60 Invalid Interpretation Code [facility] Comment on above: Performed By: #### 2 891702, 5543144, 1176834, 98825110, 77603648, 0440905336, 9423362, 7996517656 ####[facility] (DEFAULT)[address] [place] [address] Globulin (S) [Mass/Vol] 2.9 g/dL Normal 1.5-4.3 [facility] Comment on above: Performed By: #### 2 312344, 0630060, 7892554, 53991510, 10677678, 1209380326, 4686008, 4813654557 ####[facility] (DEFAULT)[address] [place] [address] Glucose [Mass/Vol] 96.0 mg/dL Normal 74.0-118.0 [facility] Comment on above: Performed By: #### 2 293536, 1605141, 0563634, 28480804, 77424203, 6308117112, 9015228, 7187390593 ####[facility] (DEFAULT)[address] [place] [address] Osmolality 267 mOsm/L Invalid Interpretation Code [facility] Comment on above: Performed By: #### 2 959347, 5870050, 8353689, 27042454, 68822065, 4094593873, 3236301, 3230519211 ####[facility] (DEFAULT)[address] [place] [address] 68610 Potassium [Moles/Vol] 4.3 mmol/L Normal 3.6-5.1 [facility] Comment on above: Performed By: #### 2 897323, 2167651, 0256280, 64357435, 22745848, 2445652182, 4290092, 6391069319 ####[facility] (DEFAULT)[address] [place] [address] 72489 Protein [Mass/Vol] 7.2 g/dL Normal 6.5-8.1 [facility] Comment on above: Performed By: #### 2 507922, 1684414, 9671841, 19672728, 80244246, 5867679457, 3357284, 3993634800 ####[facility] (DEFAULT)[address] [place] [address] 57823 Sodium [Moles/Vol] 133.0 mmol/L Low 136.0-144.0 [facility] Comment on above: Performed By: #### 2 606169, 4615199, 2622392, 03439737, 93844939, 5520329315, 0959366, 3640545872 ####[facility] (DEFAULT)[address] [place] [address] 16171 Urea nitrogen [Mass/Vol] 15 mg/dL Normal 8-26 [facility] Comment on above: Performed By: #### 2 669233, 6616488, 9418874, 19717475, 79503804, 7455586278, 8660850, 3864514651 ####[facility] (DEFAULT)[address] [place] [address] 53941 Urea nitrogen/Creatinine [Mass ratio] 25.4 mg/mg High 4.6-16.2 [facility] Comment on above: Performed By: #### 2 973982, 7877166, 7969128, 80868116, 86752889, 6453017313, 1331420, 7151018617 ####[facility] (DEFAULT)[address] [place] [address] Ferritinon 01-26-2023 Ferritin [Mass/Vol] 48.5 ng/mL Normal 12.0-150.0 [facility] Comment on above: Performed By: #### 2 942316, 1710742, 6035869, 83317808, 66980753, 3370457824, 1741044, 6467894974 ####[facility] (DEFAULT)[address] [place] [address] 76812 Folateon 01-26-2023 Folic Acid Level 11.54 ng/mL Normal 5.90-24.80 [facility] Comment on above: Performed By: #### 2 887788, 6068693, 6167182, 42656646, 59496674, 7553015529, 2961979, 1571928919 ####[facility] (DEFAULT)[address] [place] [address] 16597 Iron Profileon 01-26-2023 Iron [Mass/Vol] 55.0 ug/dL Normal 28.0-170.0 [facility] Comment on above: Performed By: #### 2 880612, 6958304, 6264301, 12053816, 00634060, 8710883122, 9445983, 5295677921 ####[facility] (DEFAULT)[address] [place] [address] 38219 Iron Sat 16 % Low 20-55 [facility] Comment on above: Performed By: #### 2 [id number], [id number], [id number], [id number], 75834978, [id number], 6770105, [id number] ####[facility] (DEFAULT)[address] [place] [address] 79591 TIBC 347 mcg/dL Normal 250-400 [facility] Comment on above: Performed By: #### 2 136085, 7996269, 6182035, 29978443, 93023206, [id number], 6288038, [id number] ####[facility] (DEFAULT)[address] [place] [address] 01394 Transferrin [Mass/Vol] 248.2 mg/dL Normal 192.0-382.0 [facility] Comment on above: Performed By: #### 2 382112, 2096243, 1561505, 35453828, 51713662, [id number], 5797818, [id number] ####[facility] (DEFAULT)[address] [place] [address] 35470 Lipid Panel Standardon 01-26 Cholesterol [Mass/Vol] 214.0 mg/dL High 66.0-200.0 [facility] Comment on above: Performed By: #### 2 [id number], 9758051, 4120088, 27171079, 02440214, [id number], 3832310, [id number] ####[facility] (DEFAULT)[address] [place] [address] 50562 Cholesterol in HDL [Mass/Vol] 59 mg/dL Normal 40-71 [facility] Comment on above: Performed By: #### 2 907543, 7084416, 0695379, 15333137, 96638542, [id number], 0989570, [id number] ####[facility] (DEFAULT)[address] [place] [address] 28482 Cholesterol in LDL [Mass/Vol] 138 mg/dL High 1-100 [facility] Comment on above: Performed By: #### 2 891041, 3985913, 4711686, 04951052, 23201713, [id number], 2259587, [id number] ####[facility] (DEFAULT)[address] [place] [address] 58392 Cholesterol.total/Chol esterol in HDL [Mass ratio] 3.6 {ratio} Normal 0.0-4.5 [facility] Comment on above: Performed By: #### 2 603120, 9856495, 7141426, 62708557, 35477029, 8364132387, 0589290, [id number] ####[facility] (DEFAULT)[address] [place] [address] 19901 Triglyceride [Mass/Vol] 86.0 mg/dL Normal 0.0-150.0 [facility] Comment on above: Performed By: #### 2 038105, 7356717, 7085050, 72171394, 83137149, [id number], 9182464, [id number] ####[facility] (DEFAULT)[address] [place] [address] VLDL. 17 mg/dL Normal 5-40 [facility] Comment on above: Performed By: #### 2 851040, 8491105, 3845205, 73813677, 59543333, [id number], 0904952, [id number] ####[facility] (DEFAULT)[address] [place] [address] Provider Orderson 01-26-2023 Provider Orders [id number]. [id number] Normal [facility] Vit B12 Lvlon 01-26-2023 Vit B12 358 Normal 180-914 [facility] Comment on above: Performed By: #### 2 474185, 1277069, 5009558, 17344709, 44866351, [id number], 2850072, [id number] ####[facility] (DEFAULT)[address] [place] [address] Coding Summaryon 11-21-[address] [facility] PcgjswsnWPj0oFz+PGhlYW Q+UQ7QQVZtE31svZVybK9g L3GJAOrFClbrJGUNRRlSFj QbwhWoFY1lnYGfGOCf IC8+LY0pHLIkTnbalYHyu1 S4yTU4E42ome6tTLpyqGM8 OYUeZhFdbcfsr6xagHq7YI cuNmluOyBt CNDfyI72EHX0uU42Ie71bL FuyTQvu9wglVt4YuBfTMAo GOL0lChjNLljf8LoSQGeT9 7dvCYwp4N4 ETSwhMhibLGfJyOzmAW6wY 3dBArypkorz0brymrvRjt2 rm80qNDlp0C0gWE3N3Hjda N1PQWxiKSk GcmvmTKXpB0abojvb2txxu hvUfUwGYEmAWs5HLr5EMCi mEhjBpDnWP29UGX7AYRyxy PfC6ExBLBy oAvqDnG9u6B5Vq1FC6WZKj mxS6DOHZJEVKeqaRM+PC90 yd11P2FnYwotEda8AYTrSC Y2sEF0bV2k OHRsIBhrb9C1uUK1C8Fgbu Ptou8zw3csKTKgQUdxB86h vCTrr3E7WPRmvPJ1RJJpyJ xiWiUkhX70 Oyc+QQAcpVwco4VjTipdo3 ubh1wvuMz0QhoiOCVvwhFt dGpxVCP2v7IsJw3lTCTnuX D4uCY4xK6o RmAnWiW5CAtfH973YxHpwZ OmXqjnM15jI3TbmSJ+PHRy Exa8KSDyhJioRY2jP0JzJI RpbmctbGVm kPavRS6xZOShllemOCFpiY 4sXZZqH7w0VuGyZxE2SRsf M4TvNJHnglunPx20zD3fHb SyBxN9PMoj I3ItccC3QLIptWPvYGayST Y0V33cz5W5AZBpVJCxVAA8 kXN4wN5orQpnqrvzjHJinT sgdmVydGlj CPnuHBsbC398CAGchVcnSi NvZGluZyBEYXRlOiAgMDUv MjQvMjAyMzwvdGQ+PHRkIH B5kBbsQTDz lQHePNdjRu6tcWiqjMqoDQ 7zYUWkltenVPNkrE2fAEVi nRJwnNlgJO5nMACelmzgf7 11ImEqVBW0 XOBltWMoW6OjlJ3mMuLaWX ZqPNLcI9IsgCJlMHqtZ128 SBwwGfS3GHFcrwVbN0NbWU FsaWduOiB0 p9C4Ox0Yq8HtapphI5RiuC BxSaXxAexbJXc3R0MiXqgn dHI+MV20YEHoTD78DQr2FD F2uZadUIht FLGoH2GtwH7vNeBzTQOvPZ RkOyc+PHRhYmxlIHdpZHRo JRsrAFLpXfJvlYhjDA5zMc 9yZGVyLWNv nFzcvZTxWpDeg3soDUNmQE bnPN1hlZfeU2KvrVX2IKEw e3d9Dt33C62bV2XteVG+PG QlxWU1jNK5 sN6tZbZkGhK5BHeuQ926Cm RxkZVgTwmwt5bye8pdbSw9 YaE9KNHbouNwbLagOXW2e7 KeEj78Q68v IHdpZHRoPSIxNSUiIHZhbG awtt9tbB5oKf2+PGNvbCB3 lJT5qG4jTzSfSuZ3BYwaU3 49InRvcCIv Aqcca0usr8cxjCu9XqJyXG WxodIifYssRWR3n2XoCe70 T6WqhImvi1FyCsb3fc36kQ Ihd2P3pRM9 G7HjPUYqpnhqbEWavOzbNC 1jEUPjzolqUETefU3lBLWb G1a5HdQuCqO4ALydB8Syng T3NXVslTEb KZVxsSKQqX7zyfmnb3rxdc nhQnVgIQXcQQq8AWl9JNEp lFcoYlPfNQL3JhK5DQZ3cA PxvE5ubKqh pvmjyF7xFjl+HCP6zETkuT SLEK9gPovxyGQ+PHRkIHN0 rUjlGUsiOCBayP6jAFJcB4 q8PeFiXeW8 SJibF4PmyrI5VZUktBHzWE PqhRCKsD2yosllo9gmpfxu MaYyOTHiGHq0UZg9NJMzfL duOiBsZWZ0 LxU3IMA8oWJuxS9qnAddop hleC7xWhi+QmlydGggRGF0 DSq5G4XmLec7ERIpqQglTD 0ncGFkZGlu Vv0mjNdmiYlkLR2vFSPauw qtj578WtZmh0oiNZTeuVFj HAqnPOM9U37dl9M8GXSjKN NbUPQ5pUE6 kD4cwOxpffluuWGcmYnsac BeoFzzQWkjKPbmN898SODw oRtqDnTcSQp3P3NuLyd6UL EdkYamID0z aPLeXVjnKo3kfXyymLtjRB 3hWSWfoccvq741GdBoa9rg LYJmqBMuQCfhSVQ1G33sm0 U5KADfBXUi FED7nYD9pS8vhLxrdtqinR VmdDsgdmVydGljYWwtYWxp S635GIUfyXamKbJqnXu9H8 FxIfe2FVEt eFljDF7vfJHlEDwhDi6epH nxkVliXS4tYMOpbthur466 ScZts7poSMUevNVtFFlkSC J5F53zl9S3 VBPbQSBmWMR3iSO8lE3jtL lnbjogbGVmdDsgdmVydGlj YCjkJEvmC136GASkgAdxXc BhdGllbnQg FMjpXIm9D7SeXwtahCX+PC 72EKRjNI48wBIzjOTjk4rq jMb9KxZnHCAvFWH0yEfnSH zzs5HlRJWr Q90vxZRxh9U1NVLaqQcqaG YaWjSrcGC8kW4zEVzybwdf i0ezfoydGtqxb2mlhb88rV 93W23wLSan ZHRoPSIzMCUiIHZhbGlnbj 1pfN7tRe7+BIJciAL0pDY1 mW5lEUNzKeU7LErzX352Nw RvcCIvPjxj x5arj4gxmCf2NvV3LRDyqx AbqVokUOG9z3WmPh34Y83z IHdpZHRoPSIyMCUiIHZhbG fwwt0ihV9e Ii8+BZUceAB7lMI0sC6zDy PtJwT2YZeoT585FuIamEWi TpchI88dM9HhdAM+PHRyPj c7BTYnhJps JK3szEEaGJglAl6mWYM2Ea NdYnNuJCunM1JzWNFluxif fhepsIX7DNMcCOLttX46Id 9udDogMTBw eCDSpB0kzpkce3aqbffaSz CrDUImZKc3WZy3OTVqgWip DsKmIRR3YdD3QED5qVYtoH 1hbGlnbjog xA4hG7KmJJUutmezGo80hT 1yLjZmOsS9TEukUqi+SEVN TUVSLCBDUllTVEFMIEtBWT wvdGQ+PHRk KZV7wGgtRRqiSQHraP3nWY OcM4j9ZsNgExL8IKssU9Vt EHXqhezdAk10mL6uFzRsUb T7WWlnF2No idZ7WIFdjJZdUGcnZWA9O7 5bp6J3PRMnFPLlUOY0uWE4 fQ9zkGbvyzjagJVjtFrels VydGljYWwt WKbaC339PAPsaDkdUnXnJh F1WqT6CdZ7U8ZzYhk5PCXq dGhdOC4xmSBvDEtbVp7dgO cyoAfkHL0i FSSwihlzIXRkxK6fWGBfgY GovYvxCX8rFNOgjfssz805 WrIdCIN4HCKdgOTsS2ZlpY 9yOiAjMDAw LYZhE3DrgNUiNZsgW421NI xqThL1QHStyhVlY4PzNVRo kOofAfS9f2G2Ac71YxPLDZ FyczwvdGQ+ IANpJSN5sFfhBLugNCGgqE 2aCYRvC5h0ZpGzUnK9ZWtb S1ZxVEHnambjKw07rX6oIx GjDiX2QIrg B4AgprR6FQLqlEBxHGtjUS Q8J46xj5Y2KMGiTJDfLSA7 wGE8mH3psQxafqqlzGMpjW sgdmVydGlj PGcrQWyuT340YXAytFpuUm ZFTUFMRTwvdGQ+PHRkIHN0 nSwiMVuoRZVayP7kESSxV8 h4FeViUhS5 SJneV3MfXMWxzyuxNe85oX 8wIqMuNwM0JRlyL2QdvvY2 IINauJNhCXuuYCN8L89rp4 V1LIPmZPXi EWC1fPV2vI4caOgprclqyZ VmdDsgdmVydGljYWwtYWxp C157HGJkyOsiEo4FMP87MF 79T6UoUfzz dGFibGU+PHRhYmxlIHdpZH UzTImsJSGuSbHzuNfpOU7a Oo7iNABnTBDtaLusjXIsRb Vsq6mfYMLs LCyaXZ3inUstN5RisGL6KL Hct1b1Eg08A23bK5JtxLL+ FVWhjEE7jFI5uK9oJkOiOw B3SFdnJ208 EgDxfOGgIkovc3bly0xelZ e4FwAsPXHxthDeyAknBQE3 f2EqNx71U98pNUznTIXiPT IyMCUiIHZh kFiccl8oyK4fMa6+PGNvbC Y1oZA3vP1hGfSbYyE0EHph H130RrUnjWEeYphjE59nK8 JvdXA+PHRy Nkn6WKVfkJftZC3nfYFrYY koGj2eKUT7VpIcFkXiLUoq M7UkOCImxoodpjjkoXP0WC IlDXOthF46 Rc7uxIyxEf4eXCClRNN3DP BrcATiP5TssU8kVrPvFPTe HTRtX0ZgqEQoRIuwK557TX vwEsK8QUDi lrMpM2OcXNYygZrmVpK2q6 P5Fw3IlAosyBJeQL7jQbBn SOy7X6EgUfk1NBCzbOkeAC 0ncGFkZGlu Ym7ubImxtZkcRB1cECXmij biz820XiVeq8jjLWBkmCPm FJvvUHW9G97pa4C6PODuQY CgLWO2kKZ4 aN0ysHzkdgmcbKGbiTllld LmiSgoCDzwHJktZ651URNz mWasKwPTRgk1K9GrAxh3FL HbnBmcLO1s mXIiESevWt5sxUtpyGupUQ 6hUYIoslooy399KeIfp3fz LECppQCdSVvuQTO4F94dr6 F9AKHiOJKj VGC9hHK0sR5djZvkyiusrL VmdDsgdmVydGljYWwtYWxp A786JUAotGhfYs1GXok2V6 QsKkt2XGNg oQhoIN8dfBSsQSzmNa6jyV cflWilGL5sSHDeadmft382 OkFsi0azOFOgwQBwHZveXA U6X13qr1Y0 XCXgXSYjASG9pXI2bG7ksN lnbjogbGVmdDsgdmVydGlj ZVjyAKxxB383ZTNxvVtfWs BheWVyOjwv dGQ+CX04ql52P2YgLycaSn z9WCZlRUE2lXI2pA7yLKUd NTcrf2U1mTD9E5BaioFbsn 8lp2zeTOTp ZTo (more content not included)... [facility] Provider Orderson 11-21-2022 Provider Orders [id number] OTGTIFF [facility] BMP Standardon 11-20-2022 Anion gap [Moles/Vol] 15.6 mmol/L Normal 5.0-19.0 [facility] Comment on above: Performed By: #### 1 [id number] ####[facility] (DEFAULT)[address] [place] [address] 46701 Calcium [Mass/Vol] 9.6 mg/dL Normal 8.9-10.3 [facility] Comment on above: Performed By: #### 1 [id number] ####[facility] (DEFAULT)[address] [place] [address] 70657 Chloride [Moles/Vol] 99 mmol/L Low 101-111 [facility] Comment on above: Performed By: #### 1 [id number] ####[facility] (DEFAULT)[address] [place] [address] 19570 CO2 [Moles/Vol] 26 mmol/L Normal 21-32 [facility] Comment on above: Performed By: #### 1 [id number] ####[facility] (DEFAULT)[address] [place] [address] 21106 Creatinine [Mass/Vol] 0.78 mg/dL Normal 0.60-1.30 [facility] Comment on above: Performed By: #### 1 [id number] ####[facility] (DEFAULT)[address] [place] [address] 96464 eGFR AA >60 Invalid Interpretation Code [facility] Comment on above: Performed By: #### 1 [id number] ####[facility] (DEFAULT)[address] [place] [address] 62667 eGFR Non AA >60 Invalid Interpretation Code [facility] Comment on above: Performed By: #### 1 [id number] ####[facility] (DEFAULT)[address] [place] [address] 70691 Glucose [Mass/Vol] 87.0 mg/dL Normal 74.0-118.0 [facility] Comment on above: Performed By: #### 1 [id number] ####[facility] (DEFAULT)[address] [place] [address] 58642 Osmolality 275 mOsm/L Invalid Interpretation Code [facility] Comment on above: Performed By: #### 1 [id number] ####[facility] (DEFAULT)[address] [place] [address] 08305 Potassium [Moles/Vol] 3.6 mmol/L Normal 3.6-5.1 [facility] Comment on above: Performed By: #### 1 [id number] ####[facility] (DEFAULT)[address] [place] [address] Sodium [Moles/Vol] 137.0 mmol/L Normal 136.0-144.0 [facility] Comment on above: Performed By: #### 1 [id number] ####[facility] (DEFAULT)[address] [place] [address] Urea nitrogen [Mass/Vol] 18 mg/dL Normal 8-26 [facility] Comment on above: Performed By: #### 1 [id number] ####[facility] (DEFAULT)[address] [place] [address] Urea nitrogen/Creatinine [Mass ratio] 23.0 mg/mg High 4.6-16.2 [facility] Comment on above: Performed By: #### 1 [id number] ####[facility] (DEFAULT)[address] [place] [address] 52854 HCG ( test) IA.rapi d Ql (U)Ordered By: Uri Samuels on 11-23-2021 HCG ( test) Ql (U) Negative [facility] COVID-19 Positive/NegativeOr dered By: ISIS ROSADO on 11-21-2021 SARS-CoV-2 (COVID-19) N gene NADER+probe Ql (Resp) Negative Negative [facility] Comment on above: Testing for SARS-CoV -2 by RT-PCR This test was developed and its performance characteristics determined by [employer] and validated at the [facility]. This test has not been FDA [...] 11-15-2021 Basophils (Bld) [#/Vol] 0.0 10*3/uL 0.0-0.2 [facility] Basophils/100 WBC Auto (Bld) Ordered By: ISIS ROSADO on 11-15-2021 Basophils/100 WBC (Bld) 0.6 % [facility] Blood hemoglobin measurement (mass/volume)Ordered By: ISIS ROSADO on 11-15-2021 Hemoglobin (Bld) [Mass/Vol] 14.5 g/dL 11.8-15.4 [facility] Blood leukocytes automated c ount (number/volume)Ordered By: ISIS ROSADO on 11-15-2021 WBC (Bld) [#/Vol] 7.2 10*3/uL 4.5-11.0 [facility] Body fluid albumin measureme nt (mass/volume)Ordered By: ISIS ROSADO on 11-15-2021 Albumin (Body fld) [Mass/Vol] 4.2 g/dL 3.2-5.5 [facility] Creatinine and Glomerular fi ltration rate.predicted panel (S/P/Bld)Ordered By: ISIS ROSADO on 11-15-2021 Creatinine [Mass/Vol] 0.68 mg/dL 0.44-1.03 [facility] Eosinophils Auto (Bld) [#/Vo l]Ordered By: ISIS ROSADO on 11-15-2021 Eosinophils (Bld) [#/Vol] 0.2 10*3/uL 0.0-0.45 [facility] Eosinophils/100 WBC Auto (Bl d)Ordered By: ISIS ROSADO on 11-15-2021 Eosinophils/100 WBC (Bld) 2.4 % [facility] Erythrocyte distribution wid th Auto (RBC) [Ratio]Ordered By: ISIS ROSADO on 11-15-2021 Erythrocyte distribution width (RBC) [Ratio] 13.3 % 11.9-15.3 [facility] Estimated glomerular filtrat ion rate (GFR) non- AmericanOrdered By: ISIS ROSADO on 11-15-2021 GFR/1.73 sq M.predicted among non-blacks MDRD (S/P/Bld) [Vol rate/Area] > 60 mL/Min [facility] Globulin Calc (S) [Mass/Vol] Ordered By: ISIS ROSADO on 11-15-2021 Globulin (S) [Mass/Vol] 2.6 g/dL [facility] Hematocrit Auto (Bld) [Volum e fraction]Ordered By: ISIS ROSADO on 11-15-2021 Hematocrit (Bld) [Volume fraction] 42.6 % 34.0-46.4 [facility] Laboratory - Hematology and Cell countsOrdered By: IISS ROSADO on 11-15-2021 Nucleated RBC/100 WBC (Bld) [Ratio] 0.0 % 0-0.5 [facility] Lymphocytes Auto (Bld) [#/Vo l]Ordered By: ISIS ROSADO on 11-15-2021 Lymphocytes (Bld) [#/Vol] 1.1 10*3/uL 1.00-4.8 [facility] Lymphocytes/100 WBC Auto (Bl d)Ordered By: ISIS ROSADO on 11-15-2021 Lymphocytes/100 WBC (Bld) 14.7 % [facility] MCH Auto (RBC) [Entitic mass ]Ordered By: ISIS ROSADO on 11-15-2021 MCH (RBC) [Entitic mass] 30.8 pg 24.7-34.3 [facility] MCHC Auto (RBC) [Mass/Vol]Or dered By: ISIS ROSADO on 11-15-2021 MCHC (RBC) [Mass/Vol] 34.1 g/dL 32.0-35.0 [facility] MCV Auto (RBC) [Entitic vol] Ordered By: ISIS ROSADO on 11-15-2021 MCV (RBC) [Entitic vol] 90.5 fL 80-100 [facility] Monocytes Auto (Bld) [#/Vol] Ordered By: ISIS ROSADO on 11-15-2021 Monocytes (Bld) [#/Vol] 0.5 10*3/uL 0.0-0.8 [facility] Monocytes/100 WBC Auto (Bld) Ordered By: ISIS ROSADO on 11-15-2021 Monocytes/100 WBC (Bld) 7.4 % [facility] Neutrophils Auto (Bld) [#/Vo l]Ordered By: ISIS ROSADO on 11-15-2021 Neutrophils (Bld) [#/Vol] 5.4 10*3/uL 1.8-7.7 [facility] Neutrophils/100 WBC Auto (Bl d)Ordered By: ISIS ROSADO on 11-15-2021 Neutrophils/100 WBC (Bld) 74.9 % [facility] No Panel InformationOrdered By: ISIS ROSADO on 11-15-2021 Estimated GFR () > 60 mL/Min [facility] Comment on above: GFR estimated refere nce range: According to KDOQI guidelines, <60 ml/min/1.73m2 is sufficient to diagnose a patient with chronic kidney disease. Pharmacy Creatinine Clearance (Chem N/A [facility] Platelet mean volume Auto (B ld) [Entitic vol]Ordered By: ISIS ROSADO on 11-15-2021 Platelet mean volume (Bld) [Entitic vol] 7.7 fL 6.3-10.7 [facility] Platelets Auto (Bld) [#/Vol] Ordered By: ISIS ROSADO on 11-15-2021 Platelets (Bld) [#/Vol] 317 10*3/uL 150-450 [facility] Protein [Mass/volume] in Ser um or PlasmaOrdered By: ISIS ROSADO on 11-15-2021 Protein [Mass/Vol] 6.8 g/dL 6.1-7.9 [facility] RBC Auto (Bld) [#/Vol]Ordere d By: ISIS ROSADO on 11-15-2021 RBC (Bld) [#/Vol] 4.71 10*6/uL 3.60-5.00 [facility] Serum or plasma alanine jamison otransferase measurement without P-5'-P (enzymatic activiOrdered By: ISIS ROSADO on 11-15-2021 ALT No additional P-5'-P [Catalytic activity/Vol] 21 U/L 10-60 [facility] Serum or plasma albumin/glob ulin mass ratioOrdered By: ISIS ROSADO on 11-15-2021 Albumin/Globulin [Mass ratio] 1.6 {ratio} [facility] Serum or plasma alkaline rebeca sphatase measurement (enzymatic activity/volume)Ordered By: ISIS ROSADO on 11-15-2021 ALP [Catalytic activity/Vol] 62 U/L 32-92 [facility] Serum or plasma aspartate am inotransferase measurement (enzymatic activity/volume)Ordered By: ISIS ROSADO on 11-15-2021 AST [Catalytic activity/Vol] 21 U/L 10-42 [facility] Serum or plasma calcium hannah urement (mass/volume)Ordered By: ISIS ROSADO on 11-15-2021 Calcium [Mass/Vol] 9.6 mg/dL 8.2-10.2 [facility] Serum or plasma chloride delfino surement (moles/volume)Ordered By: ISIS ROSADO on 11-15-2021 Chloride [Moles/Vol] 98 mmol/L 95-[address] [facility] Serum or plasma glucose hannah urement (mass/volume)Ordered By: ISIS ROSADO on 11-15-2021 Glucose [Mass/Vol] 91 mg/dL 70-100 [facility] Comment on above: ADA recommended refe rence range Random Glucose Reference Range is dependent on time and content of last meal. Glucose of more than 200 mg/dL in a nonstressed, ambulatory subject supports the diagnosis of Diabetes Mellitus. Serum or plasma potassium me asurement (moles/volume)Ordered By: ISIS ROSADO on 11-15-2021 Potassium [Moles/Vol] 4.3 mmol/L 3.5-5.1 [facility] Serum or plasma sodium measu rement (moles/volume)Ordered By: ISIS ROSADO on 11-15-2021 Sodium [Moles/Vol] 136 mmol/L 136-146 [facility] Serum or plasma total biliru bin measurement (mass/volume)Ordered By: ISIS ROSADO on 11-15-2021 Bilirubin [Mass/Vol] 0.5 mg/dL 0.3-1.[address] [facility] Serum or plasma total carbon dioxide measurement (moles/volume)Ordered By: ISIS ROSADO on 11-15-2021 CO2 [Moles/Vol] 27.8 mmol/L 22.0-30.0 [facility] Serum or plasma urea nitroge n measurement (mass/volume)Ordered By: ISIS ROSADO on 11-15-2021 Urea nitrogen [Mass/Vol] 10 mg/dL 03-23 [facility] Coding Summary.on 08-18-2021 Coding Summary. [id number] Gh 0bWw+PGhlYWQ+SX0BCKDcY 60uxTEqsT5CQ4gLLH8RBEJ APFESIF0CPG0rxVO2BDnjT 2VybiAv MhkbpPUhOO60ENd2HPU9vH ecJHofnN3hyUEwN8b0AySp DY60iG82DZfoFGYyLqV2Zv ZpbjsgbWFy R2xcQhUihDWsWyb+PHRhYm xlIHdpZHRoPScxMDAlJyBz kTgmHC3eAy7hPAAhOOZzcK xhcHNlOiBj x6atZHWjBMwlYY3giVegX3 WohCG2ZSVph8e3Nh84oHK+ LZYvCWW5vYhsYWtuq817Eq Ryt8raQLU5 hKMlWEadNQD9A06lt0S7KP NmTMTaRYV6nZV3hW7yqBcm nbwdF5LubFJzTuN3XTM5dR NrwY5fvWzx rppmhF0aNel+A19YCR3HMA LGJY7KGbz7W9NoMjwusKJ+ GO44LKQkYL43vLYedBGrz0 anxJe3MlHj YJIqMAM8aCrjXWurv3YdZV UpE91htEEsx0F8CZYkgOtv aTHmVfJtgTP2zP0lEAmxyq ufs7hytrud Ustll2jfpy66vM22G06gIU tvNWCeIUE9WMVxFLWkcFxh qr7lsO2aOl6+QMlbf0osh9 dumYv9IvWj LUAjzjUvhCglGTH9y9NxSq 10N8VueDzss2EsIbn9aa92 oGKob8B5nMV7JBkdCOBncL 1qHOrnRlP1 OEVvPsDvfR20dXJzVDjmYg 8kyVaxsBydZN2pXBUpsvso AZTiyU3vVKDorXFniZbvPL 4wNTBpbjtm o096GzIoUYS3NPYzsZMwY7 IrtP3tSmAbECYiUHFkL3Ec mIPrYPcaJ606SBqoAgZ8AU RovlIpJ3Zc NXPxhVsrQcD3b6H2Yh2Xi1 CjwgceEHC6LYnfMXQeIzU9 TrQwDpR7N8GeHsr9FZSacL muZA8wQ2Xw ZSWkiwbydldxlMN8RSIsKR HtqJ36rIBbBXrgWj9td9D4 a381FQMyDLPajU83Ni1pqB ogMTBwdCBU xH9kmqjrx3ycnvsqDeBcRB FrWIe8JCa3QJLtwDtsAtNs XLK7EyY6QCO3hNSxsI9hwA ucclunwU7d Oyc+T96sxW0dGVG2MJZ4zd arWUMnjcOoWZ72HA99S2Dw PjwvdGFibGU+PGRpdiBzdH vkQL7jFqTj w2mvl0UdLOgyU2OwTKGlJI frCny2WETjHNC2sDT3vJ0q ISLvDIyab5J9uLU9P3Yglb Wdyk2lz7yp FEDtHGbsL70paUMhk3O5FK UyyPY2YKAdcHddSyIsnB50 Oyc+MCQgvTwmu7JnIzcop3 asa3lmnJp6 ZtIsHRHzopEihXfxDHU7s5 VgXi52K72tJBfsZOIaLBYz GSOwOKNzrFuout3jbS9yCm 8+PGNvbCB3 oFG9bB2xAPOmYzB0SWtdZ2 12LxSmdWEsAhfbi5wog1wo tUh8NrAoITPhhxLosFfbCP G8l7JwKh28 A20nTOfzJWUxSYYdFXBbCG QinMbfnf5usQ4nXz1+PC9j p1vfkr89jE05pNY+PHRkIH R2zOpsGJps JNOypO2aSDwsKgV7JXYsWx UvqO67jQVsSYppEl4lrSdh aLpoZT5rOUWykbadn012Bf Sml7nkSFAy tBXyKKfkJXY9I66pc7Q8LR XxVOGeQOI2mIW4dP0mbLhh bjogbGVmdDsgdmVydGljYW lgNExuT502 IHRvcDsnPlBhdGllbnQgTm NyFJi5S8VnOdd0FZYzbFrs AJ9gqRMqEYrvHm1lwPmnpT gsVS4aQYMk euolb755IjXbt6afIJDgbC AyBFujSEW0I73mv5V5JICx GKIcRLU8uQL8nM3jgGzenw ogbGVmdDsg feOhkZykAQtuLRgaT189RW RvcDsnPkJpcnRoIERhdGU6 RV86QH80wFVmb6Y1oAQ8S5 BhZGRpbmct hrtvbZE0BQAyGZGadN41Em 1xgThcNu7bLAInRHH6YBAq mSXnJ0GqfY2cIsQzGIGjJD ZwC1CqkSCm VBjwF022OYajArJ7DONxsl KnZ0LdXUNbpIvtKaZ3u7S6 Tj4FH4A3AB52LF87aUKjq8 P2cTX4S7Bl CVEtmgsebxwsuXL4FNJzYC LvnH19Cd8oaOdpMq2iBOTk TFJ9DSIzsXQdO8VbdQ4fQe AjMDAwMDAw A6ZxwOAuBYoiV333JBuzOb U7OOSrgtSzA0VzWZWipDnb AxB5w2P5Kc6UGBn0GK98JD 48iZWub4P4 kDX8R8PbIDTybryykotheD X4FYKuOZFmpY98Uh1qmUzt Fz4wSZUiCTH8XMWcvFImM4 QmqI5cXjCq HFVhKCVzK8YssFAeBLisL6 49WZibSoW2XSWsvdSyD1Tu TEFfiNpuVeP3u8U2Ft0YIX PeYX63LUK3 iMK4AK31WT61T1EqOpovkS FibGU+PHRhYmxlIHdpZHRo ZYsmRQPfAaWjyVpqKA8kKu 9yZGVyLWNv pVnuePJoNoMuw6azFTHvQN obJQ7utKzfS5UjmER7GIUn x2k7Eq62Y25cZ6MmoAA+PG TpnVB9aKX1 jA5eHdTiGsI6QNzqP482Ah ZweUGqZauzn8zsh0edeAz7 SyF3WDKilwHapAtcOLD6o6 QwZm49L08r IHdpZHRoPSIxNSUiIHZhbG uzrg2piF7kKw6+PGNvbCB3 qBK3eF9bBaSfEcD1MMlkI9 49InRvcCIv Dmitl6vuw5uzqPt0XyWxAF LdsqUpkElcNIM8m9JxFm21 M9OodCrvi2PrAiv5oy55oB Ucp2G7lFP7 R8XoVQHbkakeoNXseOdnSA 4cPZAxxxaeQPYysT0hRQAj U1z5XqXnGfA3QRujT9Flai J6OAYveRFs YOdcVCY2H21it3J2RXOwVM TdGSJ6lJB5bJ8ioHeeisrg bGVmdDsgdmVydGljYWwtYW vkK359OAPh sAluDOJleG9sPPJjhLRvoA rnNN7gKWFduaroSyvFPX8W CyvhO8GJJ5NONRxxpDC+PH HxFEX8zCmy CQgcOZPhvP3eADWaT2f4Jt KnXbP2OLkvW4QgPXBoxuia Pf63mL9uBaIkQzH5GLkgH7 JyjlC6HEWm gSDnODbfFVJ1E55av8K2WU FgGPCeFUZ2lJC7lC1lwSqx bjogbGVmdDsgdmVydGljYW vqSEmnS801 RWOzsNmlYoLfWnY4KdG1Rz I2H0ZqIvn7YSTfpKknJP6s pAFlQZylOe5kgVgslFxiYQ 4wNTBpbjtw OAQivP3eGTZozAVdnZhoYE 8qNTIiudjcb992OsPfRYL5 MKTffRHhB0DjdP4eSlEgIK MqQGMkH3Wb iMKqLHofL217CTapPyV0HS YcwgOoI1FeOMWxoAujWvP5 f8S1Bm48CgZMEKDieiifaU Q+PHRkIHN0 kOoeEXexGWCdbS9kNSJeO6 o0MbAaDjQ9FKwlT5ZoPHJt folvId06kL3zLzKsDdU0ZG soE9NlwqE4 XKPhwVBsNRhiFJX4K02cx4 T0VJScWHHhGOZ1mLV8kX2u bGlnbjogbGVmdDsgdmVydG ljYWwtYWxp R747EZYluCxbWhVouAAaEA wvdGQ+MEIdWSC0pMqcTBze QCBkmF4qMWHvQ7p7MvMlGl T4NEhyO3Bq JAYsmwoaZz79nP3mPdMdOy X8OWswN0XacaS9RZOyzYJy AYhkKAQ8G69bx5Z7BMDlRO NlOOD4nFZ8 hP1adHowdfcxzSVecJqhwu HnhHebJKmrKOceG125PXIz oYimOpqpPtDYnu1cLN1cKu wvdGQ+PC90 lz51M3PvFedeDbk5PGKaRE E1wDX1fS9mHSPaZVute3W0 mQV2K3RrzeMjuk9xt4ptHW HeLWudA65m wXDjw3V9VHHstXN3NXPmfD fjStLdgD00Opr+PGNvbGdy s5TaVzgiv5zge9hqwDe4Tr MwJSIgdmFs cOhgUEQ4k8QcIp15J58jXA dpZHRoPSIzMCUiIHZhbGln sv6lbD2eAf0+YEMedVB1xZ U1dD0zFcIi ImO2MJyaH542AqTglNSiVj bwo2ghq3huqNd1HjEkBGFh twIpjQvsURD2t6TdFv32S0 AcdAjpd9Tz Nuq2kv08iEExo9F8eOI0Q9 LeVABgchhrsGHnjFksFF6e MEOjknwqGZLqpK6qUEGkT6 a0RzJrGrG5 NEsvV0GybvK1VLAluAThFE KmaIXGaR8bzbnrk4yvotny RfKnAFIhNTp5HIk1CTItlE duOiBsZWZ0 FoQ7OIU3iTKrgN7muQadzn ackC0eUyy+CUo2y2uwyCVb IO3gyZP6KP15IE98mATng3 H1rTZ4H6Gy OAGiaxtxjujyaCH3SNDgVC HpsR62Pj4hdZxtZn6tBWFz EPW7AHMrvWXuA6PdyR6vDj AjMDAwMDAw Z5FwjVCwTSyhN785PIrjGb X8CNPkelYqI7EsWBZqsNmj CkR2v5P7Hb6INA34KM88XB 64vRMhk6H5 cGN5H3MbIFGxvphmexzukM Z0ALKpCZHkaE89Na2opIsy Vu6tOOGzZKE8NWObpGAeW0 JwvV4gGqBd KSHbMDUvT6LvxVUqMJjaI4 20NPdhJhZ2GNJxasVkR2Rt IWPpgLztTrC2i9O2Ju5VZc 73HY75FT70 vMLkk5R8wOX9L3ViESSdmn sezjcqoQP3AVJzCEKsnR40 Qi2foLjiDa5vGEEuJMD9SD UafLKlD0Ko bX4gHoEkXPHaXZLbF5UmeO ZrLDmeT897QOjuApB4ZWFm jwXfT5NaRXJlkOdsEyQ0r1 P2Oj1TEHfa syg2L5DnGwkilAC+PC90YW NcAC74lCYxiZYmg1dwbKf0 RtVrMHHeAII4zWilFSpaw9 NwTYCsR39d bGFw (more content not included)... Normal [facility] PAP [id number] 08-17-2021 Cytology report Cyto stain Doc (Cvx/Vag) Note Invalid Interpretation Code [facility] Comment on above: Result Comment: TEST S RESULT FLAG UNITS REF RANGE LAB Clinician Provided Cytology Information Source.............[employer] No. of containers..01 ThinPrep Vial DIAGNOSIS: 01 NEGATIVE FOR INTRAEPITHELIAL LESION OR MALIGNANCY. Specimen adequacy: 01 Satisfactory for evaluation. Endocervical and/or squamous metaplastic cells (endocervical component) are present. Areas of partially obscuring blood are present. Performed by: Petar Willoughby Bridge Game Director (ASCP) . 01 Note: Note 01 The Pap [...] <-Panic Low,>-Panic High,A-Abnormal,AA-Critical Abnormal Performed at: [address] [id number] Tara Linda MD, Performed By: #### 1 [id number] #### [facility] [address] [place] [id number] HPV 16+18+31+33+35+39+45+5 1+52+56+58+59+66+68 DNA Probe+sig amp Ql (Cvx) Negative Invalid Interpretation Code Negative [facility] Comment on above: Result Comment: This nucleic acid amplification test detects fourteen high-risk HPV types (16,18,31,33,35,39,45,51,52,56,58,59,66,68) without differentiation. Performed at: WB [address] [id number] MD Alexei Pacheco Performed at: =G [address] [id number] MD Alexei Pacheco Performed By: #### 1 [id number] #### [facility] [address] [place] [address] PAP [id number] 08-14-2021 Collection Technique BRUSH-SPATULA Normal F [facility] Comment on above: Performed By: #### 1 [id number] #### [facility] [address] [place] [address] Gynecological Body Site ENDOCERVIX Normal [facility] Comment on above: Performed By: #### 1 [id number] #### [facility] [address] [place] [id number] Physician Orderon 08-10-2021 Physician Order [id number]:[id number] Normal [facility] Provider Letteron 01-09-2021 Provider Letter January 09, 2021 Dear Rhett, We have been trying to reach you with no success. It is important that you return our call regarding your appointment upon receiving this letter. Also, at the time of your call, please provide us with your current information. Thank you for your prompt attention to this matter. Sincerely, [facility] [address] [id number] Normal [facility] CBC AUTO DIFFon 03-26-2019 Basophils (Bld) [#/Vol] 0.1 103/ul Normal 0.0-0.1 [facility] Comment on above: Performed By: #### C BC #### [facility] [address] [place], [place] [address] Jenifer Juani Basophils/100 WBC (Bld) 1.4 % Normal 0.2-2.0 [facility] Comment on above: Performed By: #### C BC #### [facility] [address] [place], [place] [address] Jenifer Juani Eosinophils (Bld) [#/Vol] 0.2 103/ul Normal 0.0-0.7 [facility] Comment on above: Performed By: #### C BC #### [facility] [address] [place], [place] [address] Jenifer Juani Eosinophils/100 WBC (Bld) 3.2 % Normal 0.9-7.0 [facility] Comment on above: Performed By: #### C BC #### [facility] [address] [place] [address] Jenifer Juani Erythrocyte distribution width (RBC) [Ratio] 12.3 % Normal 11.0-15.0 [facility] Comment on above: Performed By: #### C BC #### [facility] [address] [place] [address] Jenifer Juani Hematocrit (Bld) [Volume fraction] 43.5 % Normal 36.0-48.0 [facility] Comment on above: Performed By: #### C BC #### [facility] [address] [place] [address] Jenifer Juani Hemoglobin (Bld) [Mass/Vol] 14.5 g/dL Normal 12.0-16.0 [facility] Comment on above: Performed By: #### C BC #### [facility] [address] [place] [address] Jenifer Juani IG # 0.02 10e3/ul Normal 0.00-0.03 [facility] Comment on above: Performed By: #### C BC #### [facility] [address] [place] [address] Jenifer Juani IG % 0.4 % Normal 0.0-0.5 [facility] Comment on above: Performed By: #### C BC #### [facility] [address] [place] [address] Jenifer Juani Lymphocytes (Bld) [#/Vol] 1.3 103/ul Normal 1.2-3.8 [facility] Comment on above: Performed By: #### C BC #### [facility] [address] [place], [place] [address] Jenifer Juani Lymphocytes/100 WBC (Bld) 22.3 % Normal 20.5-60.0 [facility] Comment on above: Performed By: #### C BC #### [facility] [address] [place], [place] [address] Jenifer Juani MANUAL DIFF REQ NO Normal [facility] Comment on above: Performed By: #### C BC #### [facility] [address] [place], [place] [address] Jenifer Juani MCH (RBC) [Entitic mass] 30.7 pg Normal 26.7-34.0 [facility] Comment on above: Performed By: #### C BC #### [facility] [address] [place], [place] [address] Jeniferchandan Hoen MCHC (RBC) [Mass/Vol] 33.3 g/dL Normal 29.9-35.2 [facility] Comment on above: Performed By: #### C BC #### [facility] [address] [place], [place] [address] Jenifer Juani MCV (RBC) [Entitic vol] 92.0 fL Normal 81.0-99.0 [facility] Comment on above: Performed By: #### C BC #### [facility] [address] [place] [address] Jenifer Juani Monocytes (Bld) [#/Vol] 0.5 103/ul Normal 0.3-0.8 [facility] Comment on above: Performed By: #### C BC #### [facility] [address] [place] [address] Jenifer Juani Monocytes/100 WBC (Bld) 8.5 % Normal 1.7-12.0 [facility] Comment on above: Performed By: #### C BC #### [facility] [address] [place] [address] Jenifer Juani Neutrophils (Bld) [#/Vol] 3.6 103/ul Normal 1.4-6.5 [facility] Comment on above: Performed By: #### C BC #### [facility] [address] [place] [address] Jenifer Juani Neutrophils/100 WBC (Bld) 64.2 % Normal 43.0-75.0 [facility] Comment on above: Performed By: #### C BC #### [facility] [address] [place], [place] [address] Jenifer Juani Platelet mean volume (Bld) [Entitic vol] 9.4 fL Critically low 9.5-13.5 [facility] Comment on above: Performed By: #### C BC #### [facility] [address] [place], [place] [address] Jenifer Juani Platelets (Bld) [#/Vol] 337 103/ul Normal 150-450 [facility] Comment on above: Performed By: #### C BC #### [facility] [address] [place], [place] [address] Jenifer Juani RBC (Bld) [#/Vol] 4.73 106/ul Normal 4.20-5.40 [facility] Comment on above: Performed By: #### C BC #### [facility] [address] [place], [place] [address] Jeniferchandan Gloria WBC (Bld) [#/Vol] 5.7 103/ul Normal 4.0-11.0 [facility] Comment on above: Performed By: #### C BC #### [facility] [address] [place], [place] [address] Jenifer Gloria PROF 14(COMP METB)on 019 Albumin [Mass/Vol] 4.1 g/dL Normal 3.5-5.0 [facility] Comment on above: Performed By: #### C MP, TSH #### [facility] [address] [place], [place] [address] Jeniferchandan Gloria Albumin/Globulin [Mass ratio] 1.3 {ratio} Normal [facility] Comment on above: Performed By: #### C MP, TSH #### [facility] [address] [place], [place] [address] Jenifer Juani ALP [Catalytic activity/Vol] 55 U/L Normal 38-126 [facility] Comment on above: Performed By: #### C MP, TSH #### [facility] [address] [place], [place] [address] Jenifer Juani ALT [Catalytic activity/Vol] 23 U/L Normal 9-52 [facility] Comment on above: Performed By: #### C MP, TSH #### [facility] [address] [place], [place] [address] Jenifer Juani Anion gap [Moles/Vol] 12.4 mmol/L Normal [facility] Comment on above: Performed By: #### C MP, TSH #### [facility] [address] [place] [address] Jenifer Juani AST [Catalytic activity/Vol] 15 U/L Normal 14-36 [facility] Comment on above: Performed By: #### C MP, TSH #### [facility] [address] [place] [address] Jenifer Juani Bilirubin Ql (U) 0.6 mg/dL Normal 0.2-1.3 [facility] Comment on above: Performed By: #### C MP, TSH #### [facility] [address] [place] [address] Jenifer Juani Calcium [Mass/Vol] 9.6 mg/dL Normal 8.4-10.2 [facility] Comment on above: Performed By: #### C MP, TSH #### [facility] [address] [place] [address] Jenifer Juani Chloride [Moles/Vol] 102 mmol/L Normal 98-107 [facility] Comment on above: Performed By: #### C MP, TSH #### [facility] [address] [place] [address] Jenifer Juani CO2 [Moles/Vol] 29.0 mmol/L Normal 22.0-30.0 [facility] Comment on above: Performed By: #### C MP, TSH #### [facility] [address] [place] [address] Jenifer Juani Creatinine [Mass/Vol] 0.68 mg/dL Normal 0.52-1.04 [facility] Comment on above: Performed By: #### C MP, TSH #### [facility] [address] [place] [address] Jenifer Juani EGFR-AF SINGAPOREAN >60 Normal >=60 [facility] Comment on above: Performed By: #### C MP, TSH #### [facility] [address] [place], [place] [address] Jenifer Juani EGFR-NON AF [place]INGAPOREAN >60 Normal >=60 [facility] Comment on above: Performed By: #### C MP, TSH #### [facility] [address] [place], [place] [address] Jenifer Juani Globulin (S) [Mass/Vol] 3.1 g/dL Normal [facility] Comment on above: Performed By: #### C MP, TSH #### [facility] [address] [place], [place] [address] Jenifer Juani Glucose [Mass/Vol] 84 mg/dL Normal 74-106 [facility] Comment on above: Performed By: #### C MP, TSH #### [facility] [address] [place], [place] [address] Jenifer Juani Potassium [Moles/Vol] 4.4 mmol/L Normal 3.4-5.0 [facility] Comment on above: Performed By: #### C MP, TSH #### [facility] [address] [place] [id number] Jenifer Juani Protein [Mass/Vol] 7.2 g/dL Normal 6.1-8.2 [facility] Comment on above: Performed By: #### C MP, TSH #### [facility] [address] [place] [address] Jenifer Juani Sodium [Moles/Vol] 139 mmol/L Normal 137-145 [facility] Comment on above: Performed By: #### C MP, TSH #### [facility] [address] [place] [address] Jenifer Juani Urea nitrogen [Mass/Vol] 12.0 mg/dL Normal 7.0-17.0 [facility] Comment on above: Performed By: #### C MP, TSH #### [facility] [address] [address] Jenifer Juani Urea nitrogen/Creatinine [Mass ratio] 17.6 mg/mg Normal [facility] Comment on above: Performed By: #### C MP, TSH #### [facility] [address] [place], [place] [address] Jenifer Juani TSHon 03-26-2019 TSH Qn 0.809 uIU/mL Normal 0.470-4.680 [facility] Comment on above: Performed By: #### C MP, TSH #### [facility] [address] [place] [id number] Jenifer Gloria TSH Qn SEE BELOW Normal [facility] Comment on above: Result Comment: <0.3 4 UIU/ml HYPERTHYROID 0.34-5.60 UIU/ml EUTHYROID >5.60 UIU/ml HYPOTHYROID Performed By: #### C MP, TSH #### [facility] [address] [id number] Jeniferchandan Gloria XR KUB 1 VIEWon 01-29-2019 XR KUB 1 VIEW Patient: RHETT BARTHOLOMEW Exam Date: 01/29/2019 : 1970 Gender:F Ordering : DR MAUREEN PETERS . Admission #: [id number] Family : DR YOAV CONTEH Order #: [id number] CLICK HERE TO VIEW EXAM RADIOLOGY REPORT [...] M.D. on 01/29/2019 at 12:33 Normal [facility] HEPATITIS PANEL, ACUTEon HBsAg Screen Negative Normal Negative [facility] Comment on above: Performed By: #### H EPACUT #### [facility] [address] [place] [id number] Jenifer Gloria Hep A Ab, IgM Negative Normal Negative [facility] Comment on above: Performed By: #### H EPACUT #### [facility] [address] [place] [id number] Jenifer Gloria Hep B Core Ab, IgM Negative Normal Negative [facility] Comment on above: Performed By: #### H EPACUT #### [facility] [address] [place], [place] [address] Jenifer Juani Hep C Virus Ab 0.1 s/co ratio Normal 0.0-0.9 [facility] Comment on above: Result Comment: Nega tive: < 0.8 Indeterminate: 0.8 - 0.9 Positive: > 0.9 . The CDC recommends that a positive HCV antibody result be followed up with a HCV Nucleic Acid Amplification test (656950). Performed By: #### H EPACUT #### [facility] [address] [place], [place] [address] Jenifer Juani LIPID PROFILEon 09-20-2018 CHOL-HDL RATIO NORM SEE BELOW Normal [facility] Comment on above: Result Comment: 3.3 - 4.4 LOW RISK 4.4 - 7.1 AVERAGE RISK 7.1 - 11.0 MODERATE RISK >11.0 HIGH RISK Performed By: #### L IPID, LIVER #### [facility] [address] [place] [address] Jenifer Juani Cholesterol [Mass/Vol] 149 mg/dL Normal <=200 [facility] Comment on above: Performed By: #### L KAM, LIVER #### [facility] [address] [place] [address] Jenifer Juani Cholesterol in HDL [Mass/Vol] 51 mg/dL Normal [facility] Comment on above: Performed By: #### L IPID, LIVER #### [facility] [address] [place], [place] [address] Jenifer Juani Cholesterol in HDL [Mass/Vol] > or = 60 mg/dl - LOW CARDIOVASCULAR RISK <40 mg/dl - HIGH CARDIOVASCULAR RISK Normal [facility] Comment on above: Performed By: #### L IPID, LIVER #### [facility] [address] [place] [address] Jenifer Juani Cholesterol in LDL [Mass/Vol] SEE BELOW Normal [facility] Comment on above: Result Comment: <100 mg/dl OPTIMAL 100 - 129 mg/dl NEAR OR ABOVE OPTIMAL 130 - 159 mg/dl BORDERLINE HIGH 160 - 189 mg/dl HIGH >190 mg/dl VERY HIGH Performed By: #### L IPID, LIVER #### [facility] [address] [place], [place] [address] Jenifer Juani Cholesterol in LDL [Mass/Vol] 91.6 mg/dL Normal [facility] Comment on above: Performed By: #### L IPID, LIVER #### [facility] [address] [place] [address] Jenifer Juani Cholesterol.total/Chol esterol in HDL [Mass ratio] 2.9 {ratio} Normal [facility] Comment on above: Performed By: #### L IPID, LIVER #### [facility] [address] [place], [place] [address] Jenifer Juani Triglyceride [Mass/Vol] 32 mg/dL Normal <=150 [facility] Comment on above: Performed By: #### L IPID, LIVER #### [facility] [address] [place], [place] [address] Jenifer Juani VLDL CALC 6.4 mg/dL Normal [facility] Comment on above: Performed By: #### L IPID, LIVER #### [facility] [address] [place] [address] Jenifer Juani LIVER PROFILEon 09-20-2018 Albumin [Mass/Vol] 3.7 g/dL Normal 3.5-5.0 [facility] Comment on above: Performed By: #### L IPID, LIVER #### [facility] [address] [place], [place] [address] Jenifer Juani Albumin/Globulin [Mass ratio] 1.1 {ratio} Normal [facility] Comment on above: Performed By: #### L IPID, LIVER #### [facility] [address] [place] [address] Jenifer Juani ALP [Catalytic activity/Vol] 76 U/L Normal 38-126 [facility] Comment on above: Performed By: #### L IPID, LIVER #### [facility] [address] [place] [address] Jenifer Juani ALT [Catalytic activity/Vol] 27 U/L Normal 9-52 [facility] Comment on above: Performed By: #### L IPID, LIVER #### [facility] [address] [place], [place] [address] Jenifer Juani AST [Catalytic activity/Vol] 14 U/L Normal 14-36 [facility] Comment on above: Performed By: #### L IPID, LIVER #### [facility] [address] [place], [place] [address] Jenifer Juani BILI, CONJUGATED 0.1 mg/dL Normal 0.0-0.3 [facility] Comment on above: Performed By: #### L IPID, LIVER #### [facility] [address] [place], [place] [address] Jenifer Juani Bilirubin Ql (U) 0.4 mg/dL Normal 0.2-1.3 [facility] Comment on above: Performed By: #### L IPID, LIVER #### [facility] [address] [place], [place] [address] Jenifer Juani Globulin (S) [Mass/Vol] 3.3 g/dL Normal [facility] Comment on above: Performed By: #### L IPID, LIVER #### [facility] [address] [place], [place] [address] Jenifer Juani Protein [Mass/Vol] 7.0 g/dL Normal 6.1-8.2 [facility] Comment on above: Performed By: #### L IPID, LIVER #### [facility] [address] [place], [place] [address] Jenifer Juani CBC AUTO DIFFon 08-30-2018 Basophils (Bld) [#/Vol] 0.1 103/ul Normal 0.0-0.1 [facility] Comment on above: Performed By: #### C BC #### [facility] [address] [place], [place] [address] Jenifer Juani Basophils/100 WBC (Bld) 0.9 % Normal 0.2-2.0 [facility] Comment on above: Performed By: #### C BC #### [facility] [address] [place], [place] [address] Jenifer Juani Eosinophils (Bld) [#/Vol] 0.2 103/ul Normal 0.0-0.7 [facility] Comment on above: Performed By: #### C BC #### [facility] [address] [place], [place] [address] Jenifer Juani Eosinophils/100 WBC (Bld) 2.9 % Normal 0.9-7.0 [facility] Comment on above: Performed By: #### C BC #### [facility] [address] [place] [address] Jenifer Juani Erythrocyte distribution width (RBC) [Ratio] 12.8 % Normal 11.0-15.0 [facility] Comment on above: Performed By: #### C BC #### [facility] [address] [place] [address] Jenifer Juani Hematocrit (Bld) [Volume fraction] 41.7 % Normal 36.0-48.0 [facility] Comment on above: Performed By: #### C BC #### [facility] [address] [place] [address] Jenifer Juani Hemoglobin (Bld) [Mass/Vol] 14.2 g/dL Normal 12.0-16.0 [facility] Comment on above: Performed By: #### C BC #### [facility] [address] [place] [address] Jenifer Juani IG # 0.02 10e3/ul Normal 0.00-0.03 [facility] Comment on above: Performed By: #### C BC #### [facility] [address] [place] [address] Jenifer Juani IG % 0.3 % Normal 0.0-0.5 [facility] Comment on above: Performed By: #### C BC #### [facility] [address] [place], [place] [address] Jenifer Juani Lymphocytes (Bld) [#/Vol] 1.4 103/ul Normal 1.2-3.8 [facility] Comment on above: Performed By: #### C BC #### [facility] [address] [place], [place] [address] Jenifer Juani Lymphocytes/100 WBC (Bld) 19.8 % Critically low 20.5-60.0 [facility] Comment on above: Performed By: #### C BC #### [facility] [address] [place], [place] [address] Jenifer Juani MANUAL DIFF REQ NO Normal [facility] Comment on above: Performed By: #### C BC #### [facility] [address] [place], [place] [address] Jenifer Juani MCH (RBC) [Entitic mass] 31.1 pg Normal 26.7-34.0 [facility] Comment on above: Performed By: #### C BC #### [facility] [address] [place], [place] [address] Jenifer Juani MCHC (RBC) [Mass/Vol] 34.1 g/dL Normal 29.9-35.2 [facility] Comment on above: Performed By: #### C BC #### [facility] [address] [place], [place] [address] Jenifer Juani MCV (RBC) [Entitic vol] 91.2 fL Normal 81.0-99.0 [facility] Comment on above: Performed By: #### C BC #### [facility] [address] [place], [place] [address] Jenifer Juani Monocytes (Bld) [#/Vol] 0.6 103/ul Normal 0.3-0.8 [facility] Comment on above: Performed By: #### C BC #### [facility] [address] [place], [place] [address] Jenifer Juani Monocytes/100 WBC (Bld) 8.9 % Normal 1.7-12.0 [facility] Comment on above: Performed By: #### C BC #### [facility] [address] [place], [place] [address] Jenifer Juani Neutrophils (Bld) [#/Vol] 4.7 103/ul Normal 1.4-6.5 [facility] Comment on above: Performed By: #### C BC #### [facility] [address] [place], [place] [address] Jenifer Juani Neutrophils/100 WBC (Bld) 67.2 % Normal 43.0-75.0 [facility] Comment on above: Performed By: #### C BC #### [facility] [address] [place], [place] [address] Jeniefrchandan Gloria Platelet mean volume (Bld) [Entitic vol] 9.5 fL Normal 9.5-13.5 [facility] Comment on above: Performed By: #### C BC #### [facility] [address] [place], [place] [address] Jeniferchandan Gloria Platelets (Bld) [#/Vol] 284 103/ul Normal 150-450 [facility] Comment on above: Performed By: #### C BC #### [facility] [address] [place], [place] [address] Jeniferchandan Gloria RBC (Bld) [#/Vol] 4.57 106/ul Normal 4.20-5.40 [facility] Comment on above: Performed By: #### C BC #### [facility] [address] [place], [place] [address] Jeniferchandan Gloria WBC (Bld) [#/Vol] 7.0 103/ul Normal 4.0-11.0 [facility] Comment on above: Performed By: #### C BC #### [facility] [address] [place], [place] [address] Jenifer Gloria PROF 14(COMP METB)on 019 Albumin [Mass/Vol] 4.2 g/dL Normal 3.5-5.0 [facility] Comment on above: Performed By: #### C MP #### [facility] [address] [place], [place] [address] Jeniferchandan Gloria Albumin/Globulin [Mass ratio] 1.4 {ratio} Normal [facility] Comment on above: Performed By: #### C MP #### [facility] [address] [place], [place] [id number] Jenifer Juani ALP [Catalytic activity/Vol] 57 U/L Normal 38-126 [facility] Comment on above: Performed By: #### C MP #### [facility] [address] [place], [place] [id number] Jenifer Juani ALT [Catalytic activity/Vol] 53 U/L Critically high 9-52 [facility] Comment on above: Performed By: #### C MP #### [facility] [address] [id number] Jenifer Juani Anion gap [Moles/Vol] 10.3 mmol/L Normal [facility] Comment on above: Performed By: #### C MP #### [facility] [address] [address] Jenifer Juani AST [Catalytic activity/Vol] 24 U/L Normal 14-36 [facility] Comment on above: Performed By: #### C MP #### [facility] [address] [place] [address] Jenifer Juani Bilirubin Ql (U) 0.4 mg/dL Normal 0.2-1.3 [facility] Comment on above: Performed By: #### C MP #### [facility] [address] [place] [address] Jenifer Juani Calcium [Mass/Vol] 8.9 mg/dL Normal 8.4-10.2 [facility] Comment on above: Performed By: #### C MP #### [facility] [address] [place] [address] Jenifer Juani Chloride [Moles/Vol] 102 mmol/L Normal 98-107 [facility] Comment on above: Performed By: #### C MP #### [facility] [address] [place] [address] Jenifer Juani CO2 [Moles/Vol] 30.9 mmol/L Critically high 22.0-30.0 [facility] Comment on above: Performed By: #### C MP #### [facility] [address] [place], [place] [id number] Jenifer Juani Creatinine [Mass/Vol] 0.65 mg/dL Normal 0.52-1.04 [facility] Comment on above: Performed By: #### C MP #### [facility] [address] [place], [place] [id number] Jenifer Juani EGFR-AF SINGAPOREAN >60 Normal >=60 [facility] Comment on above: Performed By: #### C MP #### [facility] [address] [id number] Jenifer Juani EGFR-NON AF SINGAPOREAN >60 Normal >=60 [facility] Comment on above: Performed By: #### C MP #### [facility] [address] [id number] Jenifer Juani Globulin (S) [Mass/Vol] 3.0 g/dL Normal [facility] Comment on above: Performed By: #### C MP #### [facility] [address] [address] Jenifer Juani Glucose [Mass/Vol] 88 mg/dL Normal 74-106 [facility] Comment on above: Performed By: #### C MP #### [facility] [address] [address] Jenifer Juani Potassium [Moles/Vol] 4.2 mmol/L Normal 3.4-5.0 [facility] Comment on above: Performed By: #### C MP #### [facility] [address] [place] [address] Jenifer Juani Protein [Mass/Vol] 7.2 g/dL Normal 6.1-8.2 [facility] Comment on above: Performed By: #### C MP #### [facility] [address] [place] [address] Jenifer Juani Sodium [Moles/Vol] 139 mmol/L Normal 137-145 [facility] Comment on above: Performed By: #### C MP #### [facility] [address] [id number] Jenifer Juani Urea nitrogen [Mass/Vol] 11.0 mg/dL Normal 7.0-17.0 [facility] Comment on above: Performed By: #### C MP #### [facility] [address] [id number] Jenifer Juani Urea nitrogen/Creatinine [Mass ratio] 16.9 mg/mg Normal [facility] Comment on above: Performed By: #### C MP #### [facility] [address] [address] Jenifer Gloria Social History Date Type Detail Facility Start: 11-15-2021 End: 11-23-2021 Tobacco smoking status NHIS Never smoked tobacco (finding) [facility] Start: 1970 Sex Assigned At Female F [facility] Sex Assigned At Sex Assigned At Bir th [facility] Other Vital Signs Date Time Vital Sign Value Performing Clinician Faci lity 07-29-2023 16:40-0500 Body height 160.02 cm Yoav Conteh Other [facility] 07-29-2023 16:40-0500 Body mass index (BMI) [Ratio] 27.45 kg/m2 Yoav Conteh Other [facility] 07-29-2023 16:40-0500 Body temperature 98.7 [degF] Yoav Conteh Other [facility] 07-29-2023 16:40-0500 Body weight 70.31 kg Yoav Conteh Other [facility] 07-29-2023 16:40-0500 Diastolic blood pressure 80 mm[Hg] Yoav Conteh Other [facility] 07-29-2023 16:40-0500 Respiratory rate 18 /min Yoav Conteh Other [facility] 07-29-2023 16:40-0500 SaO2% (BldA) [Mass fraction] 98 % Yoav Conteh Other [facility] 07-29-2023 16:40-0500 Systolic blood pressure 122 mm[Hg] Yoav Conteh Other [facility] 01-28-2023 17:40-0400 Body height 160.02 cm Yoav Conteh Other [facility] 01-28-2023 17:40-0400 Body mass index (BMI) [Ratio] 25.86 kg/m2 Yoav Conteh Other [facility] 01-28-2023 17:40-0400 Body temperature 97.7 [degF] Yoav Conteh Other [facility] 01-28-2023 17:40-0400 Body weight 66.23 kg Yoav Conteh Other [facility] 01-28-2023 17:40-0400 Diastolic blood pressure 84 mm[Hg] Yoav Conteh Other [facility] 01-28-2023 17:40-0400 Respiratory rate 16 /min Yoav Conteh Other [facility] 01-28-2023 17:40-0400 SaO2% (BldA) [Mass fraction] 98 % Yoav Conteh Other [facility] 01-28-2023 17:40-0400 Systolic blood pressure 126 mm[Hg] Yoav Conteh Other [facility] Other 07-23-2022 18:20-0500 Body height 160.02 cm Yoav Conteh Other [facility] 07-23-2022 18:20-0500 Body mass index (BMI) [Ratio] 26.75 kg/m2 Yoav Conteh Other [facility] 07-23-2022 18:20-0500 Body temperature 97.9 [degF] Yoav Conteh Other [facility] 07-23-2022 18:20-0500 Body weight 68.49 kg Yoav Conteh Other [facility] 07-23-2022 18:20-0500 Diastolic blood pressure 88 mm[Hg] Yoav Conteh Other [facility] 07-23-2022 18:20-0500 Respiratory rate 18 /min Yoav Conteh Other [facility] 07-23-2022 18:20-0500 SaO2% (BldA) [Mass fraction] 98 % Yoav Conteh Other [facility] 07-23-2022 18:20-0500 Systolic blood pressure 122 mm[Hg] Yoav Conteh Other [facility] 01-15-2022 18:20-0400 Body height 160.02 cm Yoav Conteh Other [facility] 01-15-2022 18:20-0400 Body mass index (BMI) [Ratio] 26.04 kg/m2 Yoav Conteh Other [facility] 01-15-2022 18:20-0400 Body temperature 98 [degF] Yoav Conteh Other [facility] 01-15-2022 18:20-0400 Body weight 66.68 kg Yoav Conteh Other [facility] 01-15-2022 18:20-0400 Diastolic blood pressure 84 mm[Hg] Yoav Conteh Other [facility] 01-15-2022 18:20-0400 Respiratory rate 18 /min Yoav Conteh Other [facility] 01-15-2022 18:20-0400 SaO2% (BldA) [Mass fraction] 98 % Yoav Conteh Other [facility] 01-15-2022 18:20-0400 Systolic blood pressure 130 mm[Hg] Yoav Conteh Other [facility] 12-26-2021 13:05-0400 Body height 160.02 cm Dee Bonnie Other [facility] 12-26-2021 13:05-0400 Body mass index (BMI) [Ratio] 25.33 kg/m2 Dee Bonnie Other [facility] 12-26-2021 13:05-0400 Body temperature 98.1 [degF] Dee Bonnie Other [facility] 12-26-2021 13:05-0400 Body weight 64.86 kg Dee Bonnie Other [facility] 12-26-2021 13:05-0400 Diastolic blood pressure 100 mm[Hg] Dee Bonnie Other [facility] 12-26-2021 13:05-0400 Respiratory rate 18 /min Dee Bonnie Other [facility] 12-26-2021 13:05-0400 SaO2% (BldA) [Mass fraction] 97 % Dee Bonnie Other [facility] 12-26-2021 13:05-0400 Systolic blood pressure 137 mm[Hg] Dee Bonnie Other [facility] 11-23-2021 18:27-0400 Diastolic blood pressure 77 mm[Hg] DO Isis Nataprawira Work Phone: [facility] 11-23-2021 18:27-0400 Heart rate 96 /min DO Isis Nataprawira Work Phone: [facility] 11-23-2021 18:27-0400 Systolic blood pressure 116 mm[Hg] DO Isis Nataprawira Work Phone: [facility] 11-23-2021 17:28-0400 SaO2% (BldA) [Mass fraction] 100 % DO Isis Nataprawira Work Phone: [facility] 11-23-2021 16:06-0400 Body temperature 97.9 [degF] DO Isis Nataprawira Work Phone: [facility] 11-23-2021 16:06-0400 Inhaled oxygen flow rate 1 L/min DO Isis Nataprawira Work Phone: [facility] 11-23-2021 16:06-0400 Respiratory rate 20 /min DO Isis Nataprawira Work Phone: [facility] 11-23-2021 10:57-0400 Body height 160.66 cm DO Isis Nataprawira Work Phone: [facility] 11-23-2021 10:57-0400 Body mass index (BMI) [Ratio] 25.2 kg/m2 DO Isis Nataprawira Work Phone: [facility] 11-23-2021 10:57-0400 Body weight 65 kg DO Isis Nataprawira Work Phone: [facility] 09-04-2021 18:20-0500 Body height 160.02 cm Yoav Conteh Other [facility] 09-04-2021 18:20-0500 Body mass index (BMI) [Ratio] 24.97 kg/m2 Yoav Conteh Other [facility] 09-04-2021 18:20-0500 Body temperature 97.2 [degF] Yoav Conteh Other [facility] 09-04-2021 18:20-0500 Body weight 63.96 kg Yoav Conteh Other [facility] 09-04-2021 18:20-0500 Diastolic blood pressure 80 mm[Hg] Yoav Conteh Other [facility] 09-04-2021 18:20-0500 Respiratory rate 18 /min Yoav Conteh Other [facility] 09-04-2021 18:20-0500 SaO2% (BldA) [Mass fraction] 99 % Yoav Conteh Other [facility] 09-04-2021 18:20-0500 Systolic blood pressure 128 mm[Hg] Yoav Conteh Other [facility] 06-12-2021 17:40-0500 Body height 160.02 cm Yoav Conteh Other [facility] 06-12-2021 17:40-0500 Body mass index (BMI) [Ratio] 23.2 kg/m2 Yoav Conteh Other [facility] 06-12-2021 17:40-0500 Body temperature 97.8 [degF] Yoav Conteh Other [facility] 06-12-2021 17:40-0500 Body weight 59.42 kg Yoav Conteh Other [facility] 06-12-2021 17:40-0500 Diastolic blood pressure 88 mm[Hg] Yoav Conteh Other [facility] 06-12-2021 17:40-0500 Respiratory rate 18 /min Yoav Conteh Other [facility] 06-12-2021 17:40-0500 SaO2% (BldA) [Mass fraction] 99 % Yoav Conteh Other [facility] 06-12-2021 17:40-0500 Systolic blood pressure 138 mm[Hg] Yoav Conteh Other [facility] Other Clinical Notes 04-08-2013 to 07-29-2023 Note Date [...] her calcium tablet with or without meal. [facility] 07-31-2023 Evaluation note* Encounter Date Diagnosis [...] Ramirez again or else see a different vending machine repairer for a second opinion. She voices that [...] advise her that her levels are good. [facility] 01-23-2023 Evaluation note* Encounter Date Diagnosis [...] She does not want to see a miniature set designer right now. She can use 1% hydrocortisone [...] refuses a colonoscopy and FOBT test today. [facility] 07-18-2022 Evaluation note* Encounter Date Diagnosis Assessment Notes Treatment Notes Treatment Clinical Notes Dec, Iron deficiency anemia (ICD-10 - D50.9) Since she had her hysterectomy in October (2021) she was told to stop taking the Iron. Her hemoglobin was 13.7. Iron is 140.0. Ferritin is 50.2. Her readings are good without the Iron so she can continue without the Iron. Dec, Herpes zoster (ICD-10 - B02.9) I would like to treat her rash on her neck for potential Shingles. If this does not resolve with treatment then she should see a miniature set designer. She is in agreement to trying the treatment. Guidance is given on how to take the medication. Dec, Vitamin B12 deficiency (ICD-10 - E53.8) She voices that since she had her hysterectomy in October (2021) she was told to stop taking the [...] but she did not remove her ovaries. [facility] 06-28-2022 Evaluation note* Encounter Date Diagnosis Assessment Notes Treatment Notes Treatment Clinical Notes Nov, Urticaria (ICD-10 - L50.9) Drink plenty fluids, get plenty of rest. Take the prednisone as prescribed until gone. Follow-up with your family physician if no improvement in 2 to 3 days. [facility] 03-07-2022 Evaluation note* Encounter Date Diagnosis Assessment Notes Treatment Notes Treatment Clinical Notes Aug, Iron deficiency anemia (ICD-10 - D50.9) She voices that she will return to see her novelty printing machine operator on 10-04-21 and they will decide if [...] better. She is told that if her SPIRITUAL ADVISOR advises her to stop taking the Iron [...] ordered, this was ordered by Dr. Rios. [facility] Other 12-13-2021 Evaluation note* Encounter Date Diagnosis [...] fiber. I do recommend she see her novelty printing machine operator to discuss a hysterectomy or ablation. She [...] were very heavy. In August (2020) her SPIRITUAL ADVISOR told her this was normal. She has [...] not elevated. She will continue to monitor. [facility] Other 10-09-2013 History general Narrative - Reported* Type Description Date Medical History CT Abdomen and Pelvi s without Contrast 04-08-13; [facility] Medical History CT Abdomen & pelvis done [...] History laparascopy Dr. Esquivel 1989 Surgical History Arthur Teeth removed Surgical History D&C/miscarriage 1989 Surgical History Colonoscopy, spastic colon 1994 Surgical History pap 09/2016 Surgical History US 09/2016 Surgical History mammogram 09/2016 Surgical History right breast biopsy Surgical History ureteroscopy - Dr Peters 08/2017 Surgical History mammogram 03/2018 Hospitalization History childbirth 1989/199 1 [facility] Other 10-09-2013 History general Narrative - Reported* Type Description Date Medical History CT Abdomen and Pelvi s without Contrast 04-08-13; [facility] Medical History CT Abdomen & pelvis done [...] History laparascopy Dr. Esquivel 1989 Surgical History Arthur Teeth removed Surgical History D&C/miscarriage 1989 Surgical History Colonoscopy, spastic colon 1994 Surgical History pap 09/2016 Surgical History US 09/2016 Surgical History mammogram 09/2016 Surgical History right breast biopsy Surgical History ureteroscopy - Dr Peters 08/2017 Surgical History mammogram 03/2018 Surgical History hysterectomy 11/24/2021 Hospitalization History childbirth 1 [facility] 10-09-2013 History general Narrative - Reported* Type Description Date Medical History CT Abdomen and Pelvi s without Contrast 04-08-13; [facility] Medical History CT Abdomen & pelvis done [...] History laparascopy Dr. Esquivel 1989 Surgical History Arthur Teeth removed Surgical History D&C/miscarriage 1989 Surgical History Colonoscopy, spastic colon 1994 Surgical History pap 09/2016 Surgical History US 09/2016 Surgical History mammogram 09/2016 Surgical History right breast biopsy Surgical History ureteroscopy - Dr Peters 08/2017 Surgical History mammogram 03/2018 Surgical History hysterectomy 11/24/2021 Hospitalization History childbirth 1 [facility] Other Evaluation noteNo assessment information available [facility] Work Phone: Evaluation noteNo InformationNort [employer] Other Summary Purpose Family History No Family [...] lymphadenopathy Diagnosis 1 Dysphagia (R13.10) Referral Organization [facility] Family Pascual Banuelos Referring Provider First Name Yoav Referring Provider Last Name Wero Referring Provider Specialty Family Prac wesley Referred Organization [facility] Referred Provider Ramonita Burnham Referred Address ,[place], [place],[address] Referred Provider Specialty Ear, Nose an d Throat Referral Priority Routine General Notes Dinah Hallman 06/12/2021 05:44:39 PM > referral sent p2p with office note and insurance card. pt understands she will be contacted to schedule this appt Additional Source Comments INFORMATION SOURCE (unrecogn ized section and content) DATE CREATED AUTHOR 07/06/2019 [facility] DATE CREATED AUTHOR AUTHOR'S ORGANIZ ATION 08/18/[address] [facility] DATE CREATED AUTHOR AUTHOR'S ORGANIZ ATION 10/09/2023 [facility] DATE CREATED AUTHOR AUTHOR'S ORGANIZ ATION [facility]/07/20[facility] DATE CREATED AUTHOR AUTHOR'S ORGANIZ ATION 12/11/2023 [facility] Care Teams (unrecognized sec tion and content) Team Status: Inactive Member Role Status Dates Isis Rosado DO Attending Provider Active Yoav Conteh DO Primary Care Provider Active Team Status: Active Member Role Status Dates Yoav Conteh DO Primary Care Provider Active Team Status: Active Member Role Status Dates Yoav Conteh DO Primary Care Provider Active S tart: December 07, 2023 Antonio White , DO Attending Provider Active S tart: December 07, 2023 Team Status: Active Member Role Status Dates Yoav Conteh DO Primary Care Provider Active S tart: December 08, 2023 Antonio White , DO Attending Provider Active S tart: December 08, 2023 Team Status: Inactive Member Role Status Dates Yoav Chenmariah , DO Primary Care Provider Active S tart: December 08, 2023 End: December 08, 2023 Joey Wesley , DO Attending Provider Active Star t: December 08, 2023 End: December 08, 2023 Team Status: Active Member Role Status Dates Yoav Conteh Primary Care Provide r, Attending Provider Active [...] BE BASED ON THE PRIMARY CLINICAL RECORDS. [facility]. provides no warranty or guarantee of the accuracy or completeness of information in this document.
[2023-12-16] MEDS: 0.9 % SODIUM CHLORIDE 1,000 ML 100 ML IV (23:11)
[2023-12-16] MEDS: LEVOFLOXACIN IN DEXTROSE 5 % 750 MG/150 ML IV.SOLN 100 MG IV (23:12)
[2023-12-16] MEDS: OMEPRAZOLE 40 MG CAPSULE.DR PO (23:12)
--- NOTE | 2023-12-17 | CONS_ITS ---
CONSULTATION CONSULTATION DATE: ??12/17/2023 CHIEF COMPLAINT:? Groin pain as well as abnormal CT scan of the abdomen and pelvis. HISTORY OF PRESENT ILLNESS:? Patient is a 53-year-old female with history of rheumatoid arthritis, gastroesophageal reflux disease, hypertension, depression, who is nine days status post laparoscopic appendectomy for ruptured appendicitis.? This was performed by Dr. Olson who is current out of [facility].? Patient was discharged from the hospital the day after her surgery and was on Augmentin b.i.d. because she had a romero sensitive E. coli UTI that was asymptomatic.? She was taking narcotic pain medications for the first three days after surgery, the reports that she switched to Tylenol.? On Saturday, four days ago, she developed some left groin pain which she describes as a burning, tearing pain, which was worse with activities, relieved with rest.? It was intermittent.? She had not been experiencing this before, but she had been doing more activities and initially thought it was due to that, but it persisted.? She had been offered anti-inflammatories since surgery, at the recommendation of Dr. Olson.? She denies any fevers, chills or night sweats.? Has had no nausea or vomiting.? Has been eating a regular diet, somewhat less than normal, but without issues.? She has had somewhat irregular bowel movements, but now has been having more normal bowel movements over the last couple days.? She denies any blood, mucus or watery stools.? Has had no problems with the incisions.? No drainage or erythema.? She did present to the emergency room last evening and then had a workup which reveals a mildly elevated white blood cell count.? She underwent a CT scan of the abdomen and pelvis which revealed a small fluid collection in the posterior right pelvis with a volume of approximately 12 mL.? No air within it.? No significant inflammatory changes within the abdomen or around the cecum.? She did have evidence of inflammation within the bladder with some red cells and white cells currently.? Repeat culture is currently pending.? She was admitted, placed on IV Zosyn as well as Levaquin.? Reports that pain is improved, but she has not been as active.? She still has intermittent burning pain in the left groin with some activities that resolve spontaneously.? She has been afebrile since her admission, has a normal white blood cell count today.? ALLERGIES:? Patient has allergies to Bactrim. MEDICATION:? Home medication includes clobetasol, fluoxetine, hydrochlorothiazide, nabumetone, pantoprazole and tizanidine. PAST SURGICAL HISTORY:? Significant for a laparoscopic hysterectomy as well as the recent laparoscopic appendectomy. SOCIAL HISTORY:? Patient denies tobacco use.? Reports rare alcohol use.? No illicit drug use. FAMILY HISTORY:? Noncontributory. REVIEW OF SYSTEMS:? Ten system review of systems is negative for recent weight loss or weight gain.? She denies increased fatigue or light-headedness.? Has had no earache or tinnitus.? No sinus congestion.? No sore throat or hoarseness.? No chest pain, palpitations or syncope.? No chronic cough, shortness of breath or hemoptysis.? She has had the groin pain.? No significant abdominal pain.? No nausea, vomiting, diarrhea or blood in the stools.? ?No melena.? No dysuria, frequency, urgency or hematuria.? No headaches, seizures or tremors.? No easy bruising or bleeding.? No heat or cold intolerance.? No polydipsia, polyphagia or polyuria. PHYSICAL EXAM:? VITAL SIGNS:? Patient?s BMI is 27.7.? She is afebrile.? Blood pressure is 142/84.? Pulse is 76 and regular.? Respiratory rate is 18.? O2 saturation is 94% on room air. GENERAL:? In general, she is a well developed, well nourished female, currently in no acute distress.? HEENT:? Normocephalic, atraumatic.? Sclerae anicteric.? Conjunctiva are not injected.? Oral mucosa is moist without lesions.? NECK:? Supple.? There is no adenopathy, thyromegaly or JVD. LUNGS:? Clear bilaterally.? CARDIAC EXAM:? Regular rhythm and rate. ABDOMEN:? Soft.? There are positive bowel sounds.? It is non-distended.? Incisions are without erythema or drainage.? No ecchymoses.? She does have some mild tenderness over the left groin area in the crease.? No palpable hernias or skin changes in that area.? No crepitus. IMAGING:? CT scan that was personally reviewed/the images. ASSESSMENT:? A 53-year-old female with some burning left groin pain with activity.? No signs of infection; specifically no fever, elevated white blood cell count.? No abnormal vital signs.? Her bowel function appears to be normal and she is tolerating a regular diet.? Overall, the small fluid collection certainly may be an early abscess versus just a sterile fluid collection or blood and/or fluid.? She has been on antibiotic since prior to the surgery, and even if it was an early abscess, the size and volume should respond well to additional antibiotics. RECOMMENDATIONS:? Would recommend continue observing the patient today.? Continue the IV Levaquin and IV Zosyn.? We should have some preliminary culture results back to make sure that nothing resistant is growing.? As long as she continues to do well and remains without signs of infection, she likely can be discharged on oral antibiotics tomorrow.? I will check her in the morning and leave a note as well.? Certainly, the groin pain may be due to her rheumatoid, since she has been off her anti-inflammatories.? Certainly can be due to inflammation within the pelvis, which would be expected post-op and began after she became more active.? So, certainly could be explained and is most likely not related to the fluid collection. SERGEI
[2023-12-17] MEDS: PIPERACILLIN SODIUM/TAZOBACTAM 3.375 GM in 0.9 % SODIUM CHLORIDE 50 ML IV ×3 (03:57→21:25)
[2023-12-17] MEDS: ACETAMINOPHEN 325 MG TABLET 650 MG PO ×3 (04:05→15:30)
[2023-12-17 05:30] VITALS: BP 107/66; PULSE 76; TEMP 36.6; O2SAT 94
[2023-12-17 05:37] LABS: Basophils Absolute Auto 0.1 10^3/uL (0.0-0.1); Basophils Percent Auto 0.7 % (0.2-2.0); Eosinophils Absolute Auto 0.2 10^3/uL (0.0-0.7); Eosinophils Percent Auto 2.1 % (0.9-7.0); Hematocrit 31.7 % (36.0-48.0); Hemoglobin 10.4 g/dL (12.0-16.0); Immature Granulocytes Abs Auto 0.18 10^3/uL (0.00-0.03); Immature Granulocytes Pct Auto 2.1 % (0.0-0.5); Lymphocytes Absolute Auto 1.5 10^3/uL (1.2-3.8); Mean Corpuscular HGB Conc 32.8 g/dL (29.9-35.2); Mean Corpuscular Hemoglobin 29.7 pg (26.7-34.0); Mean Corpuscular Volume 90.6 fL (81.0-99.0); Mean Platelet Volume 8.8 fL (9.5-13.5); Monocytes Absolute Auto 0.6 10^3/uL (0.3-0.8); Monocytes Percent Auto 7.4 % (1.7-12.0); Neutrophils Percent Auto 70.7 % (43.0-75.0); Platelet Count 420 10^3/uL (150-450); Red Cell Distribution Width 12.7 % (11.0-15.0); White Blood Count 8.5 10^3/uL (4.0-11.0)
[2023-12-17 06:10] LABS: Alanine Aminotransferase 19 U/L (14-59); Albumin Globulin Ratio 0.7; Albumin Level 2.5 g/dL (3.4-5.0); Alkaline Phosphatase 69 U/L (46-116); Anion Gap 9.5; Aspartate Amino Transferase 12 U/L (15-37); BUN Creatinine Ratio 8.5; Bilirubin Total 0.3 mg/dL (0.2-1.0); Calcium 8.6 mg/dL (8.5-10.1); Carbon Dioxide 28.3 mmol/L (21.0-32.0); Chloride 106 mmol/L (98-107); Estimated GFR (African America >60 (>=60); Estimated GFR (Non-African Ame >60 (>=60); Globulin 3.8 g/dL; Glucose 96 mg/dL (74-106); Potassium 3.8 mmol/L (3.5-5.1); Sodium 140 mmol/L (136-145); Total Protein 6.3 g/dL (6.4-8.2)
[2023-12-17 09:33] VITALS: BP 142/84
[2023-12-17] MEDS: FLUOXETINE HCL 20 MG CAPSULE PO (09:33)
[2023-12-17] MEDS: NABUMETONE 500 MG TABLET 750 MG PO ×2 (09:33→21:24)
[2023-12-17] MEDS: OMEPRAZOLE 40 MG CAPSULE.DR PO ×2 (09:33→21:24)
[2023-12-17] MEDS: HYDROCHLOROTHIAZIDE 25 MG TABLET 12.5 MG PO (09:33)
--- NOTE | 2023-12-17 10:53 | P.HP_ITS ---
<Statement entered by Clara Sadler DO - 12/17/23 13:13> This documentation has been reviewed and approved. I have also seen and evaluated patient at the time of admission and agree with the above findings, assessments and plan of care. HPI H&P: HPI History of Present Illness Chief complaint: Postoperative Complication, Intra-Abd Abscess Narrative: 12/17/23919 This is a 53-year-old female patient with a past medical history as outlined below including depression, hypertension, psoriatic arthritis, and GERD, with recent hospitalization for acute appendicitis s/p appendectomy; who presented to the ED last night complaining of acute onset of burning suprapubic/pelvic pain about 3 days prior to presentation. The patient's appendectomy was performed on 12/08/[address] Olson. The patient's recovery has been unremarkable until last Saturday when she began to experience this burning pain. She noticed the pain was worse with certain position changes and was intermittent. She denies fevers, N/V/D, chest pain, or shortness of breath. As her pain was persistent and it sometimes severe, she presented to the ED for further evaluation. Workup in the ED revealed hypertension (153/100), leukocytosis (11.1), and urinalysis was positive for infection but improved since admission on 12/08/2023. All other labs were unremarkable. A CT of the abdomen pelvis was obtained which revealed peripherally enhancing collection in the right posterior pelvis with a volume of 12.8 mL and likely an abscess. She was admitted as an inpatient last night to the hospitalist service for postop pelvic abscess and she was seen in consult in the ED by Dr. Mcneal as Dr. Olson is on vacation. At the time of my exam the patient is resting comfortably in bed. She continues to complain of burning pain to her suprapubic/pelvic area that is exacerbated by position changes. She remained afebrile overnight and her leukocytosis has resolved on a.m. labs today. As the abscess fluid collection is small, it is not amenable to a percutaneous drain per Dr. Mcneal recommendation. We will continue watchful waiting and IV antibiotic administration. Opioid HPI Opioid Management Most Recent Pain and Opioid Data: Last Pain Scale 3 12/17/23 09:36 Last Pain Assessment 12/17/23 09:36 Last MAR Pain Assessment 12/17/23 09:35 Last ORT Total Score 0 12/16/23 22:41 Last ORT Risk Category Low Risk 12/16/23 22:41 Review of Systems ROS Status of ROS 10 or more systems reviewed and unremark able except as noted in history and below PFSH PFS Medical History (Updated 12/17/23 @ 11:05 by Aide Cameron NP) Depression ?F32.A - Depression, unspecified (ICD-10) Arthritis ?M19.90 - Unspecified osteoarthritis, unspecified site (ICD-10) GERD without esophagitis ?K21.9 - Gastro-esophageal reflux disease without esophagitis (ICD-10) Benign essential hypertension ?I10 - Essential (primary) hypertension (ICD-10) Surgical History (Updated 12/16/23 @ 22:52 by Eugenie Restrepo RN) History of tonsillectomy ?Z90.89 - Acquired absence of other organs (ICD-10) History of urethral stent H/O lithotripsy ?Z98.890 - Other specified postprocedural states (ICD-10) Hx of appendectomy ?Z90.49 - Acquired absence of other specified parts of digestive tract (ICD- 10) H/O: hysterectomy ?Z90.710 - Acquired absence of both cervix and uterus (ICD-10) Family History (Updated 12/16/23 @ 22:53 by Eugenie Restrepo RN) Mother Family history of COPD (chronic obstructive pulmonary disease) Family history of hypertension Father Family history of hypertension Social History (Updated 12/16/23 @ 22:55 by Eugenie Restrepo RN) Within the past year, how often did you have a drink containing alcohol: 2-3 times a week Within the past year, how many standard drinks containing alcohol did you have on a typical day: 3 or 4 Within the past year, how often did you have six or more drinks on one occasion: never Total score: 2 Score interpretation: A score of 3 or more indicates drinking is likely to affect patient's safety. 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 Known occupational exposures/hazards details: cleaning chemicals Highest level of school completed/degree received: high school graduate Are you now , , , , never or living with a partner: In a typical week, how many times do you talk on the telephone with family, friends, or neighbors: 3 or more times per week How often do you get together with friends or relatives: 3 or more times per week How often do you attend confucianism or taoism services: never Do you belong to any clubs or organizations such as confucianism groups unions, fraternal or athletic groups, or school groups: yes Total score: 3 Score interpretation: A score of greater than or equal to 2 indicates the lowest level of social isolation. Little interest or pleasure in doing things: not at all Feeling down, depressed, or hopeless: not at all Feel stressed/tense/nervous/anxious/difficulty sleeping: not at all Gender Identity: female Meds Home Medications and Allergies Home Medications ?Medication ?Instructions ?Recorded ?Confirmed ?Type clobetasol 0.05 % topical ointment 1 applic topical DAILY PRN 12/08/23 12/16/23 History scoriasis fluoxetine 20 mg capsule 20 mg PO .PM 12/08/23 12/16/23 History hydrochlorothiazide 12.5 mg tablet 12.5 mg PO DAILY 12/08/23 12/16/23 History nabumetone 750 mg tablet 750 mg PO BID 12/08/23 12/16/23 History pantoprazole 40 mg tablet,delayed 40 mg PO BID 12/08/23 12/16/23 History release tizanidine 4 mg tablet 4 mg PO DAILY PRN muscle spasticity 12/08/23 12/16/23 History Allergies Allergy/AdvReac Type Severity Reaction Status Date / Time sulfamethoxazole Allergy Mild Hives Verified 12/07/23 21:46 [From Bactrim] trimethoprim [From Bactrim] Allergy Mild Hives Verified 12/07/23 21:46 Exam Constitutional Vital Signs, click to edit/add: Last Vital Signs Temp 97.9 F 12/17/23 05:30 Pulse 76 12/17/23 05:30 Resp 18 12/17/23 05:30 BP 142/84 H 12/17/23 09:33 Pulse Ox 94 L 12/17/23 05:30 O2 Del Method Room Air 12/17/23 05:30 Common normals: no apparent distress, oriented x3, alert and well nourished General appearance: cooperative Orientation/consciousness: Yes awake HENMT Common normals: normocephalic, head/scalp atraumatic, hearing grossly normal bilaterally, external nose normal and moist oral mucous membranes Eye Common normals: PERRL, EOMs intact bilaterally, conjunctivae normal and no scleral icterus Alignment: alignment normal Eyelid: eyelids normal Neck & C-Spine Common normals: full ROM, supple and no JVD Chest Common normals: inspection of chest normal Chest: symmetrical chest wall rise Respiratory Common normals: normal respiratory effort, no retractions, no use of accessory muscles and clear to auscultation bilaterally Effort & inspection: able to speak in complete sentences Cardio Common normals: no JVD, regular rate, regular rhythm, S1 normal heart sound, S2 normal heart sound, no gallops, no clicks, no murmurs, no rub and peripheral pulses 2+ throughout GI Common normals: Normal to inspection, nondistended, normoactive bowel sounds present, soft to palpation, no hepatosplenomegaly, no masses and no bruits Palpation: tender (Suprapubic, slightly left of center); no guarding, not rigid and no rebound tenderness present Rectal Exam - Female: deferred Bladder/kidney exam: bladder normal to palpation Back & Pelvis Common normals: thoracic and lumbar spine normal to inspection Extremity Common normals: normal capillary refill and no pedal edema General: normal exam except as noted; no clubbing and no cyanosis Neuro [place] Coma Scale: GCS not evaluated Common normals: CN's II-XII intact bilaterally, moves all extremities, no focal motor deficits and no sensory deficits noted Speech: speech normal Motor exam: strength 5/5 throughout Psych Common normals: mental status grossly normal, thought process normal, affect normal and activity/motor behavior normal Results Labs Labs: Short CBC 12/16/23 12/17/23 Range/Units 18:07 05:11 WBC 11.1 H 8.5 (4.0-11.0) 10^3/uL Hgb 11.6 L 10.4 L (12.0-16.0) g/dL Hct 35.7 L 31.7 L (36.0-48.0) % Plt Count 525 H 420 (150-450) 10^3/uL BMP 12/16/23 12/17/23 18:07 05:11 Sodium 140 140 Potassium 3.8 3.8 Chloride 104 106 Carbon Dioxide 31.1 28.3 BUN 10.0 6.0 L Creatinine 0.69 0.71 Glucose 91 96 Calcium 9.4 8.6 Liver Function 12/16/23 12/17/23 Range/Units 18:07 05:11 Total Bilirubin 0.2 0.3 (0.2-1.0) mg/dL AST 14 L 12 L (15-37) U/L ALT 23 19 (14-59) U/L Alkaline Phosphatase 87 69 (46-116) U/L Albumin 3.2 L 2.5 L (3.4-5.0) g/dL Urine 12/16/23 Range/Units 18:06 Urine Color Lt. yellow (YELLOW) Urine Clarity Clear (CLEAR) Urine pH 6.5 (5.0-9.0) Ur Specific [place] <=1.005 A (1.005-1.025) Urine Protein Negative (NEG/TRACE) mg/dL Urine Glucose (UA) Negative (NEGATIVE) mg/dL Pulse Oximetry Attestation: I have reviewed the pertinent pulse oximetry results. Imaging CT scan - abdomen: Attestation: I have reviewed the pertinent imaging results. Radiologist's impression: IMPRESSION: Peripherally enhancing collection in the right posterior pelvis with a volume of 12.8 mL, likely abscess. Assessment and Plan Assessment and Plan (1) Intra-abdominal abscess: Assessment and Plan: Acute * Adm inpatient * We expect greater than a 2 midnight stay for medically necessary hospital care including IV antibiotics q8h, IVF administration maintenance fluid, and specialty general surgery care. * IVPB Zosyn and Levaquin for double gram neg and anaerobic coverage for post op (appendectomy) abscess * C/s General Surgery - we appreciate Dr Mcneal's assistance with this pt's care * No surgical intervention planned at this time * Medical treatment/ABX w/ watchful waiting * BC x 2 obtained in ED - result pending * PO Percocet or IV Morphine for pain * Zofran for nausea * CBC, CMP daily (2) UTI (urinary tract infection): Assessment and Plan: Acute/Subacute * UTI noted on previous admission (12/08/23) * Improved on repeat UA, but infection still likely persists * ABX as above more than adequate treatment for UTI (3) Hx of appendectomy: Assessment and Plan: Subacute * Lap appy per Dr Olson on 12/08/23 * Surgical glue to incision sites remain in place * Incisions healing well * No evidence of erythema/calor/swelling/drainage (4) Depression: Assessment and Plan: Chronic * Continue home fluoxetine (5) Arthritis: Assessment and Plan: Chronic * Hx of psoriatic arthiritis * Resume home nabumetone - has been on hold since [place]. Anti-inflammatory properties will likely assist with abscess pain as well (6) GERD without esophagitis: Assessment and Plan: Chronic * Continue home PPI (7) Benign essential hypertension: Assessment and Plan: Chronic * Continue home HCTZ
--- NOTE | 2023-12-17 12:23 | PM.GSCN ---
History of Present Illness Consult details Consult date: 12/17/23 Requesting physician: Clara Sadler Narrative: patient seen/examined/chart and ct-scan images reviewed; consult dictated; no signs of ongoing infection; unclear wether small fluid collection in pelvis is early abscess or sterile fluid collection, no air; continue observation and IV antibiotics; await preliminary cultures; if remains stable, possible discharge tomorrow on oral antibiotics; groin pain may be related to arthritis and being off antiinflammatories for past week, verses post op abd wall irritation. PFSH PFSH Medical History (Updated 12/17/23 @ 11:05 by Aide Cameron NP) Depression ?F32.A - Depression, unspecified (ICD-10) Arthritis ?M19.90 - Unspecified osteoarthritis, unspecified site (ICD-10) GERD without esophagitis ?K21.9 - Gastro-esophageal reflux disease without esophagitis (ICD-10) Benign essential hypertension ?I10 - Essential (primary) hypertension (ICD-10) Surgical History (Updated 12/16/23 @ 22:52 by Eugenie Restrepo RN) History of tonsillectomy ?Z90.89 - Acquired absence of other organs (ICD-10) History of urethral stent H/O lithotripsy ?Z98.890 - Other specified postprocedural states (ICD-10) Hx of appendectomy ?Z90.49 - Acquired absence of other specified parts of digestive tract (ICD-10) H/O: hysterectomy ?Z90.710 - Acquired absence of both cervix and uterus (ICD-10) Family History (Updated 12/16/23 @ 22:53 by Eugenie Restrepo RN) Mother Family history of COPD (chronic obstructive pulmonary disease) Family history of hypertension Father Family history of hypertension Social History (Updated 12/16/23 @ 22:55 by Eugenie Restrepo RN) Within the past year, how often did you have a drink containing alcohol: 2-3 times a week Within the past year, how many standard drinks containing alcohol did you have on a typical day: 3 or 4 Within the past year, how often did you have six or more drinks on one occasion: never Total score: 2 Score interpretation: A score of 3 or more indicates drinking is likely to affect patient's safety. 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 occupational exposures/hazards details: cleaning chemicals Highest level of school completed/degree received: high school graduate Are you now , , , , never or living with a partner: In a typical week, how many times do you talk on the telephone with family, friends, or neighbors: 3 or more times per week How often do you get together with friends or relatives: 3 or more times per week How often do you attend anabaptism or zoroastrian services: never Do you belong to any clubs or organizations such as anabaptism groups unions, [employer] or athletic groups, or school groups: yes Total score: 3 Score interpretation: A score of greater than or equal to 2 indicates the lowest level of social isolation. Little interest or pleasure in doing things: not at all Feeling down, depressed, or hopeless: not at all Feel stressed/tense/nervous/anxious/difficulty sleeping: not at all Gender Identity: female Meds Home Medications and Allergies Home Medications ?Medication ?Instructions ?Recorded ?Confirmed ?Type clobetasol 0.05 % topical ointment 1 applic topical DAILY PRN 12/08/23 12/16/23 History scoriasis fluoxetine 20 mg capsule 20 mg PO .PM 12/08/23 12/16/23 History hydrochlorothiazide 12.5 mg tablet 12.5 mg PO DAILY 12/08/23 12/16/23 History nabumetone 750 mg tablet 750 mg PO BID 12/08/23 12/16/23 History pantoprazole 40 mg tablet,delayed 40 mg PO BID 12/08/23 12/16/23 History release tizanidine 4 mg tablet 4 mg PO DAILY PRN muscle spasticity 12/08/23 12/16/23 History Allergies Allergy/AdvReac Type Severity Reaction Status Date / Time sulfamethoxazole Allergy Mild Hives Verified 12/07/23 21:46 [From Bactrim] trimethoprim [From Bactrim] Allergy Mild Hives Verified 12/07/23 21:46 Exam Constitutional Vital Signs, click to edit/add: Last Vital Signs Temp 97.9 F 12/17/23 05:30 Pulse 76 12/17/23 05:30 Resp 18 12/17/23 05:30 BP 142/84 H 12/17/23 09:33 Pulse Ox 94 L 12/17/23 05:30 O2 Del Method Room Air 12/17/23 05:30 Results Labs Labs: Abnormal lab results 12/16/23 12/16/23 12/17/23 Range/Units 18:06 18:07 05:11 WBC 11.1 H (4.0-11.0) 10^3/uL RBC 3.92 L 3.50 L (4.20-5.40) 10^6/uL Hgb 11.6 L 10.4 L (12.0-16.0) g/dL Hct 35.7 L 31.7 L (36.0-48.0) % Plt Count 525 H (150-450) 10^3/uL MPV 8.9 L 8.8 L (9.5-13.5) fL Lymph % (Auto) 20.1 L 17.0 L (20.5-60.0) % Neut # (Auto) 7.5 H (1.4-6.5) 10^3/uL Abs Immat Gran (auto) 0.29 H 0.18 H (0.00-0.03) 10^3/uL Imm/Tot Granulo (auto) 2.6 H 2.1 H (0.0-0.5) % BUN 6.0 L (7.0-18.0) mg/dL AST 14 L 12 L (15-37) U/L Total Protein 6.3 L (6.4-8.2) g/dL Albumin 3.2 L 2.5 L (3.4-5.0) g/dL Ur Specific [place] <=1.005 A (1.005-1.025) Ur Leukocyte Esterase Small A (NEGATIVE) Urine RBC 2-5 A (0-2) #/HPF Urine WBC 5-10 A (NONE SEEN) #/HPF Ur Squamous Epith Cells Few A (NONE/RARE) #/LPF Urine Bacteria Trace A (NONE SEEN) #/HPF Diabetes panel 12/16/23 12/17/23 Range/Units 18:07 05:11 Sodium 140 140 (136-145) mmol/L Potassium 3.8 3.8 (3.5-5.1) mmol/L Chloride 104 106 (98-107) mmol/L Carbon Dioxide 31.1 28.3 (21.0-32.0) mmol/L BUN 10.0 6.0 L (7.0-18.0) mg/dL Creatinine 0.69 0.71 (0.55-1.02) mg/dL Glucose 91 96 (74-106) mg/dL Calcium 9.4 8.6 (8.5-10.1) mg/dL AST 14 L 12 L (15-37) U/L ALT 23 19 (14-59) U/L Alkaline Phosphatase 87 69 (46-116) U/L Total Protein 7.8 6.3 L (6.4-8.2) g/dL Albumin 3.2 L 2.5 L (3.4-5.0) g/dL Calcium panel 12/16/23 12/17/23 Range/Units 18:07 05:11 Calcium 9.4 8.6 (8.5-10.1) mg/dL Albumin 3.2 L 2.5 L (3.4-5.0) g/dL Pituitary panel 12/16/23 12/17/23 Range/Units 18:07 05:11 Sodium 140 140 (136-145) mmol/L Potassium 3.8 3.8 (3.5-5.1) mmol/L Chloride 104 106 (98-107) mmol/L Carbon Dioxide 31.1 28.3 (21.0-32.0) mmol/L BUN 10.0 6.0 L (7.0-18.0) mg/dL Creatinine 0.69 0.71 (0.55-1.02) mg/dL Glucose 91 96 (74-106) mg/dL Calcium 9.4 8.6 (8.5-10.1) mg/dL Adrenal panel 12/16/23 12/17/23 Range/Units 18:07 05:11 Sodium 140 140 (136-145) mmol/L Potassium 3.8 3.8 (3.5-5.1) mmol/L Chloride 104 106 (98-107) mmol/L Carbon Dioxide 31.1 28.3 (21.0-32.0) mmol/L BUN 10.0 6.0 L (7.0-18.0) mg/dL Creatinine 0.69 0.71 (0.55-1.02) mg/dL Glucose 91 96 (74-106) mg/dL Calcium 9.4 8.6 (8.5-10.1) mg/dL Total Bilirubin 0.2 0.3 (0.2-1.0) mg/dL AST 14 L 12 L (15-37) U/L ALT 23 19 (14-59) U/L Alkaline Phosphatase 87 69 (46-116) U/L Total Protein 7.8 6.3 L (6.4-8.2) g/dL Albumin 3.2 L 2.5 L (3.4-5.0) g/dL All other labs normal. Assessment and Plan Assessment and Plan (1) Intra-abdominal abscess: (2) UTI (urinary tract infection): (3) Hx of appendectomy: (4) Depression: (5) Arthritis: (6) GERD without esophagitis: (7) Benign essential hypertension:
--- NOTE | 2023-12-17 12:39 | CM.NOTE ---
Rounds made with Dr. Sadler. Dr. Sadler reviews labs/CT findings with Antolin. Understanding verbalized. No plan for discharge today.
[2023-12-17 14:01] VITALS: BP 139/80; PULSE 63; TEMP 36.7; O2SAT 96
[2023-12-17] MEDS: 0.9 % SODIUM CHLORIDE 1,000 ML 100 ML IV (15:27)
[2023-12-17] MEDS: OXYCODONE HCL/ACETAMINOPHEN 5MG/325MG 1 TAB PO (18:14)
[2023-12-17 20:28] VITALS: BP 135/81; PULSE 81; TEMP 36.6; O2SAT 96
[2023-12-18] MEDS: LEVOFLOXACIN IN DEXTROSE 5 % 750 MG/150 ML IV.SOLN 100 MG IV (00:08)
[2023-12-18] MEDS: OXYCODONE HCL/ACETAMINOPHEN 5MG/325MG 1 TAB PO (00:16)
[2023-12-18] MEDS: 0.9 % SODIUM CHLORIDE 1,000 ML 100 ML IV (03:04)
[2023-12-18 04:06] VITALS: BP 107/61; PULSE 74; TEMP 36.6; O2SAT 98
[2023-12-18] MEDS: PIPERACILLIN SODIUM/TAZOBACTAM 3.375 GM in 0.9 % SODIUM CHLORIDE 50 ML IV (04:07)
[2023-12-18 04:58] LABS: Basophils Absolute Auto 0.1 10^3/uL (0.0-0.1); Basophils Percent Auto 0.8 % (0.2-2.0); Eosinophils Absolute Auto 0.2 10^3/uL (0.0-0.7); Eosinophils Percent Auto 2.2 % (0.9-7.0); Hematocrit 31.9 % (36.0-48.0); Hemoglobin 10.3 g/dL (12.0-16.0); Immature Granulocytes Abs Auto 0.13 10^3/uL (0.00-0.03); Immature Granulocytes Pct Auto 1.7 % (0.0-0.5); Lymphocytes Absolute Auto 1.7 10^3/uL (1.2-3.8); Lymphocytes Percent Auto 22.3 % (20.5-60.0); Mean Corpuscular HGB Conc 32.3 g/dL (29.9-35.2); Mean Corpuscular Hemoglobin 29.7 pg (26.7-34.0); Mean Corpuscular Volume 91.9 fL (81.0-99.0); Mean Platelet Volume 8.9 fL (9.5-13.5); Monocytes Absolute Auto 0.5 10^3/uL (0.3-0.8); Monocytes Percent Auto 6.9 % (1.7-12.0); Neutrophils Percent Auto 66.1 % (43.0-75.0); Platelet Count 405 10^3/uL (150-450); Red Blood Count 3.47 10^6/uL (4.20-5.40); Red Cell Distribution Width 12.8 % (11.0-15.0); White Blood Count 7.6 10^3/uL (4.0-11.0)
[2023-12-18 05:19] LABS: Alanine Aminotransferase 17 U/L (14-59); Albumin Globulin Ratio 0.7; Albumin Level 2.6 g/dL (3.4-5.0); Alkaline Phosphatase 66 U/L (46-116); Anion Gap 10.3; Aspartate Amino Transferase 9 U/L (15-37); BUN Creatinine Ratio 12.7; Bilirubin Total 0.3 mg/dL (0.2-1.0); Calcium 8.5 mg/dL (8.5-10.1); Carbon Dioxide 29.7 mmol/L (21.0-32.0); Chloride 105 mmol/L (98-107); Estimated GFR (African America >60 (>=60); Estimated GFR (Non-African Ame >60 (>=60); Globulin 3.6 g/dL; Glucose 92 mg/dL (74-106); Sodium 141 mmol/L (136-145); Total Protein 6.2 g/dL (6.4-8.2)
--- NOTE | 2023-12-18 06:59 | PM.GSPN ---
Progress Note: A&P Assessment and Plan (1) Intra-abdominal abscess: Assessment and Plan: no evidence of ongoing infection, patient afebrile with normal wbc; normal GI function; repeat cultures without growth; ok for discharge; would continue Levaquin 750 mg po for additional 5 days; patient to f/u with Dr Olson as next week as scheduled. (2) UTI (urinary tract infection): (3) Hx of appendectomy: (4) Depression: (5) Arthritis: (6) GERD without esophagitis: (7) Benign essential hypertension: Subjective Subjective Interval history: some LLQ/groin pain last evening, relieved with percocet; normal bm yesterday, no N/V Exam Narrative Exam Narrative: abd: soft, normal bs, nondistended; mild tenderness around LLQ incision, no peritoneal signs; incisions without erythema or drainage, no ecchymoses or hematoma Constitutional Vital Signs, click to edit/add: Last Vital Signs Temp 97.8 F 12/18/23 04:06 Pulse 74 12/18/23 04:06 Resp 16 12/18/23 04:06 BP 107/61 12/18/23 04:06 Pulse Ox 98 12/18/23 04:06 O2 Del Method Room Air 12/18/23 04:06
[2023-12-18 07:23] VITALS: PULSE 70
[2023-12-18 07:27] VITALS: BP 134/90; PULSE 70; TEMP 36.3; O2SAT 96
[2023-12-18] MEDS: NABUMETONE 500 MG TABLET 750 MG PO (09:32)
[2023-12-18] MEDS: OMEPRAZOLE 40 MG CAPSULE.DR PO (09:32)
[2023-12-18] MEDS: FLUOXETINE HCL 20 MG CAPSULE PO (09:32)
[2023-12-18] MEDS: HYDROCHLOROTHIAZIDE 25 MG TABLET 12.5 MG PO (09:32)
--- NOTE | 2023-12-18 09:45 | P.DS_ITS ---
<Statement entered by Clara Sadler DO - 12/18/23 14:45> This documentation has been reviewed and approved. I also have seen and evaluated patient at the time of discharge and agree with the above plan of care. DS: Providers Provider Date of admission: 12/16/23 22:32 Primary care physician: YOAV CONTEH Admitting clinician: Hernandez Saldana Consults: 12/16/23 20:51 Consult to General Surgeon Routine Consulting Provider: Evelio Mcneal Reason for consultation: Intra-abdominal abscess Has provider been notified: Yes Discharging clinician: Aide Cameron DS: Diagnosis Discharge Diagnosis (1) Intra-abdominal abscess: (2) UTI (urinary tract infection): (3) Hx of appendectomy: (4) Depression: (5) Arthritis: (6) GERD without esophagitis: (7) Benign essential hypertension: DS: Summary Hospital Course Hospital Course: The patient was admitted with a postoperative intra-abdominal abscess after an appendectomy. She was treated with IVPB Levaquin and Zosyn for broad gram negative and anaerobic coverage. Her pain was adequately controlled with p.o. pain management. She was seen in consult by Dr. Mcneal, general surgeon, who recommended medical management as the fluid collection was small and not amenable to drain. The patient's pain improved and her leukocytosis resolved. There was also an incidental finding of an equivocal UTI which was covered by the above antibiotics. The patient is being discharged home in stable condition with a prescription for Levaquin for 5 more days. She should follow-up with Dr. Olson, who performed her appendectomy, as previously scheduled for next week. Time Spent with Patient Time attestation: Total time spent providing and/or coordinating discharge services: Time spent: greater than 30 minutes Specific discharge activities: Physical exam, discussion of discharge plan, questions answered. Exam Constitutional Vital Signs, click to edit/add: Last Vital Signs Temp 97.4 F L 12/18/23 07:27 Pulse 70 12/18/23 07:27 Resp 18 12/18/23 07:27 BP 134/90 12/18/23 07:27 Pulse Ox 96 12/18/23 07:27 O2 Del Method Room Air 12/18/23 07:27 Common normals: no apparent distress, oriented x3 and alert General appearance: cooperative Orientation/consciousness: Yes awake HENMT Common normals: normocephalic and head/scalp atraumatic Eye Common normals: PERRL, EOMs intact bilaterally, conjunctivae normal and no scleral icterus Neck & C-Spine Common normals: no JVD Respiratory Common normals: normal respiratory effort, no use of accessory muscles and clear to auscultation bilaterally Effort & inspection: able to speak in complete sentences and symmetric chest movement Cardio Common normals: no JVD, regular rate, regular rhythm, S1 normal heart sound, S2 normal heart sound, no murmurs and peripheral pulses 2+ throughout GI Common normals: Normal to inspection, nondistended, normoactive bowel sounds present and soft to palpation Palpation: tender Details: LLQ (suprapubic); no guarding, not rigid and no rebound tenderness present Bladder/kidney exam: bladder normal to palpation Extremity Common normals: normal to inspection, full ROM, normal capillary refill and no pedal edema General: no clubbing and no cyanosis Neuro Common normals: moves all extremities, no focal motor deficits and no sensory deficits noted Speech: speech normal Psych Common normals: mental status grossly normal and activity/motor behavior normal DS: Data Data Completed and Pending Labs on day of discharge: Labs from last 24 hours 12/18/23 04:26 WBC 7.6 RBC 3.47 L Hgb 10.3 L Hct 31.9 L MCV 91.9 MCH 29.7 MCHC 32.3 RDW 12.8 Plt Count 405 MPV 8.9 L Neut % (Auto) 66.1 Lymph % (Auto) 22.3 [place] % (Auto) 6.9 Eos % (Auto) 2.2 Baso % (Auto) 0.8 Neut # (Auto) 5.0 Lymph # (Auto) 1.7 [place] # (Auto) 0.5 Eos # (Auto) 0.2 Baso # (Auto) 0.1 Abs Immat Gran (auto) 0.13 H Imm/Tot Granulo (auto) 1.7 H Sodium 141 Potassium 4.0 Chloride 105 Carbon Dioxide 29.7 Anion Gap 10.3 BUN 9.0 Creatinine 0.71 Est GFR ( Amer) >60 Est GFR (Non-Af Amer) >60 BUN/Creatinine Ratio 12.7 Glucose 92 Calcium 8.5 Total Bilirubin 0.3 AST 9 L ALT 17 Alkaline Phosphatase 66 Total Protein 6.2 L Albumin 2.6 L Globulin 3.6 Albumin/Globulin Ratio 0.7 Discharge Plan Discharge Disposition: Home, Self-Care Condition: Good Discharge Medications: New levofloxacin 750 mg tablet 750 mg PO DAILY 5 Days Qty: 5 0RF Continued clobetasol 0.05 % ointment 1 applic TOPICAL DAILY PRN (Reason: scoriasis ) fluoxetine 20 mg capsule 20 mg PO .PM hydrochlorothiazide 12.5 mg tablet 12.5 mg PO DAILY nabumetone 750 mg tablet 750 mg PO BID pantoprazole 40 mg tablet,delayed release (DR/EC) 40 mg PO BID tizanidine 4 mg tablet 4 mg PO DAILY PRN (Reason: muscle spasticity) Activity: increase activity as tolerated Diet: advance to your usual diet Print Language: Citizen Of [place] Patient Instructions: Acute Abdominal Pain (GEN), Laparoscopic Appendectomy (DC) Activity Restrictions/Additional Instructions: - Follow up with Dr Olson next week as previously scheduled Forms: Portal Instructions Follow Up Appointments: Follow up with Dr. Olson as previously scheduled, Call [phone] to reschedule if needed. Discharge Date/Time: 12/18/23 11:25 Discharge location: Home
--- NOTE | 2023-12-19 12:07 | CM.DCFOLLOWU ---
Person spoke with: patient How are you feeling? well How is your pain? no pain Did you understand your discharge instructions? yes Do you have any questions about your discharge instructions? no Were you given any prescriptions at discharge? yes Were you able to get your prescriptions filled? yes Do you understand how to take your medications as ordered? yes Do you have any questions about your follow up appointment and do you plan to keep your follow up appointment? no questions, reviewed follow up Is there anything else that you would like to discuss? no Questions/Comments/Concerns/Other: no
== END 2023-12-18 11:25 | disposition home or self-care (01) | DRG 862 ==
LOC: ER 22:05 → MS 22:27
PROVIDERS: Emergency Medicine Emergency Medical Services; Nurse Practitioner Acute Care; Admitting Provider Family Medicine; Emergency Provider Student in an Organized Health Care Education/Training Program; PCP Family Medicine; Visit Provider Family Medicine
DX: T81.43XA Infection following a procedure, organ and space surgical site, initial encounter (principal); K65.1 Peritoneal abscess; N39.0 Urinary tract infection, site not specified; F32.A Depression, unspecified; M19.90 Unspecified osteoarthritis, unspecified site; K21.9 Gastro-esophageal reflux disease without esophagitis; I10 Essential (primary) hypertension; M06.9 Rheumatoid arthritis, unspecified; B96.20 Unspecified Escherichia coli [E. coli] as the cause of diseases classified elsewhere; B96.5 Pseudomonas (aeruginosa) (mallei) (pseudomallei) as the cause of diseases classified elsewhere; Z87.442 Personal history of urinary calculi; Z90.711 Acquired absence of uterus with remaining cervical stump; Z87.440 Personal history of urinary (tract) infections; Z90.49 Acquired absence of other specified parts of digestive tract; Z98.890 Other specified postprocedural states; Z79.899 Other long term (current) drug therapy
CPT/HCPCS: 36415; 74177; 80053; 81001; 83605; 85025; 87040; 87086; 87150; 87186; 96365; 96366; 96367; 96368; 96375; 99285; J2270; J2543; Q9967

== ENCOUNTER 2024-02-03 16:02 | Outpatient (OUT) | payer OTHER, SELFPAY ==
--- NOTE | 2024-02-03 16:11 | XR_ITS ---
The [address] [address] Patient Name: RHETT BARTHOLOMEW MRN: [id number] date: 1970 Sex: F Assigned Patient Location: [facility] Current Patient Location: [facility] Accession/Order Number: [id number] Exam Date: 02/03/2024 16:30 Report Date: 02/05/2024 05:55 At the request of: YOAV CONTEH Procedure: XR cervical spine w flex/ext EXAMINATION: XR cervical spine w flex/ext HISTORY: cervicalgia COMPARISON: No relevant comparison available. FINDINGS: BONES: Minimal grade 1 anterolisthesis of C3 on 4 and C4 on 5 which are present during neutral and flexion positions, but reduce during extension. Multilevel mild-moderate degenerative facet arthropathy predominantly on the left. DISC SPACES: No significant disc height narrowing, subluxation, or endplate abnormality. PARASPINOUS: Negative. No paraspinous abnormality is seen. OTHER: Negative. XR/XR cervical spine w flex/ext IMPRESSION: 1. Multilevel moderate degenerative facet arthropathy. 2. Grade 1 anterior listhesis involving C3 on 4 and C4 on 5 which reduces during extension. Electronically authenticated by: BETO DIAL Date: 02/05/2024 05:55
== END 2024-02-03 16:03 | disposition home or self-care (01) ==
LOC: RAD 16:04
PROVIDERS: PCP Family Medicine; Visit Provider Family Medicine
DX: M54.2 Cervicalgia (principal)
CPT/HCPCS: 72052

== ENCOUNTER 2025-06-15 20:25 | Emergency (ER) | payer OTHER, SELFPAY ==
[2025-06-15 20:45] VITALS: BP 150/93; PULSE 92; TEMP 36.6; O2SAT 97; BMI 28.0
--- NOTE | 2025-06-16 00:25 | ED.HEATRA1 ---
HPI HPI - Head Injury General Chief complaint: Head Injury Stated complaint: FALL Time Seen by Provider: 06/16/25 00:21 Source: patient Mode of arrival: walk-in Limitations: no limitations History of Present Illness HPI Narrative: carrying grand child and mis step on an incline and fell forward striking her head on metal frame. Neg LOC. Now has headache and left sided neck pain. Mild nausea. No injury to her chest. Shoulders feels sore but she has FROM of the shoulder. No dizziness or other injury. Does not take blood thinners Related Data Home Medications ?Medication ?Instructions ?Recorded ?Confirmed clobetasol 0.05 % topical ointment 1 applic topical DAILY PRN 12/08/23 12/16/23 scoriasis fluoxetine 20 mg capsule 20 mg PO .PM 12/08/23 12/16/23 hydrochlorothiazide 12.5 mg tablet 12.5 mg PO DAILY 12/08/23 12/16/23 nabumetone 750 mg tablet 750 mg PO BID 12/08/23 12/16/23 pantoprazole 40 mg tablet,delayed 40 mg PO BID 12/08/23 12/16/23 release tizanidine 4 mg tablet 4 mg PO DAILY PRN muscle spasticity 12/08/23 12/16/23 Previous Rx's ?Medication ?Instructions ?Recorded levofloxacin 750 mg tablet 750 mg PO DAILY 5 days #5 tabs 12/18/23 Allergies Allergy/AdvReac Type Severity Reaction Status Date / Time sulfamethoxazole (From Allergy Mild Hives Verified 06/15/25 20:51 Bactrim) trimethoprim (From Bactrim) Allergy Mild Hives Verified 06/15/25 20:51 Opioid HPI Opioid Management Most Recent Pain and Opioid Data: Last Pain Scale 5 12/18/23, 00:16 Last ORT Total Score 0 12/16/23, 22:41 Last ORT Risk Category Low Risk 12/16/23, 22:41 Review of Systems ROS Status of ROS 10 or more systems reviewed and unremarkable except as noted in history and below [facility] Medical History (Updated 06/16/25 @ 02:19 by Jb Patricia MD) Depression ?F32.A - Depression, unspecified (ICD-10) Arthritis ?M19.90 - Unspecified osteoarthritis, unspecified site (ICD-10) GERD without esophagitis ?K21.9 - Gastro-esophageal reflux disease without esophagitis (ICD-10) Benign essential hypertension ?I10 - Essential (primary) hypertension (ICD-10) Surgical History (Updated 12/16/23 @ 22:52 by Eugenie Restrepo RN) History of tonsillectomy ?Z90.89 - Acquired absence of other organs (ICD-10) History of urethral stent H/O lithotripsy ?Z98.890 - Other specified postprocedural states (ICD-10) Hx of appendectomy ?Z90.49 - Acquired absence of other specified parts of digestive tract (ICD-10) H/O: hysterectomy ?Z90.710 - Acquired absence of both cervix and uterus (ICD-10) Family History (Updated 12/16/23 @ 22:53 by Eugenie Restrepo RN) Mother Family history of COPD (chronic obstructive pulmonary disease) Family history of hypertension Father Family history of hypertension Social History (Updated 12/16/23 @ 22:55 by Eugenie Restrepo RN) Within the past year, how often did you have a drink containing alcohol: 2-3 times a week Within the past year, how many standard drinks containing alcohol did you have on a typical day: 3 or 4 Within the past year, how often did you have six or more drinks on one occasion: never Total score: 2 Score interpretation: A score of 3 or more indicates drinking is likely to affect patient's safety. 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 Known occupational exposures/hazards details: cleaning chemicals Highest level of school completed/degree received: high school graduate Are you now , , , , never or living with a partner: In a typical week, how many times do you talk on the telephone with family, friends, or neighbors: 3 or more times per week How often do you get together with friends or relatives: 3 or more times per week How often do you attend spiritism or christian services: never Do you belong to any clubs or organizations such as spiritism groups unions, fraternal or athletic groups, or school groups: yes Total score: 3 Score interpretation: A score of greater than or equal to 2 indicates the lowest level of social isolation. Little interest or pleasure in doing things: not at all Feeling down, depressed, or hopeless: not at all Feel stressed/tense/nervous/anxious/difficulty sleeping: not at all Gender Identity: female Exam Constitutional Vital Signs, click to edit/add: Last Vital Signs Temp 97.9 F 06/15/25 20:45 Pulse 92 H 06/15/25 20:45 Resp 17 06/15/25 20:45 BP 150/93 H 06/15/25 20:45 Pulse Ox 97 06/15/25 20:45 Common normals: no apparent distress, average body habitus, oriented x3, no limitations, healthy appearing, alert and well nourished [facility] Face and sinus images:  1. mild abrasion. not raised Eye Common normals: PERRL and EOMs intact bilaterally Neck & C-Spine Neck images:  1. mild tenderness Respiratory Common normals: normal respiratory effort, no retractions, no use of accessory muscles and clear to auscultation bilaterally Cardio Common normals: regular rate, regular rhythm, S1 normal heart sound and S2 normal heart sound GI Common normals: Normal to inspection, nondistended, normoactive bowel sounds present, soft to palpation and non-tender Extremity Common normals: normal to inspection and full ROM Neuro Common normals: oriented x3, CN's II-XII intact bilaterally, moves all extremities and no focal motor deficits Psych Appearance: grossly normal Course Vital Signs Vital signs: Vital Signs Temperature 97.9 F 06/15/25 20:45 Pulse Rate 92 H 06/15/25 20:45 Respiratory Rate 17 06/15/25 20:45 Blood Pressure 150/93 H 06/15/25 20:45 Pulse Oximetry 97 06/15/25 20:45 Temperature 97.9 F 06/15/25 20:45 Pulse Rate 92 H 06/15/25 20:45 Respiratory Rate 17 06/15/25 20:45 Blood Pressure 150/93 H 06/15/25 20:45 Pulse Oximetry 97 06/15/25 20:45 MDM - Head Injury MDM Narrative Medical decision making narrative: patient fell striking her head/scalp. Presents with headache and neck pain. No LOC, dizziness. positive left para cervical muscular tenderness. normal exam. CT brain and C-spine neg for acute findings. Patient informed of the above. She was resting comfortably prior to discharge Discharge Plan Discharge Chief Complaint: Head Injury Clinical Impression: Closed head injury, Cervical strain, acute Patient Disposition: Home, Self-Care Prescriptions / Home Meds: No Action clobetasol 0.05 % ointment 1 applic TOPICAL DAILY PRN (Reason: scoriasis ) fluoxetine 20 mg capsule 20 mg PO .PM hydrochlorothiazide 12.5 mg tablet 12.5 mg PO DAILY nabumetone 750 mg tablet 750 mg PO BID pantoprazole 40 mg tablet,delayed release (DR/EC) 40 mg PO BID tizanidine 4 mg tablet 4 mg PO DAILY PRN (Reason: muscle spasticity) levofloxacin 750 mg tablet 750 mg PO DAILY 5 Days Qty: 5 0RF Print Language: Nigerien Instructions: Cervical Strain (ED), Head Injury (ED) Referrals: YOAV CONTEH [Primary Care Provider, Family Practice] - 1 week Discharge Date/Time: 06/16/25 02:31
--- OUTSIDE RECORDS SUMMARY | 2025-06-16 00:54 | XMS_ITS | Clinical Summary ---
Author Organization [facility] Address [address] [place] [address] Care Team Providers Care Climatology Professor Name Role Phone Pablo Amador MD Primary Care Provider [phone] Allergies Active AllergyReactionsCriticalityNoted DateComments Sulfamethoxazole-VtozktoshtmlKgmyl80/28/2024 Medications MedicationSigDispense QuantityRefillsLast FilledStart DateEnd DateStatus hydroCHLOROthiazide (HYDRODiuril) 12.5 MG tablet Take 12.5 mg by mouth Daily09/11/2023ctive nabumetone (Relafen) 750 MG tablet Take 750 mg by mouth in the morning and 750 mg before bedtime.09/11/2023ctive pantoprazole (ProtoNix) 40 MG EC tablet Take 40 mg by mouth DailyActive tiZANidine (Zanaflex) 4 MG tablet Take 4 mg by mouth at nygljmc9809/11/2023ctive fluticasone (Flonase) 50 MCG/ACT nasal spray USE 2 SPRAY(S) IN EACH NOSTRIL ONCE DAILY09/10/2023ctive FLUoxetine (PROzac) 20 MG capsule TAKE 1 CAPSULE BY MOUTH ONCE DAILY IN THE EVENINGActive Cyanocobalamin (Vitamin B 12) 100 MCG lozenge as directed OrallyActive Family History Medical HistoryRelationNameCommentsHypertensionFatherDaveArthritisMotherJudie COPDMotherJudieHypertensionMotherJudieRelationNameStatusCommentsBrother1 brother Daughter1 daughterFatherDaveAliveMotherJudieAliveSon1 son Social History Tobacco UseTypesPacks/DayYears UsedDateSmoking Tobacco: NeverSmokeless Tobacco: Never Tobacco Cessation:Counseling Given: Not Answered Alcohol UseStandard Drinks/WeekCommentsYes4 (1 standard drink = 0.6 oz pure alcohol)caffeine intake : 1-2 cups per dayCommentsNoSex and Gender InformationValueDate RecordedSex Assigned at BirthNot on fileLegal SexFemale 09/12/2022 7:07 PM EDTGender IdentityNot on fileSexual OrientationNot on file Last Filed Vital Signs Vital SignReadingTime TakenCommentsBlood Tuhfbkyu826/78012/23/2023 9:49 AM EDT Lyugf752512/23/2023 9:49 AM EDTTemperature--Respiratory Rate--Oxygen Heuoeamjrq24% 12/23/2023 9:49 AM EDTInhaled Oxygen Concentration--Ftcxog17.8 kg (156 lb) 12/23/2023 9:49 AM NIEAwsnzz254.7 cm (5' 3.25 )12/23/2023 9:49 AM EDTBody Mass Index27.42012/23/2023 9:49 AM EDT Plan of Treatment Not on file Insurance Care Teams Team MemberRelationshipSpecialtyStart DateEnd Date Pablo Amador MD [address] [place] [address] [place] [address] PCP - GeneralFamily Medicine09/26/23
== END 2025-06-16 02:31 | disposition home or self-care (01) ==
PROVIDERS: Emergency Provider Internal Medicine; PCP Family Medicine
DX: S09.8XXA Other specified injuries of head, initial encounter (principal); S16.1XXA Strain of muscle, fascia and tendon at neck level, initial encounter; W10.2XXA Fall (on)(from) incline, initial encounter
CPT/HCPCS: 70450; 72125; 76376; 99284